=== PATIENT | female | born 1940 | race Caucasian/White ===

== ENCOUNTER 2018-08-08 09:54 | Day surgery (SDC) | payer MEDICARE, BC, SELFPAY ==
--- NOTE | 2018-08-07 20:02 | W.PIPPEYE ---
History of Present Illness Chief Complaint: Progressive decreased vision, right eye Narrative: Patient is a 77-year-old lady with history of diminished visual acuity in both eyes at both distance and near. She has significant difficulty with glare from headlights at night and trouble with reading fine print. On examination she was noted to have moderate bilateral nuclear cataracts with posterior subcapsular cataract of the right eye and cortical cataract of the left eye. The option of cataract surgery was offered to the patient and she felt she was symptomatic enough that she wished to proceed. NOTE: The Chief Complaint, HPI, Past Medical History, Past Surgical History, Family History, Social History, Medications, and complete Ophthalmic Exam with detailed Assessment and Plan have already been documented in the patient's outpatient ophthalmic record and are not covered again in detail here. [facility] Social History Smoking and Tabacco status: Never Meds Allergies Allergy/AdvReac Type Severity Reaction Status Date / Time No Known Allergies Allergy Unverified 08/03/18 15:38 Exam OCULAR EXAM:: Most recent ocular examination revealed best corrected vision of 20/30 OD 20/25 OS. Intraocular pressure was 14 OU. Extraocular motility is normal. Pupils equal, round, and reactive without afferent pupillary defect slit-lamp examination is significant for pupils dilating to 6 mm OU. 2-3+ nuclear with trace posterior subcapsular cataract OD. 2+ nuclear with trace cortical cataract OS. Funduscopic examination is significant for disc cupping of 0.5-0.6 OU with good color. The optic nerves have good perfusion and normal color. The retinal vasculature is normal without significant tortuosity or abnormality. The maculas are normal in appearance with normal contour and foveal reflex appropriate for age. The peripheral retina and vitreous are normal. BRIGHTNESS ACUITY TESTING (BAT):: Brightness acuity testing of the right eye off is 20/30. Low is 20/60. Medium is 20/50. High is 20/80. Assessment and Plan (1) Posterior subcapsular age-related cataract, right eye: Current visit: No Status: Acute Assessment: Visually significant cataract, right eye. Plan: Cataract extraction with intraocular lens implantation, right eye (2) Nuclear sclerotic cataract of right eye: Current visit: No Status: Acute Assessment: Visually significant cataract, right eye. Plan: Cataract extraction with intraocular lens implantation, right eye Note: NOTE:: The details of the planned surgery, including the risks, indications,limitations,expectations,outcome and possible complications were explained to the patient. The patient understands the complications including, but not limited to: infection, hemorrhage, posterior dislocation of the lens or nuclear fragments which may require the intervention of a vitreoretinal surgeon, possible loss of the eye, or from anesthetic complications. The patient has been made aware of the option of not having surgery, that vision following surgery may not be equal to that prior to surgery, and that the planned surgery may not achieve the intended results. Following this discussion, which the patient appeared to understand, the patient wishes to proceed with cataract surgery with lens implantation of the affected eye to improve and maximize vision.
--- NOTE | 2018-08-07 20:16 | W.PIPPEYE ---
History of Present Illness Chief Complaint: Progressive decreased vision, right eye Narrative: The patient is a 82-year old male with history of progressive decreased vision in both eyes at both distance and near. He has a history of macular degeneration with exudative changes. He has previously undergone a Avastin injections in the left eye and has poor central visual acuity in the left eye. He is noted to have a moderate nuclear cataract with posterior subcapsular cataract of the right eye. Cataract surgery is undertaken and attempt to improve and maximize his vision in his good eye. NOTE: The Chief Complaint, HPI, Past Medical History, Past Surgical History, Family History, Social History, Medications, and complete Ophthalmic Exam with detailed Assessment and Plan have already been documented in the patient's outpatient ophthalmic record and are not covered again in detail here. [facility] Medical History Macular scar of left eye (Chronic) Nuclear sclerotic cataract of right eye (Acute) Posterior subcapsular age-related cataract, right eye (Acute) Social History Smoking and Tabacco status: Never Meds Allergies Allergy/AdvReac Type Severity Reaction Status Date / Time No Known Allergies Allergy Unverified 08/03/18 15:38 Exam OCULAR EXAM:: Most recent ocular examination is significant for best corrected vision of 20/30 right eye, 2/80 left eye. Intraocular pressure is 13 OD, 11 OS. Extraocular motility is normal. Pupils equal, round, and reactive without afferent pupillary defect slit-lamp examination is significant for pupils dilating to 4 mm OU. 2+ nuclear with 1+ posterior subcapsular cataract OU. Funduscopic examination is significant for disc cupping of 0.3 OU with normal vessels. There are drusen in the right macula. In the left macula there is central fibrotic scar with otherwise normal retinal vasculature vitreous and periphery. BRIGHTNESS ACUITY TESTING (BAT):: Brightness acuity testing of the right eye off is 20/30. Low is 20/30. Medium is 20/30. High is 20/40. Assessment and Plan (1) Posterior subcapsular age-related cataract, right eye: Current visit: No Status: Acute Assessment: Visually significant cataract, right eye. Plan: Cataract extraction with intraocular lens implantation, right eye (2) Nuclear sclerotic cataract of right eye: Current visit: No Status: Acute Assessment: Visually significant cataract, right eye. Plan: Cataract extraction with intraocular lens implantation, right eye Note: NOTE:: The details of the planned surgery, including the risks, indications,limitations,expectations,outcome and possible complications were explained to the patient. The patient understands the complications including, but not limited to: infection, hemorrhage, posterior dislocation of the lens or nuclear fragments which may require the intervention of a vitreoretinal surgeon, possible loss of the eye, or from anesthetic complications. The patient has been made aware of the option of not having surgery, that vision following surgery may not be equal to that prior to surgery, and that the planned surgery may not achieve the intended results. Following this discussion, which the patient appeared to understand, the patient wishes to proceed with cataract surgery with lens implantation of the affected eye to improve and maximize vision.
[2018-08-08] MEDS: Tetracaine 0.5% 4 ML BTL OD ×4 (10:13→11:26)
[2018-08-08] MEDS: Tropicam./Phenyleph. (1/2.5%) 5 ML BTL OD ×3 (10:13→10:32)
[2018-08-08 10:14] VITALS: BP 148/86; PULSE 81; RESP 16; TEMP 36; O2SAT 95
[2018-08-08] MEDS: Lidocaine 2% Jelly 6 ML SYR (11:26)
[2018-08-08] MEDS: Povidone-Iodine Ophth 30 ML BTL ×2 (11:26→11:47)
[2018-08-08] MEDS: Lidocaine 1% Pres-Free 5 ML VIAL (11:28)
[2018-08-08] MEDS: Balanced Salt Soln.-PLUS 500 ML BAG (11:29)
--- NOTE | 2018-08-08 11:56 | W.PM.DSUDISC ---
Discharge Plan Disposition Patient Disposition: HOME Condition: Stable Discharge Details Attending Provider: Zack Foster Primary Care Provider: Brad Jose Discharge Instructions Stand Alone Forms: Post-op Topical Cataract, Bhavani Gallego (DSU) Discharge Orders Discharge Orders: Discharge Order (Routine); Ordered 08/08/18 Ordered By: Zack Foster DS: Diagnosis Discharge Diagnosis (1) Status post cataract extraction and insertion of intraocular lens of right eye: Status: Chronic
--- NOTE | 2018-08-08 11:58 | ROE_ITS ---
Date of service: 08/08/18 Time of Service: 11:57 Operative Note PRE-OP DIAGNOSIS: Cataract, right eye PROCEDURE: Cataract extraction using phacoemulsification with intraocular lens implant, right eye SURGEON: Zack Foster ANESTHESIA: MAC and local (sub-tenon's anesthetic infiltration) ESTIMATED BLOOD LOSS: 0 PATHOLOGY: none sent COMPLICATIONS: None Patient was transported to: same day Patient's condition: stable Implants: [employer] / [employer] Tecnis [id number] intraocular lens Indications: Progressive decreased vision due to cataract, right eye Procedure Description: CATARACT SURGERY OPERATIVE REPORT PREOPERATIVE DIAGNOSIS: Nuclear/posterior subcapsular cataract, right eye POSTOPERATIVE DIAGNOSIS: Same OPERATION: Cataract extraction using phacoemulsification with posterior chamber intraocular lens implant, right eye. IOL: IOL [employer]/Model: [employer] / EDWIN Tecnis ZCB00 IOL Power: + 18.50 diopters IOL Serial Number: [id number] Optic Diameter: 6.0mm Haptic/Overall Diameter: 13.0mm PHACO INFO: Issac Adaptive Computingurion Vision System with OZil and Active Fluidics Cumulative Dispersed Energy (CDE): 15.60 seconds SURGEON: Zack Foster MD, MARIANO ANESTHESIA: Monitored Anesthesia Care (MAC), with local sub-tenon's anesthetic infiltration COMPLICATIONS: None SPECIMENS: None INDICATIONS FOR PROCEDURE: The patient is a 77-year-old lady with history of macular scar of the left eye with poor central visual acuity. She has developed a significant nuclear and posterior subcapsular cataract of the right eye and desires cataract surgery and attempt to improve and maximize her vision PROCEDURE: The correct surgical eye was identified and marked as the right eye and the pupil was dilated in the preoperative area using mydriatics and cycloplegics. The dilated pupil size was 7.0 mm. Oral sedation was administered in the form of an Imprimis MKO Melt (midazolam 3mg/ketamine 25mg/ondansetron 2mg). The patient was brought to the operating room where cardiopulmonary monitoring was instituted and surgical time-out was performed, confirming the correct operative eye and IOL power. Topical anesthesia was administered and ophthalmic povidone-iodine 5% was instilled into the conjunctival fornices. Lidocaine gel was applied to the cornea and the kaye-ocular area was prepped with Betadine 10% solution and draped in the usual sterile fashion for intraocular surgery, including an aperture drape. A Tegaderm transparent film dressing was cut in half and used to cover the lashes and lid margins. Care was taken to sequester the lashes and lid margins under the Tegaderm dressing. A lid speculum was placed between the lids of the operative eye and the Cisco-Kiara operating microscope was maneuvered into position. Felicitas scissors were then used to make a conjunctival buttonhole approximately 6mm posterior to the limbus in the inferonasal quadrant. Blunt dissection was carried out to expose bare sclera, and a blunt-tipped sub-tenon?s anesthesia cannula was introduced and passed posteriorly along the globe where non- preserved plain lidocaine was injected into posterior sub-Tenon?s space. A sideport knife was used to make a paracentesis port inferiortemporally, and the anterior chamber was filled with Healon GV. A 2.4mm keratome knife was used to create a half-thickness groove at the limbus and then to construct a three-plane near-clear corneal tunnel extending 2.0mm into clear cornea in the superiortemporal position. . A flap was raised on the anterior capsule and capsulorhexis forceps were used to complete a continuous curvilinear capsulorhexis of 5.0 mm. Balanced salt solution was then used to perform cortical cleaving hydrodisse ction and nuclear hydrodelineation until the lens could be freely rotated within the capsular bag. The lens nucleus was then disassembled and removed within the capsular bag and iris plane using phacoemulsification. Residual cortical material was removed using the I/A handpiece. The posterior capsule was carefully polished to remove as much residual lens epithelial cells as safely possible. The capsular bag was then inflated and the anterior chamber deepened with viscoelastic. The lens implant described above was inserted into the capsular bag using the EDWIN Harrington Injector. A Kuglen hook was used to dial the IOL into position. Residual viscoelastic was then removed first from posterior to the IOL, then from the anterior chamber using the I/A handpiece. The lens implant was noted t o center nicely within the capsular bag. The incisions were stromally hydrated, and the anterior chamber was reformed using BSS. Then 0.4cc of moxifloxacin 1.5mg/ml were injected into the capsular bag and anterior chamber. The incisions were checked with a Weck spear and found to be secure. Several drops of ophthalmic povidone-iodine 5% were then applied to the eye followed by two drops of Imprimis combination moxifloxacin/dexamethasone solution. The drapes were removed and a clear plastic protective eye shield was placed over the eye. The patient was then returned to [facility] Day Surgery in stable condition.
[2018-08-08 12:22] VITALS: BP 123/80; PULSE 78; RESP 16; TEMP 36.4; O2SAT 98
== END 2018-08-08 12:40 | disposition home or self-care (01) ==
PROVIDERS: Visit Provider Ophthalmology
PROC: (CPT 66984; principal; 2018-08-08 13:45)
DX: H25.811 Combined forms of age-related cataract, right eye (principal); K21.9 Gastro-esophageal reflux disease without esophagitis
CPT/HCPCS: 66984; V2632

== ENCOUNTER 2019-12-22 14:17 | Outpatient (REF) | payer MEDICARE, BC, SELFPAY | END 2019-12-22 14:37 | LOC: NCHCN 14:17 | PROVIDERS: PCP Internal Medicine Geriatric Medicine; Visit Provider Family Medicine | DX: R30.0 Dysuria (principal) | CPT/HCPCS: 87086 ==

== ENCOUNTER 2020-02-19 19:11 | Outpatient (REF) | payer MEDICARE, BC, SELFPAY | END 2020-02-19 19:31 | LOC: NCHCN 19:11 | PROVIDERS: PCP Internal Medicine Geriatric Medicine; Visit Provider Family Medicine | DX: R30.0 Dysuria (principal) | CPT/HCPCS: 87077; 87086; 87186 ==

== ENCOUNTER 2020-03-06 12:25 | Outpatient (REF) | payer MEDICARE, BC, SELFPAY | END 2020-03-06 12:45 | LOC: NCHCN 12:25 | PROVIDERS: PCP Internal Medicine Geriatric Medicine; Visit Provider Family Medicine | DX: R30.0 Dysuria (principal) | CPT/HCPCS: 87077; 87086; 87186 ==

== ENCOUNTER 2020-03-26 13:38 | Outpatient (REF) | payer MEDICARE, BC, SELFPAY ==
[2020-03-26 21:15] LABS: Bilirubin Negative (Negative); Blood Moderate (Negative); Clarity Cloudy (Clear); Glucose Negative (Negative); Ketones Negative (Negative); Leukocyte Esterase Large (Negative); Nitrite Positive (Negative); Specific Gravity 1.015 (1.005-1.025); Urobilinogen 0.2 EU/dL (Up TO 0.2); pH 6.5 (5-8)
[2020-03-26 21:28] LABS: Bacteria Many HPF (Negative); C & S Indicated? Yes; Casts Negative LPF (Negative); Crystals Negative HPF (Negative); Epithelial Cells Few HPF (Negative); Mucus Negative (Negative); WBC >50 HPF (0-5)
== END 2020-03-26 13:58 ==
LOC: NCHCN 13:38
PROVIDERS: PCP Internal Medicine Geriatric Medicine; Visit Provider Family Medicine
DX: R30.0 Dysuria (principal)
CPT/HCPCS: 87077; 81003; 81015; 87086; 87186

== ENCOUNTER → 2020-04-30 12:43 | Outpatient (BNVA) | payer MEDICARE, BC, SELFPAY | PROVIDERS: PCP Internal Medicine Geriatric Medicine; Referring Provider Internal Medicine Geriatric Medicine; Visit Provider Nurse Practitioner Gerontology | DX: K59.00 Constipation, unspecified (principal); N39.0 Urinary tract infection, site not specified | CPT/HCPCS: 99215 ==

== ENCOUNTER → 2020-07-01 11:24 | Outpatient (BNVA) | payer MEDICARE, BC, SELFPAY | PROVIDERS: PCP Internal Medicine Geriatric Medicine; Referring Provider Internal Medicine Geriatric Medicine; Visit Provider Nurse Practitioner Gerontology | DX: N39.0 Urinary tract infection, site not specified (principal); Z79.899 Other long term (current) drug therapy | CPT/HCPCS: 99213 ==

== ENCOUNTER 2020-07-04 09:00 | Outpatient (REF) | payer MEDICARE, BC, SELFPAY ==
[2020-07-04 13:02] LABS: HCT 44.1 % (36.0-46.0); MCH 30.1 pg (27.0-33.0); MCHC 31.7 % (32.0-36.0); MCV 94.8 fL (80-95); MPV 10.2 fL (8.0-11.0); Platelet Count 201 10^3/uL (130-400); RBC 4.65 10^6/uL (3.93-5.22); RDW 12.8 % (11.7-14.6); RDW-SD 44.6 fL; WBC 3.74 10^3/uL (4.4-10.8)
[2020-07-04 13:22] LABS: ALT 32 U/L (14-59); AST 22 U/L (15-37); Albumin 3.6 g/dL (3.4-5.0); Alkaline Phosphatase 79 U/L (46-116); Anion Gap 4.9 mmol/L (3-11); BUN 25 mg/dL (7-18); Bilirubin, Total 1.3 mg/dL (0.2-1.0); CO2 32.1 mmol/L (21.0-32.0); CREATININE 0.8 mg/dL (0.55-1.02); Calcium 8.9 mg/dL (8.5-10.1); Calculated LDL 130 mg/dL (<100); Chloride 105 mmol/L (98-107); Cholesterol 212 mg/dL (<200); Glucose 81 mg/dL (74-106); HDL Cholesterol 66 mg/dL (40-60); Potassium 4.3 mmol/L (3.5-5.1); Sodium 142 mmol/L (136-145); Total Protein 6.9 g/dL (6.4-8.2); Triglyceride 81 mg/dL (<150)
== END 2020-07-04 09:20 ==
LOC: NCHCN 09:00
PROVIDERS: PCP Internal Medicine Geriatric Medicine; Visit Provider Family Medicine
DX: Z00.00 Encounter for general adult medical examination without abnormal findings (principal)
CPT/HCPCS: 80053; 80061; 85027

== ENCOUNTER → 2020-10-03 10:20 | Outpatient (BNVA) | payer MEDICARE, BC, SELFPAY | PROVIDERS: PCP Internal Medicine Geriatric Medicine; Referring Provider Internal Medicine Geriatric Medicine; Visit Provider Nurse Practitioner Gerontology | DX: N39.0 Urinary tract infection, site not specified (principal) | CPT/HCPCS: 99214 ==

== ENCOUNTER → 2021-01-02 14:42 | Outpatient (BNVA) | payer MEDICARE, BC, SELFPAY | PROVIDERS: PCP Internal Medicine Geriatric Medicine; Referring Provider Internal Medicine Geriatric Medicine; Visit Provider Nurse Practitioner Gerontology | DX: N39.0 Urinary tract infection, site not specified (principal) | CPT/HCPCS: 99214 ==

== ENCOUNTER → 2021-07-03 14:09 | Outpatient (BNVA) | payer MEDICARE, SELFPAY | PROVIDERS: PCP Internal Medicine Geriatric Medicine; Referring Provider Internal Medicine Geriatric Medicine; Visit Provider Nurse Practitioner Gerontology | DX: N39.0 Urinary tract infection, site not specified (principal) | CPT/HCPCS: 99214 ==

== ENCOUNTER 2021-08-30 07:42 | Emergency (ER) | payer MEDICARE, SELFPAY ==
[2021-08-30 07:47] VITALS: BP 127/68; PULSE 71; RESP 18; TEMP 36.6; O2SAT 93
--- NOTE | 2021-08-30 08:15 | DI.CT_ITS ---
Exam(s) CT ABDOMEN PELVIS W EXAM: CT ABDOMEN PELVIS W CLINICAL HISTORY: abd pain. TECHNIQUE: Imaging Protocol: Axial computed tomography images with coronal and sagittal reformatted images were created and reviewed CONTRAST MATERIAL: Intravenous: Omnipaque 350 Contrast volume:100 ml Oral: / no COMPARISON: CR ABD FLAT UPRIGHT PA CHEST from 02/08/2013 FINDINGS: ABDOMEN: Lung Bases: Mild bibasilar atelectasis. The heart is enlarged. Liver: Mild fatty infiltration. No measurable mass. Gallbladder and biliary tract: No radiodense calculus or dilation. Pancreas: Normal density, no abnormal calcifications or inflammatory process. Spleen: Normal. Kidneys: Normal size, contour and axis. Moderate right hydronephrosis secondary to 3 millimeter stone at the right ureterovesical junction. Mild right perinephric stranding. Mild delay of right nephro gram. Bilateral tiny nonobstructing stones and tiny cysts. Left collecting system not dilated. No masses seen. Adrenal glands: No masses seen. Abdominal Aorta: Abdominal portion non-dilated. PELVIS: Bladder: No gross wall thickening. No calculi.No focal mass. Bowel: No obstruction or bowel wall thickening. Appendix normal. Peritoneal cavity: No ascites, collection or mesenteric inflammatory response. Bones: Degenerative changes and scoliosis. Reproductive organs: Small calcified fibroids. Lymph nodes: Unremarkable. Impression: Moderate right hydronephrosis secondary to 3 millimeter stone at the ureteral vesicle junction. Javy tional nonobstructing stones. Mild right perinephric stranding. RADIATION DOSE DELIVERED: 1,244.18mGy.cm Total DLP DATA REPOSITORY: All CT scans at this facility are submitted to the National Radiology Data Registry (NRDR) Dose Index Registry (DIR) with the [employer] (ACR). RADIATION OPTIMIZATION: All CT scans at this facility use at least one of these dose optimization te chniques: automated exposure control; mA and/or kV adjustment per patient size (includes targeted exa ms where dose is matched to clinical indication); or iterative reconstruction.
[2021-08-30 08:31] LABS: Abs Immature Grans 0.02 10^3/uL (0.0-0.06); Absolute Basophil Count 0.07 10^3/uL (0.0-0.2); Absolute Eosinophil Count 0.05 10^3/uL (0.0-0.7); Absolute Monocyte Count 0.29 10^3/uL (0.1-0.8); Absolute Neutrophil Count 4.47 10^3/uL (1.2-6.7); Basophils % 1.3; Eosinophils % 0.9; HCT 45.2 % (36.0-46.0); HGB 14.2 g/dL (11.2-15.7); Immature Grans % 0.4; Lymphocytes % 10.9; MCH 30.1 pg (27.0-33.0); MCHC 31.4 % (32.0-36.0); MCV 95.8 fL (80-95); Monocytes % 5.3; Neutrophils % 81.2; Nucleated RBC 0 %; Platelet Count 185 10^3/uL (130-400); RBC 4.72 10^6/uL (3.93-5.22); RDW 12.2 % (11.7-14.6)
--- NOTE | 2021-08-30 08:31 | ED.GENADUL_ITS ---
Discharge Plan Disposition Patient Disposition: HOME Condition: Stable Discharge Details Clinical Impression: Ureteral stone with hydronephrosis Primary Care Provider: Brad Jose ED Provider: Karel Sorenson Home Meds and New Rx's Prescriptions: New tamsulosin [Flomax] 0.4 mg capsule 0.4 mg PO QHS Qty: 14 0RF Continued mometasone 0.1 % cream 1 applic topical DAILY 0RF hydrocortisone [Cortisone (hydrocortisone)] 1 % cream 1 applic topical BID PRN0RF estradiol 0.01 % (0.1 mg/gram) cream 1 g vaginal DIRECTED Qty: 60 3RF Rx Instructions: PRN - Do NOT fill until patient requests Discharge Instructions Instructions: Kidney Stones (ED) Additional Instructions: You may continue to use [id number] acetaminophen and ibuprofen as discussed. If you develop any fever, severe nausea or vomiting, worsening abdominal pain, or have further concerns feel free to return to the emergency department for reassessment. Otherwise it is important that you follow-up with urology for reevaluation and further treatment as needed. Referrals: Ryne Martínez MD [ [facility] STAFF PHYSICIAN] - 1 week (Follow-up within 1 week or as directed by their office.) Discharge Data Discharge Date/Time-TO BE ENTERED AT DEPARTURE: 08/30/21 11:25 Medical Decision Making Patient presenting to the emergency department with chief complaint of abdominal discomfort. She states that yesterday evening she began having some discomfort and bloating. She woke up in the middle of the night with worsening pain. Patient denies fever chills, reports nausea but no vomiting, denies urinary symptoms respiratory or cardiac symptoms. Patient reports more lower abdominal discomfort with slightly increased on the right side compared to the left side. Physical exam shows an acutely ill patient that appears to be in moderate discomfort holding lower abdomen. Abdomen is soft with some diffuse guarding and slightly more appreciated pain response noted with palpation of the lower abdomen comparatively. Plan to check labs, give fluids, analgesia and antiemetics along with CT imaging. Review of CBC is unremarkable, CMP shows only slight elevation of BUN glucose and total bili otherwise normal lipase. Moderate amount of blood in urine with RBCs negative leukocyte esterase negative nitrate no WBCs. Reflex culture was ordered but patient denies any urinary symptoms so doubt UTI at this time. Reviewed CT imaging and radiologist report. Patient does have significant right hydronephrosis with dilation of the right ureter. Radiologist also noted inflammation change around the head of the pancreas and inflammation of duodenum. Patient has not point tender in this area and with normal lipase I do not feel that these are emergent findings. With further review of the imaging and speaking with radiologist there was found a 4.9 mm stone just adjacent to the bladder. Patient reassessed and states improvement of symptoms. Patient was given a little bit of Toradol and placed upon Flomax. Patient to follow-up with urology for reassessment but at this time I do not feel that patient has infected stone or other emergent findings. Thoroughly discussed with patient return and follow-up precautions. After discussion of diagnosis and plan of care patient has no further needs, questions, or concerns and states clear understanding to return to the emergency department for any worsening symptoms. HPI General Mode of arrival: ambulatory . Date/Time Provider Initiated Documentation: 08/30/21 08:07 . Limitations to Documentation: no limitations . Information obtained by: patient . History of Present Illness 80 year old F presents to the emergency department with the chief complaint of Abdominal pain and bloating, described as moderate, with intensity rated at 4. Quality is described as dull and constant, Patient abdomen. Patient started experiencing this hour(s) (10) and it has been constant. improves with No relieving factors improve symptom(s), No exacerbating factors reported . Patient notes loss of appetite. Patient did receive the following treatments prior to arrival, none Related Data Home Medications Medication Instructions Recorded Confirmed hydrocortisone 1 % topical cream 1 applic TOPICAL BID PRN 04/30/20 08/30/21 (Cortisone (hydrocortisone)) mometasone 0.1 % topical cream 1 applic TOPICAL DAILY 04/30/20 08/30/21 estradiol 1 g VAGINAL DIRECTED #60 g 07/03/21 08/30/21 tamsulosin 0.4 mg capsule (Flomax) 0.4 mg PO QHS #14 cap 08/30/21 Previous Rx's Medication Instructions Recorded estradiol 1 g VAGINAL DIRECTED #60 g 07/03/21 tamsulosin 0.4 mg capsule (Flomax) 0.4 mg PO QHS #14 cap 08/30/21 Allergies Allergy/AdvReac Type Severity Reaction Status Date / Time No Known Allergies Allergy Verified 08/30/21 07:51 General Stated Complaint: Abd Prob REMEDIOS: 3 Review of Systems Constitutional Constitutional: Denies chills, Denies fever(s), Denies headache(s) and Reports malaise ENT Ears, Nose, Mouth, and Throat: Denies headache(s) Cardiovascular Cardiovascular: Denies chest pain and Denies dyspnea Respiratory Respiratory: Denies cough and Denies dyspnea Gastrointestinal Gastrointestinal: Reports as per HPI, Reports abdominal pain, Denies melena, Reports bloating, Denies change in bowel habits, Denies constipation, Denies diarrhea, Reports nausea and Denies vomiting Genitourinary Genitourinary: Denies hematuria, Denies urinary incontinence, Denies urinary hesitancy and Denies urinary urgency Integumentary/Breasts Skin/Breast: Denies rash Neurologic Neurologic: Denies headache(s) PFSH All Active Problems (Updated 08/30/21 @ 10:50 by Karel Sorenson NP) Ureteral stone with hydronephrosis (Acute) Recurrent UTI (Acute) Status post cataract extraction and insertion of intraocular lens of right eye (Chronic 08/08/18) Macular scar of left eye (Chronic) Medical History Constipation Dysuria Nuclear sclerotic cataract of right eye Posterior subcapsular age-related cataract, right eye Sore throat Swelling of left parotid gland Social History Smoking/Tobacco Use Status: Never Smoking risk assessment performed?: Yes Alcohol Intake: current Alcohol Intake frequency: holidays/special occasions only Drug use: Never Substance use type: does not use Do you feel safe at home: Yes Do you feel safe in your relationship?: Yes Exam Const General: cooperative and ill appearing acutely Orientation: alert, awake and oriented x3 Resp Effort & Inspection: normal respiratory effort and able to speak in complete sentences Auscultation: clear to auscultation bilaterally Cardio Rate: regular rate Rhythm: regular rhythm Heart Sounds: S1 normal and S2 normal GI Palpation: soft, no hepatosplenomegaly, not firm, no guarding, no masses, no pulsatile masses, not rigid, no splenomegaly and tender in the LLQ and in the RLQ Auscultation: hypoactive bowel sounds Back/Spine/Pelvis Back: no CVA tenderness Neuro General: patient alert, patient awake, patient oriented x3 and moves all extremities Course Vital Signs Vital signs: Vital Signs Temperature 36.6 C 08/30/21 07:47 Pulse 71 08/30/21 07:47 Respiratory Rate 18 08/30/21 07:47 Blood Pressure 127/68 08/30/21 07:47 Pulse Oximetry 93 08/30/21 07:47 Temperature 36.6 C 08/30/21 07:47 Temperature Source Temporal Artery Scan 08/30/21 07:47 Pulse 71 08/30/21 07:47 Respiratory Rate 18 08/30/21 07:47 Respiratory Effort Non-Labored 08/30/21 07:53 Blood Pressure 127/68 08/30/21 07:47 Blood Pressure Position Sitting 08/30/21 07:47 Pulse Oximetry 93 08/30/21 07:47 Oxygen Delivery Method Room Air 08/30/21 07:47 Oxygen Flow Rate 0 08/30/21 07:47
[2021-08-30] MEDS: Normal Saline 250 ML IV (08:41)
[2021-08-30] MEDS: Ondansetron 4 MG/2 ML VIAL IVP (08:41)
[2021-08-30 08:47] LABS: ALT 31 U/L (14-59); AST 21 U/L (15-37); Albumin 3.7 g/dL (3.4-5.0); Alkaline Phosphatase 78 U/L (46-116); Anion Gap 5.2 mmol/L (3-11); BUN 24 mg/dL (7-18); Bilirubin, Total 1.1 mg/dL (0.2-1.0); CO2 29.8 mmol/L (21.0-32.0); CREATININE 0.8 mg/dL (0.55-1.02); Calcium 8.8 mg/dL (8.5-10.1); Chloride 106 mmol/L (98-107); Glucose 150 mg/dL (74-106); Lipase 63 U/L (73-393); Potassium 3.6 mmol/L (3.5-5.1); Sodium 141 mmol/L (136-145); Total Protein 7.3 g/dL (6.4-8.2)
[2021-08-30 09:05] VITALS: BP 146/81; PULSE 74; TEMP 36.7; O2SAT 90
[2021-08-30] MEDS: Omnipaque 350 MG/ML 100 ML BTL IJ (09:22)
[2021-08-30 09:49] LABS: Bilirubin Negative (Negative); Blood Moderate (Negative); Clarity Sl Cloudy (Clear); Glucose Negative (Negative); Ketones Negative (Negative); Leukocyte Esterase Negative (Negative); Nitrite Negative (Negative); Urobilinogen 0.2 EU/dL (Up TO 0.2)
[2021-08-30 09:55] LABS: Bacteria Many HPF (Negative); C & S Indicated? Yes; Casts Negative LPF (Negative); Crystals Negative HPF (Negative); Epithelial Cells Rare HPF (Negative); Mucus Negative (Negative); RBC 20-50 HPF (0-2); WBC 0-2 HPF (0-5)
--- NOTE | 2021-08-30 10:01 | DI.VRAD_ITS ---
Addendum created by Reese Flannery MD on 08/30/2021 10:41:14 AM EDT: Correction: There is a 4.9 mm distal right ureteral calculus adjacent to the bladder. Series 5, image 746. Initial report created on 08/30/2021 10:00:51 AM EDT: PROCEDURE INFORMATION: Exam: CT Abdomen And Pelvis With Contrast Exam date and time: 08/30/2021 9:07 AM Age: 80 years old Clinical indication: Abdominal pain; Generalized TECHNIQUE: Imaging protocol: Computed tomography of the abdomen and pelvis with contrast. Radiation optimization: All CT scans at this facility use at least one of these dose optimization techniques: automated exposure control; mA and/or kV adjustment per patient size (includes targeted exams where dose is matched to clinical indication); or iterative reconstruction. Contrast material: OMNIPAQUE 350; Contrast volume: 100 ml; Contrast route: INTRAVENOUS (IV); COMPARISON: No relevant prior studies available. FINDINGS: Lungs: Bibasilar atelectasis Heart: Cardiomegaly Liver: Normal. No mass. Gallbladder and bile ducts: Normal. No calcified stones. No ductal dilation. Pancreas: Inflammatory changes around the head of the pancreas consistent with pancreatitis. There may be secondary inflammation of the duodenum. Spleen: Normal. No splenomegaly. Adrenal glands: Normal. No mass. Kidneys and ureters: Moderate right hydronephrosis. Dilatation of the right ureter. However no ureteral calculus.. Nonobstructing renal calculi bilaterally Stomach and bowel: Diverticulosis of the rectosigmoid. No diverticulitis Appendix: Normal appendix. Intraperitoneal space: Unremarkable. No free air. No significant fluid collection. Vasculature: Unremarkable. No abdominal aortic aneurysm. Lymph nodes: Unremarkable. No enlarged lymph nodes. Urinary bladder: Unremarkable as visualized. Reproductive: Calcifications in the uterus may represent calcified fibroids Bones/joints: Levoscoliosis of the thoracolumbar junction. Hemangioma in T10 Soft tissues: Unremarkable. IMPRESSION: 1. Inflammatory changes around the head of the pancreas consistent with pancreatitis. There may be secondary inflammation of the duodenum. 2. Moderate right hydronephrosis. Dilatation of the right ureter. However no ureteral calculus.. Recommend urology consult Dictated and Authenticated by: Reese Flannery MD. Ordering:VENUS Vinson MD
[2021-08-30 10:27] VITALS: BP 142/81; PULSE 73; TEMP 36.3; O2SAT 93
--- NOTE | 2021-08-30 10:55 | NUR.NOTE ---
Frances Sorenson requesting consultation with Urologist regarding Right calcification with obstruction, Patient has been placed on Flomax, requesting evaluation this week or discretion of Urologist.CLB
[2021-08-30] MEDS: Ketorolac 15 MG/ML VIAL IVP (11:10)
[2021-08-30] MEDS: Normal Saline Flush 10 ML SYR IVP (11:10)
[2021-08-30 11:20] VITALS: BP 142/81; PULSE 73; RESP 14; TEMP 36.3; O2SAT 93
--- NOTE | 2021-08-30 20:32 | NUR.NOTE ---
Referral faxed to Urology Dr. Martínez.Nursing Note:
== END 2021-08-30 11:25 | disposition home or self-care (01) ==
PROVIDERS: Emergency Provider Nurse Practitioner Family; PCP Internal Medicine Geriatric Medicine
DX: N13.2 Hydronephrosis with renal and ureteral calculous obstruction (principal)
CPT/HCPCS: 36415; 80053; 83690; 96361; 96365; 96366; 96375; 99284; 74177; 81003; 81015; 83735; 85025; 87086; J0131; J1885; J2405; J3490

== ENCOUNTER → 2021-10-02 09:19 | Outpatient (BNVA) | payer MEDICARE, SELFPAY | PROVIDERS: PCP Internal Medicine Geriatric Medicine; Referring Provider Internal Medicine Geriatric Medicine; Visit Provider Nurse Practitioner Gerontology | DX: N39.0 Urinary tract infection, site not specified (principal); N20.0 Calculus of kidney; K63.5 Polyp of colon | CPT/HCPCS: 99214 ==

== ENCOUNTER 2021-10-06 00:42 | Outpatient (CLI) | payer MEDICARE, SELFPAY ==
--- NOTE | 2021-10-06 08:00 | DI.US_ITS ---
Exam(s) US RENAL EXAM: US RENAL CLINICAL HISTORY: monitoring hydro, d/t recent renal stone,N13.50. TECHNIQUE: Wheat scale, color and spectral Doppler were used. COMPARISON: CT CT ABDOMEN PELVIS W from 08/30/2021 FINDINGS: Renal size in cm: Right: 11.7 left: 11.4 Echogenicity: Normal Hydronephrosis: Mild prominence right renal pelvis. Cyst or mass: Small parapelvic cysts left kidney. Nephrolithiasis: 4 millimeter stone mid left kidney. 4 millimeter stone lower pole left kidney. No right renal calculi. Bladder:Normal . Both ureteral jets were visualized. Prevoid vol:368 Postvoid vol:215 IMPRESSION: Large postvoid residual bladder volume. Nonobstructing stones left kidney. Mild prominence right renal pelvis. DATA REPOSITORY:
== END 2021-10-06 01:02 ==
PROVIDERS: PCP Internal Medicine Geriatric Medicine; Visit Provider Nurse Practitioner Gerontology
DX: N13.30 Unspecified hydronephrosis (principal); N20.0 Calculus of kidney; N28.1 Cyst of kidney, acquired; R39.198 Other difficulties with micturition
CPT/HCPCS: 76770

== ENCOUNTER → 2021-10-07 15:18 | Outpatient (BNVA) | payer MEDICARE, SELFPAY | PROVIDERS: PCP Internal Medicine Geriatric Medicine; Visit Provider Nurse Practitioner Gerontology | DX: N20.0 Calculus of kidney (principal); N39.0 Urinary tract infection, site not specified | CPT/HCPCS: 99214 ==

== ENCOUNTER 2021-10-15 16:47 | Outpatient (REF) | payer MEDICARE, SELFPAY ==
[2021-10-15 22:38] LABS: Calculated LDL 118 mg/dL (<100); Cholesterol 204 mg/dL (<200); HDL Cholesterol 68 mg/dL (40-60); Triglyceride 94 mg/dL (<150)
== END 2021-10-15 16:48 | disposition home or self-care (01) ==
LOC: NCHCN 16:47
PROVIDERS: PCP Family Medicine; Visit Provider Family Medicine
DX: E78.00 Pure hypercholesterolemia, unspecified (principal); Z00.00 Encounter for general adult medical examination without abnormal findings
CPT/HCPCS: 80061

== ENCOUNTER → 2021-10-23 10:02 | Outpatient (BNVA) | payer MEDICARE, SELFPAY | PROVIDERS: PCP Family Medicine; Referring Provider Nurse Practitioner Gerontology; Visit Provider Physical Therapy Assistant | DX: Z86.010 Personal history of colon polyps (principal); Z80.0 Family history of malignant neoplasm of digestive organs; Z12.11 Encounter for screening for malignant neoplasm of colon ==

== ENCOUNTER 2021-12-01 03:18 | Outpatient (CLI) | payer MEDICARE, SELFPAY ==
[2021-12-01 11:34] LABS: Source Nasal/Nares
[2021-12-01 17:50] LABS: COVID-19 PCR Negative (Negative)
== END 2021-12-01 03:19 | disposition home or self-care (01) ==
LOC: LBO 03:18
PROVIDERS: PCP Family Medicine; Visit Provider Surgery
DX: Z20.822 Contact with and (suspected) exposure to COVID-19 (principal); Z01.818 Encounter for other preprocedural examination
CPT/HCPCS: 87635

== ENCOUNTER 2021-12-03 09:07 | Day surgery (SDC) | payer MEDICARE, SELFPAY ==
--- NOTE | 2021-12-03 06:38 | W.ANESPRE ---
General Info Date of Service Date Performed: 12/03/21 Height: 5 ft 8 in Weight: 89.584 kg Body Mass Index (BMI): 30.0 Surgical Procedure: Operation Date: 12/03/21 10:05 Proposed Procedure Side Surgeon p Colonoscopy/Gastroscopy Latonya Rodriguez MD Meds Allergies and Home Medications Allergies Allergy/AdvReac Type Severity Reaction Status Date / Time No Known Allergies Allergy Verified 12/03/21 09:34 Home Medication Medication Instructions Recorded hydrocortisone 1 % topical cream 1 applic topical BID PRN 04/30/20 (Cortisone (hydrocortisone)) mometasone 0.1 % topical cream 1 applic topical DAILY 04/30/20 estradiol 0.01% (0.1 mg/gram) 1 g vaginal DIRECTED #60 grams 07/03/21 vaginal cream bisacodyl 5 mg tablet,delayed 5 mg PO ONCE #4 tabs 10/23/21 release (Dulcolax (bisacodyl)) polyethylene glycol 3350 17 17 g PO ONCE #238 grams 10/23/21 gram/dose oral powder Current Visit Medications: Current Medications Generic Name Dose Route Start Last Admin Trade Name Freq PRN Reason Stop Dose Admin Ringer's Solution 1,000 mls @ 80 mls/hr 12/03/21 06:00 IV 01/01/22 23:59 [facility] IV Miscellaneous Supplies 1 each 12/03/21 06:00 Iv Access IV 01/01/22 23:59 DIRECTED ISMA Sodium Chloride 0 ml 12/03/21 06:00 Normal Saline Flush 10 Ml Syr IV 01/01/22 23:59 PRN PRN Sodium Chloride 0 ml 12/03/21 06:00 Normal Saline 10 Ml Vial IJ 01/01/22 23:59 DIRECTED PRN Sterile Water 0 ml 12/03/21 06:00 Water,Injection,Sterile 10 Ml Vial IJ 01/01/22 23:59 DIRECTED PRN PFSH Active Problems Active Problems: Problem Status Onset Code Change in bowel habits R19.4 Family history of colon cancer Z80.0 Medical History Medical History Acid reflux Calculus of kidney Constipation Dysuria Hx of hiatal hernia Macular scar of left eye Nuclear sclerotic cataract of right eye Posterior subcapsular age-related cataract, right eye Recurrent UTI Sore throat Swelling of left parotid gland Surgical History Surgical History (Updated 12/03/21 @ 09:34 by Sharon Shane RN) History of esophagogastroduodenoscopy (EGD) Hx of breast biopsy Hx of colonoscopy Status post cataract extraction and insertion of intraocular lens of right eye (08/08/18) Tobacco Smoking/Tobacco Use Status: Never Alcohol Alcohol Intake: current Alcohol intake frequency: holidays/special occasions only Substance Use Substance use: Never Substance use type: does not use Vital Signs and Lab Results Vital Signs Most Recent Vital Signs in EMR: Temp Pulse Resp BP Pulse Ox 36.7 C 97 H 20 138/92 H 95 12/03/21 09:18 12/03/21 09:18 12/03/21 09:18 12/03/21 09:18 12/03/21 09:18 Vital Signs Comment Vital Signs Comment:: Temp Pulse Resp BP Pulse Ox 36.7 C 97 H 20 138/92 H 95 12/03/21 09:18 12/03/21 09:18 12/03/21 09:18 12/03/21 09:18 12/03/21 09:18 Lab Results Blood Type / Crossmatch: No Data to Display Complete Blood Count: No Data to Display Complete Metabolic Panel: No Data to Display Liver Function Panel: No Data to Display Coagulation Panel: No Data to Display Cardiac Panel: No Data to Display Arterial Blood Gas: No Data to Display Venous Blood Gas: No Data to Display Pancreas Panel: No Data to Display Thyroid Panel: No Data to Display Infectious Disease: Coronavirus (COVID-19)(PCR) Negative (Negative) 12/01/21 08:24 Coronavirus 2019 Source Nasal/Nares 12/01/21 08:24 Blood Cultures: No Data to Display Toxicology Panel: No Data to Display Anesthesia Assessment and Plan Anesthesia History Personal History: No History of Anesthesia Complications Family History: No Family History of Anesthesia Complications Exercise Tolerance Exercise Tolerance: Metabolic Equivalents>4 Pertinent Negatives Pertinent Negatives: No Symptoms of GERD, No Major Cardiovascular Symptoms or Complaints and No Major Pulmonary Symptoms or Complaints Cardiac & Pulmonary Exam Cardiac Exam: Normal S1/S2 Heart Sounds Pulmonary Exam: Clear Bilateral Breath Sounds Implantable Cardiac Device Does patient have a Pacemaker or an ICD?: No Airway Exam Known Difficult Airway: No Mallampati Class: 2 Mouth Opening: Normal (> 3cm) Thyromental Distance: Greater than 3 cm Neck Range of Motion: Full ROM Neck Circumference: Normal Teeth Condition: Normal Dentition ASA Classification ASA Score: ASA 2 Emergency Case?: No NPO Status NPO Status: NPO Clears >2 hours, Solids >8 hours Anesthesia Plan Resuscitation Status: Full Code Anesthesia Technique: General Anesthesia Airway Planned: Natural Airway Monitors Used: Standard Monitors Preoperative Comments:: 81 yo female for screening colo. Sig PMHx: never smoker,
--- NOTE | 2021-12-03 06:39 | W.PREOPHP ---
Assessment and Plan Assessment and plan (1) Encounter for screening colonoscopy: Status: Acute Assessment and plan: The patient is here for Colonoscopy pre-op.?Her last screening was in 2015, which was normal. Colonoscopy from 2012 was remarkable for tubular adenomatous polyps x 2 and a hyperplastic polyp. She describes a family history of Colon cancer in her paternal uncle at the age of 80, her father at the age of 79 and her Brother at the age of 96. -Discussed colonoscopy bowel prep as well as the procedure. Discussed possible complications of the procedure to include bleeding, pain, perforation, missed small lesion/polyp, sore throat, aspiration and adverse reaction to the medications. Questions were answered to patient?s satisfaction. No guarantees were implied or given.? She has also developed some epigastric pain and bloating since we saw her last in the office. We discussed doing an EGD today. Risks, benefits and complications were reviewed with her. P// Colonoscopy and EGD under sedation. (2) Family history of colon cancer: Status: Acute (3) Epigastric pain: Status: Acute (4) Bloating: Status: Acute History of Present Illness Narrative: 81 y/o female with history of kidney stones presents for colonoscopy screening pre-op. Her last screening was in 2015, which was normal. Colonoscopy from 2012 was remarkable for tubular adenomatous polyps x 2 and a hyperplastic polyp. She describes a family history of Colon cancer in her paternal uncle at the age of 80, her father at the age of 79 and her Brother at the age of 96. Patient reports she has noted fluctuations in her bowels, in that she has constipation for a day followed by diarrhea. She feels that she is not able to completely empty her bowels in a single session and must have 4-5 small, BMs a day. She tried taking metamucil for approximately 1 month, however she stopped this because coffee works better, keeping me regular. She denies constitutional symptoms. Denies use of marijuana or any other recreational or illegal drugs. She denies chest pain, palpitations, dyspnea or dyspnea with exertion. She denies prior history or family history of adverse reactions or complications with anesthesia. The patient denies any history of stroke, WI, seizures, bleeding or clotting disorders. She reports having implanted metal in her left breast. Since being seen in the office in October she has developed Epigastric pain and bloating. No dysphagia. We discussed adding an EGD today. Review of Systems All systems reviewed & are unremarkable except as noted in HPI and below PFSH All Active Problems Change in bowel habits (Acute) Family history of colon cancer (Acute) Epigastric pain (Acute) Bloating (Acute) Encounter for screening colonoscopy (Acute) Medical History Acid reflux Calculus of kidney Constipation Dysuria Hx of hiatal hernia Macular scar of left eye Nuclear sclerotic cataract of right eye Posterior subcapsular age-related cataract, right eye Recurrent UTI Sore throat Swelling of left parotid gland Surgical History (Updated 12/03/21 @ 09:34 by Sharon Shane RN) History of esophagogastroduodenoscopy (EGD) Hx of breast biopsy Hx of colonoscopy Status post cataract extraction and insertion of intraocular lens of right eye (08/08/18) Social History Smoking/Tobacco Use Status: Never Smoking risk assessment performed?: Yes Alcohol Intake: current Alcohol Intake frequency: holidays/special occasions only Drug use: Never Substance use type: does not use Do you feel safe at home: Yes Do you feel safe in your relationship?: Yes Additional Social history: live alone, Dtr lives down the road Meds Allergies and Home Medications Allergies Allergy/AdvReac Type Severity Reaction Status Date / Time No Known Allergies Allergy Verified 12/03/21 09:34 Home Medications Medication Instructions Recorded Confirmed Type hydrocortisone 1 % topical cream 1 applic topical BID PRN 04/30/20 12/03/21 History (Cortisone (hydrocortisone)) mometasone 0.1 % topical cream 1 applic topical DAILY 04/30/20 12/03/21 History estradiol 0.01% (0.1 mg/gram) 1 g vaginal DIRECTED #60 grams 07/03/21 12/03/21 Rx vaginal cream bisacodyl 5 mg tablet,delayed 5 mg PO ONCE #4 tabs 10/23/21 12/03/21 Rx release (Dulcolax (bisacodyl)) polyethylene glycol 3350 17 17 g PO ONCE #238 grams 10/23/21 12/03/21 Rx gram/dose oral powder Exam Const General: comfortable and no acute distress Orientation: alert and oriented x3 [facility] Head: normocephalic and atraumatic Resp Effort & Inspection: normal respiratory effort Auscultation: clear to auscultation bilaterally Cardio Rate: regular rate Rhythm: regular rhythm GI Palpation: soft, no hepatosplenomegaly and nontender
--- NOTE | 2021-12-03 06:45 | ENDO_ITS ---
Date of service: 12/03/21 Time of Service: :59 Endoscopy Report DATE OF PROCEDURE: 12/03/21 PRE-OP DIAGNOSIS: colon cancer screening and epigastric pain POST-OP DIAGNOSIS: other (gastritis, esophagitis, polyps) PROCEDURE: 1. EGD with biopsies 2. Colonoscopy with polypectomy SURGEON: Latonya Rodriguez ANESTHESIA TYPE: General:No Airway ESTIMATED BLOOD LOSS: 3 PATHOLOGY: other (Bx of GE junction and antrum, splenic flexure polyp and rectal polyp) COMPLICATIONS: None DISPOSITION: same day INDICATIONS: The patient is here for Colonoscopy pre-op.?Her last screening was in 2015, which was normal. Colonoscopy from 2012 was remarkable for tubular adenomatous polyps x 2 and a hyperplastic polyp. She describes a family history of Colon cancer in her paternal uncle at the age of 80, her father at the age of 79 and her Brother at the age of 96. -Discussed colonoscopy bowel prep as well as the procedure. Discussed possible complications of the procedure to include bleeding, pain, perforation, missed small lesion/polyp, sore throat, aspiration and adverse reaction to the medications. Questions were answered to patient?s satisfaction. No guarantees were implied or given.? She has also developed some epigastric pain and bloating since we saw her last in the office. We discussed doing an EGD today. Risks, benefits and complications were reviewed with her. . PREP: Miralax/Dulcolax PROCEDURE START TIME: :59 PROCEDURE END TIME: 10:31 COLONOSCOPY RETRACTION TIME: 15 minutes FINDINGS: Inflammation of the stomach and esophagus Evidence of reflux 2 pedunculated polyps PROCEDURE DESCRIPTION: After informed consent was obtained the patient was take to the procedure room and placed in a supine position. Monitors were applied and a time out was done. The patients name, date of , procedure type, allergies to medications and metal in their body was reviewed. A bite block was placed and the patient was sedated. Once sedated and comfortable the gastroscope was advanced through the oropha rynx which was grossly normal into the esophagus. The proximal and mid- esophagus were normal. In the distal esophagus there was evidence of reflux and mild inflammation noted. The scope was advanced into the stomach and through the pylorus into the 3rd portion of the duodenum. The duodenum was noted to be normal. The scope was retracted back into the stomach. There was mild inflammation noted in the antrum and body. Biopsies were done to rule out H. pylori. There were no ulcers. There were multiple benign stomach polyps. The scope was retro-flexed. The cardia and fundus were noted to be normal. There was no hiatal hernia noted. The scope was retracted back into the esophagus and biopsies were done of the GE junction to rule out Moncada's. The Z line was regular. The GE junction was at 36 cm. While the patient was still sedated they were placed in a left decubitous position. A rectal exam was done. External exam was normal. Internal exam revealed a relaxed sphincter tone and no palpable masses. The scope was then introduced and retro-flexed. No internal hemorrhoids, masses or polyps were identified on retroflexion. The scope was then advanced to the cecum without difficulty. The ileocecal valve and appendiceal orifice were identified. The prep was good. The scope was then slowly retracted over 15 minutes back into the rectum. Polyps were removed with hot snare in the splenic flexure and the rectum. There was no diverticulosis noted. The scope was removed and the patient was woken up and taken back to Same day surgery in stable condition. The patient tolerated the procedure well and there were no immediate complications.
--- NOTE | 2021-12-03 06:51 | W.PM.DSUDISC ---
Discharge Plan Disposition Patient Disposition: HOME Condition: Good Discharge Details Reason For Visit: colon cancer screening and epigastric pain Attending Provider: Latonya Rodriguez Primary Care Provider: Merle Corona Home Meds and New Rx's Prescriptions: Continued mometasone 0.1 % cream 1 applic topical DAILY hydrocortisone [Cortisone (hydrocortisone)] 1 % cream 1 applic topical BID PRN estradiol 0.01 % (0.1 mg/gram) cream 1 g vaginal DIRECTED Qty: 60 3RF Rx Instructions: PRN - Do NOT fill until patient requests Discontinued bisacodyl [Dulcolax (bisacodyl)] 5 mg tablet,delayed release (DR/EC) 5 mg PO ONCE Qty: 4 0RF Rx Instructions: Take according to provider's instructions for colonoscopy prep. polyethylene glycol 3350 17 gram/dose powder 17 g PO ONCE Qty: 238 0RF Rx Instructions: To be taken as directed by prescriber's office for colonoscopy prep. Discharge Instructions Instructions: Diet for Stomach Ulcers and Gastritis (ED), Esophagitis (DC), Gastritis (DC), Colorectal Polyps (DC) Additional Instructions: Findings: 1. Inflammation of the distal esophagus 2. mild inflammation of the stomach 3. 2 polyps Follow up: I will send my recommendations in the mail once I have the pathology results. Please call if you develop: fevers >101.5 Nausea or Vomiting Abdominal pain that is not transient Rectal bleeding that is more then a tbsp A hard abdomen and inability to pass gas DAY SURGERY UNIT POST ENDOSCOPY INSTRUCTIONS Instructions for everyone who is given Anesthesia: For your safety, please do the following for the next 24 Hours: a. Do not drive or operate dangerous equipment b. Do not drink alcohol beverages or use any recreational drugs for the first 24 hours or while taking pain medications. The medications in your body may have a reaction that can be dangerous. c. Do not make any important decisions or sign any important papers 1. Generally there are no restrictions on your activity after a day or so has gone by, but you may feel a bit fatigued for a few days. 2. After you arrive home you may have a light meal and return to a normal diet as you can tolerate it without feeling sick to your stomach. 3. After surgery, you may feel pain or discomfort. This should be only transient, but if it persists please contact your doctor. 4. If there are any questions regarding the findings of your procedure, please feel free to contact your doctor. 6. If you are unable to contact your doctor with a problem, contact the hospital at [phone]. 7. Continue all your regular medications unless directed otherwise. I understand the above instructions and have no questions. Signature of Patient or Responsible Adult Escort Date/Time Name of Responsible Adult Escort Signature of Nurse Date/Time Activity:: Activity as Tolerated Diet:: As Tolerated Discharge Orders Discharge Orders: Discharge Order (Routine); Ordered 12/03/21 Ordered By: Latonya Rodriguez DS: Diagnosis Discharge Diagnosis (1) Encounter for screening colonoscopy: Status: Acute (2) Family history of colon cancer: Status: Acute (3) Epigastric pain: Status: Acute (4) Bloating: Status: Acute
[2021-12-03 09:18] VITALS: BP 138/92; PULSE 97; RESP 20; TEMP 36.7; O2SAT 95
[2021-12-03] MEDS: Lactated Ringers 1,000 ML 80 ML IV (09:44)
--- NOTE | 2021-12-03 10:02 | STOM_PTH ---
PATIENT: Anh Pearce LOC: [facility] U#:[id number] AGE/SX: 81/F ROOM: RE12/03/[address]: Latonya Rodriguez MD : 1940 BED: DIS: 12/03/2021 SPEC #: [id number] RECD: 12/03/21 12:52 STATUS: NERISSA REQ #: [id number] CARROLL: 12/03/21 10:[address]: Latonya Rodriguez DEPT: Surgical Specimen RECD BY: Chantal Mensah ENTERED: 12/03/21 12:54 SP TYPE: STOMACH OTHR DR: Merle Corona Tissues: 1 - STOMACH BIOPSY 2 - STOMACH BIOPSY 3 - ESOPHAGUS BIOPSY 4 - BIOPSY BOWEL 5 - BIOPSY BOWEL Procedures: GROSS AND MICRO LEVEL 4 Comments: [id number]
[2021-12-03 10:38] VITALS: BP 96/70; PULSE 76; RESP 18; TEMP 36.3; O2SAT 95
[2021-12-03 11:11] VITALS: BP 128/79; PULSE 67; RESP 17; TEMP 36.7; O2SAT 94
--- NOTE | 2021-12-03 11:32 | W.ANESPOSTOP ---
Postoperative Evaluation Date, Time and Location Date Performed: 12/03/21 Time Performed: 11:32 Patient Location: Day Surgery Unit Vital Signs Most Recent Imported Vital Signs: Most Recent Vital Signs Temp Pulse Resp BP Pulse Ox 36.3 C L 76 18 96/70 L 95 12/03/21 10:38 12/03/21 10:38 12/03/21 10:38 12/03/21 10:38 12/03/21 10:38 Pain Score Most Recent Pain Score: Most Recent Pain Score Pain Level 0 12/03/21 10:38 Assessment Mental Status: Awake (Alert & Oriented to Patient Baseline) Airway and Respiratory Function: Patent airway with normal (patient baseline) respiratory exam Cardiovascular Function: Hemodynamically Stable Hydration Status: Adequately Hydrated Nausea & Vomiting: No Nausea or Vomiting Pain: Pt. Denies Any Pain Peripheral Nerve Block: Patient did not receive a nerve block
== END 2021-12-03 11:40 | disposition home or self-care (01) ==
PROVIDERS: PCP Family Medicine; Visit Provider Surgery
PROC: (CPT 45385; principal; 2021-12-03 10:00)
DX: Z12.11 Encounter for screening for malignant neoplasm of colon (principal); Z80.0 Family history of malignant neoplasm of digestive organs; K62.1 Rectal polyp; K63.5 Polyp of colon; R13.10 Dysphagia, unspecified; K29.70 Gastritis, unspecified, without bleeding; R14.0 Abdominal distension (gaseous); K20.90 Esophagitis, unspecified without bleeding; K22.89 Other specified disease of esophagus; K31.89 Other diseases of stomach and duodenum
CPT/HCPCS: 45385; 43239; 88305

== ENCOUNTER → 2021-12-25 00:47 | Outpatient (CLI) | payer MEDICARE, SELFPAY ==
--- NOTE | 2021-12-25 | DI.US_ITS ---
Exam(s) US ABDOMEN EXAM: US ABDOMEN CLINICAL HISTORY: ABD PAIN, R10.9 TECHNIQUE: Ultrasound of complete upper abdomen performed using standard protocol. COMPARISON: CT CT ABDOMEN PELVIS W from 08/30/2021 US US RENAL from 10/06/2021 FINDINGS: There is no ascites evident. LIVER: Mildly echogenic implying steatosis. There are no discrete focal hepatic lesions. GALLBLADDER/BILIARY: There are no gallstones. No gallbladder wall edema nor pericholecystic fluid. The common hepatic duct isnot dilated, measuring 3-4mm at the level of wili hepatis. PANCREAS: There is no evidence of pancreatic mass nor dilatation of the pancreatic duct. SPLEEN: The spleen is not enlarged and there are no intrasplenic lesions evident. KIDNEYS:There is a small 3 millimeter nonobstructive calculus in left kidney. No solid masses in the kidneys. No hydronephrosis (as was present in the right kidney on CT scan 08/30/2021) ABDOMINAL AORTA: There is no evidence of abdominal aortic aneurysm. IVC: Normal diameter where visualized. IMPRESSION: 1. No evidence of cholelithiasis nor dilatation of the biliary tree. 2. No other significant acute ultrasound findings in the upper abdomen. 3. No hydronephrosis on either side at this time. Small nonobstructive calculus in the left kidney noted. DATA REPOSITORY:
--- OUTSIDE RECORDS SUMMARY | 2021-12-25 00:49 | XMS_ITS | Encounter Summary ---
:1940 Author Organization [facility] [place] [address] Care Team Providers Name Role Phone Siria Wells APRN Primary Care Provider Encounter Details Date Type Department Care Team Description 02/04/2021 Hospital Encounter Gastroenterology at [facility] [place] [address] [place] [address] [facility] [place], [place] [address] Social History Tobacco Use Types Packs/Day Years Used Date Former Smoker Cigarettes 0.25 0.1 Quit: 09/07/18 68 Smokeless Tobacco: Never Used Comments: 1 pack total. Alcohol Use Standard Drinks/Week Comments Yes 0 (1 standard drink = 0.6 oz pure infreq uent wine 2-3 glasses a week alcohol) Alcohol Habits Answer Date Recorded How often do you have a drink Not asked containing alcohol? How many drinks containing alcohol Not asked do you have on a typical day when you are drinking? How often do you have six or more Not asked drinks on one occasion? Comment: infrequent wine 2-3 glasses a week 10/10 Sex Assigned at Date Recorded Not on file documented as of this encounter Plan of Treatment Not on filedocumented as of this encounter Visit Diagnoses Not on filedocumented in this encounter Care Teams [employer] Relationship Specialty Start Date End Date Siria Wells APRN PCP - General Internal Medicine 12/21/21 [facility] [place] [address] documented as of this encounter
--- OUTSIDE RECORDS SUMMARY | 2021-12-25 00:49 | XMS_ITS | Encounter Summary ---
:1940 Author Organization [place] [address] Care Team Providers Name Role Phone Oxana Bustamante Primary Care Provider Encounter Details Date Type Department Care Team Description 09/15/2021 Hospital Encounter Mammography/DXA at Mercedes Bobby Encounter for [facility] [place] screening mammogram [facility] cancer [facility] [address] [place] OBSTETRICS & [phone] GYNECOLOGY [phone] [place] [address] Social History Tobacco Use Types Packs/Day Years [...] on file documented as of this encounter Medications at Time of Discharge Medication Sig Dispensed Refills Start Date End Date tobramycin-dexamethasone 0 03/27/2019 (TOBRADEX) Drops, Suspension mometasone (ELOCON) 0.1 % Use 1-2X/week hs 15 g 1 06/09 Ointment sparingly hydrocortisone 2.5 % Cream Use 1-2X/week 15 g 1 2019 sparingly hydrocortisone 1 % Cream Apply topically 2 0 times daily. cholecalciferol, Vitamin Take by mouth daily. 60 tablet 0 0 11/27/2011 D3, 1,000 unit Tab tablet Reported on 06/24/2016 multivitamin (THERAGRAN) Take 1 tablet by 0 tablet mouth daily. documented as of this encounter Plan of Treatment Not on filedocumented as of this encounter Procedures Procedure Name Priority Date/Time Associated Diagnosis Comme nts MAMMO SCREENING CAD Routine 09/15/2021 12:51 PM Encounter for Results for this AND LEO BILATERAL EDT screening mammogram pr ocedure are in for breast cancer the result s section. documented in this encounter Results Mammo Screening Cad and Leo Bilateral (09/15/2021 12:51 PM EDT) Anatomical Region Laterality Modality Breast Bilateral Mammography Specimen (Source) Anatomical Location Collection Method / Collectio n Time Received Time / Laterality Volume Narrative 09/16/2021 9:05 AM EDT BILATERAL MAMMOGRAPHY REASON FOR EXAM: Screening TECHNIQUE: CC and MLO views were obtaine d of each breast using standard 2-D mammography as well as 3-D tomosynth esis. Computer aided detection was used. This is compared with prior images . FINDINGS: There are scattered areas of f ibroglandular density. There are no suspicious microcalcifications, kelly s, or areas of distortion. Increasingly coarse tiny group of microc alcifications RIGHT lower inner quadrant consistent with a benign proces s. CONCLUSION: No mammographic evidence of malignancy. RECOMMENDATION: Regular screening mammograms starting be tween age 40 and 50 reduces the risk of from breast cancer. All screening tests have both risks and benefits. These risks and benefits should be assessed for each individual p atient through discussion with their provider to determine their prefer red breast cancer screening schedule. Women should report any breast changes t o a health care provider right away. Some women, because of their family hist ory, a genetic tendency, or other factors, should be screened with annual breast MRI as well as with mammograms. (The number of women who fal l into this category is very small). Patients and health care provide rs should discuss each patient? s history to decide if earlier screening a nd/or breast MRI are appropriate. Screening should continue as long as a w anne is in good health and is expected to live 10 years or longer. Screening mammography may not detect 10- 15% of breast cancers. A result letter has been sent to this pa tient by the [facility]. BIRADS CATEGORY 1: NEGATIVE Electronically signed by: LAWANDA ARMSTRONG MD Mercedes Bobby MD IMG MAMMO ORDERABLES documented in this encounter Visit Diagnoses Diagnosis Encounter for screening mammogram for br east cancer documented in this encounter Care Teams Child Nurse Relationship Specialty Start Date End Date Oxana Bustamante PA PCP - General General Internal Medicine 05/22/20 2 [facility] GENERAL INTER[place] [address] documented as of this encounter
--- OUTSIDE RECORDS SUMMARY | 2021-12-25 00:49 | XMS_ITS | Encounter Summary ---
:1940 Author Organization [facility] [place] [address] Care Team Providers Name Role Phone Oxana Bustamante Primary Care Provider Reason for Referral Consultation (Routine) - Authorized Specialty Diagnoses / Procedures Referred By Contact Refer red To Contact Gastroenterology Diagnoses Personal history of colonic polyps Mercedes Bobby MD [facility] Endoscopy [address] [facility] OBSTETRICS & [place] [address] [place] [address] Referral ID Status Reason Start Date Expiration Date Visits V isits Requested Authorized [id number] Authorized Test Only 09/15/2021 09/15/2022 1 1 Reason for Visit Reason Comments Follow-up Lichen Sclerosus Encounter Details Date Type Department Care Team Description 09/15/2021 Office Visit Obstetrics Mercedes Lincoln Lichen sc lerosus; Gynecology at [facility] MD Nola Personal history of colonic polyps [address] [address] [place], [place] OBSTETRICS & [phone] GYNECOLOGY [phone] [place], [place] [address] Social History Tobacco Use Types Packs/Day Years Used Date Former Smoker Cigarettes 0.25 0.1 Quit: 04/03/19 68 Smokeless Tobacco: Never Used Comments: 1 [...] on file documented as of this encounter Last Filed Vital Signs Vital Sign Reading Time Taken Comments Blood Pressure 138/78 09/15/2021 10:21 AM EDT Pulse 80 09/15/2021 10:21 AM EDT Temperature 36.6 ??C (97.8 ??F) 09/15/2021 10:21 AM EDT Respiratory Rate 17 09/15/2021 10:21 AM EDT Oxygen Saturation 97% 09/15/2021 10:21 AM EDT Inhaled Oxygen Concentration - - Weight 91.3 kg (201 lb 4.8 oz) 09/15/2021 10:21 AM EDT Height 172.7 cm (5' 8) 09/15/2021 10:21 AM EDT Body Mass Index 30.61 09/15/2021 10:21 AM EDT documented in this encounter Progress Notes Mercedes Bobby MD - 09/15/2021 10:30 AM EDT Images from the original note were not included. Ms. Pearce is a 81 y.o. here for f/u of lichen sclerosus. Using her ointments prn. Difficult 2 years. Overdue for PCP follow up (has had 2 providers leave, and wasn't excited about seeing a gerontologist) and overdue for mammo and colonoscopy. Drive down here is challenging. Outpatient Medications Marked as Taking for the 09/15/21 encounter (Office Visit) with Mercedes Bobby MD Medication Sig Dispense Refill ??? mometasone (ELOCON) 0.1 % Ointment Use 1-2X/week hs sparingly 15 g 1 ??? hydrocortisone 2.5 % Cream Use 1-2X/week sparingly 15 g 1 ??? multivitamin (THERAGRAN) tablet Take 1 tablet by mouth daily. Patient Active Problem List Diagnosis Code ??? Lichen sclerosus et atrophicus of the vulva N90.4 ??? Overweight E66.3 ??? GERD (gastroesophageal reflux disease) K21.9 ??? Hyperlipidemia E78.5 ??? Healthcare maintenance Z00.00 ??? Low back pain M54.50 ??? Tubular adenoma of colon D12.6 ??? Benign essential tremor G25.0 BP 138/78 (BP Location (NBP): Right arm, Patient Position: Sitting, BP Cuff Sizes: Large Adult (32-43 cm)) Pulse 80 Temp 36.6 ??C (97.8 ??F) (Temporal) Resp 17 Ht 172.7 cm (5' 8) Wt 91.3 kg (201 lb 4.8 oz) SpO2 97% BMI 30.61 kg/m?? On exam, she looks well but is anxious. On vulvar exam, there is labial agglutination, and clitoral scarring, there is no WE, excoriation, fissuring. Bimanual exam without palpable mass Impression: LS stable Plan: OK to use topicals prn, aim for once a week. I put referral in for colonoscopy, and said I would schedule a mammogram. I asked our secretary to the vice president to help schedule AE with GIM. F/u one year documented in this encounter Plan of Treatment Scheduled Referrals Name Type Priority Associated Order Schedule Diagnoses REFERRAL TO Outpatient Referral Routine Personal history of O rdered: COLONOSCOPY PROCEDURE colonic polyps 09/05 documented as of this encounter Visit Diagnoses Diagnosis Lichen sclerosus Circumscribed scleroderma Personal history of colonic polyps documented in this encounter Care Teams Floor Broker Relationship Specialty Start Date End Date Oxana Bustamante PA PCP - General General Internal Medicine 05/22/20 2 [facility] GENER[place] [address] documented as of this encounter
--- OUTSIDE RECORDS SUMMARY | 2021-12-25 00:49 | XMS_ITS | Encounter Summary ---
:1940 Author Organization [facility] [address] Care Team Providers Name Role Phone Latrice Arango APRN Primary Care Provider [phone] Encounter Details Date Type Department Care Team Description 04/02/2020 Telephone Latrice Lopez APRN [address] [place] [address] INTERNAL MEDICINE [phone] [place], [place] [address] (Wo rk) Social History Tobacco Use Types Packs/Day Years [...] on filedocumented in this encounter Care Teams Residential Electrician Relationship Specialty Start Date End Date Latrice Arango APRN PCP - General Internal Medicine 11/10/19 05/21/20 [facility] [place] [address] documented as of this encounter
--- OUTSIDE RECORDS SUMMARY | 2021-12-25 00:49 | XMS_ITS | Clinical Summary ---
:1940 Author Organization [facility] [place] [address] Care Team Providers Name Role Phone Siria Wells APRN Primary Care Provider Allergies No known active allergies Medications Medication Sig Dispensed Refills Start Date End Date Status multivitamin Take 1 tablet by 0 Active (THERAGRAN) tablet mouth daily. cholecalciferol, Take by mouth 60 tablet 0 11/27/2011 Active Vitamin D3, 1,000 unit daily. Reported Tab tablet on 06/24/2016 hydrocortisone 1 % Apply topically 2 0 Active Cream times daily. tobramycin-dexamethason 0 03/27/2019 Active e (TOBRADEX) Drops, Suspension mometasone (ELOCON) 0.1 Use 1-2X/week hs 15 g 1 0 Active % Ointment sparingly hydrocortisone 2.5 % Use 1-2X/week 15 g 1 07/06/2019 Active Cream sparingly Active Problems Problem Noted Date Benign essential tremor 07/26/2018 Tubular adenoma of colon 12/14/2013 Overview: [place] 2012 showed 2 tubular adenomas--rep eat in 2016 Positive FH colon cancer in father dx ag e 81 Low back pain 11/27/2011 Overweight 10/07/2010 Overview: BMI 35 GERD (gastroesophageal reflux disease) 10/07/2010 Hyperlipidemia 10/07/2010 Healthcare maintenance 10/07/2010 Overview: PAP-/06/15-nl and neg for HPV,MAMMO- 7/6 /10, Dexa Scan 12/06/07-nL,Upper GI Series-12/19/07- Hiatal hernia, Colonoscopy-12/19/07 Lichen sclerosus et atrophicus of the vulva Resolved Problems Problem Noted Date Resolved Date Fibroadenoma of breast 10/07/2010 10/10/2010 Overview: Left breast 2002 Atypical chest pain 10/07/2010 10/10/2010 Overview: neg sestamibi 2004 Immunizations Name Administration Dates Next Due Influenza PF, Split (High Dose) 04/24/2019, 07/23/2017, 10/0 06/2015, 03/08/2015 Pneumococcal Conjugate (13 Valent) 12/17/2014 Pneumococcal Polyvalent 23 09/30/2007 Td, adult 06/07/2010 Tdap Vaccine 12/14/2013 Zoster Vaccine, Live 10/10/2009 Family History Medical History Relation Comments Breast Cancer Maternal Aunt Breast Cancer Other Relation Status Comments Brother 1 Alive stent heart Brother 2 Alive DM, morbid obesity Brother 3 Alive Father (Age 80) colon cancer Maternal Aunt Mother (Age 91) cirrhosis Other Sister Alive Social History Tobacco Use Types Packs/Day Years [...] Assigned at Date Recorded Not on file Last Filed Vital Signs Vital Sign Reading [...] Mass Index 30.61 09/15/2021 10:21 AM EDT Plan of Treatment Health Maintenance Due Date Last Done Comments Covid-19 Vaccine (#1) 09/08/1945 Hepatitis C Screening 1960 Advance Directive 1997 Zoster vaccine (2 of 3) 12/05/2009 10/10/2009 Colonoscopy 02/03/2021 02/04/2016, 02/04/2016, 01/31/2013, Additional history exists Influenza (Flu) vaccine (1 of 1 - 02/05/2022 04/24/2019, , Influenza standard series) 03/07/2016, Additiona l history exists Tetanus vaccine 12/15/2023 12/14/2013, 06/07/2010 Tdap adult Completed 12/14/2013 Pneumoccocal Vaccine: 65+ Completed 12/17/2014, 09/30/2007 Bone Density Scan Completed 07/13/2016, 12/06/2007 (See prior EHR) Insurance Payer Benefit Plan / Subscriber ID Effective Dates Phone Addre ss Type Group [place] [id number] 2021-Presrose marie [phone] [address] [place] ADVANTAGE t 22 [id number] [place] [address] Care Teams General Claims Agent Relationship Specialty Start Date End Date Siria Wells, APPLIANCES SAMPLE MAKER PCP - General Internal Medicine 12/21/21 [facility] [place] [address]
--- OUTSIDE RECORDS SUMMARY | 2021-12-25 00:49 | XMS_ITS | Encounter Summary ---
:1940 Author Organization [facility] [address] Care Team Providers Name Role Phone Oxana Bustamante Primary Care Provider Encounter Details Date Type Department Care Team Description 07/14/2020 Telephone Internal Medicine at [facility] [place] [address] Social History Tobacco Use Types Packs/Day Years [...] on file documented as of this encounter Miscellaneous Notes Telephone Encounter - Suzi Aquino - 07/14/2020 3:27 PM EST Called pt to schedule collin bustamante for transfer from [facility] message documented in this encounter Plan of Treatment Not on filedocumented as of this encounter Visit Diagnoses Not on filedocumented in this encounter Care Teams Director [facility] Relationship Specialty Start Date End Date Oxana Bustamante PA PCP - General General Internal Medicine 05/22/20 2 [facility] GENER[place] [address] documented as of this encounter
--- OUTSIDE RECORDS SUMMARY | 2021-12-25 00:49 | XMS_ITS | Encounter Summary ---
:1940 Author Organization [facility] [place] [address] Care Team Providers Name Role Phone Oxana Bustamante Primary Care Provider Reason for Visit Reason Comments Follow-up Encounter Details Date Type Department Care Team Description 09/12/2020 Office Visit Obstetrics and Mercedes Bobby Lichen sc lerosus; [place] [facility] [place] Recurrent UTI (urinary tract infection) [facility] [address] [place] OBSTETRICS & [address] GYNECOLOGY [phone] [place], [place] [address] Social History Tobacco Use Types [...] Sign Reading Time Taken Comments Blood Pressure 137/80 09/12/2020 10:26 AM EDT Pulse 97 09/12/2020 10:26 AM EDT Temperature 37.2 ??C (98.9 ??F) 09/12/2020 10:26 AM EDT Respiratory Rate 18 09/12/2020 10:26 AM EDT Oxygen Saturation 95% 09/12/2020 10:26 AM EDT Inhaled Oxygen Concentration - - Weight 93.6 kg (206 lb 4.8 oz) 09/12/2020 10:26 AM EDT Height 172.7 cm (5' 8) 09/12/2020 10:26 AM EDT Body Mass Index 31.37 09/12/2020 10:26 AM EDT documented in this encounter Progress Notes Mercedes Bobby MD - 09/12/2020 10:00 AM EDT Ms. Pearce is a 80 y.o. here for f/u of lichen sclerosus. Last seen 06/26. She stopped using her topicals, because she has been using estrogen cream 2X/week for recurrent UTIs, which has worked well for her. On several different antibiotics between last December and Apr, took a while to get into the urologist. 2016, very isolated where she lives, kids helpful. Still has antiques to unload, [place]'tbeen to [place] home in a year. Has camp on [place]. Buying land to help sister in law out. Outpatient Medications Marked as Taking for the 09/12/20 encounter (Office Visit) with Mercedes Bobby MD Medication Sig Dispense Refill ??? tobramycin-dexamethasone (TOBRADEX) Drops, Suspension ??? mometasone (ELOCON) 0.1 % Ointment Use 1-2X/week hs sparingly 15 g 1 ??? hydrocortisone 2.5 % Cream Use 1-2X/week sparingly 15 g 1 ??? hydrocortisone (CORTISONE) 1 % Cream Apply topically 2 times daily. ??? cholecalciferol, Vitamin D3, 1,000 unit Tab tablet Take by mouth daily. Reported on 06/24/2016 60tablet 0 ??? multivitamin (THERAGRAN) tablet Take 1 tablet by mouth daily. Patient Active Problem List Diagnosis Code ??? Lichen sclerosus et atrophicus of the vulva N90.4 ??? Overweight E66.3 ??? GERD (gastroesophageal reflux disease) K21.9 ??? Hyperlipidemia E78.5 ??? Healthcare maintenance Z00.00 ??? Low back pain M54.5 ??? Tubular adenoma of colon D12.6 ??? Benign essential tremor G25.0 BP 137/80 Pulse 97 Temp 37.2 ??C (98.9 ??F) Resp 18 Ht 172.7 cm (5' 8) Wt 93.6 kg (206 lb4.8 oz) SpO2 95% BMI 31.37 kg/m?? On exam, she looks well. On vulvar exam, there is labial agglutination, and clitoral scarring, thereis no WE, excoriation, fissuring. Non tender to touch. Bimanual exam without palpable mass. + rectocele, soft and reducible. Impression: LS stable Plan: f/u one year. OK to use either of her topicals once a week. F/u one year. documented in this encounter Plan of Treatment Not on filedocumented as of this encounter Visit Diagnoses Diagnosis Lichen sclerosus Circumscribed scleroderma Recurrent UTI (urinary tract infection) Urinary tract infection, site not specif ied documented in this encounter Care Teams Cloth Bin Packer Relationship Specialty Start Date End Date Oxana Bustamante PA PCP - General General Internal Medicine 05/22/20 2 [facility] GENERAL [place] [address] documented as of this encounter
--- OUTSIDE RECORDS SUMMARY | 2021-12-25 00:49 | XMS_ITS | Encounter Summary ---
:1940 Author Organization [facility] [place] [address] Care Team Providers Name Role Phone Oxana Bustamante Primary Care Provider Encounter Details Date Type Department Care Team Description 02/24/2021 Telephone Internal Medicine at [facility] [place] [place] [address] Social History Tobacco Use Types Packs/Day Years [...] this encounter Miscellaneous Notes Telephone Encounter - Dimas Webber - 02/24/2021 4:55 PM EDT Spoke with pt regarding option to establish with Ana team. Pt stated she wanted a week to consider and would call back to confirm. Pt stated she was overdue for a mammogram and colononscopy. I reiterated we would be able to to take care of those needs here with our geriatric team. Pt stated she will take the week and call back. documented in this encounter Plan of Treatment Not on filedocumented as of this encounter Visit Diagnoses Not on filedocumented in this encounter Care Teams Silk Screen Frame Assembler Relationship Specialty Start Date End Date Oxana Bustamante PA PCP - General General Internal Medicine 05/22/20 2 [facility] GENER[place] [address] documented as of this encounter
--- OUTSIDE RECORDS SUMMARY | 2021-12-25 00:50 | XMS_ITS | Encounter Summary ---
:1940 Author Organization [facility] Address [address] [place] [address] Care Team Providers Name Role Phone Brad Jose MD Primary Care Provider Reason for Visit Reason Comments Follow-up pt states PT was going very well was cleaning car off yesterday stepped in a whole and twisted her knee Encounter Details Date Type Department Care Team Description 09/15/2018 Office Visit Internal Medicine at Oxana Bustamante C [facility] (chronic lymphoid leukemia) in relapse; [facility] PA Elevated blood sugar level; formerly [facility] Gloria vated lipids [address] [place] [place] GENERAL INTERNAL [phone] MEDICINE [phone] [place], [place] [address] (Wo rk) Social History Tobacco [...] Sign Reading Time Taken Comments Blood Pressure 123/76 09/15/2018 8:50 AM EDT Pulse 80 09/15/2018 8:50 AM EDT Temperature 36.4 ??C (97.6 ??F) 09/15/2018 8:50 AM EDT Respiratory Rate 16 09/15/2018 8:50 AM EDT Oxygen Saturation 97% 09/15/2018 8:50 AM EDT Inhaled Oxygen Concentration - - Weight 91.3 kg (201 lb 3.2 oz) 09/15/2018 8:50 AM EDT Height 167.6 cm (5' 6) 09/15/2018 8:50 AM EDT Body Mass Index 32.47 09/15/2018 8:50 AM EDT documented in this encounter Progress Notes Oxana Bustamante PA - 09/15/2018 9:00 AM EDT Anh Pearce is here today to discuss: Cataract surgery went well. States that she needs new glasses now. L knee pain - acute on chronic. Stepped in a hole in driveway last night when she was taking snow off of car. Had been doing well with PT and felt as though her knee was improving. Denies falls or nearfalls. Knee is not unstable. Loss of ~ 1 year ago.Doing very well. Talks with many friends, is active with family and friends. Is on her way to to see friends. Has a home there. Patient Active Problem List Diagnosis Date Noted ??? Benign essential tremor 07/26/2018 ??? Tubular adenoma of colon 12/14/2013 ??? Low back pain 11/27/2011 ??? Overweight 10/07/2010 ??? GERD (gastroesophageal reflux disease) 10/07/2010 ??? Hyperlipidemia 10/07/2010 ??? Healthcare maintenance 10/07/2010 ??? Lichen sclerosus et atrophicus of the vulva Medications 07/26/18 0848 Medication Sig Taking? hydrocortisone (CORTISONE) 1 % Cream Apply topically 2 times daily. mometasone (ELOCON) 0.1 % Ointment Use 3X/week hs sparingly Patient not taking: Reported on 07/26/2018 hydrocortisone 2.5 % Cream Use 2-3X/week Patient not taking: Reported on 07/26/2018 cholecalciferol, Vitamin D3, 1,000 unit Tab tablet Take by mouth daily. Reported on 06/24/2016 multivitamin (THERAGRAN) tablet Take 1 tablet by mouth daily. ROS As above. PE BP 123/76 (BP Location (NBP): Right arm, Patient Position: Sitting, BP Cuff Sizes: Large Adult (32-43 cm)) Pulse 80 Temp 36.4 ??C (97.6 ??F) (Oral) Resp 16 Ht 167.6 cm (5' 6) Wt 91.3 kg (201lb 3.2 oz) SpO2 97% BMI 32.47 kg/m?? Gen: pleasant and comfortable. Speech is articulate. HEENT: mmm, EOMI, CN II - XII intact Heart: RRR, no MRG Chest: CTAB, no wheezes AB: + BS, NT, no HSM MSK: AROM b/l UE and LE WFL Knee: GEN: pt in NAD Appearance of knees: - deformity, edema, erythema, atrophy of quadriceps, hamstrings, calf mm AROM: WNL Strength: 5/5 LE mm groups Sensation: intact to LT Stability tests: stable A/P and M/L, - Drawer -Haven test Palpation:slightly ttp posterior over proximal aspect of gastroc group No Pedal edema Gait: no assistive device. Nonantalgic. Adequate clearance of feet during swing phase, stable balance on level surfaces and with change of direction. Lab Results Component Value Date WBC 5.8 07/26/2018 HGB 14.2 07/26/2018 HCT 44.5 07/26/2018 MCV 96.1 (H) 07/26/2018 PLATELET 193 07/26/2018 Chemistry Component Value Date/Time NA 142 07/26/2018 1038 K 3.7 07/26/2018 1038 CL 103 07/26/2018 1038 CO2 27 07/26/2018 1038 BUN 18 07/26/2018 1038 CREATININE 0.58 (L) 07/26/2018 1038 Component Value Date/Time CALCIUM 9.0 07/26/2018 1038 ALKPHOS 77 07/26/2018 1038 AST 19 07/26/2018 1038 ALT 17 07/26/2018 1038 BILITOT 1.1 07/26/2018 1038 Lab Results Component Value Date CHLPL 188 07/23/2017 HDL 72 07/23/2017 CHOLHDL 2.6 07/23/2017 TRIG 74 07/23/2017 LDLCHOL 101 07/23/2017 Lab Results Component Value Date TSH 1.92 07/26/2018 25-OH Vit D Total (ng/mL) Date Value Status 12/14/2013 32 Final Lab Results Component Value Date [id number] 07/26/2018 ASSESSMENT/PLAN Anh Pearce is a 78 yo female s/p successful cataract removal here for f/u. Has acute on chronic R knee pain after stepping into a hole on uneven and snowy ground. Had been doing well in PT for R knee. Focus of today's exam: R knee - exam is benign - painfree AROM - ice packs to tolerance - continue with PT exercises - consider plain xray should pain persist. Consider MR should knee become unstable. Labs: - a1c next visit - family h/o DM and personal h/o elevated BG - Lipids next visit - family h/o CAD Grief - appropriate. Anh with excellent support system. DEXA 07/2019 No future appointments. documented in this encounter Plan of Treatment Not on filedocumented as of this encounter Visit Diagnoses Diagnosis CLL (chronic lymphoid leukemia) in relap se Chronic lymphoid leukemia, in relapse Elevated blood sugar level Other abnormal glucose Elevated lipids Other and unspecified hyperlipidemia documented in this encounter Care Teams Course Instructor Relationship Specialty Start Date End Date Brad Jose MD PCP - General 12/17/14 11/09/[address] [facility] GENERAL [place] [address] documented as of this encounter
--- OUTSIDE RECORDS SUMMARY | 2021-12-25 00:50 | XMS_ITS | Encounter Summary ---
:1940 Author Organization [facility] [place] [address] Care Team Providers Name Role Phone Brad Jose MD Primary Care Provider Encounter Details Date Type Department Care Team Description 02/10/2019 Telephone Dermatology at [facility] Sushma Burk MD [address] [facility] [place] [address] [facility] [phone] [place] [id number] (Wo rk) Social History Tobacco Use Types [...] this encounter Miscellaneous Notes Telephone Encounter - Tiffany Watts - 02/10/2019 3:27 PM EDT Called Anh Pearce to schedule follow up with Dr. Burk, unable to reach left voicemail. documented in this encounter Plan of Treatment Not on filedocumented as of this encounter Visit Diagnoses Not on filedocumented in this encounter Care Teams Editor School Photograph Relationship Specialty Start Date End Date Brad Jose MD PCP - General 12/17/14 11/09/19 [facility] GENERAL [place] [address] documented as of this encounter
--- OUTSIDE RECORDS SUMMARY | 2021-12-25 00:50 | XMS_ITS | Encounter Summary ---
:1940 Author Organization [facility] Address [address] [place] [address] Care Team Providers Name Role Phone Brad Jose MD Primary Care Provider Reason for Referral Physical Therapy (Routine) - Closed Specialty Diagnoses / Procedures Referred By Contact Refer red To Contact Physical Therapy Diagnoses Left knee pain, unspecified chronicity Ox[facility] Bustamante PA Physical Therapy, [facility] D [facility] [place] [address] [place], [place] [id number] [place] [id number] Referral ID Status Reason Start Date Expiration Date Visits V isits Requested Authorized [id number] Closed Evaluate and 07/26/2018 01/22/2019 10 10 Treat Reason for Visit Reason Comments Pre-op Exam Cataract surgery Encounter Details Date Type Department Care Team Description 07/26/2018 Office Visit Internal Medicine at [facility] Bust[facility] P re-op exam; [facility] Hypothyroidism, unspecified type; [facility] Lef t knee pain, unspecified chronicity Drive [address] [place] GENERAL INTERNAL [address] MEDICINE [phone] [place], [place] [address] (Wo rk) Social History Tobacco [...] Sign Reading Time Taken Comments Blood Pressure 127/73 07/26/2018 8:48 AM EST Pulse 81 07/26/2018 8:48 AM EST Temperature 36.4 ??C (97.5 ??F) 07/26/2018 8:48 AM EST Respiratory Rate 16 07/26/2018 8:48 AM EST Oxygen Saturation 97% 07/26/2018 8:48 AM EST Inhaled Oxygen Concentration - - Weight 88.9 kg (196 lb) 07/26/2018 8:48 AM EST Height 167.6 cm (5' 6) 07/26/2018 8:48 AM EST Body Mass Index 31.64 07/26/2018 8:48 AM EST documented in this encounter Progress Notes Oxana Bustamante PA - 07/26/2018 9:30 AM EST Anh Pearce is here today to discuss: Surgery: OD cataract removal Surgeon: Dr Foster in [facility] Surgery date: August 08, 2018 Patient Active Problem List Diagnosis Code ??? Lichen sclerosus et atrophicus of the vulva N90.4 ??? Overweight E66.3 ??? GERD (gastroesophageal reflux disease) K21.9 ??? Hyperlipidemia E78.5 ??? Healthcare maintenance Z00.00 ??? Low back pain M54.5 ??? Tubular adenoma of colon D12.6 ??? Benign essential tremor G25.0 Medications 07/04/18 1057 Medication Sig Taking? hydrocortisone (CORTISONE) 1 % Cream Apply topically 2 times daily. mometasone (ELOCON) 0.1 % Ointment Use 3X/week hs sparingly hydrocortisone 2.5 % Cream Use 2-3X/week cholecalciferol, Vitamin D3, 1,000 unit Tab tablet Take by mouth daily. Reported on 06/24/2016 multivitamin (THERAGRAN) tablet Take 1 tablet by mouth daily. ROS As above. PE BP 127/73 (BP Location (NBP): Right arm, Patient Position: Sitting, BP Cuff Sizes: Large Adult (32-43 cm)) Pulse 81 Temp 36.4 ??C (97.5 ??F) (Temporal) Resp 16 Ht 167.6 cm (5' 6) Wt 88.9 kg (196 lb) SpO2 97% BMI 31.64 kg/m?? Gen: pleasant and comfortable. Speech is articulate. Resting tremor - most visible head and L UE. HEENT: mmm, EOMI CN II - XII intact Heart: RRR, no MRG Chest: CTAB, no wheezes AB: + BS, NT, no HSM MSK: AROM b/l UE and LE WFL No Pedal edema. Edema noted L knee. Gait: no assistive device. Adequate clearance of feet during swing phase, stable balance on level surfaces and with change of direction. PHQ9 Questionnaires Data (Clinic and Pt Entered): Today's value PHQ-9 QUESTIONNAIRE (AMB) 07/23/2017 PHQ - 9 Score (Clinic) - Little interest or pleasure (Clinic) - Little interest or pleasure (Patient) Several days Down, depressed, hopeless (Clinic) - Down, depressed, hopeless (Patient) Several days Lab Results Component Value Date WBC 5.8 [...] 07/26/2018 1038 Lab Results Component Value Date TSH 1.92 07/26/2018 Lab Results Component Value Date SFOLATE 12.4 07/26/2018 Lab Results Component Value Date [id number] 07/26/2018 ASSESSMENT/PLAN 1) Pre-op form faxed to Dr Foster office in [facility]: [phone] - Anh Pearce has been clearedfor this surgery. 2) L knee edema and pain - refractory to compression stockings. Referred to PT. 3) grief - loss of spouse 03/2017 - social support. Will revisit at follow up visit. 4) resting tremor most noticeable face and LUE. Will follow closely. Let Dr Foster office know aboutthis tremor. Future Appointments Date Time Provider Department Center 09/15/2018 9:00 AM [facility] Bustamante PA [facility] documented in this encounter Plan of Treatment Scheduled Referrals Name Type Priority Associated Diagnoses Order S chedule Referral to Outpatient Referral Routine Left knee pain, Order ed: Physical Therapy unspecified 07/26/2018 chronicity documented as of this encounter Procedures Procedure Name Priority Date/Time Associated Diagnosis Comme nts CMP W/FASTING Routine 07/26/2018 10:38 AM Pre-op exam Results for this GLUCOSE EST procedure are i n the results section. HEMOGRAM Routine 07/26/2018 10:38 AM Pre-op exam Results for this EST procedure are i n the results section. DIFFERENTIAL, Routine 07/26/2018 10:38 AM Pre-op exam Results for this AUTOMATED EST procedure are i n the results section. CBC (WITH DIFF) Routine 07/26/2018 10:38 AM Pre-op exam EST TSH Routine 07/26/2018 10:38 AM Pre-op exam Results for this EST Hypothyroidism, procedure ar e in unspecified type the results section. FOLATE, SERUM Routine 07/26/2018 10:38 AM Pre-op exam Results for this EST procedure are i n the results section. VITAMIN B12 Routine 07/26/2018 10:38 AM Pre-op exam Results for this EST procedure are i n the results section. documented in this encounter Results Differential, Automated (07/26/2018 10:38 AM EST) athologist Signature Neutrophils % 73.8 % [facility] Neutr Abs (ANC) 4.27 1.70 - [facility] 6.10 [facility] x10(3)/[facility] LABORATORY Lymphocytes % 15.9 % [facility] Lymphocytes Abs 0.9 0.9 - 3.2 [facility] x10(3)/[facility] LABORATORY Monocytes % 6.2 % [facility] Monocyte Abs 0.4 0.3 - 0.9 [facility] x10(3)/[facility] LABORATORY Eosinophils % 2.6 % [facility] Eosinophils Abs 0.2 0.0 - 0.4 [facility] x10(3)/[facility] LABORATORY Basophils % 1.2 % [facility] Basophils Abs 0.1 0.0 - 0.1 [facility] x10(3)/[facility] LABORATORY Immature Gran % 0.30 % [facility] Comment: Immature granulocytes(IG's)percentage an d absolute count will include metamyelocytes, myelocytes, and promyelo cytes. Blood smears from CBCs yielding IG's will be scanned manually for concor dance. If this scan disagrees with the automated IG or if promyelocytes are not ed, a manual differential will be performed. Zeny Gran Abs 0.02 0.00 - 0.04 x10(3)/[facility] MAR Y [facility] LABORATORY Specimen Anatomical Collection Method Collection Time Receive d Time (Source) Location / / Volume Laterality Blood specimen 07/26/2018 10:38 9 (specimen) AM EST 10:48 AM EST Resulting Agency Comment Spec In Lab [place] [facility] HEMATOLOGY ORDERABLES Performing Organization Address City/State/Z[place] [address] (ABNORMAL) Hemogram (07/26/2018 10:38 AM EST) Analysis Performed At Patho logist Time Signature WBC 5.8 4.0 - 9.5 [facility] x10(3)/[facility] LABORATORY RBC 4.63 4.00 - [facility] 5.21 [facility] x10(6)/[facility] LABORATORY Hemoglobin 14.2 11.7 - [facility] [place] 15.5 gm/dL [facility] LABORATORY Hematocrit 44.5 35.7 - [facility] 45.8 % [facility] MCV 96.1 (H) 82.6 - [facility] 94.4 [facility] LABORAT[facility] MCH 30.7 27.1 - [facility] [place] 32.0 pg [facility] LABORATORY MCHC 31.9 31.7 - [facility] 35.0 gm/dL [facility]ORY Platelets 193 145 - 357 [facility] x10(3)/[facility] LABORATORY RDWSD 43.6 37.0 - [facility] 46.0 [facility] LABORATORY RDWCV 12.2 11.5 - [facility] 14.1 % [facility] LABORATORY MPV 10.1 7.6 - 12.9 [facility] LABORATORY nRBC % Auto 0.0 % [facility] LABOR[facility]ORY nRBC Abs Auto 0.000 0.000 - [facility] 0.000 [facility] x10(3)/[facility] LABORATORY Specimen Anatomical Collection Method Collection Time Receive d Time (Source) Location / / Volume Laterality Blood specimen 07/26/2018 10:38 9 (specimen) AM EST 10:48 AM EST Resulting Agency Comment Spec In Lab [place] [facility] HEMATOLOGY ORDERABLES Performing Organization Address City/[facility]/ZIP [place] [address] Vitamin B12 (07/26/2018 10:38 AM EST) athologist Signature Vitamin B-12 411 232 - 1,245 [facility] pg/mL [facility] LABORATORY Specimen Anatomical Collection Method Collection Time Receive d Time (Source) Location / / Volume Laterality Blood specimen 07/26/2018 10:38 9 (specimen) AM EST 10:48 AM EST Resulting Agency Comment Spec In Lab Brad Jose MD CHEMISTRY ORDERABLES Performing Organization Address City/[facility]/ZIP Code Phon e Number [address] Folate, serum (07/26/2018 10:38 AM EST) athologist Signature Folate Lvl 12.4 4.8 - 24.2 [facility] [place] ng/mL [facility] LABORATORY Specimen Anatomical Collection Method Collection Time Receive d Time (Source) Location / / Volume Laterality Blood specimen 07/26/2018 10:38 9 (specimen) AM EST 10:48 AM EST Resulting Agency Comment Spec In Lab Brad Jose MD CHEMISTRY ORDERABLES Performing Organization Address City/State/ZIP [place] [address] TSH (07/26/2018 10:38 AM EST) athologist Signature TSH 1.92 0.27 - 4.20 [facility] [place] mlU/ML [facility] LABORATORY Specimen Anatomical Collection Method Collection Time Receive d Time (Source) Location / / Volume Laterality Blood specimen 07/26/2018 10:38 9 (specimen) AM EST 10:48 AM EST Resulting Agency Comment Spec In Lab Brad Jose MD CHEMISTRY ORDERABLES Performing Organization Address City/State/ZIP [place] [address] (ABNORMAL) CMP w/fasting Glucose (07/26/2018 10:38 AM EST) athologist Signature Glucose 85 65 - 99 [facility] Fasting mg/dL [facility] Comment: ?Fasting* Glucose Interpretive C riteria Normal ?65-99 mg/dL Impaired Fasting glucose ?100-125 mg/dL Consistent with Diabetes Mellitus ? >or= 126 mg/dL *Fasting is defined as no caloric intake for at least 8 hours In the absence of unequivocal hypergly cemia a plasma glucose value of >or= 126 mg/dL should be repeated on a subseq uent day. Diagnosis and Classification of Diabetes Mellitus, Position Statement from the [place] [employer]. ??Diabete s Care, Volume 33, Supplement 1, Jun 2009 BUN 18 8 - 18 mg/dL [facility] Creatinine 0.58 (L) 0.70 - 1.20 mg/dL [facility] Sodium 142 135 - 145 mmol/L [facility] Potassium 3.7 3.5 - 5.0 mmol/L [facility] Comment: Please note: ??Patients with WBC >100,00 0 may have falsely elevated Potassium levels. ??For accurate Potassium quantif ication in these patients send serum separator tube (gold top) for subsequent determinations. ??Contact the Clinical Chemistry Laboratory if there are any qu estions. Chloride 103 98 - 107 mmol/L [facility] CO2 27 22 - 31 mmol/L [facility] Anion Gap 12 5 - 15 mmol/L [facility] Calcium 9.0 8.5 - 10.5 mg/dL [facility] Total Protein 7.0 6.1 - 8.0 gm/dL [facility] Albumin 4.1 3.2 - 5.2 gm/dL [facility] AST 19 0 - 30 unit/L [facility] ALT 17 0 - 30 unit/L [facility] Alk Phos 77 40 - 104 unit/L [facility] Total Bilirubin 1.1 0.2 - 1.3 mg/dL [facility] Estimated GFR 90 >=60 mL/min/1.73 m?? [facility] Comment: The eGFR was calculated using the CKD-EP I equation. As with all creatinine based estimates of kidney function, eGFR values calculated with the CKD-EPI equation are not accurate in patients wi th acute kidney failure, extremes of body mass or the acutely ill. [email or web address]/DHMCnkf eGFR 104 >=60 mL/min/1.73 m?? [facility] Comment: The eGFR was calculated using the CKD-EP I equation. As with all creatinine based estimates of kidney function, eGFR values calculated with the CKD-EPI equation are not accurate in patients wi th acute kidney failure, extremes of body mass or the acutely ill. [email or web address]/DHMCnkf Specimen Anatomical Collection Method Collection Time Receive d Time (Source) Location / / Volume Laterality Blood specimen 07/26/2018 10:38 9 (specimen) AM EST 10:48 AM EST Resulting Agency Comment Spec In Lab Brad Jose MD CHEMISTRY ORDERABLES Performing Organization Address City/State/[facility] [place] [address] documented in this encounter Visit Diagnoses Diagnosis Pre-op exam Preoperative examination, unspecified Hypothyroidism, unspecified type Left knee pain, unspecified chronicity documented in this encounter Care Teams Transporter Driver Relationship Specialty Start Date End Date Brad Jose MD PCP - General 12/17/14 11/09/19 [facility] [place] [address] documented as of this encounter
--- OUTSIDE RECORDS SUMMARY | 2021-12-25 00:50 | XMS_ITS | Encounter Summary ---
:1940 Author Organization [facility] [place] [address] Care Team Providers Name Role Phone Brad Jose MD Primary Care Provider Reason for Visit Reason Comments Skin Check spot on cheek Encounter Details Date Type Department Care Team Description 12/02/2016 Office Visit Dermatology at [facility] Peri Cruz MD [place] (actinic keratosis); Road [facility] Scar; [address] [place]sect [place] [address] [facility] [phone] [address]-DERMATOLOGY [place] [address] Social History Tobacco Use Types Packs/Day Years [...] on file documented as of this encounter Progress Notes Zev Cruz MD - 12/02/2016 4:00 PM EDT Images from the original note were not included. DERMATOLOGY - ESTABLISHED PATIENT FOLLOW-UP Date of service: 12/02/2016 Anh Pearce : 1940, 76 y.o. CC: Skin lesion; cheek HPI: Anh Pearce is a 76 y.o. female last seen by Dr. Tarango on 07/13/2016. Ms. Pearce returns today for a skin lesion on the left cheek. Noticed about 3 weeks ago. No current treatment. Lesion gets scaly, and is red at times. Relevant Skin History: No personal history of skin cancer -Endorses eczema -Lichen sclerosus, managed by Machine Fitter 07/13/2016 - Lentigo and pigmented actinic keratosis, left cheek Family History: Melanoma or non-melanoma skin cancer: Father, unknown type Eczema, asthma or seasonal allergies: Yes to eczema and seasonal allergies Psoriasis: No ?? 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 hydrocortisone (CORTISONE) 1 % Cream Apply topically 2 times daily. ??? mometasone (ELOCON) 0.1 % Ointment Use 3X/week hs sparingly 15 g 1 ??? hydrocortisone 2.5 % Cream Use 2-3X/week 15 g 1 ??? cholecalciferol, Vitamin D3, 1,000 unit Tab tablet Take by mouth daily. Reported on 06/24/2016 60tablet 0 ??? multivitamin (THERAGRAN) tablet Take 1 tablet by mouth daily. No current facility-administered medications for this visit. Allergies: No Known Allergies Review of Systems: - General: Feels well. - Skin: No other skin concerns. Examination: - Constitutional: Patient was alert, well-appearing and in no noticeable distress. - Skin: A focused examination of the left cheek. Diagnosis/Skin findings/Assessment/Plan: 1. Scar, s/p shave biopsy - left cheek: [place] plaque with central 3mm sclerotic papule - Healing well and appropriately. Reassured patient. - Intralesional kenalog could be used if central scar remains firm. 2. Favor Actinic Keratosis over SK- left malar cheek: ~1 cm slightly scaly pink plaque - I discussed this condition wlith the patient and explored therapeutic options. - I recommended this be treated with LN2, patient is in agreement to this treatment plan. - Instructed to call if areas do not resolve as expected or if problems arise. - If lesions fail to resolve, further work-up may be needed. Procedure Note: Procedure: Destruction of lesion(s) with cryotherapy. Number: 1 Location: as above Discussed procedure and expectations including risks (including risk of hypopigmentation) and benefits. Verbal consent obtained. Frozen with LN2, 15-30 second thaw time, ONCE. There were no complications; the patient tolerated the procedure well. Post-procedure expectations and wound care were reviewed. 3. Resolving Insect Bite - Left abdomen; fading from pink to granger with a scaly peripheral margin. No surrounding erythema. - Two weeks old . Patient reports no evidence of erythema migrans. - No treatment recommended at this time. Monitor and return to clinic if does not resolve. RTC: Jul 2017 for FBSE A reminder is in system for a FSC in July,. Note initiated by Ying Vergara CMA. IChantal, Clinical Scribe am documenting this encounter acting as the scribe for and in the presence of Zev Cruz MD. I performed the above scribed service and agree with the accuracy of the documentation in this encounter. Reviewed and signed by Zev Cruz MD Resident in Dermatology [facility] Patient seen and evaluated with staff mortgage lender: Nazanin Villeda MD Section of Dermatology [facility] Nazanin Villeda MD - 12/02/2016 4:00 PM EDT I directly supervised Dr. Zev Cruz during this office visit. Dr. Cruz presented the history and physical exam to me. I then saw and examined this patient with Dr. Cruz. We reviewed the history and pertinent details and I confirmed the physical findings. I agree with the details of the history and phy sical exam as documented in Dr. Cruz's note. NAZANIN VILLEDA MD Staff Physician documented in this encounter Plan of Treatment Not on filedocumented as of this encounter Visit Diagnoses Diagnosis [place] (actinic keratosis) Actinic keratosis Scar Scar condition and fibrosis of skin Insect bite, initial encounter documented in this encounter Care Teams Compound Machine Operator Relationship Specialty Start Date End Date Brad Jose MD PCP - General 12/17/14 11/09/19 [facility] [place] [address] documented as of this encounter
--- OUTSIDE RECORDS SUMMARY | 2021-12-25 00:50 | XMS_ITS | Encounter Summary ---
:1940 Author Organization [facility] [place] [address] Care Team Providers Name Role Phone Brad Jose MD Primary Care Provider Encounter Details Date Type Department Care Team Description 07/09/2016 Hospital Encounter [place]amm[place] [facility] [place], Encounter for [facility] screening mammogram [facility] for breast cancer [facility] [id number] GENERAL INTERNAL [phone] MEDICINE [place], [place] [address] Social History Tobacco Use Types [...] Sig Dispensed Refills Start Date End Date hydrocortisone 1 % Cream Apply topically 2 0 times daily. cholecalciferol, Vitamin Take by mouth daily. 60 tablet 0 0 11/27/2011 D3, 1,000 unit Tab tablet Reported on 06/24/2016 multivitamin (THERAGRAN) Take 1 tablet by 0 tablet mouth daily. mometasone (ELOCON) 0.1 % Use 3X/week hs 15 g 1 201407/06/2019 Ointment sparingly hydrocortisone 2.5 % Use 2-3X/week 15 g 1 02/19/2015 0 07/06/2019 Cream documented as of this encounter Plan of Treatment Not on filedocumented as of this encounter Procedures Procedure Name Priority Date/Time Associated Diagnosis Comme nts MAMMO SCREENING CAD Routine 07/09/2016 1:59 PM Encounter for R esults for this AND LEO BILATERAL EST screening mammogram pr ocedure are in for breast cancer the result s section. documented in this encounter Results Mammo Screen CAD and Leo Bilat (Generic) (07/09/2016 1:59 PM EST) Anatomical Region Laterality Modality Breast Bilateral Mammography Specimen (Source) Anatomical Location Collection Method / Collectio n Time Received Time / Laterality Volume Narrative 07/10/2016 7:58 AM EST BILATERAL MAMMOGRAPHY REASON FOR EXAM: Screening TECHNIQUE: CC and MLO views were obtaine d of each breast using standard 2-D mammography as well as 3-D tomosynth esis. Computer aided detection was used. This is compared with prior images . FINDINGS: There are scattered areas of f ibroglandular density. There are no suspicious microcalcifications, kelly s, or areas of distortion. The pattern is stable. CONCLUSION: No mammographic evidence of malignancy. RECOMMENDATION: The [employer] and The Society of Breast Imaging recommend annual screenin g beginning at age 40 for the general female population. Screening kassandra uld continue as long as a woman is in good health and is expected to live 1 0 more years or longer. All women should be familiar with the known benefi ts, limitations, and potential harms linked to breast cancer screening. They should also know how their breasts normally look and feel and repor t any breast changes to a health care provider right away. Some women - b ecause of their family history, a genetic tendency, or certain other facto rs - should be screened with MRIs along with mammograms. (The number of wo men who fall into this category is very small.) The patient and health care provider should discuss the patient history and decide if earlier sc reening and breast MRI are appropriate. A result letter has been sent to this pa tient by the [facility]. BIRADS CATEGORY 1: NEGATIVE Brad Jose MD IMG MAMMO ORDERABLES documented in this encounter Visit Diagnoses Diagnosis Encounter for screening mammogram for br east cancer documented in this encounter Care Teams Java Flex Developer Relationship Specialty Start Date End Date Brad Jose MD PCP - General 12/17/14 11/09/19 [facility] GENER[place] [address] documented as of this encounter
--- OUTSIDE RECORDS SUMMARY | 2021-12-25 00:50 | XMS_ITS | Encounter Summary ---
:1940 Author Organization [facility] [place] [address] Care Team Providers Name Role Phone Brad Jose MD Primary Care Provider Reason for Visit Reason Comments Follow-up LS Encounter Details Date Type Department Care Team Description 07/04/2018 Office Visit Obstetrics and Mercedes Bobby, Lichen sclerosus; Gynecology at [facility] [place] [address] OBSTETRICS & [phone] GYNECOLOGY [place], [place] [address] (Wo rk) Social History Tobacco [...] Sign Reading Time Taken Comments Blood Pressure 122/77 07/04/2018 10:49 AM EST Pulse 88 07/04/2018 10:49 AM EST Temperature - - Respiratory Rate - - Oxygen Saturation 96% 07/04/2018 10:49 AM EST Inhaled Oxygen Concentration - - Weight 90.7 kg (200 lb) 07/04/2018 10:49 AM EST Height - - Body Mass Index 31.51 07/23/2017 1:52 PM EST documented in this encounter Progress Notes Mercedes Bobby MD - 07/04/2018 10:30 AM EST Ms. Pearce is a 77 y.o. here for f/u of lichen sclerosus. She is using mometasone 2-3X/week She only uses the HC 2.5% ointment prn when she is travelling and sitting for long periods. Doesn't like her new life, doesn't come to down here ( here). Daughter lives down the road, son is near by - they do help out. Careful at home to prevent falls. Outpatient Medications Marked as Taking for the 07/04/18 encounter (Office Visit) with Mercedes Bobby MD Medication Sig Dispense Refill ??? mometasone (ELOCON) 0.1 % Ointment Use 3X/week hs sparingly 15 g 1 ??? hydrocortisone 2.5 % Cream Use 2-3X/week 15 g 1 Patient Active Problem List Diagnosis Code ??? Lichen sclerosus et atrophicus of the vulva N90.4 ??? Overweight E66.3 ??? GERD (gastroesophageal reflux disease) K21.9 ??? Hyperlipidemia E78.5 ??? Healthcare maintenance Z00.00 ??? Low back pain M54.5 ??? Tubular adenoma of colon D12.6 BP 122/77 Pulse 88 Wt 90.7 kg (200 lb) SpO2 96% BMI 31.51 kg/m?? On exam, she looks well. On vulvar exam, there is labial and clitoral flattening. There is no WE, excoriation, fissuring. Bimanual exam without palpable mass. She has red rash under abdominal pannus. Impression: LS in good control. Intertrigo Plan: f/u one year -she requests next spring. Reviewed treatment for intertrigo. documented in this encounter Plan of Treatment Not on filedocumented as of this encounter Visit Diagnoses Diagnosis Lichen sclerosus Circumscribed scleroderma Intertrigo Other specified erythematous condition documented in this encounter Care Teams Circulation Tender Relationship Specialty Start Date End Date Brad Jose MD PCP - General 12/17/14 11/09/19 [facility] [place] [address] documented as of this encounter
--- OUTSIDE RECORDS SUMMARY | 2021-12-25 00:50 | XMS_ITS | Encounter Summary ---
:1940 Author Organization [facility] [place] [address] Care Team Providers Name Role Phone Brad Jose MD Primary Care Provider Reason for Visit Reason Comments Skin Check Encounter Details Date Type Department Care Team Description 07/23/2017 Office Visit Dermatology at [facility], Nola Samuel; Adelia DEMARCO SK (seborrheic keratosis); [address] [facility] Stucco keratosis; [place] [address] [address] Actinic keratosis [phone] [facility] [place], [place] [address] Social History Tobacco Use Types [...] on file documented as of this encounter Patient Instructions Patient InstructionsLisa Kaplan LPN - 07/23/2017 11:30 AM EST Actinic Keratoses You have been diagnosed today with Actinic Keratosis (AK). These dry, scaly patches are considered the earliest stage in the development of skin cancer. In rare cases, an AK can progress to skin cancer. Because of this risk, AKs are usually treated. You were treated today with Liquid Nitrogen. This is the most common treatment for AKs. Liquid nitrogen is extremely cold, and freezes the surface of the skin, causing the lesion to flake off. Treatment with liquid nitrogen can be uncomfortable, but discomfort should subside after a couple of hours. The area treated will look red and irritated, and it may blister up or turn dark, then fall off. This is normal! You do not need any special treatment for the area, but you may find cold compresses and/or a light application of Vaseline soothing. For best results, do not rub or pick at the healing lesion. Expected healing time is 3-4 weeks. Please contact the Dermatology clinic at [phone] if the lesion has not fully resolved after 6 weeks. documented in this encounter Progress Notes Oxana Petit LPN - 07/23/2017 11:30 AM EST DERMATOLOGY ESTABLISHED PATIENT CLINIC NOTE DATE OF SERVICE: 07/23/2017 Anh Pearce : 1940 PROVIDER: Sushma Burk MD PATIENT PREFERENCES: -prefers to be called: Anh -ok to communicate detailed result information by: Mail?: Y MyDH?: N Voicemail?: Y and what #: Home phone -special considerations: -ok to discuss details of diagnosis and treatment with: N/A updated07/23/2017 Chief Complaint Patient presents with ??? Skin Check HPI Anh Pearce is a 76 y.o. year old female. New patient to me, established to [facility] dermatology and was last seen by Dr. Cruz on 12/02/16 for actinic keratosis. Reports the followin.General overall face skin check with keratosis 2. 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 hydrocortisone (CORTISONE) [...] by mouth daily. No current facility-administered medications on file prior to visit. No Known Allergies Review of Systems: Feels well, no fatigue, no weight loss, no other skin concerns EXAM General: AAOx3 Well-nourished/Obese/Frail Skin: A total body skin exam except for areas covered by underwear was performed. This includes examination of the skin of the face, ears, neck, chest, axillae, left and right upper and lower extremities, hands and feet, abdomen, and except the areas covered by underwear were not examined. DIAGNOSIS/SKIN FINDINGS/ASSESSMENT/PLAN: # Lentigines - trunk and extremities: 0.3-0.6cm light-brown evenly pigmented, well-demarcated macule - Discussed benign nature of lesion and provided reassurance - No treatment necessary at this time - Observe skin for change in color, size or character. Call if such occur # Seborrheic Keratosis - trunk: Multiple 0.4-0.6cm brown papules with waxy, stuck-on appearance. Milia-like cysts, comedone-like openings and/or fissuring on dermoscopy. - Etiology discussed - Patient reassured lesions are benign in nature - Explained that these are hereditary, adult onset and acquired. # Stucco Keratosis - bilateral feet - Discussed benign nature of lesion and provided reassurance - No treatment necessary at this time - Observe skin for change in color, size or character. Call if such occur # Dilated Pore - right breast - Discussed benign nature of lesion and provided reassurance - No treatment necessary at this time - Observe skin for change in color, size or character. Call if such occur # Lichen Sclerosis - Pt reports absence of symptoms. - has f/u with [facility] # Actinic Keratosis - left cheek, right lateral nasal sidewall: 0.2-0.3cm scaly irregular pink papule(s) - I discussed this condition with the patient and explored therapeutic options. I recommended this be treated with LN2, patient is in agreement to this treatment plan. Instructed to call if areas do not resolve as expected or if problems arise. If lesions fail to resolve, further work-up may be needed. Procedure Note: Procedure: Destruction of lesion(s) with cryotherapy. Number: 2 Location: as above Discussed procedure and expectations including risks (including risk of hypopigmentation) and benefits. Verbal consent obtained. Frozen with LN2, 15-30 second thaw time, TWICE. There were no complications; the patient tolerated the procedure well. Post-procedure expectations and wound care were reviewed. FOLLOW UP: 1 year for a full skin exam, sooner if needed. Instructed to call with questions or concerns. I am documenting this encounter acting as the scribe for and in the presence of Dr.Roberta Wm Petit LPN and Shadia Gutiérrez I performed the above scribed service and agree with the accuracy of the documentation in this encounter. Sushma Burk MD Section of Dermatology [facility] Anh Pearce 07/23/2017 [id number] documented in this encounter Plan of Treatment Not on filedocumented as of this encounter Visit Diagnoses Diagnosis Lentigines Other dyschromia SK (seborrheic keratosis) Other seborrheic keratosis Stucco keratosis Acquired keratoderma Actinic keratosis documented in this encounter Care Teams Form Setter Steel Pan Forms Relationship Specialty Start Date End Date Brad Jose MD PCP - General 12/17/14 11/09/19 [facility] GENERAL [place] [address] documented as of this encounter
--- OUTSIDE RECORDS SUMMARY | 2021-12-25 00:50 | XMS_ITS | Encounter Summary ---
:1940 Author Organization [facility] [place] [address] Care Team Providers Name Role Phone Brad Jose MD Primary Care Provider Encounter Details Date Type Department Care Team Description 07/09/2016 Hospital Encounter XRay at [facility] Brad Jose MD Chronic cough [address] [place] [address] [place] [address] GENERAL INTERNAL MEDICINE [place], [place] [address] (Wo rk) Social History Tobacco [...] Name Priority Date/Time Associated Diagnosis Comme nts XR CHEST PA AND Routine 07/09/2016 4:17 PM Chronic cough Resul ts for this LATERAL EST procedure are i n the results section. documented in this encounter Results XR Chest PA & Lateral (Generic) (07/09/2016 4:17 PM EST) Anatomical Region Laterality Modality Chest N/A Digital Radiography Specimen (Source) Anatomical Location Collection Method / Collectio n Time Received Time / Laterality Volume Impressions 07/09/2016 4:36 PM EST No pneumonia or other acute cardiopulmonary findings. I have personally reviewed the image(s) and the residents interpretation and agree with the findings, Hakeem huston 07/09/2016 4:36 PM Narrative 07/09/2016 4:36 PM EST EXAMINATION: XR CHEST PA AND LATERAL (GENERIC) CLINICAL HISTORY: cough TECHNIQUE: PA and lateral radiograph the chest. COMPARISON: None FINDINGS: Lungs are clear. No pleural effusion. No pneumothorax. There is borderline to mild enlargement of cardiac silhouette. Otherwise the cardiomediastinal silhouette is within normal limits. Ther e is levoscoliosis of the thoracolumbar spine. Procedure Note Hakeem Rosas MD - 07/09/2016Formatt ing of this note might be different from the original. EXAMINATION: XR CHEST PA AND LATERAL (GE NERIC) CLINICAL HISTORY: cough TECHNIQUE: PA and lateral radiograph the chest. COMPARISON: None FINDINGS: Lungs are clear. No pleural effusion. No pneumothorax. There is borderline to mild enlargement of cardiac silhouette. Otherwise the cardiomediastinal silhouette is within normal limits. Ther e is levoscoliosis of the thoracolumbar spine. IMPRESSION No pneumonia or other acute cardiopulmon bea findings. I have personally reviewed the image(s) and the residents interpretation and agree with the findings, Hakeem huston 07/09/2016 4:36 PM Brad Jose MD IMG DX ORDERABLES documented in this encounter Visit Diagnoses Diagnosis Chronic cough Cough documented in this encounter Care Teams Merchandising Specialist Relationship Specialty Start Date End Date Brad Jose MD PCP - General 12/17/14 11/09/19 [facility] GENERAL [place] [address] documented as of this encounter
--- OUTSIDE RECORDS SUMMARY | 2021-12-25 00:50 | XMS_ITS | Encounter Summary ---
:1940 Author Organization [facility] [place] [address] Care Team Providers Name Role Phone Brad Jose MD Primary Care Provider Encounter Details Date Type Department Care Team Description 07/26/2017 Telephone Internal Medicine at [place] [facility] [place] [address] Social History Tobacco Use Types Packs/Day [...] on filedocumented in this encounter Care Teams Peanut Grader Relationship Specialty Start Date End Date Brad Jose MD PCP - General 12/17/14 11/09/[address] [facility] [address] [place] INTERNAL [place] [address] documented as of this encounter
--- OUTSIDE RECORDS SUMMARY | 2021-12-25 00:50 | XMS_ITS | Encounter Summary ---
:1940 Author Organization [facility] [place] [address] Care Team Providers Name Role Phone Brad Jose MD Primary Care Provider Reason for Visit Reason Onset Date Comments Results 07/21/2016 Encounter Details Date Type Department Care Team Description 07/21/2016 Telephone Dermatology at [facility] Halina Tarango MD Results [address] [facility] [place] [address] [facility] [phone] [place], [place] [address] (Wo rk) Social History Tobacco [...] this encounter Miscellaneous Notes Telephone Encounter - Halina Tarango MD - 07/21/2016 8:18 PM EST I called and spoke with pt regarding biopsy result from left cheek, which showed a lentigo and pigmented actinic keratosis. No further intervention needed at this site, based on this result. Instructedpt to f/u in 1 year or sooner if she notices any changes. Pt appreciated the phone call. documented in this encounter Plan of Treatment Not on filedocumented as of this encounter Visit Diagnoses Not on filedocumented in this encounter Care Teams Manager Costing Relationship Specialty Start Date End Date Brad Jose MD PCP - General 12/17/14 11/09/19 [facility] [place] [address] documented as of this encounter
--- OUTSIDE RECORDS SUMMARY | 2021-12-25 00:50 | XMS_ITS | Encounter Summary ---
:1940 Author Organization [facility] [address] Care Team Providers Name Role Phone Brad Jose MD Primary Care Provider Reason for Visit Reason Comments Annual Wellness Visit Encounter Details Date Type Department Care Team Description 07/23/2017 Office Visit Internal Medicine Brad Jose Pure hypercholesterolemia; at [facility] Chronic bilateral low back pain without sciatica; [facility] t; [facility] Tubular adenoma of colon; [place], [place] GENERAL INTERNAL Gastroesoph ageal reflux disease without esophagitis; [id number] MEDICINE Healthcare maintenance [phone] [place], [place] [address] Social History Tobacco Use Types [...] Sign Reading Time Taken Comments Blood Pressure 126/74 07/23/2017 1:52 PM EST Pulse 75 07/23/2017 1:52 PM EST Temperature 36.8 ??C (98.2 ??F) 07/23/2017 1:52 PM EST Respiratory Rate 16 07/23/2017 1:52 PM EST Oxygen Saturation 95% 07/23/2017 1:52 PM EST Inhaled Oxygen Concentration - - Weight 93 kg (205 lb) 07/23/2017 1:52 PM EST Height 169.7 cm (5' 6.8) 07/23/2017 1:52 PM EST Body Mass Index 32.3 07/23/2017 1:52 PM EST documented in this encounter Progress Notes Yojana Larson - 07/23/2017 2:00 PM EST Annual Assessment of Medical Issues - Annual Wellness Visit History of Presenting Illness: Ms. Anh Pearce, a 76 y.o. female, presents today for a Medicare Annual Wellness Visit. in March after some cardiac disease and complicated hospital course with multiple surgery. 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 Has been dealing with this reasonably well. Having a lot of stress with paperwork and legal documents but seems to manage. Had a great support system with friends. Going to [place] next week for vacation with them. Daughter moved next door and son lives close as well. Having a hard time with cooking, seems to make too much food now and it spoils sooner now that she lives alone. Legs are giving her a hard time. After sitting for a long time gets stiffness in both legs equally. Some swelling, no rashes, pain, or discoloration. Hard to start walking, legs feel heavy, but able tocontinue when she started to loosen up. Used compression stockings in the past but has not recently. Self assessment of Health Status: doing well considering recent stressors, some annoyances with her lower extremities Other providers: none Suppliers: Home Safety: (Co2 and smoke detectors) yes Hearing difficulty: no Memory issues (mini-cog score 5/5): no Advanced directives: none Health Risk Assessment (HRA): (all responses reviewed including blank responses) Annual Wellness Visit Responses: myD-H Annual Wellness Visit Responses 07/23/2017 Health in general Good Quality of life Very Good Physical health Good Mental health Good Satisfaction with social activities Excellent Ability to carry out social activities Good Ability to carry out physical activities Mostly Bothered by emotional problems Sometimes Rate of fatigue Moderate Rate of pain 1 PROMIS-10 Physical Health Score 44.9 PROMIS-10 Mental Health Score 50.8 Activity - low level (Bathing, Dressing, Eating, Mobility, Using toilet, Grooming) No, I do not havedifficulty with these activities Activity - high level (Laundry, Housekeeping, Banking, Shopping, Use phone, Food Prep, Transportation, Taking meds) - IADLS - Help - Fallen in last year - Difficulties with balance or walking Yes Little interest or pleasure Several days Down, depressed, hopeless Several days Feel lonely or isolated Never Have money for everyday living Yes Confident in managing health problems Very confident Confident filling medical forms Extremely Medication finances No Smoking Status Never Drinking frequency Monthly or less Drinks per day 0 drinks 6+ drinks on one occasion Never Audit-C Score 1 (Low Risk) 10 mins of vigorous physical activity 1 day Time spent on vigorous physical activity 20 minutes 10 mins of moderate physical activity 3 days Time spent on moderate physical activity 20 minutes Eat Fruit 1 - 3 times per day Eat Vegetables 1 - 3 times per day Eat Peanut Butter Never Eat Nuts and Seeds 1 - 2 times per week Eat Tuna or Other Dark Meat Fish 1 - 2 times per month Take Supplements Never Wear Seatbelt Always Tooth or Mouth Problems No Urinary Incontinence No Sexually active No Live Alone Yes School Postgraduate school or degree Employment Status Retired (not due to ill health) Hours per week Does not apply Who is taking survey I am (patient) Past/Family/Social History/Medications and Allergies reviewed and/or documented below. Patient reported measures: Pain:1 Physical Health:Good Fall: PHQ-9 QUESTIONNAIRE SCORE ONLY (AMB) 10/21/2015 PHQ - 9 Score (Clinic) 0 (No Depression) Wt Readings from Last 3 Encounters: 07/23/17 93 kg (205 lb) 06/30/17 90.7 kg (199 lb 15.3 oz) 07/09/16 90.7 kg (200 lb) Hearing assessment (whisper test, rubbing fingers) PHQ-9 QUESTIONNAIRE SCORE ONLY (AMB) 10/21/2015 PHQ - 9 Score (Clinic) 0 (No Depression) Patient Active Problem List Diagnosis ??? Tubular adenoma of colon [place] 2012 showed 2 tubular adenomas--repeat in 2016 Positive FH colon cancer in father dx age 79 ??? Low back pain ??? Overweight BMI 35 ??? GERD (gastroesophageal reflux disease) ??? Hyperlipidemia ??? Healthcare maintenance PAP-11/05/08-nl and neg for HPV,MAMMO- 12/10/09, Dexa Scan 12/06/07-nL,Upper GI Series-12/19/07- Hiatal hernia, Colonoscopy-12/19/07 ??? Lichen sclerosus et atrophicus of the vulva Geriatric Functional Status Instrumental ADLs Can perform Cannot Comments Meals/Cooking x Laundry x Cleaning x Finances x Shopping x Transportation x Telephone x Basic ADLS Can perform Cannot Comments Bathing x Walking x Transferring x Dressing x Feeding x Toileting x Geriatric Screens Yes No comments Medications Reviewed x Incontinence - Urine x Incontinence - Feces x Falls x Driving x In Home Services x Lifeline x Assist Device x ( ) cane ( ) walker Depression Risk x Outpatient Encounter Prescriptions as of 07/23/2017 Medication Sig Dispense Refill ??? hydrocortisone (CORTISONE) [...] Take 1 tablet by mouth daily. No facility-administered encounter medications on file as of 07/23/2017. Social History Social History ??? Marital status: Spouse name: N/A ??? Number of children: 2 ??? 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 Smoking status: Former Smoker Packs/day: 0.25 Years: 0.10 Types: Cigarettes Quit date: 1965 ??? Smokeless tobacco: Never Used Comment: 1 pack total. ??? Alcohol use 0.0 oz/week 0 Standard drinks or equivalent per week Comment: infrequent wine 2-3 glasses a week ??? Drug use: No ??? Sexual activity: Yes Partners: Male Other Topics Concern ??? None Social History Narrative Born in [facility]. Still has a house there. 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 Belongs to book groups family history includes Breast Cancer in her maternal aunt and another family member. Review of Systems: Constitutional - (- ) fevers (- ) chills, sweats (- ) fatigue Allergic/Immunologic - (- ) rash Cardiovascular - ( -)chest pain ( -)palpitations Integument/Breast - (- ) lesions, lumps, nodules Respiratory - (- )SOB, HERRERA ( -)cough, sputum (- )wheezing HEENT - ( -) diffculty swallowing (- ) nasal congestion, postnasal drip Psychiatric - (- ) sadness, depression (- ) anxiety, panic (- ) memory loss (- ) insomnia Neurological - ( -) numbness, tingling, loss of sensation ( -) weakness or function of limbs (- ) headaches Gastrointestinal - (- ) abdominal pain (- ) nausea, GERD (- ) constipation, diarrhea (- ) blood in stool Genitourinary - (- ) abnormal discharge (- ) lumps, masses or nodules ( -) nocturia, dysuria, polyuria Heme/Lymph - (- ) lymph node swelling Musculoskeletal - ( -) pain at rest or with movement Objective Vitals: 07/23/17 1352 BP: 126/74 BP Location (NBP): Right arm Patient Position: Sitting BP Cuff Sizes: Large Adult (32-43 cm) Pulse: 75 Resp: 16 Temp: 36.8 ??C (98.2 ??F) TempSrc: Temporal SpO2: 95% Weight: 93 kg (205 lb) Height: 169.7 cm (5' 6.8) Gen -no acute distress. Alert, responsive and comfortable HEENT - EOMI, PERRL, TMs and canals normal, oropharynx moist without lesions Neck - Full range of motion, no bruits, no lymphadenopathy or thyromegaly. No increase in JVD. Lungs - No wheezes, no crackles. Otherwise, clear to ascultation and percussion Chest/Back - No spinal tenderness. No visible deformities or scoliosis appreciated. Heart - RRR, S1,S2, no murmur, gallop or rub Abdomen - Soft, nontender, no hepatosplenomegaly, masses or distention, normal active bowel sounds Extremities - No clubbing, cyanosis or edema x 4 Skin - No rashes, lesions, plaques, nodules Neurological - Grossly normal Gait: grossly intact with normal stride length, speed, and arm swing Assessment/Plan: Ms. Pearce was seen today for a Medicare Annual Wellness Visit. In conclusion, we discussed the following: #Venous Insufficiency and Lower Extremity Edema - recommended 20mmHg compression stockings - leg/calf exercises - elevate legs when sitting #Uncomplicated Grief - well-adjusted, doing ok - continue to monitor for signs of depression #Health Maintenance - mammogram this year - flu shot today - colonoscopy 2020 - dexa scan 2021 1. SCREENING SCHEDULE & IMMUNIZATIONS - Health Maintenance Topic Date Due ??? Advance Directive 1997 ??? Influenza (Flu) vaccine (1 of 1 - Influenza Standard Series) 02/05/2017 ??? Breast Cancer Screening 07/09/2018 ??? Colonoscopy 02/03/2021 ??? Lipid Screening 07/09/2021 ??? Tetanus vaccine 12/15/2023 ??? Pneumo vaccine (65+) Completed ??? Bone Density,female 65+ Completed ??? Tdap adult Completed ??? Zoster vaccine Completed 2. RISK FACTORS (including any positives from HRA) and 3. PERSONALIZED HEALTH ADVICE - [x] A copy of the Risk Factors and Personalized Health Advice and Health Maintenance List was copiedto the patient's After Visit Summary. Patient Instructions: There are no Patient Instructions on file for this visit. I counselled the patient on the above medical issues I also went over the patient's medication list and discussed all concerns and questions the patient had. The patient agreed to this above assessment and plan, and verbalized understanding of the plan of care. All questions were answered to their satisfaction. I encouraged the patient to contact us should they have further questions or concerns. I also explained that results will be communicated by one of my nurses, letter, or myD. Next Appointment: Return in about 1 year (around 07/23/2018). Total time: Minutes, Of the visit time was spent in [id number] counselling of the above issues Orders placed in this Encounter: Orders Placed This Encounter Procedures ??? Mammo Screening Cad Bilateral Standing Status: Future Standing Expiration Date: 07/24/2018 Order Specific Question: Where will study be performed? Answer: [facility] [120] Order Specific Question: Reason for exam and clinical history: Answer: screening ??? FLU VACCINE, HIGH DOSE SPLIT PRESERVATIVE FREE IM ??? CBC (with Diff) Standing Status: Future Standing Expiration Date: 09/21/2017 ??? Comprehensive metabolic panel (non-fasting) Standing Status: Future Standing Expiration Date: 09/21/2017 ??? Folate, serum Standing Status: Future Standing Expiration Date: 09/21/2017 ??? Vitamin B12 Standing Status: Future Standing Expiration Date: 09/21/2017 ??? TSH Standing Status: Future Standing Expiration Date: 09/21/2017 ??? T4, free Standing Status: Future Standing Expiration Date: 09/21/2017 ??? Lipid Panel Standing Status: Future Standing Expiration Date: 09/21/2017 Laboratory Studies No results found for this or any previous visit (from the past 72 hour(s)). Brad Jose MD - 07/23/2017 2:00 PM EST I have seen the patient and reviewed the resident's above history and I agree with the details as written. The assessment and plan were formulated in discussion with me and I agree with them as documented. 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 Children - daughter had been living in [place] - spring came home. Lives next door. [place] Has lots of land to take care of. Does not like to ask for help Swelling and heaviness in legs - worse when sits down. Heaviness. Climbing stairs - not like it usedto be. Not significantly limiting but not as comfortable. Once gets going she is ok Pertinent Exam: Vitals: 07/23/17 1352 BP: 126/74 BP Location (NBP): Right arm Patient Position: Sitting BP Cuff Sizes: Large Adult (32-43 cm) Pulse: 75 Resp: 16 Temp: 36.8 ??C (98.2 ??F) TempSrc: Temporal SpO2: 95% Weight: 93 kg (205 lb) Height: 169.7 cm (5' 6.8) Gen -no acute distress. Alert, responsive and comfortable HEENT - oropharynx moist without lesions Neck - Full range of motion, no bruits, no lymphadenopathy or thyromegaly. No increase in JVD. Lungs - No wheezes, no crackles. Chest/Back - No spinal tenderness. No visible deformities or scoliosis appreciated. Heart - RRR, S1,S2, no murmur, gallop or rub Abdomen - Soft, nontender, no hepatosplenomegaly, masses or distention, normal active bowel sounds Extremities - No edema Skin - No rashes, lesions, plaques, nodules Neurological - grossly normal Gait: grossly intact with normal stride length, speed, and arm swing Major issues addressed: # Back discomfort Discussed -. Tylenol for pain control # Colon Polyps Review in 01/2021 # GERD Stable at this time # Venous Insufficiency Reviewed again # Preventive --discussed routine prevention of health including diet and exercise and weight management --personalized health program discussed with the patient --explained importance of vaccinations and reasoning for such --discussed preferences with regard to colon cancer screening and prostate cancer (males) and breastcancer/osteoporosis (females) --ascertained DPOA-h and advanced directives and discussed briefly advanced care planning as well. --the patient currently needs: advanced directive, dexa in 2020 documented in this encounter Plan of Treatment Not on filedocumented as of this encounter Procedures Procedure Name Priority Date/Time Associated Diagnosis Comme nts HEMOGRAM Routine 07/23/2017 3:18 Overweight Results for PM EST this procedure are in the results section. DIFFERENTIAL, Routine 07/23/2017 3:18 Overweight Results for AUTOMATED PM EST this procedure are in the results section. CBC (WITH DIFF) Routine 07/23/2017 3:18 Overweight PM EST TSH Routine 07/23/2017 3:18 Pure hypercholesterolemia Results for PM EST this procedure are in the results section. T4, FREE Routine 07/23/2017 3:18 Pure hypercholesterolemia Results for PM EST this procedure are in the results section. FOLATE, SERUM Routine 07/23/2017 3:18 Overweight Results for PM EST this procedure are in the results section. VITAMIN B12 Routine 07/23/2017 3:18 Overweight Results for PM EST this procedure are in the results section. LIPID PANEL (REFLEX Routine 07/23/2017 3:18 Pure hypercholeste rolemia Results for DIRECT LDL) PM EST this procedure are in the results section. COMPREHENSIVE Routine 07/23/2017 3:18 Overweight Results for METABOLIC PANEL PM EST this procedu re (NON-FASTING) are in the results section. documented in this encounter Results Mammo Screening Cad and Leo Bilateral (12/06/2017 10:41 AM EDT) Anatomical Region Laterality Modality Breast Bilateral Mammography Specimen (Source) Anatomical Location Collection Method / Collectio n Time Received Time / Laterality Volume Narrative 12/06/2017 11:14 AM EDT BILATERAL MAMMOGRAPHY REASON FOR EXAM: [...] areas of distortion. The pattern is stable. A 2mm group of calcif ications in the right central breast has become increasingly coarse si nce 2014. CONCLUSION: No mammographic evidence of malignancy. RECOMMENDATION: The [employer] and The Society of [...] letter has been sent to this pa salvador by [facility]. BIRADS CATEGORY 1: NEGATIVE Brad Jose MD IMG MAMMO ORDERABLES Differential, Automated (07/23/2017 3:18 PM EST) P athologist Signature Neutrophils % 67.3 % [facility] Neutr Abs (ANC) 3.22 1.70 - [facility] 6.10 [facility] x10(3)/[facility] LABORATORY Lymphocytes % 22.6 % [facility] Lymphocytes Abs 1.1 0.9 - 3.2 [facility] x10(3)/[facility] LABORATORY Monocytes % 6.3 % [facility] Monocyte Abs 0.3 0.3 - 0.9 [facility] x10(3)/[facility] LABORATORY Eosinophils % 2.1 % [facility] Eosinophils Abs 0.1 0.0 - 0.4 [facility] x10(3)/[facility] LABORATORY Basophils % 1.5 % [facility] Basophils Abs 0.1 0.0 - 0.1 [facility] x10(3)/[facility] LABORATORY Immature Gran % 0.20 % [facility] Comment: Immature granulocytes(IG's)percentage an d absolute count will include metamyelocytes, myelocytes, and promyelo cytes. Blood smears from CBCs yielding IG's will be scanned manually for concor dance. If this scan disagrees with the automated IG or if promyelocytes are not ed, a manual differential will be performed. Zeny Gran Abs 0.01 0.00 - 0.04 x10(3)/[facility] Specimen Anatomical Collection Method Collection Time Receive d Time (Source) Location / / Volume Laterality Blood specimen 07/23/2017 3:18 PM 018 3:24 (specimen) EST PM EST Resulting Agency Comment Spec In Lab Bard Jose MD HEMATOLOGY ORDERABLES Performing Organization Address City/State/[place] [address] (ABNORMAL) Hemogram (07/23/2017 3:18 PM EST) Analysis Performed At Patho logist Time Signature WBC 4.8 4.0 - 9.5 [facility] x10(3)/[facility] LABORATORY RBC 4.41 4.00 - [facility] 5.21 [facility] x10(6)/[facility] LABORATORY Hemoglobin 13.8 11.7 - [facility] 15.5 gm/dL [facility] Hematocrit 42.0 35.7 - [facility] 45.8 % [facility] MCV 95.2 (H) 82.6 - [facility] [place] 94.4 [facility] LABORATORY MCH 31.3 27.1 - [facility] [place] 32.0 pg [facility] MCHC 32.9 31.7 - [facility] [place] 35.0 gm/dL [facility] Platelets 199 145 - 357 [facility] x10(3)/[facility] LABORATORY RDWSD 44.2 37.0 - [facility] [place] 46.0 [facility]ORATORY RDWCV 12.6 11.5 - [facility] [place] 14.1 % [facility] MPV 9.8 7.6 - 12.9 [facility] LABORATORY nRBC % Auto 0.0 % [facility] nRBC Abs Auto 0.000 0.000 - [facility] 0.000 [facility] x10(3)/[facility] LABORATORY Specimen Anatomical Collection Method Collection Time Receive d Time (Source) Location / / Volume Laterality Blood specimen 07/23/2017 3:18 PM 018 3:24 (specimen) EST PM EST Resulting Agency Comment Spec In Lab Brad Jose MD HEMATOLOGY ORDERABLES Performing Organization Address City/State/[place] [address] Lipid Panel (07/23/2017 3:18 PM EST) P athologist Signature Chol, Total 188 mg/dL [facility] Comment: Lower Risk: <200 mg/dL Average Risk: 200-239 mg/dL Higher Risk: >ms=410 mg/dL Triglycerides 74 mg/dL [facility] Comment: Average Risk/Lower Risk: <150 mg/dL Borderline High Risk: 150-199 mg/dL High Risk: 200-499 mg/dL Very High Risk: >gg=238 mg/dL HDL 72 mg/dL [facility] Comment: Males: ?? Higher Risk: <40 mg/dL Females: ?? HIgher Risk: <50 mg/dL LDL Cholesterol 101 mg/dL [facility] Comment: Lowest Risk: <100 mg/dL Lower Risk: 100-129 mg/dL Borderline High Risk: 130-159 mg/dL High Risk: 160-189 mg/dL Very High Risk: >ua=432 mg/dL Chol/HDL Ratio 2.6 ratio [facility] Lipid Interpretation See Note [facility] Comment: Lipid management should be guided by a p atient? s ASCVD risk, goals and preferences. ACC/AHA Guidelines recommend high intens ity statin if clinical ASCVD or LDL greater than or equal to 190 mg/dL. http://ExtraOrtho.com/ZXT-VJW-[email or web address] Adults aged 40-75 with LDL 70-189 mg/dL should have their 10 year ASCVD risk estimated with the ACC/AHA ASCVD risk es timator http://tools.acc.org/KXPXX-Bvku-Jdmacqoi r/ Statin should be discussed if risk great er than or equal to 7.5% in non-diabetics. With diabetes, moderate i ntensity statin is recommended if risk less than 7.5%, high intensity if risk g reater than or equal to 7.5%. Annual lipid monitoring on statins is no t necessary. Evaluate secondary causes of Triglycerid es greater than 500 mg/dL or LDL greater than 190 mg/dL: See table 6 of A CC/AHA Guideline. Lifestyle modification is a critical com ponent of ASCVD risk reduction. Specimen Anatomical Collection Method Collection Time Receive d Time (Source) Location / / Volume Laterality Blood specimen 07/23/2017 3:18 PM 018 3:24 (specimen) EST PM EST Resulting Agency Comment Spec In Lab Brad Jose MD CHEMISTRY ORDERABLES Performing Organization Address City/[facility]/[place]IP [place] [address] T4, free (07/23/2017 3:18 PM EST) athologist Signature Free T4 1.08 0.93 - 1.70 [facility] ng[facility]dL [facility] Specimen Anatomical Collection Method Collection Time Receive d Time (Source) Location / / Volume Laterality Blood specimen 07/23/2017 3:18 PM 018 3:24 (specimen) EST PM EST Resulting Agency Comment Spec In Lab Brad Jose MD CHEMISTRY ORDERABLES Performing Organization Address City/State/[place] [address] TSH (07/23/2017 3:18 PM EST) athologist Signature TSH 1.18 0.27 - 4.20 [facility] mlU/ML [facility] Specimen Anatomical Collection Method Collection Time Receive d Time (Source) Location / / Volume Laterality Blood specimen 07/23/2017 3:18 PM 018 3:24 (specimen) EST PM EST Resulting Agency Comment Spec In Lab Brad Jose MD CHEMISTRY ORDERABLES Performing Organization Address City/[facility]/[place] [address] Vitamin B12 (07/23/2017 3:18 PM EST) athologist Signature Vitamin B-12 433 232 - 1,245 [facility] pg/mL [facility] Comment: Please note: Effective 05/05/2017, the r eference interval and the lower limit of detection for Vitamin B12 have been u pdated due to a new reagent formulation. Specimen Anatomical Collection Method Collection Time Receive d Time (Source) Location / / Volume Laterality Blood specimen 07/23/2017 3:18 PM 018 3:24 (specimen) EST PM EST Resulting Agency Comment Spec In Lab Brad Jose MD CHEMISTRY ORDERABLES Performing Organization Address City/[facility]/ZIP Code Phon e Number [address] Folate, serum (07/23/2017 3:18 PM EST) athologist Signature Folate Lvl 16.6 4.8 - 24.2 [facility] [place] ng/mL [facility] Specimen Anatomical Collection Method Collection Time Receive d Time (Source) Location / / Volume Laterality Blood specimen 07/23/2017 3:18 PM 018 3:24 (specimen) EST PM EST Resulting Agency Comment Spec In Lab Brad Jose MD CHEMISTRY ORDERABLES Performing Organization Address City/State/[place] [address] (ABNORMAL) Comprehensive metabolic panel (non-fasting) (07/23/2017 3:18 PM EST) athologist Signature Glucose Lvl 84 65 - 199 [facility] [facility] mg/dL [facility] Comment: Diabetes: >=200 mg/dL plus symp toms BUN 23 (H) 8 - 18 mg/dL [facility] Creatinine 0.63 (L) 0.70 - 1.20 mg/dL [facility] Sodium 145 135 - 145 mmol/L [facility] Potassium 3.8 3.5 - 5.0 mmol/L [facility] Comment: Please note: ??Patients with WBC >100,00 0 may have falsely elevated Potassium levels. ??For accurate Potassium quantif ication in these patients send serum separator tube (gold top) for subsequent determinations. ??Contact the Clinical Chemistry Laboratory if there are any qu estions. Chloride 104 98 - 107 mmol/L [facility] CO2 29 22 - 31 mmol/L [facility] Anion Gap 12 5 - 15 mmol/L [facility] Calcium 9.2 8.5 - 10.5 mg/dL [facility] Total Protein 7.2 6.1 - 8.0 gm/dL [facility] Albumin 4.2 3.2 - 5.2 gm/dL [facility] AST 21 0 - 30 unit/L [facility] ALT 21 0 - 30 unit/L [facility] Alk Phos 72 40 - 104 unit/L [facility] Total Bilirubin 1.1 0.2 - 1.3 mg/dL [facility] Estimated GFR >60 >=60 [facility] Comment: The reported eGFR should be multiplied b y 1.2 for patients. The MDRD is not an appropriate measure o f renal function for patients with body mass extremes or in patients with acute kidney failure. http://[employer]/DHnkdep http://[employer]/DHnkf Specimen Anatomical Collection Method Collection Time Receive d Time (Source) Location / / Volume Laterality Blood specimen 07/23/2017 3:18 PM 018 3:24 (specimen) EST PM EST Resulting Agency Comment Spec In Lab Brad Jose MD CHEMISTRY ORDERABLES Performing Organization Address City/State/Z[place] [address] documented in this encounter Visit Diagnoses Diagnosis Pure hypercholesterolemia Chronic bilateral low back pain without sciatica Overweight Tubular adenoma of colon Benign neoplasm of colon Gastroesophageal reflux disease without esophagitis Esophageal reflux Healthcare maintenance Routine general medical examination at a health care facility Healthcare maintenance Routine general medical examination at a health care facility documented in this encounter Care Teams Shredded Filler Cutter Operator Relationship Specialty Start Date End Date Brad Jose MD PCP - General 12/17/14 11/09/19 [facility] GENER[place] [address] documented as of this encounter
--- OUTSIDE RECORDS SUMMARY | 2021-12-25 00:50 | XMS_ITS | Encounter Summary ---
:1940 Author Organization [facility] [place] [address] Care Team Providers Name Role Phone Brad Jose MD Primary Care Provider Encounter Details Date Type Department Care Team Description 07/13/2016 Hospital Encounter XRay at [facility] Brad Jose, [address] DEMARCO [facility] [address] [place] [phone] GENERAL INTERNAL MEDICINE [place], [place] [address] Social History Tobacco Use Types [...] Name Priority Date/Time Associated Diagnosis Comme nts DXA CENTRAL SPINE, Routine 07/13/2016 1:15 PM Healthcare Res ults for this HIP, AND/OR WHOLE EST maintenance procedure are in BODY (GENERIC) the results section. documented in this encounter Results Dexa Central-Spine, Hip, And/Or Whole Body (Generic) (07/13/2016 1:15 PM EST) Anatomical Region Laterality Modality C-spine, Hip N/A Radiographic Imaging Specimen (Source) Anatomical Location Collection Method / Collectio n Time Received Time / Laterality Volume Impressions 07/14/2016 3:00 PM EST Bone mineral density has decreased. Osteopenia by WHO diagnostic criteria. Estimating Fracture Risk: ? The relationship between bone mineral de nsity (BMD) and risk of fracture is well established. As BMD decreases, risk incr eases. Quantifying risk is difficult and is usually limited to estimation of the relative risk - a term which may have limited value when trying to discuss an individual's risk. Estimating the absolute risk for a patient requires an understanding of the incidence rate in a given population and consideration of mu ltiple, partially independent, risk factors in addition to BMD. ? The World Health Organization (WHO) has developed a fracture risk prediction tool that calculates a ten-year risk of major osteoporotic fracture based on femoral neck bone density measurements a nd nine clinical risk factors for individuals who have not been treated fo r osteoporosis. This is available through an interactive web-based interfa ce (http://www.shef.ac.uk/FRAX/) and can be used to estimate a given patient's ab solute risk of major osteoporotic fracture or hip fracture over the next 1 0 years. These estimates may prove useful when discussing risk with a patie nt. It is important, however, to understand the tool's limitations and ho w a given individual's risk might differ from the tool's estimate. The tool does not take into account the dose-response associated with most risk factors. For e xample, the significant increase in risk associated with multiple prior fractures compared to a single prior fracture is not taken into account. Similarly, the l ocation of a previous fracture, the amount of glucocorticoids and number of cigarettes smoked are not considered. These limitations are discussed in a Fr equently Asked Questions section of the FRAX website which you are encouraged to review. ? DEXA data sheets with BMD measurements a nd plots are available in [employer] under the imaging tab. Paper copies will be sent to providers without Nativo access. If you have received this report without th e data sheet and do not have access to Nativo, please contact Radiology Transcrip tion at [phone] Wednesday thru Wednesday 8am-4pm. Narrative 07/14/2016 3:00 PM EST EXAMINATION: DEXA CENTRAL-SPINE, HIP, AND/OR WHOLE BODY (GENERIC) CLINICAL HISTORY: screening last dexa 24 01 TECHNIQUE: Scans were acquired at the jones mbar spine and left hip and left forearm. FINDINGS: Lowest T-score at the diagnost ic region of interest: The spine measurements are compromised b y disc degeneration and sclerosis. I am not confident that the spine measurement s are accurate enough for diagnosis or precise enough for comparison to earlier studies. T-score: -1.3, LORIN: Femoral neck, WHO di agnosis: Osteopenia. ......... Comparison......... Previous scan: 12/06/2007, Baseline scan: 06/01/2003 Total hip: Compared to the most recent scan, decrea sed 9.4%. Compared to the baseline scan, decreased 13.6%. Procedure Note Maged Leonard MD - 07/14/2016Forma tting of this note might be different from the original. EXAMINATION: DEXA CENTRAL-SPINE, HIP, AN D/OR WHOLE BODY (GENERIC) CLINICAL HISTORY: screening last dexa 24 01 TECHNIQUE: Scans were acquired at the jones mbar spine and left hip and left forearm. FINDINGS: Lowest T-score at the diagnost ic region of interest: The spine measurements are compromised b y disc degeneration and sclerosis. I am not confident that the spine measurement s are accurate enough for diagnosis or precise enough for comparison to earlier studies. T-score: -1.3, LORIN: Femoral neck, WHO di agnosis: Osteopenia. ......... Comparison......... Previous scan: 12/06/2007, Baseline scan: 06/01/2003 Total hip: Compared to the most recent scan, decrea sed 9.4%. Compared to the baseline scan, decreased 13.6%. IMPRESSION Bone mineral density has decreased. Osteopenia by WHO diagnostic criteria. Estimating Fracture Risk: ? The relationship between bone mineral de nsity (BMD) and risk of fracture is well established. As BMD decreases, risk incr eases. Quantifying risk is difficult and is usually limited to estimation of the relative risk - a term which may have limited value when trying to discuss an individual's risk. Estimating the absolute risk for a patient requires an understanding of the incidence rate in a given population and consideration of mu ltiple, partially independent, risk factors in addition to BMD. ? The World Health Organization (WHO) has developed a fracture risk prediction tool that calculates a ten-year risk of major osteoporotic fracture based on femoral neck bone density measurements a nd nine clinical risk factors for individuals who have not been treated fo r osteoporosis. This is available through an interactive web-based interfa ce (http://www.shef.ac.uk/FRAX/) and can be used to estimate a given patient's ab solute risk of major osteoporotic fracture or hip fracture over the next 1 0 years. These estimates may prove useful when discussing risk with a patie nt. It is important, however, to understand the tool's limitations and ho w a given individual's risk might differ from the tool's estimate. The tool does not take into account the dose-response associated with most risk factors. For e xample, the significant increase in risk associated with multiple prior fractures compared to a single prior fracture is not taken into account. Similarly, the l ocation of a previous fracture, the amount of glucocorticoids and number of cigarettes smoked are not considered. These limitations are discussed in a Fr equently Asked Questions section of the FRAX website which you are encouraged to review. ? DEXA data sheets with BMD measurements a nd plots are available in [employer] under the imaging tab. Paper copies will be sent to providers without E-DH access. If you have received this report without th e data sheet and do not have access to [employer], please contact Radiology Transcrip tion at [phone] Wednesday thru Wednesday 8am-4pm. Brad Jose MD IMG DEXA ORDERABLES documented in this encounter Visit Diagnoses Diagnosis Healthcare maintenance Routine general medical examination at a health care facility documented in this encounter Care Teams Device Processing Engineer Relationship Specialty Start Date End Date Brad Jose MD PCP - General 12/17/14 11/09/19 [facility] [place] [address] documented as of this encounter
--- OUTSIDE RECORDS SUMMARY | 2021-12-25 00:50 | XMS_ITS | Encounter Summary ---
:1940 Author Organization [facility] [place] [address] Care Team Providers Name Role Phone Brad Jose MD Primary Care Provider Reason for Visit Reason Onset Date Comments Letter/Form 10/13/2018 Encounter Details Date Type Department Care Team Description 10/13/2018 Telephone [place] Medicine [place] [facility] Marvin Nichols Letter/[place] [address] Social History Tobacco Use Types Packs/Day [...] this encounter Miscellaneous Notes Telephone Encounter - Neli Rod CMA - 10/13/2018 1:04 PM EDT Called back and asked it to be refaxed attention to me. Will give to Oxana when I receive it. Neli Rod CMA Telephone Encounter - Marvin Nichols - 10/13/2018 12:40 PM EDT Message: Priyanka from the [facility] is calling stating that they have faxed to [phone] couple times and rec'd confirmation of the fax. It is a report that Oxana Bustamante needs to sign. There are 5 pages and she needs to sign the 4th page. Please see if we have this form. She is sending another one today. Ask caller their first and last name and relationship to the patient: Priyanka Best time to call back: any Ok to leave a message: y Ok to send my- message: Offered Appointment: n MA/Nurse contacted via: Message: y Call: n Pager: n documented in this encounter Plan of Treatment Not on filedocumented as of this encounter Visit Diagnoses Not on filedocumented in this encounter Care Teams Industrial Green Systems Designer Relationship Specialty Start Date End Date Brad Jose MD PCP - General 12/17/14 11/09/19 [facility] [place] [address] documented as of this encounter
--- OUTSIDE RECORDS SUMMARY | 2021-12-25 00:50 | XMS_ITS | Encounter Summary ---
:1940 Author Organization [facility] [place] [address] Care Team Providers Name Role Phone Brad Jose MD Primary Care Provider Reason for Visit Reason Comments Skin Check FSE Encounter Details Date Type Department Care Team Description 02/13/2019 Office Visit Dermatology at [facility] [place] [place] Sushma Burk C herry angioma; Adelia DEMARCO SK (seborrheic keratosis); [address] [facility] Skin cyst; [place] [address] Lichen sclerosus; [phone] [facility] [place] (actinic ker atosis) RD-DERMATOLOGY [place], [place] [address] Social History Tobacco Use Types [...] as of this encounter Patient Instructions Patient InstructionsKaty Treviño CCMA - 02/13/2019 9:45 AM EDT documented in this encounter Progress Notes Sushma Burk MD - 02/13/2019 9:45 AM EDT DERMATOLOGY ESTABLISHED PATIENT CLINIC NOTE DATE OF SERVICE: 02/13/2019 Anh Pearce : 1940 PROVIDER: Sushma Burk MD PATIENT PREFERENCES: -prefers to be called: Anh -ok to communicate detailed result information by: Mail?: Y MyDH?: N Voicemail?: Y and what #: Home phone -special considerations: -ok to discuss details of diagnosis and treatment with: N/A updated 02/13/19 ?? Chief Complaint Patient presents with ??? Skin Check FSE HPI Anh Pearce is a 78 y.o. year old female, established to Dermatology. Last seen by myself on 07/23/17 - Patient presents for full body skin exam due to concerns about potential for skin cancer. Has patient had any sunburns in past? yes Does patient perform self skin exams? yes Does patient wear sunscreen? I try to Any new or changing spots on scalp, neck, back, lips, trunk, nails or genital areas? Yes, as below Reports the followin. Right upper forehead lesion, present for years. No recent change. Just would like checked. 2. Right breast lesion, present several years, but has changed recently. Drained in the past. Has now noticed several black spots around the lesion. 3. Redness at her left cheek which she states was treated with LN2 at her last visit. Denies roughness/scaling. Review of Systems: Feels well, no fatigue, no weight loss, no other skin concerns Sunscreen Use?: yes Skin Hx: No personal history of skin cancer -Endorses eczema -Lichen sclerosus, managed by Legal Technician 07/13/2016 - Lentigo and pigmented actinic keratosis, left cheek ?? FHX: Melanoma or non-melanoma skin cancer: Father, unknown type Eczema, asthma or seasonal allergies: Yes to eczema and seasonal allergies Psoriasis: No ?? 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 Patient was advised to remove underwear for a complete skin examination that includes buttocks and genitals. Option was given to wear their underwear, with the warning that clothed areas would not be examined and that this is not the preferred complete skin examination. Patient also advised that nail indonesian, makeup and jewelry/watches all interfere with a thorough examination. Patient chose the below: A total body skin exam except for areas covered by underwear was performed. This includes examination of the skin of the face, ears, neck, chest, axillae, left and right upper and lower extremities, hands and feet, abdomen, and except the areas covered by underwear were not examined. DIAGNOSIS/SKIN FINDINGS/ASSESSMENT/PLAN: # Seborrheic Keratosis - trunk, neck, feet, left volar forearm, and right upper forehead: Multiple 0.4-0.6cm brown papules with waxy, stuck-on appearance. Milia-like cysts, comedone-like openings and/or fissuring on dermoscopy. - Etiology discussed - Patient reassured lesions are benign in nature - Explained that these are hereditary, adult onset and acquired. #History of AK, left malar cheek - No signs of recurrence - Will continue to monitor #Jon Angiomas - back and trunk - Discussed benign nature of lesions and provided reassurance. No treatment necessary at this time. - Briefly reviewed cosmetic laser removal if numerous and/or bothersome to patient. Patient is awarethat this is considered a cosmetic procedure and not covered by insurance. # Cyst with dilated pore - 6 mm lesion of right breast, adjacent to areola - Discussed benign nature of lesion and provided reassurance - No treatment necessary at this time - Observe skin for change in color, size or character. Call if such occur ?? # Lichen Sclerosis - Pt reports absence of symptoms. Uses mometasone as needed - followed by Dr. Bobby in [facility] ?? # Actinic Keratoses - left lateral nasal sidewall, right lateral brow - Explained etiology, natural history and premalignent potential of these lesions. - Discussed treatment with cryotherapy, including the risks and benefits. - Patient elects to proceed with cryotherapy today. ?? Procedure: Destruction of lesion(s) with cryotherapy (LN2). Location(s): AKs as noted above. Number: 2 Discussed procedure and expectations, including risks (especially hypopigmentation) and benefits. Verbal consent obtained. Frozen with LN2, 15-30 second thaw time, twice. There were no complications; patient tolerated the procedure well. Post-procedure expectations and wound care reviewed. - Instructed patient to return to clinic for re-evaluation if lesion(s) does not resolve with this treatment as expected. FOLLOW UP WHEN: 1 year FOR WHAT: FSE LENGTH OF VISIT: 15 NUMBING?: no PICTURES NEEDED? no OK D/B?: yes NOTES:no I am documenting this encounter acting as the scribe for and in the presence of ANIBAL Worrell I performed the above scribed service and agree with the accuracy of the documentation in this encounter. Sushma Burk MD Section of Dermatology 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
--- OUTSIDE RECORDS SUMMARY | 2021-12-25 00:50 | XMS_ITS | Encounter Summary ---
:1940 Author Organization [place] [address] Care Team Providers Name Role Phone Brad Jose MD Primary Care Provider Encounter Details Date Type Department Care Team Description 02/09/2019 Telephone Dermatology at [facility] Sushma Tovar MD [address] [facility] [place] [address] [facility] [phone] [place], [place] [address] (Wo rk) Social History Tobacco [...] Notes Telephone Encounter - Tiffany Watts - 02/09/2019 2:29 PM EDT Received call from Anh Pearce requesting a phone call back, called Anh back and was unable to reach her. I left voicemail for patient to call back, if patient is requesting a full skin exam please schedule with a general drink waiter. documented in this encounter Plan of Treatment Not on filedocumented as of this encounter Visit Diagnoses Not on filedocumented in this encounter Care Teams Manager Contract Relationship Specialty Start Date End Date Brad Jose MD PCP - General 12/17/14 11/09/19 [facility] [address] [place] [address] documented as of this encounter
--- OUTSIDE RECORDS SUMMARY | 2021-12-25 00:50 | XMS_ITS | Encounter Summary ---
:1940 Author Organization [place] [place] [address] Care Team Providers Name Role Phone Brad Jose MD Primary Care Provider Encounter Details Date Type Department Care Team Description 07/06/2019 Hospital Encounter Mammography[place]DXA at Brad Jose, Visit for screening [facility] [place] [facility] [address] [place] GENERAL INTERNAL [address] MEDICINE [phone] [place], [place] [address] Social History Tobacco Use Types [...] Diagnosis Comme nts MAMMO SCREENING CAD Routine 07/06/2019 8:49 AM Visit for lis sidhu Results for this AND LEO BILATERAL EST mammogram procedure are in the results section. documented in this encounter Results Mammo Screening Cad and Leo Bilateral (07/06/2019 8:49 AM EST) Anatomical Region Laterality Modality Breast Bilateral Mammography Specimen (Source) Anatomical Location Collection Method / Collectio n Time Received Time / Laterality Volume Narrative 07/06/2019 9:06 AM EST BILATERAL MAMMOGRAPHY REASON FOR EXAM: [...] CONCLUSION: No mammographic evidence of malignancy. RECOMMENDATION: Medical organizations ag ree that annual screening mammography beginning at age 40 saves th e most lives. The risks of screening are negligible compared to dyi ng from breast cancer or suffering from more aggressive treatment required when detected at a later stage. No woman is at low risk for breast cancer. Some women, because of their family history, a genetic tendency, or c ertain other factors, should be screened with breast MRI along with mamm ograms. (The number of women who fall into this category is very small). The patient and health care provider should discuss the patient hist ory and decide if earlier screening and breast MRI are appropriate . Screening should continue as long as a woman is in good health and is expected to live 10 years or longer. Screening mammography may not de tect 10-15% of breast cancers. Women should report any breast changes t o a health care provider right away. A result letter has been sent to this pa tient by the [facility]. BIRADS CATEGORY 1: NEGATIVE Brad Jose MD IMG MAMMO ORDERABLES documented in this encounter Visit Diagnoses Diagnosis Visit for screening mammogram Other screening mammogram documented in this encounter Care Teams Staff Scientist Relationship Specialty Start Date End Date Brad Jose MD PCP - General 12/17/14 11/09/19 [facility] GENER[place] [address] documented as of this encounter
--- OUTSIDE RECORDS SUMMARY | 2021-12-25 00:50 | XMS_ITS | Encounter Summary ---
:1940 Author Organization [facility] [place] [address] Care Team Providers Name Role Phone Brad Jose MD Primary Care Provider Reason for Visit Reason Onset Date Comments Other 07/28/2018 Encounter Details Date Type Department Care Team Description 07/28/2018 Telephone Internal Medicine [place] [facility] [place] [address] Social History Tobacco Use Types Packs/Day Years [...] this encounter Miscellaneous Notes Telephone Encounter - Mariela Monge RN - 07/28/2018 4:21 PM EST Notes has been faxed by Tracy Laurent MA. Telephone Encounter - Gena Wheat - 07/28/2018 3:51 PM EST Message: Anika calling from [facility] stating they need the preoperative notes for the pt to state that the pt is cleared for surgery and then faxed to them at [phone]. Please fax as soon aspossible. Caller and relationship (if other than patient-full name): Anika Best time to call back: any Ok to leave a message: [yes] Ok to send my- message: [no] Offered Appointment: no MA/Nurse contacted via: Message: x Call: Pager: documented in this encounter Plan of Treatment Not on filedocumented as of this encounter Visit Diagnoses Not on filedocumented in this encounter Care Teams Warehouse Picker Relationship Specialty Start Date End Date Brad Jose MD PCP - General 12/17/14 11/09/[address] [facility] [address] [address] documented as of this encounter
--- OUTSIDE RECORDS SUMMARY | 2021-12-25 00:50 | XMS_ITS | Encounter Summary ---
:1940 Author Organization [facility] [place] [address] Care Team Providers Name Role Phone Brad Jose MD Primary Care Provider Reason for Visit Reason Comments Skin Check Consultation (Routine) - Closed Specialty Diagnoses / Procedures Referred By Contact Refer red To Contact Dermatology Diagnoses Skin lesion Brad Jose MD [facility] Dermatology [facility] [address] [facility] [place] [address] [place] [address] Referral ID Status Reason Start Date Expiration Date Visits V isits Requested Authorized [id number] Closed Consult, 07/09/2016 07/09/2017 1 1 Test & Treat Encounter Details Date Type Department Care Team Description 07/13/2016 Office Visit Dermatology at [facility] Halina Tarango, Neoplasm of uncertain behavior of skin (Primary Dx); Adelia DEMARCO [place] (actinic keratosis); [address] [facility] Seborrheic keratosis; [place], [place] Jon angioma; [address] [facility] Intertrigo; [phone] RD-DERMATOLOGY Stucco keratosis; [place], [place] [address] Dermatofibroma; [phone] (Wo rk) Skin cancer screening Social History Tobacco Use Types Packs/Day Years [...] as of this encounter Patient Instructions Patient InstructionsCiciLaurence rodriguez Nichole - 07/13/2016 8:00 AM EST Treatment and Wound Care Instructions Your treatment today: You have had a shave biopsy of your skin, which is a removal of tissue for examination under a microscope. This wound will heal without stitches. Allow 3-6 weeks for the wound to heal. If bleeding occurs, hold firm pressure against the wound for 15 minutes. If bleeding continues, calls the office or go to your local emergency room. Please allow 1-2 weeks for the biopsy results to return. Your physician or nurse will contact you with the results by phone or letter; follow-up will be discussed at that time. Wound Care Instructions: You will need to keep the dressing placed over the wound dry and intact for 24 hours. Afterwards, perform the following wound care daily: ?? Wash your hands before changing the dressing. ?? Remove the bandage and clean the area with mild soap and water, then gently pat the area dry. ?? Apply a small amount of Vaseline to the area, then cover the wound with a band-aid. Change your dressing daily until the wound is fully healed. ?? A small amount of yellow drainage is part of normal healing. The area might appear as a small depression with redness around the edge of the wound. This is normal. ?? Please contact the office you you notice any of the following signs of infection: increased tenderness, pain, drainage, or redness that becomes hot or hard around the wound. If you have further questions or concerns, please call the office at [phone]. If it is after 5PM, or a holiday or weekend, please call [phone] and ask for the Township Supervisor on-call. documented in this encounter Progress Notes Halina Tarango MD - 07/13/2016 8:00 AM EST Images from the original note were not included. DERMATOLOGY - NEW PATIENT NOTE Date of service: 07/13/2016 Anh Pearce : 1940 Dermatology Resident Note: Halina Tarango MD, PGY4 Chief Complaint Patient presents with ??? Skin Check HPI: Ms. Anh Pearce is a 75 y.o. female. This is a new patient to me, seen in consultation at the request of Brad Jose specifically for the evaluation and management of the above problem. Has a spot on her left cheek which seems like it has changed a little. It has been present quite awhile. Also has dry skin on the right medial canthus that she'd like to have checked. Also has a lesion between her breasts that has been present quite a while. Her gets after her about a lesion on the left hand. There are white flaky nubs all over the feet and a few things on the neck. There are white raised things on the back too. Not aware of any moles that are new or changing. Denies any tender or spontaneously bleeding lesions. Has a history of lichen sclerosus. She is doing well in that regard and doesn't have to see Dr. Bobby for another year. Using hydrocortisone and mometasone for that problem and does not need further guidance in that regard. Past Skin History: No personal history of skin cancer Endorses eczema and seasonal allergies Lichen sclerosus, managed by Vessel Slagman Patient Active Problem List Diagnosis Code ??? Lichen sclerosus et atrophicus of the vulva N90.4 ??? Overweight(278.02) E66.3 ??? GERD (gastroesophageal reflux disease) K21.9 ??? Hyperlipidemia E78.5 ??? Healthcare maintenance Z00.00 ??? Low back pain M54.5 ??? Tubular adenoma of colon D12.6 Major past medical history from patient's perspective (updated today) None Major past surgical history from patient's perspective (updated today) None Pre-Procedure Checklist: Pacemaker/defibrillator: No Allergy to lidocaine or epinephrine: No Current Outpatient Prescriptions Medication Sig Dispense Refill [...] No current facility-administered medications for this visit. 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 Recent cold. - Skin: As per HPI; no other skin concerns. Examination: - Constitutional: Patient was alert, well-appearing and in no noticeable distress. - Skin: Skin examination of the scalp, face, chest, abdomen, back, buttocks, bilateral upper and lower extremities including palms and soles was normal with the exception of the findings listed below. Breasts and external genitalia were not examined. Notable findings/Assessment/Plan: 1. Actinic keratosis - left forehead x1: 0.2-0.3cm scaly irregular pink papule. - Discussed premalignent potential of these lesions. - Shared decision to proceed with LN2 treatment at this time: Procedure: Destruction of lesion with cryotherapy. Number: 1 Location: as above - Discussed procedure and expectations including risks (including risk of hypopigmentation) and benefits. Verbal consent obtained. Frozen with LN2, 15-30 second thaw time, TWICE. There were no complications; the patient tolerated the procedure well. Post-procedure expectations and wound care were reviewed. - Advised to call if these lesions do not resolve as expected in 4-6 weeks. 2. Lentigo R/O LM - Left cheek: 0.3 x 0.5cm brown irregularly shaped macule. - Recommend biopsy to establish firm diagnosis; pt agrees. Procedure: Skin biopsy by shave technique Location: left cheek Discussed indications for procedure and expectations including risks and benefits. Verbal consent obtained. Skin prep with alcohol. Local anesthesia with 1% xylocaine, 1/100,000 epinephrine, 0.1 mEq/mLbicarbonate. A sample of the lesion was removed by shave technique to the level of the dermis and submitted to Pathology. Hemostasis obtained (AlCl and/or electrocautery). There were no complications; the pt. tolerated the procedure well. The wound was dressed. Post-procedure expectations, wound care and activity restrictions were reviewed. Follow-up based on pathology results 3. Seborrheic keratosis - trunk and extremities: Multiple 0.4-0.6cm brown papules with waxy, stuck-on appearance. Milia-like cysts, comedone-like openings and/or fissuring on dermoscopy. - Benign. No intervention needed. Patient reassured. 4. Jon angiomas - trunk: Multiple 0.2-0.4cm bright red, well-demarcated papules. - Benign. No intervention needed. Patient reassured. 5. Stucco keratosis - 0.2-0.3cm white, warty, stuck-on papules on the bilateral ankles. - Benign. No intervention needed. Patient reassured. 6. Intertrigo - Patchy areas of erythema and scaling in the intertriginous areas under the abdominalfold. - Recommend the patient apply OTC Zeasorb powder under the breast daily. - Continue to keep the area dry by using a repairer hairspring on a cool setting after bathing. 7. Dermatofibroma - right medial lower leg: firm papule, centrally raised and sclerotic, with peripheral hyperpigmentation and dimpling with lateral pressure. - Benign. No intervention needed. Patient reassured. 8. Skin cancer screening - No lesions suspicious for skin cancer on today's full skin exam, except as noted above. The following photos were obtained with patient consent: Follow-up: Pending pathology. RTC in 1 year for a full skin exam, sooner if needed. Reminder placed in scheduling system. Instructed to call if problems arise. Laurence Thakkar, Clinical Scribe - am documenting this encounter acting as the scribe for and in the presence of Dr. Halina Tarango. I performed the above scribed service and agree with the accuracy of the documentation of this encounter. Halina Tarango MD, PGY4 Resident in Dermatology [facility] Patient seen and evaluated with staff tongue and quarter stitcher: Shell Powers MD Section of Dermatology [facility] Shell Powers MD - 07/13/2016 8:00 AM EST I directly supervised Dr. Tarango in the care of this patient. I saw and evaluated this patient with Dr. Tarango. She presented the history and physical exam details to me, then we saw the patient together and I confirmed these findings. I agree with details as written. My physical examination confirms Dr. Tarango's findings. The assessment and plan were formulated in discussion with me at the time of visit and I agree with them as documented. SHELL POWERS MD FAAD Staff Physician documented in this encounter Plan of Treatment Not on filedocumented as of this encounter Procedures Procedure Name Priority Date/Time Associated Diagnosis Comme nts SPECIMEN TO Routine 07/13/2016 9:09 AM Neoplasm of Results f or this PATHOLOGY EST uncertain behavior procedure are in of skin the results section. SURGICAL PATHOLOGY Routine 07/13/2016 9:08 AM Res ults for this REPORT EST procedure are i n the results section. documented in this encounter Results Specimen to Pathology (surgical or derm) (07/13/2016 9:09 AM EST) Specimen Anatomical Collection Method Collection Time Receive d Time (Source) Location / / Volume Laterality AP Specimen 07/13/2016 9:09 AM 7 EST 12:[address] [facility] - 07/13/2016 12:43 PM EST Specimen requisition ordered. ??Separate Pathology report to follow Resulting Agency Comment Spec In Lab Shell Powers MD PATHOLOGY/CYTOLOGY ORDERABLE S Performing Organization Address City/State/ZIP Code [place] [address] Surgical Pathology Report (07/13/2016 9:08 AM EST) Component Value Ref Test Analysis Performed At [facility] gist Range Method Time Signature Surgical [id number] ?Location: [facility] Pathology DIANA Report The signing pathologist has (i) examined the relevant preparation(s) for the [facility] specimen(s) and (ii) rendered or confirmed the diagnosis(es) . H[facility]PITAL LAB[facility]ORY . ?Surgic al Pathology DIAGNOSIS Skin, left cheek, shave ?? biopsy: Lentigo and pigmented actinic keratosis, (see Discussion). Electronically signed by: ??Martin DEMARCO, Mimi Grijalva Verified: ??07/17/2016 ?Dermatopathologist DISCUSSION Melanocytes are mildly incre ased, but there is no confluence, upward migration or evidence of an atypical autumn aocytic proliferation on immunostains or ? multiple deeper levels examined. ADDITIONAL STUDIES Immunohistochemistry Studies: Formalin-fixed, paraffin-emb edded tissue sections are studied using the polymer technique with appropriate positive and negative controls. ?These IHC studies provide the pathologist wit h adjunctive diagnostic information. Antibody specificity has been verified by testin g antibodies on a series of in-house tissues with known immunohistochemical perform ance characteristics. The clinical interpretation of any antibody positive stain ing or its absence is evaluated within the context of clinical presentation, morp hology, histopathological criteria and other diagnostic tests. Block ? Antibody ?Result (Positive /Negative) A1 ? MelanA ? Positive, highl ights melanocytes CLINICAL INFORMATION Specimen Submitted: A - 0.3 x 0.5 cm brown irregular shaped macule, left cheek, Shave biopsy ,(1) Clinical History: 0.3 x 0.5 cm of brown irregular sheets macule, left cheek Clinical Diagnosis: Lentigo rule out LM SPECIMEN PROCESSING A - Labeled/Fixative: Left cheek, formalin. Quantity/Size: Single, 1 x 0.8 x 0.1 cm. Tissue Description: Shave of mottled granger-brown skin. Sections/Processing: Inked and serially sectioned. (T2) ??RA K Specimen (Source) Anatomical Collection Method Collection Time Re ceived Time Location / / Volume Laterality 07/13/2016 9:08 AM EST Halina Tarango MD PATHOLOGY/CYTOLOGY ORDERABLE S Performing Organization Address City/State/[place] [address] documented in this encounter Visit Diagnoses Diagnosis Neoplasm of uncertain behavior of skin - Primary AK (actinic keratosis) Actinic keratosis Seborrheic keratosis Other seborrheic keratosis Jon angioma Nevus, non-neoplastic Intertrigo Other specified erythematous condition Stucco keratosis Acquired keratoderma Dermatofibroma Benign neoplasm of skin, site unspecifie d Skin cancer screening Screening for malignant neoplasm of the skin documented in this encounter Care Teams Beverage Steward Relationship Specialty Start Date End Date Brad Jose MD PCP - General 12/17/14 11/09/19 [facility] [place] [address] documented as of this encounter
--- OUTSIDE RECORDS SUMMARY | 2021-12-25 00:50 | XMS_ITS | Encounter Summary ---
:1940 Author Organization [facility] Address [facility] [place] [address] Care Team Providers Name Role Phone Brad Jose MD Primary Care Provider Reason for Visit Reason Comments Follow-up LS Encounter Details Date Type Department Care Team Description 06/30/2017 Office Visit Obstetrics and Britney Hmam, Lichen sclerosus; [place] [facility] [place]; [facility] [place] [address] OBSTETRICS & [phone] GYNECOLOGY [place] [address] (Wo rk) Social History Tobacco Use [...] Sign Reading Time Taken Comments Blood Pressure 142/90 06/30/2017 9:55 AM EST Pulse 84 06/30/2017 9:55 AM EST Temperature 36.8 ??C (98.2 ??F) 06/30/2017 9:55 AM EST Respiratory Rate 14 06/30/2017 9:55 AM EST Oxygen Saturation 96% 06/30/2017 9:55 AM EST Inhaled Oxygen Concentration - - Weight 90.7 kg (199 lb 15.3 oz) 06/30/2017 9:55 AM EST Height 171 cm (5' 7.32) 06/30/2017 9:55 AM EST Body Mass Index 31.02 06/30/2017 9:55 AM EST documented in this encounter Progress Notes Britney Hamm MD - 06/30/2017 10:00 AM EST Ms. Pearce is a 76 y.o. here for f/u of lichen sclerosus. She is using mometasone 2-3X/week and HC 2.5% ointment prn. in Mar, prolonged final illness (?SMA), hard for her to return here. Stressful year, sister in law also. Daughter moved back home, she is PT, has good local support. Comments that urine has a strong odor. Outpatient Prescriptions Marked as Taking for the 06/30/17 encounter (Office Visit) with Britney Hamm MD Medication Sig Dispense Refill ??? hydrocortisone (CORTISONE) [...] ??? Tubular adenoma of colon D12.6 BP 142/90 Pulse 84 Temp 36.8 ??C (98.2 ??F) (Temporal) Resp 14 Ht 171 cm (5' 7.32) Wt 90.7 kg (199 lb 15.3 oz) SpO2 96% BMI 31.02 kg/m2 On exam, she looks well. On vulvar exam, there is labial and clitoral flattening. There is no WE, excoriation, fissuring. U/A: dip neg, will not send for culture. Bimanual exam then done, cervix deep in vag off to left, nopalpable adnexal mass. Impression: LS in good control. No evidence of UTI Plan: f/u one year documented in this encounter Miscellaneous Notes Addendum Note - Marianna Lazcano LPN - 06/30/2017 4:56 PM EST Addended by: MARIANNA LAZCANO on: 06/30/2017 04:56 PM Modules accepted: Orders Addendum Note - Britney Hamm MD - 06/30/2017 1:18 PM EST Addended by: BRITNEY HAMM on: 06/30/2017 01:18 PM Modules accepted: Orders Addendum Note - Darlene Monroe LNA - 06/30/2017 1:14 PM EST Addended by: DARLENE MONROE on: 06/30/2017 01:14 PM Modules accepted: Orders documented in this encounter Plan of Treatment Not on filedocumented as of this encounter Procedures Procedure Name Priority Date/Time Associated Comments Diagnosis URINALYSIS WITH Routine 06/30/2017 12:00 PM Bad odor of urine Results for this REFLEX CULTURE EST procedure are in the results section. POCT URINE DIPSTICK Routine 06/30/2017 Bad odor of urine Res ults for this procedure are i n the results section. documented in this encounter Results Urinalysis with reflex Culture (06/30/2017 12:00 PM EST) Patholo gist Method Time Signature Glucose UA Negative Negative [facility] mg/dL [facility] Protein UA Negative Negative [facility] mg/dL [facility] Bilirubin UA Negative Negative [facility] mg/dL [facility] Comment: Clinical correlation required for positi ve Urine Bilirubin results as false positive may occur with some drugs and d rug related products. If a false positive is suspected a serum total bili stewart should be considered if clinically indicated. Urobilinogen UA Normal Normal mg/dL [facility] pH UA 6.0 5.0 - 8.0 [facility] Blood UA Negative Negative mg/dL [facility] Ketones UA Negative Negative mg/dL [facility] Nitrite UA Negative Negative [facility] Leukocytes UA Negative Negative [facility] Appearance UA Clear Clear [facility] Spec Rochelle UA 1.009 1.002 - 1.030 [facility] Color UA Yellow Yellow [facility] Culture Reflexed No [facility] Specimen Anatomical Collection Method Collection Time Receive d Time (Source) Location / / Volume Laterality Urine specimen 06/30/2017 12:00 8 6:06 (specimen) PM EST PM EST Resulting Agency Comment Spec In Lab Britney Hamm MD URINE ORDERABLES Performing Organization Address City/State/[place] [address] POCT urine dipstick (06/30/2017) P athologist Signature POC Sp Rochelle 1.010 1.002 - 1.030 POC pH, UA 6 5.0 - 8.5 POC Leuk, UA Neg. Negative - Negative POC Nitrite, Neg. Negative - UA Negative POC Protein, Neg. Negative - UA Negative mg/dL POC Glucose, Norm. Normal - UA Normal mg/dL POC Ketone, UA Neg. Negative - Negative POC Urobil, UA Norm. 0.2 - 1.0 mg/dL POC Bili, UA Neg. Negative - Negative POC Blood, UA Neg. Negative - Negative georgie/uL Britney Hamm MD POINT OF CARE TEST ORDERABLE S documented in this encounter Visit Diagnoses Diagnosis Lichen sclerosus Circumscribed scleroderma Grief reaction Adjustment disorder with depressed mood Bad odor of urine Other nonspecific finding on examination of urine documented in this encounter Care Teams Landscape Account Manager Relationship Specialty Start Date End Date Brad Jose MD PCP - General 12/17/14 11/09/19 [facility] GENERAL [place] [address] documented as of this encounter
--- OUTSIDE RECORDS SUMMARY | 2021-12-25 00:50 | XMS_ITS | Encounter Summary ---
:1940 Author Organization [facility] [place] [address] Care Team Providers Name Role Phone Brad Jose MD Primary Care Provider Encounter Details Date Type Department Care Team Description 12/06/2017 [place] [facility] [place] [facility] [address] GENERAL INTERNAL [phone] [place], [place] [address] Social History Tobacco Use Types [...] Diagnosis Comme nts MAMMO SCREENING CAD Routine 12/06/2017 10:41 AM Healthcare R esults for this AND LEO BILATERAL EDT maintenance procedure are in the results section. documented [...] No mammographic evidence of malignancy. RECOMMENDATION: [employer] and The Society of [...] facility documented in this encounter Care Teams Repair Specialist Relationship Specialty Start Date End Date Brad Jose MD PCP - General 12/17/14 11/09/19 [facility] GENERAL [place] [address] documented as of this encounter
--- OUTSIDE RECORDS SUMMARY | 2021-12-25 00:50 | XMS_ITS | Encounter Summary ---
:1940 Author Organization [facility] [place] [address] Care Team Providers Name Role Phone Brad Jose MD Primary Care Provider Reason for Visit Reason Comments Follow-up Encounter Details Date Type Department Care Team Description 07/06/2019 Office Visit Obstetrics and Mercedes Bobby, Lichen scler[place] [address] OBSTETRICS & GYNECOLOGY [place], [place] [address] (Wo rk) Social History Tobacco [...] Sign Reading Time Taken Comments Blood Pressure 131/78 07/06/2019 9:48 AM EST Pulse 89 07/06/2019 9:48 AM EST Temperature - - Respiratory Rate - - Oxygen Saturation 94% 07/06/2019 9:48 AM EST Inhaled Oxygen Concentration - - Weight - - Height - - Body Mass Index - - documented in this encounter Progress Notes Mercedes Bobby MD - 07/06/2019 10:00 AM EST Ms. Pearce is a 78 y.o. here for f/u of lichen sclerosus. She is using mometasone ointment to the labia minora , and HC 2.5% cream externally to labia majora Has slacked off using her topicals, probably using once a week or so, no vulvar concerns. Extremely busy, travelled to [place] and [place], still has home in [place] trying to tell her what to do now! Still adjusting to her new life. Outpatient Medications Marked as Taking for the 07/06/19 encounter (Office Visit) with Mercedes Bobby MD Medication Sig Dispense Refill ??? mometasone (ELOCON) 0.1 % Ointment Use 1-2X/week hs sparingly 15 g 1 ??? hydrocortisone 2.5 % Cream Use 1-2X/week sparingly 15 g 1 ??? hydrocortisone (CORTISONE) 1 % Cream Apply topically 2 times daily. ??? [DISCONTINUED] mometasone (ELOCON) 0.1 % Ointment Use 3X/week hs sparingly 15 g 1 ??? [DISCONTINUED] hydrocortisone 2.5 % Cream Use 2-3X/week 15 g 1 ??? multivitamin (THERAGRAN) tablet Take 1 tablet by mouth daily. Patient Active Problem List Diagnosis Code ??? Lichen sclerosus et atrophicus of the vulva N90.4 ??? Overweight E66.3 ??? GERD (gastroesophageal reflux disease) K21.9 ??? Hyperlipidemia E78.5 ??? Healthcare maintenance Z00.00 ??? Low back pain M54.5 ??? Tubular adenoma of colon D12.6 ??? Benign essential tremor G25.0 BP 131/78 (BP Location (NBP): Right arm, Patient Position: Sitting, BP Cuff Sizes: Adult (25-34 cm)) Pulse 89 SpO2 94% On exam, she looks well. On vulvar exam, there is labial agglutination, and clitoral scarring, with patchy erythema. There is no WE, excoriation, fissuring. Non tender to touch. Bimanual exam without palpable mass. Impression: LS stable Plan: f/u one year. Topicals renewed, using mometasone ointment, and HC 2.5% cream. Discussed OK to treat once a week, as she has been doing recently. documented in this encounter Plan of Treatment Not on filedocumented as of this encounter Visit Diagnoses Diagnosis Lichen sclerosus Circumscribed scleroderma documented in this encounter Care Teams Product Marketing Programs Manager Relationship Specialty Start Date End Date Brad Jose MD PCP - General 12/17/14 11/09/[address] [facility] [address] [place] [address] documented as of this encounter
--- OUTSIDE RECORDS SUMMARY | 2021-12-25 00:51 | XMS_ITS | Encounter Summary ---
:1940 Author Organization [facility] [place] [address] Care Team Providers Name Role Phone Birgit Arreaga APRN Primary Care Provider Reason for Visit Reason Onset Date Comments Labs Only 09/04/2014 Encounter Details Date Type Department Care Team Description 09/04/2014 Telephone Internal Medicine at [facility] [place] [place] Louisa [place] [address] Social History Tobacco Use Types Packs/Day Years Used Date Former Smoker Cigarettes 0.25 1 Quit: 09/07/18 68 Smokeless Tobacco: Never Used Alcohol Use Standard Drinks/Week Comments Yes 0 [...] this encounter Miscellaneous Notes Telephone Encounter - Louisa Varela - 09/04/2014 2:40 PM EDT Patient scheduled annual physical 12/17, and would like to have her labs done prior documented in this encounter Plan of Treatment Not on filedocumented as of this encounter Visit Diagnoses Not on filedocumented in this encounter Care Teams Commercial Loan Coordinator Relationship Specialty Start Date End Date Birgit Arreaga, SEED PRODUCTION FIELD SUPERVISOR PCP - General 08/15/14 12/16/14 [facility] [place] [address] documented as of this encounter
--- OUTSIDE RECORDS SUMMARY | 2021-12-25 00:51 | XMS_ITS | Encounter Summary ---
:1940 Author Organization [facility] Address [address] [place] [address] Care Team Providers Name Role Phone Brad Jose MD Primary Care Provider Reason for Visit Reason Comments Annual Wellness Visit Encounter Details Date Type Department Care Team Description 12/17/2014 Office Visit Internal Medicine at Birgit Arreaga Hyp erlipidemia; [facility] [place] THAI MASSEUR Healthcare maintenance; [facility] [address] te low back [address] [place], [place] GENERAL INTERNAL [phone] MEDICINE [phone] [place], [place] [address] (Wo rk) Social History Tobacco [...] Sign Reading Time Taken Comments Blood Pressure 126/59 12/17/2014 8:58 AM EDT Pulse 73 12/17/2014 8:58 AM EDT Temperature 37 ??C (98.6 ??F) 12/17/2014 8:58 AM EDT Respiratory Rate 18 12/17/2014 8:58 AM EDT Oxygen Saturation 97% 12/17/2014 8:58 AM EDT Inhaled Oxygen Concentration - - Weight 98.4 kg (217 lb) 12/17/2014 8:58 AM EDT Height 171.5 cm (5' 7.5) 12/17/2014 8:58 AM EDT Body Mass Index 33.49 12/17/2014 8:58 AM EDT documented in this encounter Patient Instructions Patient InstructionsBirgit Arreaga, SKIP - 12/17/2014 10:08 AM EDT Images from the original note were not included. [facility] Learning About Relief for Back Pain What is back tension and strain? Back strain happens when you overstretch, or pull, a muscle in your back. You may hurt your back in an accident or when you exercise or lift something. Most back pain will get better with rest and time. You can take care of yourself at home to help your back heal. What can you do first to relieve back pain? When you first feel back pain, try these steps: 1. Walk. Take a short walk (10 to 20 minutes) on a level surface (no slopes, hills, or stairs) every2 to 3 hours. Walk only distances you can manage without pain, especially leg pain. 2. Relax. Find a comfortable position for rest. Some people are comfortable on the floor or a medium-firm bed with a small pillow under their head and another under their knees. Some people prefer to lie on their side with a pillow between their knees. Don't stay in one position for too long. 3. Try heat or ice. Try using a heating pad on a low or medium setting, or take a warm shower, for 15 to 20 minutes every 2 to 3 hours. Or you can buy single- use heat wraps that last up to 8 hours. Youcan also try an ice pack for 10 to 15 minutes every 2 to 3 hours. You can use an ice pack or a bag of frozen vegetables wrapped in a thin towel. There is not strong evidence that either heat or ice will help, but you can try them to see if they help. You may also want to try switching between heat andcold. 4. Take pain medicine exactly as directed. 1. If the doctor gave you a prescription medicine for pain, take it as prescribed. 2. If you are not taking a prescription pain medicine, ask your doctor if you can take an yctw-skq-mgvclct medicine. What else can you do? 1. Stretch and exercise. Exercises that increase flexibility may relieve your pain and make it easier for your muscles to keep your spine in a good, neutral position. And don't forget to keep walking. 2. Do self-massage. You can use self-massage to unwind after work or school or to energize yourself in the morning. You can easily massage your feet, hands, or neck. Self-massage works best if you are in comfortable clothes and are sitting or lying in a comfortable position. Use oil or lotion to massage bare skin. 3. Reduce stress. Back pain can lead to a vicious akhiok: Distress about the pain tenses the musclesin your back, which in turn causes more pain. Learn how to relax your mind and your muscles to loweryour stress. Where can you learn more? Visit our [employer] information library at [email or web address] You can also view health information on [employer], your personal patient account. Log in or sign up today. Enter Q517 in the search box to learn more about Learning About Relief for Back Pain. ?? [id number] [employer]. Care instructions adapted under license by [facility]. This care instruction is for use with your licensed healthcare professional. If you have questionsabout a medical condition or this instruction, always ask your healthcare professional. [employer] disclaims any warranty or liability for your use of this information. Content Version: 10.4.664780; Current as of: November 08, 2013 [facility] Back Stretches: Exercises Your Care Instructions Here are some examples of exercises for stretching your back. Start each exercise slowly. Ease off the exercise if you start to have pain. Your doctor or physical therapist will tell you when you can start these exercises and which ones will work best for you. How to do the exercises Overhead stretch 5. Stand comfortably with your feet shoulder-width apart. 6. Looking straight ahead, raise both arms over your head and reach toward the ceiling. Do not allowyour head to tilt back. 7. Hold for 15 to 30 seconds, then lower your arms to your sides. 8. Repeat 2 to 4 times. Side stretch 4. Stand comfortably with your feet shoulder-width apart. 5. Raise one arm over your head, and then lean to the other side. 6. Slide your hand down your leg as you let the weight of your arm gently stretch your side muscles.Hold for 15 to 30 seconds. 7. Repeat 2 to 4 times on each side. Press-up 1. Lie on your stomach, supporting your body with your forearms. 2. Press your elbows down into the floor to raise your upper back. As you do this, relax your stomach muscles and allow your back to arch without using your back muscles. As your press up, do not let your hips or pelvis come off the floor. 3. Hold for 15 to 30 seconds, then relax. 4. Repeat 2 to 4 times. Relax and rest 1. Lie on your back with a rolled towel under your neck and a pillow under your knees. Extend your arms comfortably to your sides. 2. Relax and breathe normally. 3. Remain in this position for about 10 minutes. 4. If you can, do this 2 or 3 times each day. Follow-up care is a parks part of your treatment and safety. Be sure to make and go to all appointments, and call your doctor if you are having problems. It's also a good idea to know your test results and keep a list of the medicines you take. Where can you learn more? Visit our [employer] information library at [email or web address] You can also view health information on [employer], your personal patient account. Log in or sign up today. Enter Y090 in the search box to learn more about Back Stretches: Exercises. ?? [id number] [employer]. Care instructions adapted under license by [facility]. This care instruction is for use with your licensed healthcare professional. If you have questionsabout a medical condition or this instruction, always ask your healthcare professional. [employer] disclaims any warranty or liability for your use of this information. Content Version: 10.4.493084; Current as of: April 20, 2014 documented in this encounter Progress Notes Birgit Arreaga, THAI MASSEUR - 12/17/2014 9:05 AM EDT Anh Pearce presents today for annual wellness examination. In the past 7 days she reports her physical health as very good CHRONIC CONDITIONS 1. GERD: stopped nexium, is watching diet and doing well. 2. Essential tremor: mostly left hand, occasional right hand, occasionally head. Not taking anythingfor this currently. Brother also has but is worse. CURRENT CONCERNS 1. Low back pain: task related. Worse: Standing for long periods, back will tighten up. Has go to [facility]. Sitting is fine. Does upper body strengthening. PREVENTION AND RISK ASSESSMENT 1. Bone Density Screening -Last screening and results: 2007 normal. -takes calcium and vitamin D 2. Mammogram: -Last and results: 12/27/2013 -Risk factors: has had multiple biopsies all negative. 3. Cardiovascular Disease -Aspirin: no -Cholesterol testing: Lipid Panel Lab Results Component Value Date CHLPL 193 12/17/2014 HDL 55 12/17/2014 CHOLHDL 3.5 12/17/2014 TRIG 149 12/17/2014 LDLCHOL 108* 12/17/2014 4. Colorectal screening: -Last: 01/31/2013 Tubular adenoma x 2 Changes: none Due: 2016 -Family history of colon cancer in father and uncles 5. Depression (PHQ results) PHQ9 Questionnaires Data (Clinic and Pt Entered): Today's value PHQ-9 QUESTIONNAIRE (AMB) 12/17/2014 Little interest or pleasure (Patient) Not at all Down, depressed, hopeless (Patient) Several days 6. Diabetes Screening: - Last: 12/2012 Results: fasting glucose 90 7. Lung Cancer Screening: -Current smoker? Yes, quit in 1966 8. Immunizations: Immunization status: Immunization History Administered Date(s) Administered ??? Pneumococcal Conjugate (13 Valent) 12/17/2014 ??? Pneumococcal Polyvalent 23 09/30/2007 ??? Td, adult 06/07/2010 ??? Tdap Vaccine 12/14/2013 ??? Zoster Vaccine, Live 10/10/2009 9. Memory Concerns? None 10. Functional Status: PACK ACTIVITIES OF DAILY LIVING ACTIVITIES INDEPENDENCE (1 point) NO supervision, direction or personal assistance DEPENDENCE (0 points) WITH supervision, direction, personal assistance or total care BATHING Point: ___1___ (1 POINT) Bathes self completely or needs help in bathing only a single part of the body such as the back, genital area, or disabled extremity. (0 POINT) Needs help in bathing more than one part of the body getting out of the tub or shower. Requires total bathing. DRESSING Point: ___1___ (1 POINT) Gets clothes from closets and drawers and puts on clothes and other garments complete with fasteners. May have help tying shoes. (0 POINTS) Needs help with dressing self or needs to be completely dressed. TOILETING Point: __1____ (1 POINT) Goes to toilet, gets on and off, arranges clothes, cleans genital area without help. (0 POINTS) Needs help transferring to the toilet, cleaning self or uses bedpan or commode. TRANSFERRING Point: __1____ (1 POINT) Moves in and out of bed or chair unassisted. Mechanical transferring aides are acceptable. (0 POINTS) Needs help in moving from bed to chair or requires a complete transfer. CONTINENCE Point: __1____ (1 POINT) Exercises complete self control over urination and defecation. (0 POINTS) Is partially or totally incontinent of bowel or bladder. FEEDING Point: __1____ (1 POINT) Gets food from plate into mouth without help. Preparation of food may be done by another person. (0 POINTS) Needs partial or total help with feeding or requires parenteral feeding. TOTAL POINTS= __6___ 6 = High(patient independent) 0 = Low (patient very dependent) [place] Instrumental Activities of Daily Living (IADL) Ability to Telephone 1. Operates telephone on own initiative: looks up and dials number, etc. 2. Answers telephone and dials a few well-known numbers. 3. Answers telephone but does not dial. 4. Does not use telephone at all. Shopping 1. Takes care of all shopping needs independently. 2. Shops independently for small purchases. 3. Needs to be accompanied on any shopping trip. 4. Completely unable to shop. Food Preparation 1. Plans, prepares, and serves adequate meals independently. 2. Prepares adequate meals if supplied with ingredients. 3. Heats and serves prepared meals, or prepares meals but does not maintain adequate diet. 4. Needs to have meals prepared and served. Housekeeping 1. Maintains house alone or with occasional assistance (e.g. heavy work done by domestic help). 2. Performs light daily tasks such as dishwashing and bed making. 3. Performs light daily tasks but cannot maintain acceptable level of cleanliness. 4. Needs help with all home maintenance tasks. 5. Does not participate in any housekeeping tasks. Laundry 1. Does personal laundry completely 2. Launders small items; rinses socks, stockings, and so on. 3. All laundry must be done by others. Mode of Transportation 1. Travels independently on public transportation, or drives own car. 2. Arranges own travel via taxi, but does not otherwise use public transportation. 3. Travels on public transportation when assisted or accompanied by another 4. Travel limited to taxi, automobile, or ambulette, with assistance. 5. Does not travel at all. Responsibility for Own Medication 1. Is responsible for taking medication in correct dosages at correct time. 2. Takes responsibility if medication is prepared in advance, in dosages. 3. Is not capable of dispensing own medication. Ability to Handle Finances 1. Manages financial matters independently (budgets, writes checks, pays rent and bills, goes to bank); collects and keeps track of income. 2. Manages day-to-day purchases but need help with banking, major purchases, controlled spending, and so on. 3. Incapable of handling money. 11. Eye Exams: UTD Eyeglasses? Glasses 12. Dental Exams: UTD Dentures? No 13. Sleep: does not sleep well. Difficulty falling asleep, once asleep she is good. Only decaf. No soda. Glass of wine once a week. Kayak 3 times per week. 14. Hearing loss? No Hearing aids? No 15. Incontinence? None 16. Falls in the past year? None 17. Pain: None SOCIAL HISTORY 1. Marital Status: , with history of CAD 2. Children or dependents: 2 childreN 3. Education: [employer] 4. Social support: community and children 5. 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 LIFESTYLE 1. Alcohol: Rare, one glass of wine per month 2. Illicit Drugs: none 3. Tobacco Use: Current: none Remote History: yes, quit in 1965 4. Nutrition: likes sugar, bread 5. Physical activity: yes, does upper body strengthening. SAFETY 1. Smoke Detectors: yes 2. Seatbelt Use: yes 3. Sunscreen: yes ROS General: No Fever, Chills, Night sweats, Fatigue, Change in weight, Change in appetite Skin: No Lesions, rash Head: No Headache/migraines Ears: No Decreased hearing,Balance disorder, Vertigo Eyes: No Visual changes, Pain Nose: No Rhinitis, Sinusitis, Changes in smell Oropharyngeal: No Dental or Tongue problems, Change in taste, Mouth lesions or ulcers, Dentures Neck: thyroid problems, lumps, nodules, pain or dizziness with neck movements. Breasts: No Masses, Discharge, Pain, Change in nipples Respiratory: No Shortness of breath, Dyspnea on exertion, Change in exercise tolerance, Wheezing, Cough, Chest tightness, Excessive snoring Cardiovascular: No Chest pain, Angina, Murmur, Dizziness, Syncope or near-syncope Abdominal: No nausea/vomiting, Change in bowel habits, Diarrhea or constipation, Melena, Bright red blood. Has History of polyps, Has Family history of polyps/cancer : No Urgency, Frequency, Burning Uiqxeuwuvlx-vspwanr-xguwap: No Morning Stiffness, Joint injuries. No Muscle pain or weakness. Has hxBack pain, No Neck pain. Neurologic: No Stroke, Headache/migraines, Dizziness or Vertigo. Has essential Tremor. No Gait problems, Numbness or tingling, Cognitive or memory concerns Endocrine: No Heat or cold intolerance, Polyuria/polydipsia Hematologic:No Anemia, Swollen lymph nodes, Bleeding problems, Blood clots Psychiatric: No Depressive symptoms, Anxious. PHYSICAL EXAM BP 126/59 Pulse 73 Temp(Src) 37 ??C (98.6 ??F) (Oral) Resp 18 Ht 171.5 cm (5' 7.5) Wt 98.431 kg (217 lb) BMI 33.47 kg/m2 SpO2 97% DERM: no rashes or lesions HEEENT: Ears: TM visible bilaterally, good cone of light. Eyes: no redness or drainage. OP: without lesions or exudate. Dentition is good. Neck: supple, full ROM, no JVD, no thryomegaly or LAD. CV: normal S1, S2, no S3, S4. No murmurs, rubs or gallops. Resp: CTA bilaterally, no wheezes, no rhonchi Abdomen: soft, non-tender. Extremities: no swelling, good capillary refill Neuro: CN nerves II-XII intact Psych: good spirits A/P 1. GERD: stable on diet 2. Essential tremor: stable. Spoke about treatment options should she want to consider in the future. 3. LBP: longstanding, stable. Discussed exercise and acetaminophen for any discomfort, good footwear 4. HCM: Mammogram: can go every 2 years with breast exam on off years DEXA: UTD, continue vitamin D and calcium Colonoscopy: due next year 01/2016 Blood work is UTD Immunizations: UTD RV one year for annual exam documented in this encounter Plan of Treatment Not on filedocumented as of this encounter Procedures Procedure Name Priority Date/Time Associated Diagnosis Comme nts HEMOGRAM Routine 12/17/2014 8:05 AM Hyperlipidemia Results for this EDT procedure are i n the results section. DIFFERENTIAL, Routine 12/17/2014 8:05 AM Hyperlipidemia Result s for this AUTOMATED EDT procedure are i n the results section. CBC (WITH DIFF) Routine 12/17/2014 8:05 AM Hyperlipidemia EDT LIPID PANEL (REFLEX Routine 12/17/2014 8:05 AM Hyperlipidemia Results for this DIRECT LDL) EDT procedure are i n the results section. documented in this encounter Results Differential, Automated (12/17/2014 8:05 AM EDT) P athologist Signature Neutrophils % 59.9 % CERNER MILLENNIUM Neutr Abs (ANC) 2.44 1.50 - CERNER 6.30 MILLENNIUM x10(3)/mcL Lymphocytes % 27.0 % CERNER MILLENNIUM Lymphocytes Abs 1.1 1.0 - 3.6 CERNER x10(3)/mcL MILLENNIUM Monocytes % 7.8 % CERNER MILLENNIUM Monocyte Abs 0.3 0.2 - 1.0 CERNER x10(3)/mcL MILLENNIUM Eosinophils % 4.4 % CERNER MILLENNIUM Eosinophils Abs 0.2 0.0 - 0.5 CERNER x10(3)/mcL MILLENNIUM Basophils % 0.7 % CERNER MILLENNIUM Basophils Abs 0.0 0.0 - 0.2 CERNER x10(3)/mcL MILLENNIUM Immature Gran % 0.20 % CERNER MILLENNIUM Comment: Immature granulocytes(IG's)percentage an d absolute count will include metamyelocytes, myelocytes, and promyelo cytes. Blood smears from CBCs yielding IG's will be scanned manually for concor dance. If this scan disagrees with the automated IG or if promyelocytes are not ed, a manual differential will be performed. Zeny Gran Abs 0.01 0.00 - 0.05 x10(3)/mcL CER NER MILLENNIUM Specimen Anatomical Collection Method Collection Time Receive d Time (Source) Location / / Volume Laterality Blood specimen 12/17/2014 8:05 AM 015 8:11 (specimen) EDT AM EDT Resulting Agency Comment Spec In Lab Fatuma Eisenberg MD HEMATOLOGY ORDERABLES Performing Organization Address City/State/[place] [address] CERNER MILLENNIUM (ABNORMAL) Hemogram (12/17/2014 8:05 AM EDT) P athologist Signature WBC 4.1 4.0 - 10.0 CERNER x10(3)/mcL MILLENNIUM RBC 4.66 3.93 - CERNER 5.22 MILLENNIUM x10(6)/mcL Hemoglobin 14.6 11.2 - CERNER 15.7 gm/dL MILLENNIUM Hematocrit 44.4 34.0 - CERNER 45.0 % MILLENNIUM MCV 95.3 (H) 79.0 - CERNER 94.0 fL MILLENNIUM MCH 31.3 26.6 - CERNER 32.2 pg MILLENNIUM MCHC 32.9 32.0 - CERNER 36.5 gm/dL MILLENNIUM Platelets 190 145 - 370 CERNER x10(3)/mcL MILLENNIUM RDWSD 43.5 35.0 - CERNER 46.0 fL MILLENNIUM RDWCV 12.6 10.9 - CERNER 14.4 % MILLENNIUM MPV 10.4 9.0 - 12.0 [facility] RIDDHIENNIUM Specimen Anatomical Collection Method Collection Time Receive d Time (Source) Location / / Volume Laterality Blood specimen 12/17/2014 8:05 AM 015 8:11 (specimen) EDT AM EDT Resulting Agency Comment Spec In Lab Fatuma Eisenberg MD HEMATOLOGY ORDERABLES Performing Organization Address City/State/[place] [address] HANNA LEOIUM (ABNORMAL) Lipid panel (fasting) (12/17/2014 8:05 AM EDT) P athologist Signature Chol, Total 193 <=199 mg/dL [facility] RIDDHIENNIUM Comment: Recommendations of the NCEP Adult Treatm ent Panel for the following risk cutoff thresholds for the [place] populatio n: Desirable: <200 mg/dL Borderline High: 200-239 mg/dL High: > or = 240 mg/dL Triglycerides 149 <=149 mg/dL [facility] Comment: Reference Range: Normal triglycerides: ??<150 mg/dL Borderline high: ??150-199 mg/dL High: ??200-499 mg/dL Very high: ??>tl=054 mg/dL LEONARD 2001; 285(19):8450-8281 HDL 55 >=40 mg/dL [facility] Comment: Reference range: ??Low HDL: ?? < 40 mg/dL ??Normal: ?40-60 mg/dL ??Desirable: > 60 mg/dL LEONARD 2001; 285(19):5022-9262 LDL Cholesterol 108 (H) <=99 mg/dL HANNA HANNONEN NIUM Comment: Reference range: ?? Optimal: ?<100 mg/dL ?? Near Optimal/Above Optimal: ?? 100-1 29 mg/dL ?? Borderline high: ?130-159 mg/dL ?? High: ? 160-189 mg/dL ?? Very high: ?>xf=506 mg/dL LEONARD 2001: 285(19):1444-1474 Chol/HDL Ratio 3.5 ratio HANNA MENSAH Comment: A Cholesterol to HDL ratio below 4:1 is desirable. ??Studies suggest that increased CAD risk occurs at ratios abov e 5 for females and above 6 for men. ? [place] [employer] Association ??(htt p://www.americanheart.org) ? Kim Int Med, 1994; 121:641 ? AM J Med, 1998; 105(1A):48S Specimen Anatomical Collection Method Collection Time Receive d Time (Source) Location / / Volume Laterality Blood specimen 12/17/2014 8:05 AM 015 8:11 (specimen) EDT AM EDT Resulting Agency Comment Spec In Lab Fatuma Eisenberg MD CHEMISTRY ORDERABLES Performing Organization Address City/State/[place] [address] HANNA TOWNSEND documented in this encounter Visit Diagnoses Diagnosis Hyperlipidemia Other and unspecified hyperlipidemia Healthcare maintenance Routine general medical examination at a health care facility Acute low back pain Lumbago documented in this encounter Care Teams Air Brake Adjuster Relationship Specialty Start Date End Date Brad Jose MD PCP - General 12/17/14 11/09/19 [facility] GENERAL [place] [address] documented as of this encounter
--- OUTSIDE RECORDS SUMMARY | 2021-12-25 00:51 | XMS_ITS | Encounter Summary ---
:1940 Author Organization [facility] [place] [address] Care Team Providers Name Role Phone Brad Jose MD Primary Care Provider Reason for Visit Auth/Cert Specialty Diagnoses / Procedures Referred By Contact Refer red To Contact Diagnoses 3 yr surv from 01/31/13 Procedures PRO COLONOSCOPY, DIAGNOSTIC COLONOSCOPY, DIAGNOSTIC Referral ID Status Reason Start Date Expiration Date Visits Requ ested Visits Authorized [id number] 1 1 Encounter Details Date Type Department Care Team Description 02/04/2016 Hospital Encounter Gastroenterology at [facility] Francisco Greene [facility] [place] [address] [place] [address] [facility] [place], [place] [address] Social History Tobacco Use Types [...] Sign Reading Time Taken Comments Blood Pressure 132/85 02/04/2016 10:16 AM EDT Pulse 67 02/04/2016 10:16 AM EDT Temperature - - Respiratory Rate 18 02/04/2016 10:16 AM EDT Oxygen Saturation 95% 02/04/2016 10:16 AM EDT Inhaled Oxygen Concentration - - Weight - - Height - - Body Mass Index - - documented in this encounter Discharge Instructions Patient InstructionsFrancisco Greene MD - 02/04/2016 10:06 AM EDT Please see Recommendations in the Provation procedure report which is documented in the procedural note in E-DH. AttachmentsThe following attachments cannot be sent through Care Everywhere. COLONOSCOPY : POST-OP (UKRAINIAN)documented in this encounter Medications at Time of Discharge Medication Sig Dispensed Refills Start Date End Date cholecalciferol, Vitamin Take by mouth daily. 60 tablet 0 0 11/27/2011 D3, 1,000 unit Tab tablet Reported on 06/24/2016 multivitamin (THERAGRAN) Take 1 tablet by 0 tablet mouth daily. mometasone (ELOCON) 0.1 % Use 3X/week hs 15 g 1 201407/06/2019 Ointment sparingly hydrocortisone 2.5 % Use 2-3X/week 15 g 1 02/19/2015 0 07/06/2019 Cream documented as of this encounter H&P Notes Francisco Greene MD - 02/04/2016 9:42 AM EDT Gastroenterology and Hepatology Pre-Procedure History and Physical Exam Procedure: Colonoscopy: Indication: polyp surveillance Patient Active Problem List Diagnosis Code ??? Lichen sclerosus et atrophicus of the vulva N90.4 ??? Overweight(278.02) E66.3 ??? GERD (gastroesophageal reflux disease) K21.9 ??? Hyperlipidemia E78.5 ??? Healthcare maintenance Z00.00 ??? Low back pain M54.5 ??? Tubular adenoma of colon D12.6 EXAM: HEENT: Airway examined, oropharynx clear Mallampati Score: I (soft palate, uvula, fauces, tonsillar pillars visible) LUNGS: Clear to auscultation HEART: Regular rate and rhythm, normal S1, S2 ABDOMEN: Normal bowel sounds, soft, non tender, non distended, A/P Proceed with the planned endoscopic procedure. ASA 1 - Normal health patient Sedation Plan: moderate (conscious sedation) Risks and benefits of the procedure explained to the patient. Consent signed. documented in this encounter Plan of Treatment Not on filedocumented as of this encounter Procedures Procedure Name Priority Date/Time Associated Comments Diagnosis COLONOSCOPY, 02/04/2016 9:51 AM 3 yr surv from DIAGNOSTIC EDT 01/31/13 COLONOSCOPY Routine 02/04/2016 9:33 AM Results f or this EDT procedure are i n the results section. documented in this encounter Results COLONOSCOPY (02/04/2016 9:33 AM EDT) [facility] Method Time Signature COLONOSCOPY [facility] Endoscopy Procedure Date: 02/04/2016 9:33 AM ? Patient Name: Anh Pearce ? N: [id number] ? Date of : 1940 ? Age: 75 ? Order #: [id number] ? Instrument Name: [id number] ? Procedure: ? Colonoscopy Indications: ? High risk colon cancer surveillance : ? Personal history of colonic p olyps Providers: ? Francisco Greene MD, Merle bustos, ? RN, Erica Hopper, Photograph Finisher Referring MD: ?Brad Jose MD Medicines: ? Midazolam 2.5 mg IV, Fentanyl 100 ? micrograms IV Complications: ? No immediate complications. Procedure: ? Pre-Anesthesia Assessment: ? - ASA Grade Assessment: I - A normal, ? healthy patient. ? - CV Examination: normal. ? - Mental Status Examination: alert ? and oriented. ? - Respiratory Examination: cl ear to ? auscultation. ? The procedure, indications, b enefits, ? risks and alternatives were e xplained ? to the patient. Specifically ? discussed were potential ? complications including, but not ? limited to, bleeding, perfora tion, ? infection, missing a cancer, and ? adverse medication reactions. The ? patient was placed in the lef t ? lateral decubitus position, a nd a ? digital rectal exam was perfo rmed. ? The Colonoscope was inserted in the ? anus and under direct visuali zation, ? advanced to the cecum, identi fied by ? appendiceal orifice and ileoc ecal ? valve. Careful inspection was made as ? the colonoscope was withdrawn . The ? colonoscopy was performed wit hout ? difficulty. The patient elvis ated the ? procedure well. The quality o f the ? bowel preparation was excelle nt. ? Findings: ? The entire examined colon appeared normal on direct ? and retroflexion views. ? Impression: ?- The entire examined colon is nor mal ? on direct and retroflexion vi ews. ? - No specimens collected. Recommendation: ?- Repeat colonoscopy in 5 years for ? surveillance. ? Francisco Greene MD 02/04/2016 10:11:56 AM This report has been signed electronically. Number of Addenda: 0 Note Initiated On: 02/04/2016 9:33 AM Specimen (Source) Anatomical Collection Method Collection Time Re ceived Time Location / / Volume Laterality 02/04/2016 9:33 AM EDT Brad Jose MD GENERAL SURGICAL ORDERABLES Performing Organization Address City/State/ZIP Code Phon e Number [facility] documented in this encounter Visit Diagnoses Not on filedocumented in this encounter Administered Medications Inactive Administered Medications - up to 3 most recent administrations Medication Order MAR Action Action Date Dose Rate Site lactated ringers infusion New Bag 02/04/2016 10:00 AM EDT 50 mL/hr 50 mL/hr 50 mL/hr, Intravenous, CONTINUOUS, Starting on Wed02/04/16 at 1000, Until Wed02/04/16 at 1045, Endoscopy (Day of Procedure) documented in this encounter Active and Recently Administered Medications Times are shown in EDT. Continuous Medication Order 02/02/2016 02/03/2016 02/04/2016 lactated ringers infusion (CANCELED) 1000 (New Bag - Provider: Gale Rendon RN) 50 mL/hr, at 50 mL/hr, Intravenous, CONT INUOUS, Starting Wed02/04/16 at 1000, Until Wed02/04/16 at 1045, Endo (Day of Procedure) PRN Medication Order 02/02/2016 02/03/2016 02/04/2016 fentaNYL 50 mcg/mL multi-dose injection (CANCELED) 0953 (Given - Provider: Merle Mott RN)0955 (Given - Provider: Merle Mott RN)0958 (Given - Provider: Merle Mott, EAST[place]) ONCE PRN, Starting e 02/04/16 at 0953, Until Wed02/04/16 at 1256, Intra- Operative (Intra-Procedure), Routine midazolam (PF) (VERSED) 1 mg/mL multi-dose injection (CANCELED) 0953 (Given - Provider: Merle Mott RN)0955 (Given - Provider: Merle Mott RN)0959 (Given - Provider: Merle Mott RN) ONCE PRN, Starting Wed02/04/16 at 0953, Until Wed02/04/16 at 1256, Intra- Operative (Intra-Procedure), Routine documented in this encounter Care Teams Packager And Strapper Relationship Specialty Start Date End Date Brad Jose MD PCP - General 12/17/14 11/09/19 [facility] [place] [address] documented as of this encounter
--- OUTSIDE RECORDS SUMMARY | 2021-12-25 00:51 | XMS_ITS | Encounter Summary ---
:1940 Author Organization [facility] [place] [address] Care Team Providers Name Role Phone Nadia Gama MD Primary Care Provider Encounter Details Date Type Department Care Team Description 12/10/2011 Hospital Encounter Mammography at [facility], DR CHIANG [facility] Nadia Gama MD [facility] GENERAL [place] [address] [place] [address] Social History Tobacco Use Types Packs/Day Years Used Date Never Smoker Smokeless Tobacco: Never Used Alcohol Use Standard [...] End Date cholecalciferol, Vitamin Take by mouth 60 tablet 0 11/27/19 12 D3, 1,000 unit Tab tablet daily. Reported on 06/24/2016 multivitamin (THERAGRAN) Take 1 tablet by 0 tablet mouth daily. hydrocortisone 2.5 % Apply topically. 15 g 2 2 06/15/2012 cream 1-2X/day prn esomeprazole (NEXIUM) 20 Take 1 capsule by 30 capsule 12 11/0611/28/2012 mg capsule mouth every morning (before breakfast). mometasone (ELOCON) 0.1 % 1 Appl(s), Top, 0 06/1202/19/2015 ointment once a week sparingly documented as of this encounter Plan of Treatment Not on filedocumented as of this encounter Procedures Procedure Name Priority Date/Time Associated Diagnosis Comme nts MAMMO SCREENING CAD Routine 12/10/2011 12:47 PM R esults for this BILATERAL EDT procedure are i n the results section. documented in this encounter Results MAMMO DIGITAL BILATERAL SCREENING WITH CAD (12/10/2011 12:47 PM EDT) Anatomical Region Laterality Modality Breast Bilateral Mammography Specimen (Source) Anatomical Collection Method Collection Time Re ceived Time Location / / Volume Laterality 12/10/2011 12:47 PM EDT Narrative 12/15/2011 10:57 AM EDT BILATERAL MAMMOGRAPHY ?? REASON FOR EXAM: Screening ?? TECHNIQUE: Cranio-caudal (CC) and mediol ateral oblique (MLO) views of both breasts obtained with direct digital cap ture. The exam was evaluated by CAD Version 8.3.17. In addition to the routi ne 2D imaging this exam was also performed with 3D tomographic imaging in MLO and CC projections. ?? FINDINGS: This is a negative mammogram ( ACR Category 1). There is a stable fibroglandular pattern without significa nt change as compared to prior studies. There is no mammographic evidence of can cer. ? The breasts are of scattered density. ? CONCLUSION ?? This is a NEGATIVE mammogram (ACR Catego ry 1). Routine screening mammography is recommended with the frequency dependent on the patient's age and breast cancer risk factors. ?? [facility] been [facility] to this patient [facility] Procedure Note Kayley Alvarez MD - 2 BILATERAL MAMMOGRAPHY REASON FOR EXAM: Screening TECHNIQUE: Cranio-caudal (CC) and mediol ateral oblique (MLO) views of both breasts obtained with direct digital cap ture. The exam was evaluated by CAD Version 8.3.17. In addition to the routi ne 2D imaging this exam was also performed with 3D tomographic imaging in MLO and CC projections. FINDINGS: This is a negative mammogram ( ACR Category 1). There is a stable fibroglandular pattern without significa nt change as compared to prior studies. There is no mammographic evidence of can cer. The breasts are of scattered density. CONCLUSION This is a NEGATIVE mammogram (ACR Catego ry 1). Routine screening mammography is recommended with the frequency dependent on the patient's age and breast cancer risk factors. A letter has been sent to this patient [facility]. Nadia Gama MD IMG MAMMO ORDERABLES documented in this encounter Visit Diagnoses Not on filedocumented in this encounter Care Teams Civil Cad Designer Relationship Specialty Start Date End Date Nadia Gama MD PCP - General 04/29/10 08/14/14 [facility] [address] [place] [address] documented as of this encounter
--- OUTSIDE RECORDS SUMMARY | 2021-12-25 00:51 | XMS_ITS | Encounter Summary ---
:1940 Author Organization [facility] [place] [address] Care Team Providers Name Role Phone Nadia Gama MD Primary Care Provider Reason for Visit Reason Onset Date Comments Medication Refill 11/30/2012 Encounter Details Date Type Department Care Team Description 11/30/2012 Refill Internal Medicine at Niurka Gama MD GERD (gastroesophageal reflux disease) ( Primary Dx); [facility] DR Hyperlipidemia; [facility] GENERAL INTERNAL Obesi ty; [place] [address] [place] [address] [phone] (Wo rk) Social History Tobacco Use Types [...] this encounter Miscellaneous Notes Telephone Encounter - Amanda Ralph RN - 11/30/2012 1:42 PM EDT Pt coming in for EPE 12/05/[address] Gama. Labs entered will contact to to get his done prior toher visit. Pt agrees to get labs done am prior to her appointment. Needs renewal of her nexium as she is all out. documented in this encounter Plan of Treatment Not on filedocumented as of this encounter Results TSH (12/05/2012 7:04 AM EDT) athologist Signature TSH 3.62 0.27 - 4.20 CERNER mcIU/mL MILLENNIUM Specimen Anatomical Collection Method Collection Time Receive d Time (Source) Location / / Volume Laterality Blood specimen 12/05/2012 7:04 AM 013 7:07 (specimen) EDT AM EDT Resulting Agency Comment Spec In Lab Nadia Gama MD CHEMISTRY ORDERABLES Performing Organization Address City/[facility]/[place] [address] CERNER MILLENNIUM Vitamin B12 (12/05/2012 7:04 AM EDT) athologist Signature Vitamin B-12 958 207 - 924 CERNER pg/mL MILLENNIUM Specimen Anatomical Collection Method Collection Time Receive d Time (Source) Location / / Volume Laterality Blood specimen 12/05/2012 7:04 AM 013 7:07 (specimen) EDT AM EDT Resulting Agency Comment Spec In Lab Nadia Gama MD CHEMISTRY ORDERABLES Performing Organization Address City/[facility]/ZIP [facility] [place] [address] CERNER MILLENNIUM (ABNORMAL) Lipid panel (fasting) (12/05/2012 7:04 AM EDT) athologist Signature Chol, Total 196 <=199 mg/dL CERNER MILLENNIUM Comment: Recommendations of the NCEP Adult Treatm ent Panel for the following risk cutoff thresholds for the [place] popul[place] n: Desirable: <200 mg/dL Borderline High: 200-239 mg/dL High: > or = 240 mg/dL Triglycerides 129 <=149 mg/dL CERNER MILLENN IUM Comment: Reference Range: Normal triglycerides: ??<150 mg/dL Borderline high: ??150-199 mg/dL High: ??200-499 mg/dL Very high: ??>vt=843 mg/dL LEONARD 2001; 285(19):6438-0788 HDL 59 >=40 mg/dL HANNA LEOIUM Comment: Reference range: ??Low HDL: ?? < 40 mg/dL ??Normal: ?40-60 mg/dL ??Desirable: > 60 mg/dL LEONARD 2001; 285(19):4590-3282 LDL Cholesterol 111 (H) <=99 mg/dL HANNA QUINTANA NIUM Comment: Reference range: ?? Optimal: ?<100 mg/dL ?? Near Optimal/Above Optimal: ?? 100-1 29 mg/dL ?? Borderline high: ?130-159 mg/dL ?? High: ? 160-189 mg/dL ?? Very high: ?>ct=085 mg/dL LEONARD 2001: 285(19):6042-7534 Chol/HDL Ratio 3.3 ratio HANNA LEOI UM Comment: A Cholesterol to HDL ratio below 4:1 is desirable. ??Studies suggest that increased CAD risk occurs at ratios abov e 5 for females and above 6 for men. ? [place] Heart Association ??(htt p://www.americanheart.org) ? Kim Int Med, 1994; 121:641 ? AM J Med, 1998; 105(1A):48S Specimen Anatomical Collection Method Collection Time Receive d Time (Source) Location / / Volume Laterality Blood specimen 12/05/2012 7:04 AM 013 7:07 (specimen) EDT AM EDT Resulting Agency Comment Spec In Lab Nadia Gama MD CHEMISTRY ORDERABLES Performing Organization Address City/State/ZIP Code Phon [place] [address] CERNER MILLENNIUM (ABNORMAL) CBC (with Diff) (12/05/2012 7:04 AM EDT) athologist Signature WBC 4.4 4.0 - 10.0 CERNER x10(3)/mcL MILLENNIUM RBC 4.69 3.93 - CERNER 5.22 MILLENNIUM x10(6)/mcL Hemoglobin 14.6 11.2 - CERNER 15.7 gm/dL MILLENNIUM Hematocrit 44.9 34.0 - CERNER 45.0 % MILLENNIUM MCV 95.7 (H) 79.0 - CERNER 94.0 fL MILLENNIUM MCH 31.1 26.6 - CERNER 32.2 pg MILLENNIUM MCHC 32.5 32.0 - CERNER 36.5 gm/dL MILLENNIUM Platelets 189 145 - 370 CERNER x10(3)/mcL MILLENNIUM RDWSD 44.3 35.0 - CERNER 46.0 fL MILLENNIUM RDWCV 12.8 10.9 - CERNER 14.4 % MILLENNIUM MPV 10.4 9.0 - 12.0 CERNER fL MILLENNIUM Specimen Anatomical Collection Method Collection Time Receive d Time (Source) Location / / Volume Laterality Blood specimen 12/05/2012 7:04 AM 013 7:07 (specimen) EDT AM EDT Resulting Agency Comment Spec In Lab Nadia Gama MD HEMATOLOGY ORDERABLES Performing Organization Address City/State/ZIP [place] [address] [facility] CMP w/fasting Glucose (12/05/2012 7:04 AM EDT) athologist Signature Glucose 90 65 - 99 CERNER Fasting mg/dL MILLENNIUM Comment: ?Fasting* Glucose Interpretive C riteria Normal [...] of Diabetes Mellitus, Position Statement from the [place] Diabetes Association. ??Diabete s Care, Volume 33, Supplement 1, Jun 2009 BUN 22 (H) 8 - 18 mg/dL CERNER MILLENNIUM Creatinine 0.59 (L) 0.70 - 1.20 mg/dL CERNER MILL ENNIUM Comment: Please note that the pediatric reference intervals supplied above were not validated at [facility]. Results from pediatri c patients should be interpreted in conjunction to the patient's age, height and muscle mass. Sodium 140 135 - 145 mmol/L CERNER MARIANO NIUM Potassium 3.9 3.5 - 5.0 mmol/L CERNER MARIANO NIUM Comment: Please note: ??Patients with WBC >100,00 0 may have falsely elevated Potassium levels. ??For accurate Potassium quantif ication in these patients send serum separator tube (gold top) for subsequent determinations. ??Contact the Clinical Chemistry Laboratory if there are any qu estions. Chloride 101 98 - 107 mmol/L CERNER MILLENN IUM CO2 29 22 - 31 mmol/L CERNER MILLENNI UM Anion Gap 10 5 - 15 mmol/L CERNER MILLENNIU M Calcium 9.3 8.5 - 10.5 mg/dL CERNER MARIANO NIUM Total Protein 7.2 6.4 - 8.3 gm/dL CERNER MIL LENNIUM Albumin 4.4 3.2 - 5.2 gm/dL CERNER MILLENN IUM AST 28 0 - 30 unit/L CERNER MILLENNIU M ALT 29 0 - 30 unit/L CERNER MILLENNIU M Alk Phos 76 40 - 104 unit/L CERNER MILLENN IUM Total Bilirubin 1.2 0.2 - 1.3 mg/dL CERNER M ILLENNIUM Bili, Direct 0.3 0.0 - 0.3 mg/dL CERNER MILL ENNIUM Estimated GFR >60 >=60 CERNER MILLENNIU M Comment: This estimated GFR (eGFR) value was calc ulated using the MDRD equation which has been validated on patients between t he ages of 18 and 70. The MDRD should not be used to assess kidney function in patients < 18 years of age or in patients with extremes of body mass, or in patients with acute kidney failure. This value should be multiplied by 1.2 f or patients. For further information please copy and past e the following links into your internet browser. http://www.nkdep.nih.gov/lab-evaluation. shtml http://www.kidney.org/professionals/ Specimen Anatomical Collection Method Collection Time Receive d Time (Source) Location / / Volume Laterality Blood specimen 12/05/2012 7:04 AM 013 7:07 (specimen) EDT AM EDT Resulting Agency Comment Spec In Lab Nadia Gama MD CHEMISTRY ORDERABLES Performing Organization Address City/State/[place] [address] [facility] documented in this encounter Visit Diagnoses Diagnosis GERD (gastroesophageal reflux disease) - Primary Esophageal reflux Hyperlipidemia Other and unspecified hyperlipidemia Obesity Obesity, unspecified Over weight Overweight documented in this encounter Care Teams Mortgage Loan Specialist Relationship Specialty Start Date End Date Nadia Gama MD PCP - General 04/29/10 08/14/14 [facility] [place] [address] documented as of this encounter
--- OUTSIDE RECORDS SUMMARY | 2021-12-25 00:51 | XMS_ITS | Encounter Summary ---
:1940 Author Organization [facility] [place] [address] Care Team Providers Name Role Phone Brad Jose MD Primary Care Provider Reason for Referral Physical Therapy (Routine) - Closed Specialty Diagnoses / Procedures Referred By Contact Refer red To Contact Diagnoses Bilateral low back pain, with sciatica presence unspecified Brad Jose MD Physical Therapy, [facility] INTERNAL [address] [place], [place] [id number] [place] [id number] Referral ID Status Reason Start Date Expiration Date Visits V isits Requested Authorized [id number] Closed Evaluate and 03/08/2015 09/04/2015 10 10 Treat Reason for Visit Reason Comments Follow-up Encounter Details Date Type Department Care Team Description 03/08/2015 Office Visit Internal Medicine Brad Jose, Need fo r immunization against influenza[place] [facility] [place] [facility] Bilateral low back pain, with sciatica presence unspecified; [facility] [address]; [place], [place] GENERAL INTERNAL Gastroesoph ageal reflux disease without esophagitis [phone] MEDICINE [phone] [place], [place] [address] Social History Tobacco Use Types [...] Sign Reading Time Taken Comments Blood Pressure 127/77 03/08/2015 3:01 PM EDT Pulse 83 03/08/2015 3:01 PM EDT Temperature 36.4 ??C (97.6 ??F) 03/08/2015 3:01 PM EDT Respiratory Rate 14 03/08/2015 3:01 PM EDT Oxygen Saturation 95% 03/08/2015 3:01 PM EDT Inhaled Oxygen Concentration - - Weight 98.9 kg (218 lb) 03/08/2015 3:01 PM EDT Height 171.5 cm (5' 7.5) 03/08/2015 3:01 PM EDT Body Mass Index 33.64 03/08/2015 3:01 PM EDT documented in this encounter Patient Instructions Patient InstructionsBaBrad hernandez MD - 03/08/2015 3:22 PM EDT Tylenol 1000mg every eight hours if needed for discomfort LoseIt edgar Advanced directive documented in this encounter Progress Notes Brad Jose MD - 03/08/2015 3:12 PM EDT Established Patient Follow-up Visit History of Presenting Illness: Patient here to followup on acute and chronic medical issues Back discomfort - started discomfort a few months ago - sent to physical therapy. Tough exercises, if stands too long in the kitchen, it hurts - cannot last an hour. When vaccuum hurts. On her feet. Standing is problematic. Not doing about xray results - does some stretching. Belongs to growing stronger group. Reviewed xray results - considerable arthritis. Has gained weight - 10 pounds. Takes nothing for pain. Wants PT referral Tries to keep active. Kayaking 1-2x/week Patient reported measures in the past 7 days Pain:3 Physical Health:Very Good Mental Health: Patient Active Problem List Diagnosis ??? Tubular adenoma of colon [place] 2013 showed 2 tubular adenomas--repeat in 2016 Positive FH colon cancer in father dx age 79 ??? Low back pain ??? Overweight BMI 35 ??? GERD (gastroesophageal reflux disease) ??? Hyperlipidemia ??? Healthcare maintenance PAP-11/05/08-nl and neg for HPV,MAMMO- 12/10/09, Dexa Scan 12/06/07-nL,Upper GI Series-12/19/07- Hiatal hernia, Colonoscopy-12/19/07 ??? Lichen sclerosus et atrophicus of the vulva Outpatient Encounter Prescriptions as of 03/08/2015 Medication Sig Dispense Refill ??? esomeprazole (NEXIUM) 20 mg Capsule, Delayed Release(E.C.) Take 1 capsule by mouth daily. 90 capsule 4 ??? mometasone (ELOCON) 0.1 % Ointment Use 3X/week hs sparingly 15 g 1 ??? hydrocortisone 2.5 % Cream Use 2-3X/week 15 g 1 ??? [DISCONTINUED] esomeprazole (NEXIUM) 20 mg capsule Take 1 capsule by mouth daily. 90 capsule 4 ??? cholecalciferol, Vitamin D3, 1,000 unit Tab tablet Take by mouth daily. 60 tablet 0 ??? multivitamin (THERAGRAN) tablet Take 1 tablet by mouth daily. No facility-administered encounter medications on file as of 03/08/2015. History Social History ??? Marital Status: Spouse Name: N/A Number of Children: 2 ??? 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 Smoking status: Former Smoker -- 0.25 packs/day for .1 years Types: Cigarettes Quit date: 1965 ??? Smokeless tobacco: Never Used Comment: 1 pack total. ??? Alcohol Use: 0.0 oz/week 0 Not specified per week Comment: infrequent wine 2-3 glasses a week ??? Drug Use: No ??? Sexual Activity: Partners: Male Other Topics Concern ??? None Social History Narrative Born in [facility]. Still has a house there. 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 Belongs to book groups Review of Symptoms. Constitutional - (- ) fevers (- ) [...] pain at rest or with movement Objective Filed Vitals: 03/08/15 1501 BP: 127/77 Pulse: 83 Temp: 36.4 ??C (97.6 ??F) TempSrc: Oral Resp: 14 Height: 171.5 cm (5' 7.5) Weight: 98.884 kg (218 lb) SpO2: 95% Gen -no acute distress. Alert, responsive and comfortable HEENT - oropharynx moist without lesions Gait: grossly intact with normal stride length, speed, and arm swing Assessment/Plan: # Back discomfort Discussed - needs exercises and physical therapy. Tylenol for pain control # Weight Discussed today - she declines nutrition evaluation at this time. # Colon Polyps Needs colo Jan 2016 # GERD Renewed Rx Patient Instructions: Patient Instructions Tylenol 1000mg every eight hours if needed for discomfort LoseIt edgar I counselled the patient on the above [...] by one of my nurses, letter, or myDH. Next Appointment: No Follow-up on file. Total time: 25 Minutes, 15 Of the visit time was spent in [id number] counselling of the above issues documented in this encounter Plan of Treatment Scheduled Referrals Name Type Priority Associated Diagnoses Order S chedule Referral to Outpatient Referral Routine Bilateral low back Or dered: Physical Therapy pain, with sciatica 07/2014 presence unspecified documented as of this encounter Visit Diagnoses Diagnosis Need for immunization against influenza Need for prophylactic vaccination and in oculation against influenza Overweight Bilateral low back pain, with sciatica p resence unspecified Hyperlipidemia Other and unspecified hyperlipidemia Gastroesophageal reflux disease without esophagitis Esophageal reflux documented in this encounter Care Teams Delivery Driver Relationship Specialty Start Date End Date Brad Jose MD PCP - General 12/17/14 11/09/19 [facility] [place] [address] documented as of this encounter
--- OUTSIDE RECORDS SUMMARY | 2021-12-25 00:51 | XMS_ITS | Encounter Summary ---
:1940 Author Organization [facility] Address [facility] [address] [place] [address] Care Team Providers Name Role Phone Nadia Gama MD Primary Care Provider Encounter Details Date Type Department Care Team Description 12/06/2012 Orders Only Radiology Jeremiah, Indira Abnormal mammogram, [facility] MD Liu unspecified (Primary Drive [facility] Dx) [place] [address] DIAGNOSTIC RADIOLOGY [place], [place] [address] Social History Tobacco Use Types [...] on filedocumented as of this encounter Results Mammo breast US unilateral bilateral (12/09/2012 10:50 AM EDT) Anatomical Region Laterality Modality Breast N/A Mammography Specimen (Source) Anatomical Collection Method Collection Time Re ceived Time Location / / Volume Laterality 12/09/2012 10:50 AM EDT Narrative 12/12/2012 5:28 PM EDT UNILATERAL RIGHT MAMMOGRAM, ADDITIONAL VIEWS OF THE RIGHT BREAST AND RIGHT BREAST ULTRASOUND ON 12/09/12: DIAGNOSTIC IMAGING SUMMARY: RIGHT BREAST LESION 1: SUSPICIOUS (BIRAD S Category 4). Finding: Hypoechoic mass. Size: 5mm. Location: 0330, 6cm from the nipple. Recommendation: Ultrasound guided biopsy which has been scheduled for 12/13/12 at 7:30am. Differential diagnosis: Complicated cyst , fibroadenoma; malignancy less likely. Findings discussed with the patient who concurs. Preliminary report E-mailed to Dr. aNdia Gama on 12/09/12. NARRATIVE: CLINICAL INDICATION: Mass seen on screen ing mammogram of 12/05/12. TECHNIQUE: Right LM, spot CC and spot ML O views obtained with direct digital capture as well as a Right breast ultras ound. FINDINGS: This is a (BIRADS Category 4) SUSPICIOUS Right breast for a 6mm partly well-circumscribed, partly irregu lar round mass in the medial Right breast, 9cm from the nipple. Targeted ultrasound to the medial Right breast demonstrates a 5mm predominantly round, hypoechoic mass, with mildly irre gular borders; this mass is located at the 0330 position, 6cm from the nipple. There is mild posterior enhancement associated with this mass. No increased vascularity is noted. Procedure Note Kayley Alvarez MD - 3 UNILATERAL RIGHT MAMMOGRAM, ADDITIONAL V IEWS OF THE RIGHT BREAST AND RIGHT BREAST ULTRASOUND ON 12/09/12: DIAGNOSTIC IMAGING SUMMARY: RIGHT BREAST LESION 1: SUSPICIOUS (BIRAD S Category 4). Finding: Hypoechoic mass. Size: 5mm. Location: 0330, 6cm from the nipple. Recommendation: Ultrasound guided biopsy which has been scheduled for 12/13/12 at 7:30am. Differential diagnosis: Complicated cyst , fibroadenoma; malignancy less likely. Findings discussed with the patient who concurs. Preliminary report E-mailed to Dr. Nadia Gama on 12/09/12. NARRATIVE: CLINICAL INDICATION: Mass seen on screen ing mammogram of 12/05/12. TECHNIQUE: Right LM, spot CC and spot ML O views obtained with direct digital capture as well as a Right breast ultras ound. FINDINGS: This is a (BIRADS Category 4) SUSPICIOUS Right breast for a 6mm partly well-circumscribed, partly irregu lar round mass in the medial Right breast, 9cm from the nipple. Targeted ultrasound to the medial Right breast demonstrates a 5mm predominantly round, hypoechoic mass, with mildly irre gular borders; this mass is located at the 0330 position, 6cm from the nipple. There is mild posterior enhancement associated with this mass. No increased vascularity is noted. Indira Daniels MD IMG MAMMO ORDERABLES Mammo call back diagnostic extra view unilateral (12/09/2012 10:13 AM EDT) Anatomical Region Laterality Modality Breast N/A Mammography Specimen (Source) Anatomical Collection Method Collection Time Re ceived Time Location / / Volume Laterality 12/09/2012 10:13 AM EDT Narrative 12/12/2012 5:28 PM EDT UNILATERAL RIGHT MAMMOGRAM, ADDITIONAL VIEWS OF THE RIGHT BREAST AND RIGHT BREAST ULTRASOUND ON 12/09/12: DIAGNOSTIC IMAGING SUMMARY: RIGHT BREAST LESION 1: SUSPICIOUS (BIRAD S Category 4). Finding: Hypoechoic mass. Size: 5mm. Location: 0330, 6cm from the nipple. Recommendation: Ultrasound guided biopsy which has been scheduled for 12/13/12 at 7:30am. Differential diagnosis: Complicated cyst , fibroadenoma; malignancy less likely. Findings discussed with the patient who concurs. Preliminary report E-mailed to Dr. Nadia Gama on 12/09/12. NARRATIVE: CLINICAL INDICATION: Mass seen on screen ing mammogram of 12/05/12. TECHNIQUE: Right LM, spot CC and spot ML O views obtained with direct digital capture as well as a Right breast ultras ound. FINDINGS: This is a (BIRADS Category 4) SUSPICIOUS Right breast for a 6mm partly well-circumscribed, partly irregu lar round mass in the medial Right breast, 9cm from the nipple. Targeted ultrasound to the medial Right breast demonstrates a 5mm predominantly round, hypoechoic mass, with mildly irre gular borders; this mass is located at the 0330 position, 6cm from the nipple. There is mild posterior enhancement associated with this mass. No increased vascularity is noted. Procedure Note Kayley Alvarez MD - 3 UNILATERAL RIGHT MAMMOGRAM, ADDITIONAL V IEWS OF THE RIGHT BREAST AND RIGHT BREAST ULTRASOUND ON 12/09/12: DIAGNOSTIC IMAGING SUMMARY: RIGHT BREAST LESION 1: SUSPICIOUS (BIRAD S Category 4). Finding: Hypoechoic mass. Size: 5mm. Location: 0330, 6cm from the nipple. Recommendation: Ultrasound guided biopsy which has been scheduled for 12/13/12 at 7:30am. Differential diagnosis: Complicated cyst , fibroadenoma; malignancy less likely. Findings discussed with the patient who concurs. Preliminary report E-mailed to Dr. Nadia Gama on 12/09/12. NARRATIVE: CLINICAL INDICATION: Mass seen on screen ing mammogram of 12/05/12. TECHNIQUE: Right LM, spot CC and spot ML O views obtained with direct digital capture as well as a Right breast ultras ound. FINDINGS: This is a (BIRADS Category 4) SUSPICIOUS Right breast for a 6mm partly well-circumscribed, partly irregu lar round mass in the medial Right breast, 9cm from the nipple. Targeted ultrasound to the medial Right breast demonstrates a 5mm predominantly round, hypoechoic mass, with mildly irre gular borders; this mass is located at the 0330 position, 6cm from the nipple. There is mild posterior enhancement associated with this mass. No increased vascularity is noted. Indira Daniels MD IMG MAMMO ORDERABLES documented in this encounter Visit Diagnoses Diagnosis Abnormal mammogram, unspecified - Primar y Abnormal mammogram, unspecified Abnormal mammogram, unspecified documented in this encounter Care Teams Lockstitch Lining Maker Relationship Specialty Start Date End Date Nadia Gama MD PCP - General 04/29/10 08/14/14 [facility] [address] [place] [address] documented as of this encounter
--- OUTSIDE RECORDS SUMMARY | 2021-12-25 00:51 | XMS_ITS | Encounter Summary ---
:1940 Author Organization [facility] [place] [address] Care Team Providers Name Role Phone Nadia Gama MD Primary Care Provider Encounter Details Date Type Department Care Team Description 12/05/2012 Hospital Encounter Mammography at [facility] [place] [address] Social History Tobacco Use Types Packs/Day [...] 1 tablet by 0 tablet mouth daily. NEXIUM 20 mg TAKE 1 CAPSULE BY 30 capsule 12 11/28/201212/14 capsuleIndications: GERD MOUTH EVERY MORNING (gastroesophageal reflux (BEFORE BREAKFAST) disease) hydrocortisone 2.5 % Use qhs prn 15 g 1 06/15/201205/2015 cream mometasone (ELOCON) 0.1 % 1 Appl(s), Top, 0 06/1202/19/2015 ointment once a week sparingly documented as of this encounter Plan of Treatment Not on filedocumented as of this encounter Procedures Procedure Name Priority Date/Time Associated Diagnosis Comme nts MAMMO SCREENING CAD Routine 12/05/2012 7:57 AM Re sults for this BILATERAL EDT procedure are i n the results section. documented in this encounter Results Mammo digital bilateral Screening with CAD (12/05/2012 7:57 AM EDT) Anatomical Region Laterality Modality Breast Bilateral Mammography Specimen (Source) Anatomical Collection Method Collection Time Re ceived Time Location / / Volume Laterality 12/05/2012 7:57 AM EDT Narrative 12/06/2012 5:57 PM EDT REASON FOR EXAM: Screening ?? TECHNIQUE: Cranio-caudal (CC) and mediol ateral oblique (MLO) views of the both breasts obtained with direct digital cap ture. The exam was evaluated by CAD Version 8.3.17. ?? RIGHT BREAST MAMMOGRAPHY ?? This is an indeterminate (ACR Category 0 ) mammogram of the Right breast. There is a question of a mass and focal asymme try in the lower, inner Right breast, requiring additional imaging. ? LEFT BREAST MAMMOGRAPHY ?? This is a negative mammogram (ACR Catego ry 1). There is a stable fibroglandular pattern without significant change as co mpared to prior studies. There is no mammographic evidence of cancer. ? The breasts are of scattered density. ? CONCLUSION ?? ASSESSMENT IS INCOMPLETE: Additional willie ging recommended (ACR Category 0) of the Right breast. The [facility] will contact the patient to schedule additional imaging. ?? The contralateral breast is NEGATIVE (AC R Category 1). Routine screening mammography is recommended of the Left b reast with the frequency dependent on the patient's age and breast cancer risk factors. Procedure Note Indira Daniels MD - 12/06/2012Forma tting of this note might be different from the original. REASON FOR EXAM: Screening TECHNIQUE: Cranio-caudal (CC) and mediol ateral oblique (MLO) views of the both breasts obtained with direct digital cap ture. The exam was evaluated by CAD Version 8.3.17. RIGHT BREAST MAMMOGRAPHY This is an indeterminate (ACR Category 0 ) mammogram of the Right breast. There is a question of a mass and focal asymme try in the lower, inner Right breast, requiring additional imaging. LEFT BREAST MAMMOGRAPHY This is a negative mammogram (ACR Catego ry 1). There is a stable fibroglandular pattern without significant change as co mpared to prior studies. There is no mammographic evidence of cancer. The breasts are of scattered density. CONCLUSION ASSESSMENT IS INCOMPLETE: Additional willie ging recommended (ACR Category 0) of the Right breast. The [facility] will contact the patient to schedule additional imaging. The contralateral breast is NEGATIVE (AC R Category 1). Routine screening mammography is recommended of the Left b reast with the frequency dependent on the patient's age and breast cancer risk factors. Nadia Gama MD IMG MAMMO ORDERABLES documented in this encounter Visit Diagnoses Not on filedocumented in this encounter Care Teams Sourcing Consultant Relationship Specialty Start Date End Date Ndaia Gama MD PCP - General 04/29/10 08/14/14 [facility] [place] [address] documented as of this encounter
--- OUTSIDE RECORDS SUMMARY | 2021-12-25 00:51 | XMS_ITS | Encounter Summary ---
:1940 Author Organization [facility] [address] Care Team Providers Name Role Phone Nadia Gama MD Primary Care Provider Encounter Details Date Type Department Care Team Description 12/09/2012 Hospital Encounter Mammography at [facility], DR CHIANG Abnormal mammogram, [facility] Nadia Gama MD [facility] [place] [address] [place] [id number] Social History Tobacco Use Types Packs/Day Years [...] week sparingly documented as of this encounter Miscellaneous Notes Miscellaneous - Provider, Scanning - 12/16/2012 9:26 AM EDT documented in this encounter Plan of Treatment Not on filedocumented as of this encounter Procedures Procedure Name Priority Date/Time Associated Diagnosis Comme nts MAMMO CALL BACK Routine 12/09/2012 10:13 Abnormal mammogram, R esults for this DIAGNOSTIC EXTRA AM EDT unspecified procedure a re in VIEW UNILATERAL the results section. documented in this encounter Results Mammo call back diagnostic extra view unilateral [...] encounter Visit Diagnoses Diagnosis Abnormal mammogram, unspecified documented in this encounter Care Teams Typesetters Printer Relationship Specialty Start Date End Date Nadia Gama MD PCP - General 04/29/10 08/14/14 [facility] [address] [place] [address] documented as of this encounter
--- OUTSIDE RECORDS SUMMARY | 2021-12-25 00:51 | XMS_ITS | Encounter Summary ---
:1940 Author Organization [facility] [place] [address] Care Team Providers Name Role Phone Nadia Gama MD Primary Care Provider Reason for Visit Reason Comments Follow-up LS, LSC Encounter Details Date Type Department Care Team Description 12/10/2011 Follow-Up Obstetrics and Britney Bobby, Screen ing (Primary Dx); [place] [facility] [place] [address] [place] [address] OBSTETRICS & [phone] GYNECOLOGY [place], [place] [address] (Wo rk) Social History Tobacco [...] Sign Reading Time Taken Comments Blood Pressure 124/72 12/10/2011 10:20 AM EDT Pulse - - Temperature - - Respiratory Rate - - Oxygen Saturation - - Inhaled Oxygen Concentration - - Weight 94.5 kg (208 lb 6.4 oz) 12/10/2011 10:20 AM EDT Height 172.7 cm (5' 8) 12/10/2011 10:20 AM EDT Body Mass Index 31.69 12/10/2011 10:20 AM EDT documented in this encounter Progress Notes Britney Bobby MD - 12/10/2011 11:15 AM EDT Ms. Lechuga is a 71 y.o. here for f/u of lichen sclerosus. She is using mometasone once a week (most weeks) and hytone prn. She denies any vulvar flares. Feels a little sore at base of introitus today. Having mammo today. Discussed pap - would like to go ahead with pap today, will do reflex HPV. No mouth soreness. had stents placed in August, doing rehab, so staying close to home. Really feels supported inlocal rehab. Outpatient prescriptions marked as taking for the 12/10/11 encounter (Follow-Up) with MARTHA BOBBY Medication Sig Dispense Refill ??? cholecalciferol, Vitamin D3, 1,000 unit Tab tablet Take by mouth daily. 60 tablet 0 ??? esomeprazole (NEXIUM) 20 mg capsule Take 1 capsule by mouth every morning (before breakfast). 30capsule 12 ??? HYDROCORTISONE (HYTONE TOP) Apply 1 applicator topically 2 times daily as needed. ??? multivitamin (THERAGRAN) tablet Take 1 tablet by mouth daily. ??? mometasone (ELOCON) 0.1 % ointment 1 Appl(s), Top, once a week sparingly Filed Vitals: 12/10/11 1020 BP: 124/72 Body mass index is 31.69 kg/(m^2). On exam, there is labial and clitoral flattening. There is Mild erythema as previously noted on inner aspect of R labium minus, 1.5X 1.5 cm, nontender to touch. Vag & cervix without lesion, pap smear taken. Bimanual exam shows nl sized uterus, no palpable adnexal mass on BM or RV exam. Impression: Lichen sclerosus, with appearance recently looking more like lichen planus, doing well Plan: Continue current regimen, recheck 6 months. documented in this encounter Plan of Treatment Not on filedocumented as of this encounter Procedures Procedure Name Priority Date/Time Associated Comments Diagnosis MANAGER BALANCE CYTOLOGY FINAL Routine 12/10/2011 12:06 Resul ts for this REPORT PM EDT procedure are i n the results section. CYTOPATHOLOGY Routine 12/10/2011 11:07 Screening Results fo r this GYNECOLOGICAL AM EDT procedure are in the results section. documented in this encounter Results MANAGER BALANCE CYTOLOGY FINAL REPORT (12/10/2011 12:06 PM EDT) Component Value Ref Test Analysis Performed At [facility] Range Method Time Signature Segmental Paver Installer Cytology CERNER Final Report ? [facility] ? Provider: ?? BRITNEY BOBBY ??Pt. Name: ?? ANH LECHUGA ? Acc #: ?[id number] ?Pt. MRN: ?[id number] ? Col Date: ?? 12/10/2011 ?/Sex: ?1940,(71 years),Female ? Rec Date: ?? 12/10/2011 ?LOC: ?5L ? CYTOPATHOLOGY: ??MANAGER BALANCE ? ---Adequacy--- ? Specimen submitted is satisfactory. ? Endocervical component present. ? ---Cytopathologic Diagnosis--- ? NORMAL ? Negative for Intraepithelial Lesion or Malignancy (NI LM). ? 12/22/11 ?? Screened by: ??SLA ? 12/22/11 ?? Verified by: ??KATHY Smith(ASCP), Merle Vaca. - ? Health Education Coordinator ? ---Clinical Information--- ? HPV Option: ? Reflex HPV ? Preparation: ?Liquid Based Pap ? Specimen Source: ?Cervical Endocervical LBP ? LMP: ?SERVICE SUPERINTENDENT ? Hormones?: ?No ? Hysterectomy?: ?No ?: ?No ?: ?No ? I.U.D.?: ?No ? Pelvic Radiation: ? No ? Prior MANAGER BALANCE Therapy?: ? No ? Hist Abnl Pap/Biopsy?: ??No ? Hist of HPV Vaccine?: ?? No ? Hist of Smoking?: ? No ? Hist of SHANNAN exposure?: ??No ? Clinical Data, Significant Therapy and Clinical Impre ssion: ? This Pap Test has bee n evaluated with the assistance of the ThinPrep Pap ? Test Imaging System. ? Note: ? The Pap test is a screening test for cervical c ancer with an inherent ? false-negative rate dependent upon several variables. ??For further ? information please contact the [facility] [place]. ? Reference: ??Jamshid andre CS. ??Social Work Supervisor of Pap Smear Results. ??In: ? Adriane BS, [facility], ed. ??The Pap Smear. ??[place]: ??Pj, 2002: ? 71-77. Specimen (Source) Anatomical Collection Method Collection Time Re ceived Time Location / / Volume Laterality 12/10/2011 12:06 PM EDT Britney Bobby MD PATHOLOGY/CYTOLOGY ORDERABLE S Performing Organization Address City/State/ZIP [place] [address] [facility] [address] [facility] Cytopathology Gynecological (12/10/2011 11:07 AM EDT) Specimen Anatomical Collection Method Collection Time Receive d Time (Source) Location / / Volume Laterality AP Specimen 12/10/2011 11:07 12/10/2011 AM EDT 11:07 AM EDT Narrative HANNA LEOIUM - 12/10/2011 11:07 AM EDT Specimen requisition ordered. ??Separate Pathology report to follow Britney Bobby MD PATHOLOGY/CYTOLOGY ORDERABLE S Performing Organization Address City/State/[facility] Code Phon e Number [place] [phone] [employer] documented in this encounter Visit Diagnoses Diagnosis Screening - Primary Screening for unspecified condition Lichen sclerosus Circumscribed scleroderma documented in this encounter Care Teams Federal Mediator Relationship Specialty Start Date End Date Nadia Gama MD PCP - General 04/29/10 08/14/[address] [facility] [address] [place] [address] documented as of this encounter
--- OUTSIDE RECORDS SUMMARY | 2021-12-25 00:51 | XMS_ITS | Encounter Summary ---
:1940 Author Organization [facility] [place] [address] Care Team Providers Name Role Phone Nadia Gama MD Primary Care Provider Reason for Referral Consultation (Routine) - Closed Specialty Diagnoses / Procedures Referred By Contact Refer red To Contact Dermatology Diagnoses Skin lesion Nadia [facility] MD [facility] [address], [place] [address] [place] [address] Referral ID Status Reason Start Date Expiration Date Visits V isits Requested Authorized [id number] Closed Consult, 12/05/2012 06/03/2013 1 1 Test & Treat urgical (Routine) - Closed Specialty Diagnoses / Procedures Referred By Contact Refer red To Contact Gastroenterology Diagnoses Family history of colon cancer requiring screening colonoscopy Nadia Gama MD [facility] Endoscopy 4t [place] [address] [place] [address] Referral ID Status Reason Start Date Expiration Date Visits V isits Requested Authorized [id number] Closed Test Only 12/05/2012 06/03/2013 1 1 Reason for Visit Reason Comments Annual Exam Results labs done this am and jaspal Encounter Details Date Type Department Care Team Description 12/05/2012 Office Visit Internal Medicine at CLINIC, DR CHIANG GERD (gastroesophageal reflux disease) (Primary Dx); [facility] Nadia Gama MD [facility] GENERAL INTERNAL MEDICINE [place], [place] [id number] Hyperlipidemia; [facility] [employer] maintenance; [place], [place] Skin lesion; [phone] Family history of colon canc er requiring screening colonoscopy [phone] Social History Tobacco Use Types Packs/Day Years [...] Sign Reading Time Taken Comments Blood Pressure 118/77 12/05/2012 8:43 AM EDT Pulse 73 12/05/2012 8:43 AM EDT Temperature - - Respiratory Rate - - Oxygen Saturation - - Inhaled Oxygen Concentration - - Weight 94.8 kg (209 lb) 12/05/2012 8:43 AM EDT dressed Height 172.1 cm (5' 7.75) 12/05/2012 8:43 AM EDT Body Mass Index 32.01 12/05/2012 8:43 AM EDT documented in this encounter Patient Instructions Patient InstructionsNadia Gama MD - 12/05/2012 9:26 AM EDT The following is to help you interpret your cholesterol numbers: Total cholesterol levels: Desirable: Below 200 mg/dL Borderline high: 200 - 239 High: Above 240 LDL cholesterol levels (Low density, the bad form of cholesterol which accumulates in the lining of arteries): Optimal for people with heart disease or very high risk : Below 70 mg/dL Optimal for people at high risk of heart disease: Below 100 Acceptable: 100 - 129 Borderline high: 130 - 159 Very High: 160 - 189 HDL cholesterol levels (High density, the good form of the protein which helps take cholesterol out of your body): High risk: Below 40 mg/dL Acceptable: 40 - 59 Optimal: 60 or above Note-HDL goes up with exercise and quitting smoking! Triglyceride,a different type of fat stored in the blood: When triglycerides go up over 100 we startmaking abnormal forms of cholesterol--the small dense LDLs that are atherogenic and penetrate much more rapidly into the arteries than normal large LDLs. Optimal: Below 100 mg/dL Borderline high: 100-150 High: Above 150 Adults with normal total and HDL cholesterol levels should have their cholesterol checked every 5 years. Preventive Care: Most people can lower cholesterol levels by eating a well-balanced diet, getting regular exercise (at least 30-60 minutes at least 5 days a week), and losing any excess weight. A healthy diet can help you lose any extra pounds. Even losing just 5 or 10 pounds may help lower your cholesterol. To eat a healthy diet: Cut down on ALL FATS especially saturated fats and trans fats. No more than 10 percent of your daily calories should come from saturated fat from red meats and whole-fat dairy, and you should totally avoid trans fats (partially hydrogenated vegetable oils found inprocessed baked foods). Choose unsaturated fats, such as olive oil and canola oil, instead of butter, but in order to lower your cholesterol eat only very small amounts of added fats in salad dressings and try to reduce even the amounts of olive oil that you use in cooking. Eat whole grains -- oatmeal and oat bran help to lower cholesterol. Strive for steel cut oats and minimally processed oat flakes rather than instant oats in packets which usually contain added sugar. Try 100% whole wheat bread and pasta, and brown rice rather than white rice. Try to avoid foods made with white flour and white sugar and other simple carbohydrates such as crackers. Eat more fruits and vegetables, which are high in fiber and can help lower cholesterol levels. Strive for at least 5 servings of veges daily and 3 servings of fruit (a standard serving is one-half cup). Better to eat an orange than to drink orange juice. Limit cholesterol in your diet. The highest amounts are found in egg yolks, whole milk products, andred meats. Fried foods like fries and chips are to be avoided. Reduce intake of cheese, ice cream, and baked goods. Eat fatty fish if you like fish. The [place] [employer] recommends that people eat at least 2 servings of fatty fish (such as salmon or moreno) each week. We can arrange a personalized nutrition plan by a registered nurse behavioral health on request. documented in this encounter Progress Notes Nadia Gama MD - 12/05/2012 9:03 AM EDT Ms. Pearce is a 72 year old female who presents for preventive health Very active-- Will be going to [place]--will be going fishing--wears waders and fishes in [employer] Concerns about her skin--itchy lesions left cheek and left upper back Knows she needs a colo this year Will be seeing Dr. Bobby for her LS Acid reflux. Sleeping better because bed is up 6 inches but has a lot of sour stomach --nexium worked, but insurance did not cover in 2010 --Omeprazole caused fecal incontinence. --Aciphex was tried in 2010--her stomach felt worse, and it caused diarrhea nexium--works the best for her--got an override in 2011--definitely needs it -hyperlipidemia Weight stable Lipids stable--ideally modify her diet to lower the LDL Gave recommendations in AVS Also likes sweets Geriatrics 2012--no falls ADLs and IADLS all independent Low Back pain Only if stands at kitchen sink for too long Did the PT Patient Active Problem List Diagnoses Code ??? Lichen sclerosus et atrophicus of the vulva 701.0 ??? Overweight 278.02 ??? GERD (gastroesophageal reflux disease) 530.81 ??? Hyperlipidemia 272.4 ??? Healthcare maintenance V70.0 ??? Low back pain 724.2 Immunization History Administered Date(s) Administered ??? Pneumococcal Polyvalent 23 09/30/2007 ??? Td 06/07/2010 ??? Zoster 10/10/2009 SOCIAL HISTORY Living situation - lives with in [place]. 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 Has a house in [place]. 2 kids in 30s. distant history of CABG, recent stents. EtOH - Drinks rarely Tobacco - None Drugs - None Violence - None Seat belts - wears Nutrition - likes bread, chocolates Exercise - not in the cold, walks other times of year Advanced directives - Has A.D., no copy in chart, patient will send REPRODUCTIVE HISTORY Menopausal Sexual Function - good; some dryness, uses [place] Osteoporosis prevention - calcium HEALTH MAINTENANCE pap done by - [facility]--> will transition to Dr. Bobby who follows LS closely mammography at [facility] - colonoscopy - 12/07 [facility], 2007 normal--> repeat 5 yrs Due 2012--positive FH father and uncles, both brother and sister had polyps EGD 2007 Findings: The esophagus was normal. There was no evidence of esophagitis or Barretts esophagus.A small hiatus hernia was present. The examined duodenum was normal. Impression: - Normal esophagus. - Hiatus hernia. - Normal examined duodenum. Cholesterol - TODAY gave to pt DEXA - 05/09, DEXA EXAMINATION: December 06, 2007 CLINICAL HISTORY: A 67-year-old woman status post onset of menopause in 1994. FINDINGS: Measurements were obtained at the lumbar spine and left hip and compared to earlier measurements from 2002. Spine measurements are unchanged. The total hip measurement has decreased by 4.6%. All measurements remain in the normal range by WHO classification. IMPRESSION: 1. There has been a decrease in bone density since 2002. 2. Measurements remain in the normal range by WHO classification and suggest no elevation in relative risk for fracture. Immunization History Administered Date(s) Administered ??? Pneumococcal Polyvalent 23 09/30/2007 ??? Td 06/07/2010 ??? Zoster 10/10/2009 FAMILY HISTORY Mother 90, angina Father of colon ca 80 -positive FH father and uncles, both brother and sister had polyps Aunt and cousin on mother's side have breast ca in their 50s/60s. other details in chart Outpatient Encounter Prescriptions as of 12/05/2012 Medication Sig Dispense Refill ??? NEXIUM 20 mg capsule TAKE 1 CAPSULE BY MOUTH EVERY MORNING (BEFORE BREAKFAST) 30 capsule 12 ??? hydrocortisone 2.5 % cream Use qhs prn 15 g 1 ??? multivitamin (THERAGRAN) tablet Take 1 tablet by mouth daily. ??? mometasone (ELOCON) 0.1 % ointment 1 Appl(s), Top, once a week sparingly ??? cholecalciferol, Vitamin D3, 1,000 unit Tab tablet Take by mouth daily. 60 tablet 0 Review of Systems: Review of Systems -Female 50 to 75 12/05/2012 Constitutional None of the above Ear / nose / throat / mouth None of the above Eyes None of the above Respiratory None of the above Cardiovascular Swelling of legs Gastrointestinal - Skin, hair Dry skin Musculoskeletal None of the above Neurological None of the above Hematologic / Lymphatic None of the above Psychiatric Difficulty sleeping Genitourinary None of the above Sleeping issue is intermittently problematic--mind gets active Doing bone building Gets back pain if she stands a long time, responds to rest-- Takes care of dahlia davis who is 6 yo--spends the night--she is very involved in his activities PHQ9 Depression Screening: PHQ9 12/05/2012 Little interest or pleasure Not at all Down, depressed, hopeless Not at all BP 118/77 Pulse 73 Ht 172.1 cm (5' 7.75) Wt 94.802 kg (209 lb) BMI 32.01 kg/m2 Gen - Well nourished female in no apparent distress Skin -benign flesh colored papules on face--concerned about papule left cheek and left upper back (cystic, possibly a BCE) HEENT - NC/AT. EOMI, PERRL,Tympanic membranes and canals normal, Oropharynx moist without lesions Neck - Full range of motion, no bruits, no lymphadenopathy, no thyromegaly Lungs - Clear to ascultation and percussion Chest/Back - no spinal tenderness, no CVAT Breasts - no masses, nipple discharge, or axillary adenopathy. 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 Neurological Orientation - person, place and time Strength - 5/5 upper and lower extremities ASSESSMENT 72 yo woman whose feels well # HM vit D 33 in 2009. She stopped calcium vit D combo so time to start vit D 1000 IU daily received zostavax in 2009 Continue regular exercise Scheduled colo and derm appt # hyperlipidemia See AVS encouraged increase in activity # GERD neg endoscopy in 2007 new rx nexium -continue non-pharmacologic measures # lichen sclerosis f/u with Dr. Bobby f/u 1 yr documented in this encounter Plan of Treatment Scheduled Referrals Name Type Priority Associated Order Schedule Diagnoses Referral to Outpatient Routine Family history of Ordered: Gastroenterology Referral colon cancer 12/05/2012 requiring screening colonoscopy Referral to Dermatology Outpatient Routine Skin lesion Orde red: Referral 12/05/2012 documented as of this encounter Procedures Procedure Name Priority Date/Time Associated Diagnosis Comme nts CMP W/FASTING STAT 12/05/2012 7:04 AM GERD Results for this GLUCOSE EDT (gastroesophageal procedure are in reflux disease) the results Hyperlipidemia section. Over weight DIFFERENTIAL, STAT 12/05/2012 7:04 AM Results for this AUTOMATED EDT procedure are i n the results section. CBC (WITH DIFF) STAT 12/05/2012 7:04 AM GERD Result s for this EDT (gastroesophageal procedure are in reflux disease) the results Hyperlipidemia section. Over weight TSH STAT 12/05/2012 7:04 AM GERD Results f or this EDT (gastroesophageal procedure are in reflux disease) the results Hyperlipidemia section. Over weight VITAMIN B12 STAT 12/05/2012 7:04 AM GERD Results f or this EDT (gastroesophageal procedure are in reflux disease) the results Hyperlipidemia section. Over weight LIPID PANEL (REFLEX STAT 12/05/2012 7:04 AM GERD Re sults for this DIRECT LDL) EDT (gastroesophageal procedure are in reflux disease) the results Hyperlipidemia section. Over weight documented in this encounter Results Differential, Automated (12/05/2012 7:04 AM EDT) P athologist Signature Neutrophils % 57.5 34.0 - CERNER 71.0 % MILLENNIUM Neutr Abs (ANC) 2.53 1.50 - CERNER 6.30 MILLENNIUM x10(3)/mcL Lymphocytes % 31.7 19.0 - CERNER 53.0 % MILLENNIUM Lymphocytes Abs 1.4 1.0 - 3.6 CERNER x10(3)/mcL MILLENNIUM Monocytes % 6.8 4.0 - 13.0 CERNER % MILLENNIUM Monocyte Abs 0.3 0.2 - 1.0 CERNER x10(3)/mcL MILLENNIUM Eosinophils % 2.7 0.0 - 7.0 CERNER % MILLENNIUM Eosinophils Abs 0.1 0.0 - 0.5 CERNER x10(3)/mcL MILLENNIUM Basophils % 1.1 0.0 - 2.0 CERNER % MILLENNIUM Basophils Abs 0.0 0.0 - 0.2 CERNER x10(3)/mcL MILLENNIUM Immature Gran % 0.20 0.00 - CERNER 0.66 % MILLENNIUM Comment: Immature granulocytes(IG's)percentage an d absolute [...] AM 013 7:07 (specimen) EDT AM EDT Nadia Gama MD HEMATOLOGY ORDERABLES Performing Organization Address City/[facility]/ZIP Code Phon e Number [address] [facility] TSH (12/05/2012 7:04 AM EDT) P athologist Signature TSH 3.62 0.27 - 4.20 CERNER mcIU/mL MILLENNIUM Specimen Anatomical Collection Method Collection Time Receive d Time (Source) Location / / Volume Laterality Blood specimen 12/05/2012 7:04 AM 013 7:07 (specimen) EDT AM EDT Resulting Agency Comment Spec In Lab Nadia Gama MD CHEMISTRY ORDERABLES Performing Organization Address City/[facility]/ZIP Code Phon e Number [address] [facility] Vitamin B12 (12/05/2012 7:04 AM EDT) athologist Signature Vitamin B-12 700 207 - 357 CERNER pg/mL MILLENNIUM Specimen Anatomical Collection Method Collection Time Receive d Time (Source) Location / / Volume Laterality Blood specimen 12/05/2012 7:04 AM 013 7:07 (specimen) EDT AM EDT Resulting Agency Comment Spec In Lab Nadia Gama MD CHEMISTRY ORDERABLES Performing Organization Address City/State/ZIP Code Phon e Number [address] CERNER MILLENNIUM (ABNORMAL) Lipid panel (fasting) (12/05/2012 7:04 AM EDT) athologist Signature Chol, Total 196 <=199 mg/dL CERNER MILLENNIUM Comment: Recommendations of the NCEP Adult Treatm ent Panel for the following risk cutoff thresholds for the [place] n: Desirable: <200 mg/dL Borderline High: 200-239 mg/dL High: > or = 240 mg/dL Triglycerides 129 <=149 mg/dL CERNER MILLENN IUM Comment: Reference Range: Normal triglycerides: ??<150 mg/dL Borderline high: ??150-199 mg/dL High: ??200-499 mg/dL Very high: ??>qt=833 mg/dL LEONARD 2001; 285(19):2131-3403 HDL 59 >=40 mg/dL CERNER MILLENNIUM Comment: Reference range: ??Low HDL: ?? < 40 mg/dL ??Normal: ?40-60 mg/dL ??Desirable: > 60 mg/dL LEONARD 2001; 285(19):7806-2239 LDL Cholesterol 111 (H) <=99 mg/dL HANNA MARIANO NIUM Comment: Reference range: ?? Optimal: ?<100 mg/dL ?? Near Optimal/Above Optimal: ?? 100-1 29 mg/dL ?? Borderline high: ?130-159 mg/dL ?? High: ? 160-189 mg/dL ?? Very high: ?>eu=390 mg/dL LEONARD 2001: 285(19):9050-5497 Chol/HDL Ratio 3.3 ratio CERNER RIDDHIENNI UM Comment: A Cholesterol to HDL ratio below 4:1 is desirable. ??Studies suggest that increased CAD risk occurs at ratios abov e 5 for females and above 6 for men. ? [place] [employer] Association ??(htt p://www.americanheart.org) ? Kim Int Med, 1994; 121:641 ? AM J Med, 1998; 105(1A):48S Specimen Anatomical Collection Method Collection Time Receive d Time (Source) Location / / Volume Laterality Blood specimen 12/05/2012 7:04 AM 013 7:07 (specimen) EDT AM EDT Resulting Agency Comment Spec In Lab Nadia Gama MD CHEMISTRY ORDERABLES Performing Organization Address City/State/[place] [address] CERNER MILLENNIUM (ABNORMAL) CBC (with Diff) (12/05/2012 7:04 AM EDT) P athologist Signature WBC 4.4 4.0 - 10.0 [...] Organization Address City/State/[place] [address] CERNER MILLENNIUM (ABNORMAL) CMP w/fasting Glucose (12/05/2012 7:04 AM [...] of Diabetes Mellitus, Position Statement from the [place] Diabetes Association. ??Diabete s Care, Volume 33, Supplement 1, Jun 2009 BUN 22 (H) 8 - 18 mg/dL CERNER MILLENNIUM Creatinine 0.59 (L) 0.70 - 1.20 mg/dL CERNER MILL ENNIUM Comment: Please note that the pediatric reference intervals supplied above were not validated at [facility]. Results from pediatri c patients should be [...] Organization Address City/State/ZIP [place] [address] CERNER MILLENNIUM documented in this encounter Visit Diagnoses Diagnosis GERD (gastroesophageal reflux disease) - Primary Esophageal reflux Hyperlipidemia Other and unspecified hyperlipidemia Over weight Overweight Healthcare maintenance Routine general medical examination at a health care facility Skin lesion Unspecified disorder of skin and subcuta neous tissue Family history of colon cancer requiring screening colonoscopy Family history of malignant neoplasm of gastrointestinal tract documented in this encounter Care Teams Human Resources Benefits Assistant Relationship Specialty Start Date End Date Nadia Gama MD PCP - General 04/29/10 08/14/14 [facility] GENER[place] [address] documented as of this encounter
--- OUTSIDE RECORDS SUMMARY | 2021-12-25 00:51 | XMS_ITS | Encounter Summary ---
:1940 Author Organization [facility] [place] [address] Care Team Providers Name Role Phone Nadia Gama MD Primary Care Provider Encounter Details Date Type Department Care Team Description 12/09/2012 Orders Only Radiology Kim, Abnormal ultrasound of [facility] MD Kayley breast (Primary Dx) [place] [address] DIAGNOSTIC RADIOLOGY [place] [address] Social History Tobacco Use Types Packs/Day Years [...] as of this encounter Visit Diagnoses Diagnosis Abnormal ultrasound of breast - Primary Other (abnormal) findings on radiologica l examination of breast documented in this encounter Care Teams News Anchor Relationship Specialty Start Date End Date Nadia Gama MD PCP - General 04/29/10 08/14/14 [facility] GENERAL [place] [address] documented as of this encounter
--- OUTSIDE RECORDS SUMMARY | 2021-12-25 00:51 | XMS_ITS | Encounter Summary ---
:1940 Author Organization [place] [address] Care Team Providers Name Role Phone Brad Jose MD Primary Care Provider Reason for Visit Reason Onset Date Comments Triage 07/07/2016 Encounter Details Date Type Department Care Team Description 07/07/2016 Telephone Internal Medicine at [facility] [place] [address] Social History Tobacco Use Types Packs/Day [...] Telephone Encounter - Mariela Monge RN - 07/07/2016 3:54 PM EST PC to Anh who is asking if she still can come in to see Dr. Jose on 07/09/16 even though she has a cold. She has no fever and coughing up some clear mucous. She is drinking plenty of fluids and takingMucinex. Advised her to use saline rinses and to use distilled water and she can try Afrin spray up to 3 daysand to keep her appointment with Dr. Jose on . Telephone Encounter - Damaris Salazar - 07/07/2016 1:43 PM EST Message: pt calling to see if she should keep her appt for her physical for 07/09/16, she states she is sick Caller and relationship (if other than patient-full name): pt Best time to call back: any Ok to leave a message: [y] Ok to send my- message: [n] Offered Appointment: n Nurse contacted via: Message: y Call: n Pager: n documented in this encounter Plan of Treatment Not on filedocumented as of this encounter Visit Diagnoses Not on filedocumented in this encounter Care Teams Casting And Locker Room Servicer Relationship Specialty Start Date End Date Brad Jose MD PCP - General 12/17/14 11/09/19 [facility] GENER[place] [address] documented as of this encounter
--- OUTSIDE RECORDS SUMMARY | 2021-12-25 00:51 | XMS_ITS | Encounter Summary ---
:1940 Author Organization [facility] [place] [address] Care Team Providers Name Role Phone Brad Jose MD Primary Care Provider Encounter Details Date Type Department Care Team Description 03/27/2015 Hospital Encounter Mammography at [facility] Fatuma Eisenberg [facility] Krishan Bloom MD [facility] [address] GENERAL INTERNAL [phone] [place] [id number] Social History Tobacco Use Types Packs/Day Years [...] 1 tablet by 0 tablet mouth daily. esomeprazole (NEXIUM) 20 Take 1 capsule by 90 capsule 4 07/201402/04/2016 mg Capsule, Delayed mouth daily. Release(E.C.)Indications: Gastroesophageal reflux disease without esophagitis mometasone (ELOCON) 0.1 % Use 3X/week hs 15 g 1 201407/06/2019 Ointment sparingly hydrocortisone 2.5 % Cream Use 2-3X/week 15 g 1 201407/06/2019 documented as of this encounter Plan of Treatment Not on filedocumented as of this encounter Procedures Procedure Name Priority Date/Time Associated Diagnosis Comme nts MAMMO 2D DIGITAL Routine 03/27/2015 2:01 PM Healthcare Resul ts for this SCREEN LEO EDT maintenance procedure are i n BILATERAL the results section. documented in this encounter Results Mammo Screen Leo 2D Bilateral (03/27/2015 2:01 PM EDT) Anatomical Region Laterality Modality Breast Bilateral Mammography Specimen (Source) Anatomical Location Collection Method / Collectio n Time Received Time / Laterality Volume Narrative 03/28/2015 12:14 PM EDT BILATERAL MAMMOGRAPHY REASON FOR EXAM: Screening [...] CONCLUSION: No mammographic evidence of malignancy. RECOMMENDATION: Routine screening mammog franklin is recommended with the frequency dependent on the patient? s age, breast cancer risk factors and preference. Additional studies may be re commended for women with higher than average risk for breast cancer. A result letter has been sent to this pa tient by [facility]. BIRADS CATEGORY 1: NEGATIVE Fatuma Eisenberg MD IMG MAMMO ORDERABLES documented in this encounter Visit Diagnoses Diagnosis Healthcare maintenance Routine general medical examination at a health care facility documented in this encounter Care Teams Family Educator Relationship Specialty Start Date End Date Brad Jose MD PCP - General 12/17/14 11/09/[address] [facility] [address] [place] [address] (work) documented as of this encounter
--- OUTSIDE RECORDS SUMMARY | 2021-12-25 00:51 | XMS_ITS | Encounter Summary ---
:1940 Author Organization [facility] [address] Care Team Providers Name Role Phone Birgit Arreaga APRN Primary Care Provider Reason for Visit Reason Onset Date Comments Other 10/25/2014 pre-visit reminder Other Encounter Details Date Type Department Care Team Description 10/25/2014 Telephone Internal Medicine at Kasie Rubin Ot her (pre-visit 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 No answer. Will call again. documented in this encounter Plan of Treatment Not on filedocumented as of this encounter Visit Diagnoses Not on filedocumented in this encounter Care Teams Rn Field Case Manager Relationship Specialty Start Date End Date Birgit Arreaga APRN PCP - General 08/15/14 12/16/14 [facility] GENERAL [place] [address] documented as of this encounter
--- OUTSIDE RECORDS SUMMARY | 2021-12-25 00:51 | XMS_ITS | Encounter Summary ---
:1940 Author Organization [facility] [place] [address] Care Team Providers Name Role Phone Nadia Gama MD Primary Care Provider Encounter Details Date Type Department Care Team Description 01/31/2013 Hospital Encounter Gastroenterology at [facility] [place] [address] [place] [address] [facility] [place], [place] [address] Social History Tobacco Use Types [...] Sign Reading Time Taken Comments Blood Pressure 125/71 01/31/2013 11:32 AM EDT Pulse 60 01/31/2013 11:32 AM EDT Temperature - - Respiratory Rate 18 01/31/2013 11:32 AM EDT Oxygen Saturation 96% 01/31/2013 11:32 AM EDT Inhaled Oxygen Concentration - - Weight - - Height - - Body Mass Index - - documented in this encounter Discharge Instructions Discharge InstructionsLiv Acosta RN - 01/31/2013 11:33 AM EDT Colonoscopy and polyp removal What to expect after the procedure You may feel a little more gassy or bloated than usual, this is normal. You should expect the return of normal bowel function in the next 2 to 3 days. Because some polyps were removed, you may see a little blood with the next few bowel movements, this should be a small amount ( less than a few tablespoons) and will resolve on it's own. ACTIVITY Because of the sedation that you received Your judgement and reaction time are effected ?? Go home and rest for the remainder for the day. You may resume your normal activities tomorrow ?? Change from one position to the next slowly because you may lose your balance unexpectedly. ?? Be careful on stairs, as you may be unsteady. ?? Avoid strenuous activity for 48 to 72 hrs FOR THE NEXT 24 HRS ?? DO NOT DRIVE OR OPERATE MACHINERY ?? DO NOT DRINK ALCOHOLIC BEVERAGES ?? DO NOT SIGN LEGAL DOCUMENTS ?? If you are a smoker: DO NOT SMOKE WHILE YOU ARE ALONE Diet ?? Start by eating small portions of foods that ordinarily will not upset your stomach, avoid gas producing foods for the next few days. ?? Be gentle with what you choose to start with ?? A soft diet may be helpful for the next 3 days as this may help to keep your stools soft. ?? Drink plenty of fluids ( unless your doctor has told you not to). Medicines Avoid medicines that influence the way your blood clots for the next week. These would include anti-inflammatory medicine, such as ibuprofen( Advil, Motrin) and naproxen ( Aleve). If you need something for discomfort, Tylenol (Acetaminophen) is safe if used as directed. Your Doctor will tell you whento restart your prescribed blood thinners The IV site-- slight tenderness, or redness is normal, you can use warm compresses if you get concerned. If the tenderness +/or redness increases or foul drainage and a red streak occurs, please contact your PCP immediately. When should you call for help? Call 911 anytime you think you may need emergency care. For example If you pass out (loss of consciousness) If you pass maroon or bloody stools If you have severe belly pain Call your healthcare provider or seek immediate medical care if: Your stools are black or tar like Your stools have streaks of blood that is more pronounced with each BM You have belly pain, or your belly is swollen and firm You vomit You have a fever You are very dizzy Watch closely for changes in your health, and be sure to contact your doctor if you have any problems. Your Doctor will let you know when you will need your next colonoscopy. The results of your test andyour risk for colorectal cancer will help your doctor decide how often you need to be checked. [facility] [phone] 8a-5p Same Day Endo [phone] 7a-8p Otherwise contact [phone] and ask to speak to the snuff blender engineering and operations director Follow up care is a parks part of your treatment and safety. Be sure to make and go to all appointments, and call your doctor if you are having problems. Discharge instructions reviewed with patient who expresses understanding Patient InstructionsAminta Esteves MD - 01/31/2013 11:27 AM EDT Please see Recommendations in the Provation procedure report which is documented in the procedural note in [facility]. documented in this encounter Medications at Time of [...] week sparingly documented as of this encounter H&P Notes mAinta Esteves MD - 01/31/2013 10:58 AM EDT Gastroenterology and Hepatology Pre-Procedure History and Physical Exam Procedure: Colonoscopy: Indication: family history of colon cancer Patient Active Problem List Diagnosis Code ??? Lichen sclerosus et atrophicus of the vulva 701.0 ??? Overweight 278.02 ??? GERD (gastroesophageal reflux disease) 530.81 ??? Hyperlipidemia 272.4 ??? Healthcare maintenance V70.0 ??? Low back pain 724.2 EXAM: HEENT: Airway examined, oropharynx clear LUNGS: Clear to auscultation HEART: Regular rate and rhythm, normal S1, S2 ABDOMEN: Normal bowel sounds, soft, non tender, non distended, A/P Proceed with the planned endoscopic procedure. Risks and benefits of the procedure explained to the patient. Consent signed. documented in this encounter Miscellaneous Notes Miscellaneous - Provider, Scanning - 01/31/2013 5:01 PM EDT documented in this encounter Plan of Treatment Not on filedocumented as of this encounter Procedures Procedure Name Priority Date/Time Associated Comments Diagnosis SURGICAL PATHOLOGY Routine 01/31/2013 11:27 Resul ts for this REPORT AM EDT procedure are i n the results section. SPECIMEN TO PATHOLOGY Routine 01/31/2013 11:27 Re sults for this AM EDT procedure are i n the results section. SPECIMEN TO PATHOLOGY Routine 01/31/2013 11:27 Re sults for this AM EDT procedure are i n the results section. SPECIMEN TO PATHOLOGY Routine 01/31/2013 11:27 Re sults for this AM EDT procedure are i n the results section. COLONOSCOPY, 01/31/2013 10:59 5 yr f/up POLYPECTOMY, REMOVAL AM EDT LESION BY SNARE (WRVU 4.67) COLONOSCOPY Routine 01/31/2013 10:54 Results for this AM EDT procedure are i n the results section. documented in this encounter Results Surgical Pathology Report (01/31/2013 11:27 AM EDT) [facility] Method Time Signature [facility] ? [facility] Report ? Provider: ?? AMINTA ESTEVES ?? Pt. Name: ?? ANH LECHUGA ? Acc #: ?[id number] ?Pt. MRN: ?[id number] ? Col Date: ?? 3 ? /Sex: ?1940,(72 years),Female ? Rec Date: ?? 01/31/2013 ? LOC: ?4T ? SURGICAL PATHOLOGY ? ---Pathologic Diagnosis--- ? A - Ascending colon polyp: ? Consistent with hyperplastic polyp. ? Additional deeper levels examined. ? B - Descending colon polyp: ? Tubular adenoma. ? C - Sigmoid colon polyp: ? Tubular adenoma. ? Additional deeper levels examined. ? CR-0, CR-PX ? 02/01/13 ? XL ? 02/02/13 Verified by: ? Ellis Bradshaw MD ? Pathologist ? (Electronic Si gnature) ? The attending pathologist whose signature appears o n this report has ? reviewed all diagnostic slides and has edited the varsha ss and/or ? microscopic portion of the report in rendering the fi nal pathologic ? diagnosis. ? ---Gross Description--- ? A - Labeled/Fixative: ascending colon polyp, formalin . ? Quantity/Size: One, 0.6 x 0.4 x 0.2 cm. ? Tissue Description: Soft granger-yellow polypoid tissue. ? Sections/Processing: (T1) ? B - Labeled/Fixative: Descending colon polyp, formali n. ? Quantity/Size: One, 0.4 x 0.2 x 0.1 cm. ? Tissue Description: Soft granger-yellow tissue and debris . ? Sections/Processing: (T1) ? C - Labeled/Fixative: Sigmoid colon polyp, formalin. ? Quantity/Size: One, 1.2 x 0.4 x 0.4 cm. ? Tissue Description: Soft granger-red polypoid tissue. ? Sections/Processing: Trisected (T1) ??[facility] ? are ? [facility] ? Provider: ?? AMINTA ESTEVES ?? Pt. Name: ?? ANH LECHUGA ? Acc #: ?[id number] ?Pt. MRN: ?[id number] ? Col Date: ?? 3 ? /Sex: ?1940,(72 years),Female ? Rec Date: ?? 01/31/2013 ? LOC: ?4T ? SURGICAL PATHOLOGY ? ---Clinical Information--- ? Specimen Submitted: ? A - Ascending colon polyp ? B - Descending colon polyp ? C - Sigmoid colon polyp ? Clinical History: ? Polyps ? Clinical Diagnosis: ? Same Specimen (Source) Anatomical Collection Method Collection Time Re ceived Time Location / / Volume Laterality 01/31/2013 11:27 AM EDT Aminta Esteves MD PATHOLOGY/CYTOLOGY ORDERABLE S Performing Organization Address City/State/[place] [address] CERNER MILLENNIUM Specimen to Pathology (surgical or derm) (01/31/2013 11:27 AM EDT) Specimen Anatomical Collection Method Collection Time Receive d Time (Source) Location / / Volume Laterality AP Specimen 01/31/2013 11:27 01/31/2013 AM EDT 11:27 AM EDT Narrative CERNER MILLENNIUM - 01/31/2013 11:27 AM EDT Specimen requisition ordered. ??Separate Pathology report to follow Aminta Esteves MD PATHOLOGY/CYTOLOGY ORDERABLE S Performing Organization Address City/State/[place] [address] CERNER MILLENNIUM Specimen to Pathology (surgical or derm) (01/31/2013 11:27 AM EDT) Specimen Anatomical Collection Method Collection Time Receive d Time (Source) Location / / Volume Laterality AP Specimen 01/31/2013 11:27 01/31/2013 AM EDT 11:27 AM EDT Narrative CERNER MILLENNIUM - 01/31/2013 11:27 AM EDT Specimen requisition ordered. ??Separate Pathology report to follow Aminta Esteves MD PATHOLOGY/CYTOLOGY ORDERABLE S Performing Organization Address City/State/ZIP Code Phon e Number [place] [address] CERNER MILLENNIUM Specimen to Pathology (surgical or derm) (01/31/2013 11:27 AM EDT) Specimen Anatomical Collection Method Collection Time Receive d Time (Source) Location / / Volume Laterality AP Specimen 01/31/2013 11:27 01/31/2013 AM EDT 11:27 AM EDT Narrative CERNER MILLENNIUM - 01/31/2013 11:27 AM EDT Specimen requisition ordered. ??Separate Pathology report to follow Aminta Esteves MD PATHOLOGY/CYTOLOGY ORDERABLE S Performing Organization Address City/State/[place] [address] CERNER MILLENNIUM COLONOSCOPY (01/31/2013 10:54 AM EDT) [facility] gist Method Time Signature COLONOSCOPY [facility] Endoscopy Patient Name: Anh Lechuga ? Procedure Date: 01/31/2013 10:54 AM ? Date of : 1940 ? Age: 72 ? Order #: [id number] ? Procedure: ? Colonoscopy Indications: ? Screening in patient at increased ? risk: Colorectal cancer in fa ther 60 ? or older Providers: ? Aminta Esteves MD, Swati Wilco x, ? EASTON, Emmanuel Gordon Referring MD: ?Nadia Gama MD Medicines: ? Midazolam 2.5 mg IV, Fentanyl 125 ? micrograms IV Complications: ? No immediate complications. Procedure: ? Pre-Anesthesia Assessment: ? - ASA Grade Assessment: I - A normal, ? healthy patient. ? - Mental Status Examination: alert ? and oriented. ? - Airway Examination: normal ? oropharyngeal airway and neck ? mobility. ? - Respiratory Examination: cl ear to ? auscultation. ? - CV Examination: normal. ? The procedure, indications, b enefits, ? [...] direct visuali zation, ? advanced to the terminal ileu m. ? Careful inspection was made a s the ? colonoscope was withdrawn. Th e ? colonoscopy was performed wit hout ? difficulty. The patient elvis ated the ? procedure well. The quality o f the ? bowel preparation was excelle nt. ? Findings: ? A sessile polyp was found in the ascending colon. The ? polyp was 3 mm in size. The polyp was removed with a ? cold snare. Resection and retrieval were complete. ? A sessile polyp was found in the descending colon. ? The polyp was 4 mm in size. The polyp was removed ? with a cold snare. Resection and retrieval were ? complete. ? A sessile polyp was found in the sigmoid colon. The ? polyp was 8 mm in size. The polyp was removed with a ? hot snare. Resection and retrieval were complete. ? No additional abnormalities were found on ? retroflexion. ? Impression: ?- One 3 mm polyp in the ascending ? colon. Resected and retrieved . ? - One 4 mm polyp in the desce nding ? colon. Resected and retrieved . ? - One 8 mm polyp in the sigmo id ? colon. Resected and retrieved . Recommendation: ?- Await pathology results. ? Aminta Esteves MD 01/31/2013 11:30 AM This report has been signed electronically. Number of Addenda: 0 Note Initiated On: 01/31/2013 10:54 AM Specimen (Source) Anatomical Collection Method Collection Time Re ceived Time Location / / Volume Laterality 01/31/2013 10:54 AM EDT Nadia Gama MD GENERAL SURGICAL ORDERABLES Performing Organization Address City/State/ZIP Code Phon e Number [employer] documented in this encounter Visit Diagnoses Not on filedocumented in this encounter Administered Medications Inactive Administered Medications - up to 3 most recent administrations Medication Order MAR Action Action Date Dose Rate Site sodium chloride 0.9% New Bag 01/31/2013 10:45 AM EDT 50 mL/hr 50 mL/hr infusion 50 mL/hr, Intravenous, CONTINUOUS, Starting on Wed01/31/13 at 1045, Until Wed01/31/13 at 1651, Endoscopy (Day of Procedure) documented in this encounter Active and Recently Administered Medications Times are shown in EDT. Continuous Medication Order 01/29/2013 01/30/2013 01/31/2013 sodium chloride 0.9% infusion (CANCELED) 1045 (New Bag - Provider: Gale Rendon RN) 50 mL/hr, at 50 mL/hr, Intravenous, CONT INUOUS, Starting Wed01/31/13 at 1045, Until Wed01/31/13 at 1651, Endo (Day of Procedure) PRN Medication Order 01/29/2013 01/30/2013 01/31/2013 fentaNYL 50mcg/mL injection (CANCELED) 1104 (Given - Provider: Swati James RN)1107 (Given - Provider: Swati James, EASTON)1108 (Given - Provider: Swati James, EASTON)1110 (Given - Provider: Swati James, RN) ONCE PRN, Starting Wed01/31/13 at 1104, Until Wed01/31/13 at 1651, Pain, Intra- Operative (Intra-Procedure), Routine midazolam (VERSED) injection (CANCELED) 1104 (Given - Provider: Swati James RN)1107 (Given - Provider: Swati James, RN)1108 (Given - Provider: Swati James, RN)1110 (Given - Provider: Swati James, RN) ONCE PRN, Starting Wed01/31/13 at 1104, Until Wed01/31/13 at 1651, Sleep, Intra- Operative (Intra-Procedure), Routine documented in this encounter Care Teams Cit[employer] Systems Administrator Relationship Specialty Start Date End Date Nadia Gama MD PCP - General 04/29/10 08/14/[address] [facility] GENER[place] [address] documented as of this encounter
--- OUTSIDE RECORDS SUMMARY | 2021-12-25 00:51 | XMS_ITS | Encounter Summary ---
:1940 Author Organization [facility] [place] [address] Care Team Providers Name Role Phone Brad Jose MD Primary Care Provider Reason for Visit Reason Onset Date Comments Results 12/31/2014 12/17/14 xray Encounter Details Date Type Department Care Team Description 12/31/2014 Telephone Internal Medicine at Birgit Arreaga Res ults ( 12/17/14 [facility] ROLLER MAKER xray) [facility] [place] [address] GENERAL INTERNAL [phone] MEDICINE [place], [place] [address] (Wo rk) Social History Tobacco [...] this encounter Miscellaneous Notes Telephone Encounter - Milan Borges RN - 12/31/2014 4:13 PM EDT Patient stopped in to clinic today inquiring about the results of a xray done here at [facility] on 12/17/14. Plan: policy writer typist to forward note to Birgit Arreaga APRN ordering provider requesting she call patient patient and discuss results. Patient expresses verbal understanding. documented in this encounter Plan of Treatment Not on filedocumented as of this encounter Visit Diagnoses Not on filedocumented in this encounter Care Teams Mold Stamper Relationship Specialty Start Date End Date Brad Jose MD PCP - General 12/17/14 11/09/19 [facility] [place] [address] documented as of this encounter
--- OUTSIDE RECORDS SUMMARY | 2021-12-25 00:51 | XMS_ITS | Encounter Summary ---
:1940 Author Organization [place] [address] Care Team Providers Name Role Phone Nadia Gama MD Primary Care Provider Reason for Visit Reason Comments Follow-up Lichen Sclerosus Encounter Details Date Type Department Care Team Description 12/19/2012 Follow-Up Obstetrics and Mercedes Bobby, Lichen sclerosus Gynecology at [facility] (Primary Dx) [facility] [place] [address] OBSTETRICS & [phone] GYNECOLOGY [place] [address] (Wo rk) Social History Tobacco Use [...] Sign Reading Time Taken Comments Blood Pressure 138/90 12/19/2012 10:15 AM EDT Pulse - - Temperature - - Respiratory Rate - - Oxygen Saturation - - Inhaled Oxygen Concentration - - Weight 94.9 kg (209 lb 4.8 oz) 12/19/2012 10:15 AM EDT Height - - Body Mass Index 32.06 12/05/2012 8:43 AM EDT documented in this encounter Progress Notes Mercedes Bobby MD - 12/19/2012 10:16 AM EDT Ms. Pearce is a 72 y.o. here for f/u of lichen sclerosus and LSC. She is using hytone daily and mometasone 1x/week when she remembers. She uses the hytone out laterally, and mometasone. No flares since her last visit. Going to [place], girls only tomorrow for 2 weeks. OK but can't travel anymore. NEXIUM 20 mg capsule; hydrocortisone 2.5 % cream; cholecalciferol, Vitamin D3, 1,000 unit Tab tablet; multivitamin (THERAGRAN) tablet; mometasone (ELOCON) 0.1 % ointment Patient Active Problem List Diagnoses Code ??? Lichen sclerosus et atrophicus of the vulva 701.0 ??? Overweight 278.02 ??? GERD (gastroesophageal reflux disease) 530.81 ??? Hyperlipidemia 272.4 ??? Healthcare maintenance V70.0 ??? Low back pain 724.2 BP 138/90 Wt 94.938 kg (209 lb 4.8 oz) On vulvar exam, there is labial and clitoral flattening. There is no WE, excoriation, fissuring. Mild erythema over the vestibule on R, nontender. Uterus nl in size without palpable adnexal mass Impression: LS doing well Plan: Recheck 6 months, continue Rxes as she is doing. documented in this encounter Plan of Treatment Not on filedocumented as of this encounter Visit Diagnoses Diagnosis Lichen sclerosus - Primary Circumscribed scleroderma documented in this encounter Care Teams Toy Painter Relationship Specialty Start Date End Date Nadia Gama MD PCP - General 04/29/10 08/14/14 [facility] GENERAL [place] [address] documented as of this encounter
--- OUTSIDE RECORDS SUMMARY | 2021-12-25 00:51 | XMS_ITS | Encounter Summary ---
:1940 Author Organization [facility] [place] [address] Care Team Providers Name Role Phone Brad Jose MD Primary Care Provider Reason for Visit Reason Comments Skin Check Encounter Details Date Type Department Care Team Description 02/19/2015 Follow-Up Dermatology at Vivek Campos; Adelia Barragan MD SK (seborrheic keratosis); [address] [facility] Skin exam, [place] [address] [address] [phone] [facility] [place], [place] [address] (Wo rk) Social History Tobacco [...] documented as of this encounter Progress Notes Vivek Jauregui MD - 02/19/2015 8:33 AM EDT DERMATOLOGY ESTABLISHED PATIENT CLINIC NOTE Date of service: 02/19/2015 Name: Anh Pearce Age: 74 y.o. Sex: female : 1940 Provider: Vivek Jauregui MD Chief Complaint Patient presents with ??? Skin Check HPI Anh Pearce is a 74 y.o. year old female is an established patient in Dermatology, last seen by Richard Colmenares III, MD on 03/17/2013, new to me, and presenting today for patches of rough scaly skinon her checks and temples that have evolved over the last year. Complains of a rash under the breasts that tends to come and go seasonally. Patient states that she has been treating with anti fungal creams/ prescription cream given to her a few years ago, questionsif vinegar is an option for treatment?. Patient had heard from a friend that it helps. Patient is here today for a full skin check. SKIN HISTORY: Sebaceous hyperplasia, right cheek, removed Vulvar lichen sclerosus FAMILY SKIN HISTORY: No known family history of any skin cancers. Family history Father ? SOCIAL HISTORY: Retired ADR: No Known Allergies MEDS: Current Outpatient Prescriptions Medication Sig Dispense Refill ??? hydrocortisone 2.5 % Cream Use 2-3X/week 15 g 1 ??? esomeprazole (NEXIUM) 20 mg capsule Take 1 capsule by mouth daily. 90 capsule 4 ??? cholecalciferol, Vitamin D3, 1,000 unit Tab tablet Take by mouth daily. 60 tablet 0 ??? multivitamin (THERAGRAN) tablet Take 1 tablet by mouth daily. ??? mometasone (ELOCON) 0.1 % ointment 1 Appl(s), Top, once a week sparingly No current facility-administered medications for this visit. ROS General: feeling well Skin: denies other skin complaints EXAM General: NAD, pleasant, cooperative Skin: Full skin exam Patient is well-groomed, appears well-oriented x 3 and not agitated. Full skin exam performed which included palpation and inspection of the scalp of hair, eyebrows and face. Inspection of the skin of the head, face, neck, chest including hair, breasts and axillae, abdomen, back, right upper extremity, left upper extremity, right lower extremity, left lower extremity. No abnormalities seen except as noted. Significant skin findings: A. Very few Seborrhea Keratosis on the back , upper and lower extremities, including lesion of concern. B. Fair skinned C. Mild Intertrigo under right breast along the fold, no evidence on the left. ASSESSMENT/PLAN: A. Benign nature of skin lesion discussed with pt. Patient reassured. No treatment required at this time. B. No atypical lesions. C. Treat with anti fungal creams when Intertrigo is evident, counseled use antiperspirant along the fold under breasts when clear. FOLLOW-UP: PRN I am documenting this encounter acting as the scribe for and in the presence of Dr. Jauregui.: Alannah Vega MA I performed the above scribed service and agree with the accuracy of the documentation in this encounter. Vivek Jauregui MD Section of Dermatology [facility] documented in this encounter Plan of Treatment Not on filedocumented as of this encounter Visit Diagnoses Diagnosis Intertrigo Other specified erythematous condition SK (seborrheic keratosis) Other seborrheic keratosis Skin exam, screening for cancer Screening for malignant neoplasm of the skin documented in this encounter Care Teams Scudding Inspector Relationship Specialty Start Date End Date Brad Jose MD PCP - General 12/17/14 11/09/19 [facility] GENER[place] [address] documented as of this encounter
--- OUTSIDE RECORDS SUMMARY | 2021-12-25 00:51 | XMS_ITS | Encounter Summary ---
:1940 Author Organization [facility] Address [place] [address] Care Team Providers Name Role Phone Brad Jsoe MD Primary Care Provider Reason for Visit Auth/Cert Specialty Diagnoses / Procedures Referred By Contact Refer red To Contact Diagnoses 3 yr surv from 01/31/13 Procedures PRO COLONOSCOPY, DIAGNOSTIC COLONOSCOPY, DIAGNOSTIC Referral ID Status Reason Start Date Expiration Date Visits Requ ested Visits Authorized [id number] 1 1 Encounter Details Date Type Department Care Team Description 02/04/2016 Surgery Gastroenterology at [facility] Francisco Greene, COLONOSCOPY, [facility] Velia [place]tran [place] [address] [facility] [phone] GASTROENTEROLOGY DEPT. [place], [place] [address] Social History Tobacco Use Types [...] sent through Care Everywhere. COLONOSCOPY : POST-OP (AMHARIC)documented in this encounter Medications at Time of [...] encounter Results COLONOSCOPY (02/04/2016 9:33 AM EDT) [facility] gist Method Time Signature COLONOSCOPY [facility] Endoscopy Procedure Date: 02/04/2016 9:33 AM ? Patient Name: Anh Pearce ? N: [id number] ? Date of : 1940 ? Age: 75 ? Order #: [id number] ? Instrument Name: [id number] ? Procedure: ? Colonoscopy Indications: ? High risk colon cancer surveillance : ? Personal history of colonic p olyps Providers: ? Francisco Greene MD, Merle bustos, ? RN, Erica Hopper, Fermenter Referring MD: ?Brad Jose MD Medicines: ? [...] . The ? colonoscopy was performed wit horacheal ? difficulty. The patient elvis ated the [...] MAR Action Action Date Dose Rate Site fentaNYL 50 mcg/mL multi-dose Given 02/04/2016 9:58 AM EDT 25 mc g injection ONCE PRN, Starting on Wed02/04/16 at 0953, Until Wed02/04/16 at 1256, Intra-Operative (Intra-Procedure), Routine Given 02/04/2016 9:55 AM EDT 25 mcg Given 02/04/2016 9:53 AM EDT 50 mcg lactated ringers infusion New Bag 02/04/2016 10:00 AM EDT 50 mL/hr 50 mL/hr 50 mL/hr, Intravenous, CONTINUOUS, Starting on Wed02/04/16 at 1000, Until Wed02/04/16 at 1045, Endoscopy (Day of Procedure) midazolam (PF) (VERSED) 1 mg/mL multi-dose Given 02/04/2016 9:59 AM EDT 0.5 mg injection ONCE PRN, Starting on Wed02/04/16 at 0953, Until Wed02/04/16 at 1256, Intra-Operative (Intra-Procedure), Routine Given 02/04/2016 9:55 AM EDT 1 mg Given 02/04/2016 9:53 AM EDT 1 mg documented in this encounter Active and Recently [...] Merle Mott RN)0955 (Given - Provider: Merle Mott, EASTON)0958 (Given - Provider: Merle Mott, EASTON) ONCE PRN, Starting 02/04/16 at 0953, Until 02/04/16 at 1256, Intra- Operative (Intra-Procedure), Routine midazolam (PF) (VERSED) 1 mg/mL multi-dose injection (CANCELED) 0953 (Given - Provider: Merle Mott RN)0955 (Given - Provider: Merle Mott RN)0959 (Given - Provider: Merle Mott RN) ONCE PRN, Starting 02/04/16 at 0953, Until 02/04/16 at 1256, Intra- Operative (Intra-Procedure), Routine documented in this encounter Care Teams Electric Razor Assembler Relationship Specialty Start Date End Date Brad Jose MD PCP - General 12/17/14 11/09/19 [facility] [place] [address] documented as of this encounter
--- OUTSIDE RECORDS SUMMARY | 2021-12-25 00:51 | XMS_ITS | Encounter Summary ---
:1940 Author Organization [facility] [place] [address] Care Team Providers Name Role Phone Brad Jose MD Primary Care Provider Reason for Referral Consultation (Routine) - Closed Specialty Diagnoses / Procedures Referred By Contact Refer red To Contact Dermatology Diagnoses Skin lesion Brad Jose MD [facility] Dermatology [facility] [address] R [address] [place] [address] [place] [address] Referral ID Status Reason Start Date Expiration Date Visits V isits Requested Authorized [id number] Closed Consult, 07/09/2016 07/09/2017 1 1 Test & Treat Reason for Visit Reason Comments Annual Exam Cough Cold symptoms Encounter Details Date Type Department Care Team Description 07/09/2016 Office Visit Internal Medicine Brad Jose, Tubular adenoma of colon; at [facility] Chronic bilateral low back pain without sciatica; [facility] MEDICAL Gastroeso phageal reflux disease without esophagitis; [facility] Healthcare maintenance; [place], [place] GENERAL INTERNAL Pure hyperc holesterolemia; [address] MEDICINE Skin lesion; [phone] [place], [place] [address] Chronic cough; [phone] Pruritus ; (Work) Overweight Social History Tobacco Use Types Packs/Day Years [...] Sign Reading Time Taken Comments Blood Pressure 132/86 07/09/2016 2:54 PM EST Pulse 80 07/09/2016 2:54 PM EST Temperature 36.9 ??C (98.4 ??F) 07/09/2016 2:54 PM EST Respiratory Rate 14 07/09/2016 2:54 PM EST Oxygen Saturation 94% 07/09/2016 2:54 PM EST Inhaled Oxygen Concentration - - Weight 90.7 kg (200 lb) 07/09/2016 2:54 PM EST Height 170.5 cm (5' 7.13) 07/09/2016 2:54 PM EST Body Mass Index 31.21 07/09/2016 2:54 PM EST documented in this encounter Patient Instructions Patient InstructionsBaBrad hernandez MD - 07/09/2016 3:00 PM EST Advanced directive living will documented in this encounter Progress Notes Brad Jose MD - 07/09/2016 3:00 PM EST Annual Assessment of Medical Issues History of Presenting Illness: A cold - recurrent Feeling a bit better Trying ocean nasal spray. Congestion and cough. No blood. Clear. Seen by [place] Lots of family that visited her. Daughter just spent some time Doing a lot of traveling Not finding time for herself. Question about continuity of care at this time. Right leg - was worried about blood clot - it was in the popliteal fossa - this was in last year. This has always been challenging. In December - went to [place], again had a bit of a problem with this. Seems like the Leg becomes swollen but better lately. Does not hurt at this time. Ankles have not had an ankle before. Has some venous insufficiency Chronic issue per the patient at this time. Swelling worse at the end of the day. Travelled a lot this year. Needs derm appt Patient reported measures in the past 7 days Pain:3 Physical Health: Fall: PHQ-9 QUESTIONNAIRE SCORE ONLY (AMB) 10/21/2015 PHQ - 9 Score (Clinic) 0 (No Depression) Patient Active Problem List Diagnosis ??? Tubular adenoma of colon [place] 2012 showed 2 tubular adenomas--repeat in 2016 Positive FH colon cancer in father dx age 79 ??? Low back pain ??? Overweight(278.02) BMI 35 ??? GERD (gastroesophageal reflux disease) [...] Lifeline x Assist Device x ( ) giuliana ( ) mika Depression Risk x Outpatient Encounter Prescriptions as of 07/09/2016 Medication Sig Dispense Refill ??? hydrocortisone (CORTISONE) [...] facility-administered encounter medications on file as of 07/09/2016. Social History Social History ??? Marital status: [...] ??? None Social History Narrative Born in [facility]. Still has a house there. Retired [...] at rest or with movement Objective Vitals: 07/09/16 1454 BP: 132/86 BP Location (NBP): Right arm Patient Position: Sitting BP Cuff Sizes: Adult (25-34 cm) Pulse: 80 Resp: 14 Temp: 36.9 ??C (98.4 ??F) TempSrc: Oral SpO2: 94% Weight: 90.7 kg (200 lb) Height: 170.5 cm (5' 7.13) Gen -no acute distress. Alert, responsive and [...] hepatosplenomegaly, masses or distention, normal active bowel sounds. Central obesity Extremities - No clubbing, cyanosis or edema x 4 Skin - No rashes, lesions, plaques, nodules Neurological - Grossly normal Gait: grossly intact with normal stride length, speed, and arm swing Assessment/Plan: # Back discomfort Discussed -. Tylenol for pain control # Cough Check cxr at this time. Suspect viral in nature. # Weight Discussed today - she declines nutrition evaluation at this time. # Colon Polyps Review in 01/2021 # GERD Stable at this time # Venous Insufficiency Reviewed - has some varicosities and symmetrical non pitting. Advised elastic stockings # Preventive --discussed routine prevention of health [...] --the patient currently needs: advanced directive, dexa I counselled the patient on the above [...] my nurses, letter, or myDH. Next Appointment: Return in about 1 year (around 07/09/2017) for awv. documented in this encounter Miscellaneous Notes Addendum Note - Hermelindo Jeronimo - 07/09/2016 4:28 PM EST Addended by: HERMELINDO JERONIMO on: 07/09/2016 04:28 PM Modules accepted: Orders documented in this encounter Plan of Treatment Scheduled Referrals Name Type Priority Associated Order Schedule Diagnoses Referral to Outpatient Referral Routine Skin lesion Ordered: Dermatology 07/09/2016 documented as of this encounter Procedures Procedure Name Priority Date/Time Associated Diagnosis Comme nts SCAN, PERIPHERAL Routine 07/09/2016 4:33 Results for this BLOOD PM EST procedure are i n the results section. HEMOGRAM Routine 07/09/2016 4:33 Gastroesophageal reflux R esults for this PM EST disease without procedure ar e in esophagitis the results section. DIFFERENTIAL, Routine 07/09/2016 4:33 Gastroesophageal reflux Results for this AUTOMATED PM EST disease without procedure ar e in esophagitis the results section. CBC (WITH DIFF) Routine 07/09/2016 4:33 Gastroesophageal reflu x PM EST disease without esophagitis TSH Routine 07/09/2016 4:33 Pruritus Results for this PM EST Gastroesophageal reflux proc edure are in disease without the results esophagitis section. T4, FREE Routine 07/09/2016 4:33 Pruritus Results for this PM EST Gastroesophageal reflux proc edure are in disease without the results esophagitis section. FOLATE, SERUM Routine 07/09/2016 4:33 Gastroesophageal reflux Results for this PM EST disease without procedure ar e in esophagitis the results section. VITAMIN B12 Routine 07/09/2016 4:33 Gastroesophageal reflux R esults for this PM EST disease without procedure ar e in esophagitis the results section. LIPID PANEL (REFLEX Routine 07/09/2016 4:33 Overweight Results for this DIRECT LDL) PM EST Gastroesophageal reflux proc edure are in disease without the results esophagitis section. COMPREHENSIVE Routine 07/09/2016 4:33 Gastroesophageal reflux Results for this METABOLIC PANEL PM EST disease without procedure are in (NON-FASTING) esophagitis the results section. documented in this encounter [...] This is available through an interactive web-based [employer] ce (http://[email or web address].ac.uk/FRAX/) and can be used to [...] measurements a nd plots are available in E-DH under the imaging tab. Paper copies will be sent to providers without E- access. If you have received this report without th e data sheet and do not have access to [email or web address], please contact Radiology Transcrip tion at [phone] Wednesday thru Wednesday 8am-4pm. Narrative 07/14/2016 3:00 PM EST EXAMINATION: DEXA CENTRAL-SPINE, HIP, AND/OR WHOLE BODY (GENERIC) CLINICAL HISTORY: screening last dexa 24 01 TECHNIQUE: Scans were acquired at the mbar spine and left hip and left [...] 01 TECHNIQUE: [facility]. [...] measurements a nd plots are available in [employer] under the imaging tab. Paper copies will be sent to providers without E-Wallit access. If you have received this report without th e data sheet and do not have access to [employer], please contact Radiology Transcrip tion at [phone] Wednesday thru Wednesday 8am-4pm. Brad Jose MD IMG DEXA ORDERABLES Scan, Peripheral Blood (07/09/2016 4:33 PM EST) P athologist Signature Plat Estimate Normal [facility] RBC Morphology Normal [facility] Specimen Anatomical Collection Method Collection Time Receive d Time (Source) Location / / Volume Laterality Blood specimen 07/09/2016 4:33 PM 017 4:39 (specimen) EST PM EST Resulting Agency Comment Spec In Lab Brad Jose MD HEMATOLOGY ORDERABLES Performing Organization Address City/State/ZIP [place] [address] Differential, Automated (07/09/2016 4:33 PM EST) athologist Signature Neutrophils % 61.7 % [facility] Neutr Abs (ANC) 2.74 1.70 - [facility] 6.10 [facility] x10(3)/[facility] LABORATORY Lymphocytes % 23.0 % [facility] Lymphocytes Abs 1.0 0.9 - 3.2 [facility] x10(3)/[facility] LABORATORY Monocytes % 10.8 % [facility] Monocyte Abs 0.5 0.3 - 0.9 [facility] x10(3)/[facility] LABORATORY Eosinophils % 3.4 % [facility] Eosinophils Abs 0.2 0.0 - 0.4 [facility] x10(3)/[facility] LABORATORY Basophils % 0.9 % [facility] Basophils Abs 0.0 0.0 - 0.1 [facility] x10(3)/[facility] LABORATORY Immature Gran % 0.20 % [facility] Comment: Immature granulocytes(IG's)percentage an d absolute count will include metamyelocytes, myelocytes, and promyelo cytes. Blood smears from CBCs yielding IG's will be scanned manually for concor dance. If this scan disagrees with the automated IG or if promyelocytes are not ed, a manual differential will be performed. Zeny Gran Abs 0.01 0.00 - 0.04 x10(3)/[facility] MAR Y [facility]ORATORY Specimen Anatomical Collection Method Collection Time Receive d Time (Source) Location / / Volume Laterality Blood specimen 07/09/2016 4:33 PM 017 4:39 (specimen) EST PM EST Resulting Agency Comment Spec In Lab Brad Jose MD HEMATOLOGY ORDERABLES Performing Organization Address City/State/ZIP [place] [address] (ABNORMAL) Hemogram (07/09/2016 4:33 PM EST) Analysis Performed At Patho logist Time Signature WBC 4.4 4.0 - 9.5 [facility] x10(3)/[facility] LABORATORY RBC 4.97 4.00 - [facility] 5.21 [facility] x10(6)/[facility] LABORATORY Hemoglobin 15.2 11.7 - [facility] 15.5 gm/dL [facility] LABORATORY Hematocrit 46.7 (H) 35.7 - [facility] 45.8 % [facility] LABORATORY MCV 94.0 82.6 - [facility] 94.4 [facility] LABORATORY MCH 30.6 27.1 - [facility] 32.0 pg [facility] LABORATORY MCHC 32.5 31.7 - [facility] 35.0 gm/dL [facility] LABORATORY Platelets 162 145 - 357 [facility] x10(3)/[facility] LABORATORY RDWSD 42.5 37.0 - [facility] 46.0 [facility] LABORATORY RDWCV 12.2 11.5 - [facility] 14.1 % [facility] LABORATORY MPV 9.2 7.6 - 12.9 [facility] LABORATORY nRBC % Auto 0.0 % [facility] nRBC Abs Auto 0.000 0.000 - [facility] 0.000 [facility] x10(3)/[facility] LABORATORY Specimen Anatomical Collection Method Collection Time Receive d Time (Source) Location / / Volume Laterality Blood specimen 07/09/2016 4:33 PM 017 4:39 (specimen) EST PM EST Resulting Agency Comment Spec In Lab Brad Jose MD HEMATOLOGY ORDERABLES Performing Organization Address City/State/[place] [address] Lipid Panel (07/09/2016 4:33 PM EST) [facility] Method Time Signature Chol, Total 174 <=239 [place] mg/dL [facility] Triglycerides 92 <=199 [place] mg/dL [facility] HDL 57 >=40 [place] mg/dL [facility] LDL Cholesterol 99 <=190 [place] mg/dL [facility] Chol/HDL Ratio 3.1 ratio [facility] Lipid See Note [place] Interpretation [facility] Comment: Lipid management should be guided by a p atient? s ASCVD risk, goals and preferences. ACC/AHA Guidelines recommend high intens ity statin if clinical ASCVD or LDL greater than or equal to 190 mg/dL. http://circ.ahajournals.org/content/frantz y/.cir.0024049903.15119.7a Adults aged 40-75 with LDL 70-189 mg/dL should have their 10 year ASCVD risk estimated with the ACC/AHA ASCVD risk es timator http://tools.acc.org/SHWZP-Qfsg-Nbaptter r/ Statin should be discussed if risk [...] Location / / Volume Laterality Blood specimen 07/09/2016 4:33 PM 017 4:39 (specimen) EST PM EST Resulting Agency Comment Spec In Lab Brad Jose MD CHEMISTRY ORDERABLES Performing Organization Address City/State/ZIP Code Phon e Number [address] T4, free (07/09/2016 4:33 PM EST) athologist Signature Free T4 1.29 0.93 - 1.70 [place] ng/dL [facility] LABORATORY Specimen Anatomical Collection Method Collection Time Receive d Time (Source) Location / / Volume Laterality Blood specimen 07/09/2016 4:33 PM 017 4:39 (specimen) EST PM EST Resulting Agency Comment Spec In Lab Brad Jose MD CHEMISTRY ORDERABLES Performing Organization Address City/State/ZIP Code Phon e Number [address] TSH (07/09/2016 4:33 PM EST) athologist Signature TSH 1.34 0.27 - 4.20 [place] mcIU/mL [facility] LABORATORY Specimen Anatomical Collection Method Collection Time Receive d Time (Source) Location / / Volume Laterality Blood specimen 07/09/2016 4:33 PM 017 4:39 (specimen) EST PM EST Resulting Agency Comment Spec In Lab Brad Jose MD CHEMISTRY ORDERABLES Performing Organization Address City/State/ZIP Code Phon e Number [address] Vitamin B12 (07/09/2016 4:33 PM EST) athologist Signature Vitamin B-12 374 406 - 338 [place] pg/mL [facility] LABORATORY Specimen Anatomical Collection Method Collection Time Receive d Time (Source) Location / / Volume Laterality Blood specimen 07/09/2016 4:33 PM 017 4:39 (specimen) EST PM EST Resulting Agency Comment Spec In Lab Brad Jose MD CHEMISTRY ORDERABLES Performing Organization Address City/[facility]/ZIP Code Phon e Number [address] Folate, serum (07/09/2016 4:33 PM EST) athologist Signature Folate Lvl >20.0 4.8 - 24.2 [place] ng/mL [facility] LABORATORY Specimen Anatomical Collection Method Collection Time Receive d Time (Source) Location / / Volume Laterality Blood specimen 07/09/2016 4:33 PM 017 4:39 (specimen) EST PM EST Resulting Agency Comment Spec In Lab Brad Jose MD CHEMISTRY ORDERABLES Performing Organization Address City/State/ZIP [place] [address] (ABNORMAL) Comprehensive metabolic panel (non-fasting) (07/09/2016 4:33 PM EST) athologist Signature Glucose Lvl 95 65 - 199 [facility] mg/dL [facility] Comment: Diabetes: >=200 mg/dL plus symp toms BUN 17 8 - 18 mg/dL [facility] Creatinine 0.76 0.70 - 1.20 mg/dL [facility] Comment: Please note that the pediatric reference intervals supplied above were not validated at [facility]. Results from pediatri c patients should be interpreted in conjunction to the patient's age, height and muscle mass. Sodium 139 135 - 145 mmol/L [facility] Potassium 3.8 3.5 - 5.0 mmol/L [facility] Comment: Please note: ??Patients with WBC >100,00 0 may have falsely elevated Potassium levels. ??For accurate Potassium quantif ication in these patients send serum separator tube (gold top) for subsequent determinations. ??Contact the Clinical Chemistry Laboratory if there are any qu estions. Chloride 97 (L) 98 - 107 mmol/L [facility] CO2 27 22 - 31 mmol/L [facility] Anion Gap 15 5 - 15 mmol/L [facility] Calcium 9.3 8.5 - 10.5 mg/dL [facility] Total Protein 7.7 6.1 - 8.0 gm/dL [facility] Albumin 4.3 3.2 - 5.2 gm/dL [facility] AST 24 0 - 30 unit/L [facility] ALT 23 0 - 30 unit/L [facility] Alk Phos 69 40 - 104 unit/L [facility] Total Bilirubin 1.1 0.2 - 1.3 mg/dL [facility] Bili, Direct 0.2 0.0 - 0.3 mg/dL [facility] Estimated GFR >60 >=60 [facility] Comment: This estimated GFR (eGFR) value was [...] the following links into your internet browser. [email or web address] Specimen Anatomical Collection Method Collection Time Receive d Time (Source) Location / / Volume Laterality Blood specimen 07/09/2016 4:33 PM 017 4:39 (specimen) EST PM EST Resulting Agency Comment Spec In Lab Brad Jose MD CHEMISTRY ORDERABLES Performing Organization Address City/State/ZIP Code Phon e Number [place] [id number] XR Chest PA & Lateral (Generic) (07/09/2016 [...] documented in this encounter Visit Diagnoses Diagnosis Tubular adenoma of colon Benign neoplasm of colon Chronic bilateral low back pain without sciatica Gastroesophageal reflux disease without esophagitis Esophageal reflux Healthcare maintenance Routine general medical examination at a health care facility Pure hypercholesterolemia Skin lesion Unspecified disorder of skin and subcuta neous tissue Chronic cough Cough Pruritus Unspecified pruritic disorder Overweight Chronic cough Cough Healthcare maintenance Routine general medical examination at a health care facility documented in this encounter Care Teams Culinary Art Teacher Relationship Specialty Start Date End Date Brad Jose MD PCP - General 12/17/14 11/09/[address] [facility] [address] [place] [address] documented as of this encounter
--- OUTSIDE RECORDS SUMMARY | 2021-12-25 00:51 | XMS_ITS | Encounter Summary ---
:1940 Author Organization [place] [address] Care Team Providers Name Role Phone Brad Jose MD Primary Care Provider Encounter Details Date Type Department Care Team Description 02/28/2015 Telephone Internal Medicine at [facility] Nikkie [facility] [place] [address] Social History Tobacco Use Types Packs/Day [...] on filedocumented in this encounter Care Teams Supervisor Carbon Electrodes Relationship Specialty Start Date End Date Brad Jose MD PCP - General 12/17/14 11/09/[address] [facility] [address] [place] [address] documented as of this encounter
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
--- OUTSIDE RECORDS SUMMARY | 2021-12-25 00:51 | XMS_ITS | Encounter Summary ---
:1940 Author Organization [facility] [place] [address] Care Team Providers Name Role Phone Nadia Gama MD Primary Care Provider Encounter Details Date Type Department Care Team Description 01/09/2013 Hospital Encounter Mammography at [facility] DR CHIANG Abnormal ultrasound [facility] Nadia Gama MD [facility] GENERAL [place] [address] [place] [address] Social History Tobacco Use Types Packs/Day Years [...] Procedure Name Priority Date/Time Associated Comments Diagnosis MAMMO DIRECT DIGITAL Routine 01/09/2013 1:47 PM Abnormal ultra sound Results for this UNILATERAL EDT of breast procedure are i n the results section. documented in this encounter Results Mammo direct digital unilateral (01/09/2013 1:47 PM EDT) Anatomical Region Laterality Modality Breast N/A Mammography Specimen (Source) Anatomical Collection Method Collection Time Re ceived Time Location / / Volume Laterality 01/09/2013 1:47 PM EDT Narrative 01/11/2013 7:31 AM EDT DIAGNOSTIC RIGHT MAMMOGRAPHY ON 01/09/13: CLINICAL INDICATION: Post-biopsy mammogr am. TECHNIQUE: Cranio-caudal (CC) and mediol ateral oblique (MLO) views of the Right breast obtained with direct digital capt ure. The exam was evaluated by CAD Version 8.3.17. FINDINGS: This is a negative mammogram ( ACR Category 1). There is a stable fibroglandular pattern without significa nt change as compared to prior studies. There is no mammographic evidence of can cer. The prior cyst is no longer seen. The breast is of scattered density. CONCLUSION This is a NEGATIVE RIGHT mammogram (ACR Category 1). The patient may return to annual screening mammography. A letter has been sent to this patient [facility]. Procedure Note Kayley Alvarez MD - 3 DIAGNOSTIC RIGHT MAMMOGRAPHY ON 01/09/13: CLINICAL INDICATION: Post-biopsy mammogr am. TECHNIQUE: Cranio-caudal (CC) and mediol ateral oblique (MLO) views of the Right breast obtained with direct digital capt ure. The exam was evaluated by CAD Version 8.3.17. FINDINGS: This is a negative mammogram ( ACR Category 1). There is a stable fibroglandular pattern without significa nt change as compared to prior studies. There is no mammographic evidence of can cer. The prior cyst is no longer seen. The breast is of scattered density. CONCLUSION This is a NEGATIVE RIGHT mammogram (ACR Category 1). The patient may return to annual screening mammography. A letter has been sent to this patient [facility]. Mckayla Allen MD IMG MAMMO ORDERABLES documented in this encounter Visit Diagnoses Diagnosis Abnormal ultrasound of breast Other (abnormal) findings on radiologica l examination of breast documented in this encounter Care Teams Electrical Controls Assembler Relationship Specialty Start Date End Date Nadia Gama MD PCP - General 04/29/10 08/14/[address] [facility] [address] [facility] [address] documented as of this encounter
--- OUTSIDE RECORDS SUMMARY | 2021-12-25 00:51 | XMS_ITS | Encounter Summary ---
:1940 Author Organization [facility] [place] [address] Care Team Providers Name Role Phone Birgit Arreaga APRN Primary Care Provider Reason for Visit Reason Onset Date Comments Other 11/26/2014 pre-visit reminder Encounter Details Date Type Department Care Team Description 11/26/2014 Telephone Internal Medicine at Kasie Rubin Ot her (pre-visit [facility] SPANISH MEDICAL INTERPRETER reminder) [place] [address] Social History Tobacco Use Types Packs/Day [...] Telephone Encounter - Kasie Rubin MA - 11/26/2014 3:32 PM EDT Called patient to let her know that there was lab orders put in for her appointment with Birgit Arreaga on 12/17/14. Patient agreed to come to 3L at 8 AM for lab work and then to for her 9 AM appointment with Birgit. documented in this encounter Plan of Treatment Not on filedocumented as of this encounter Visit Diagnoses Not on filedocumented in this encounter Care Teams Body Joiner Relationship Specialty Start Date End Date Birgit Arreaga, SKIP PCP - General 08/15/14 12/16/14 [facility] [place] [address] documented as of this encounter
--- OUTSIDE RECORDS SUMMARY | 2021-12-25 00:51 | XMS_ITS | Encounter Summary ---
:1940 Author Organization [facility] Address [facility] [place] [address] Care Team Providers Name Role Phone Nadia Gama MD Primary Care Provider Encounter Details Date Type Department Care Team Description 12/13/2012 Hospital Encounter Mammography [place] [facility] [place] Abnormal ultrasound [facility] Nadia Gama MD [facility] GENERAL [place] [address] of breast (Primary Drive Dx) [place] [id number] Social History Tobacco Use Types Packs/Day Years [...] week sparingly documented as of this encounter Progress Notes Shahzad Guo MD - 12/13/2012 7:46 AM EDT Procedure date: done today Procedure type: right Breast US-guided biopsy Special Instructions: none Allergies: Review of patient's allergies indicates no known allergies. Medications: Current outpatient prescriptions:NEXIUM 20 mg capsule, TAKE 1 CAPSULE BY MOUTH EVERY MORNING (BEFORE BREAKFAST), Disp: 30 capsule, Rfl: 12; hydrocortisone 2.5 % cream, Use qhs prn, Disp: 15 g, Rfl: 1; cholecalciferol, Vitamin D3, 1,000 unit Tab tablet, Take by mouth daily., Disp: 60 tablet, Rfl: 0; multivitamin (THERAGRAN) tablet, Take 1 tablet by mouth daily., Disp: , Rfl: mometasone (ELOCON) 0.1 % ointment, 1 Appl(s), Top, once a week sparingly, Disp: , Rfl: Anticoagulation status: none Imaging reviewed and procedural plan approved by Dr. SHAHZAD GUO MD documented in this encounter Plan of Treatment Not on filedocumented as of this encounter Procedures Procedure Name Priority Date/Time Associated Diagnosis Comme nts MAMMO US FINE Routine 12/13/2012 8:44 AM Results for this NEEDLE BIOPSY EDT procedure are in the results section. [...] Center. Mckayla Allen MD IMG MAMMO ORDERABLES Mammo- US fine needle biopsy (12/13/2012 8:44 AM EDT) Anatomical Region Laterality Modality Breast N/A Mammography Specimen (Source) Anatomical Collection Method Collection Time Re ceived Time Location / / Volume Laterality 12/13/2012 8:44 AM EDT Narrative 12/13/2012 12:25 PM EDT ULTRASOUND GUIDED ASPIRATION OF THE RIGHT BREAST ON 12/13/12: ?? Informed consent was obtained. Using damion rile technique and 1% Lidocaine used for local anesthesia, a skin incision wa s made and aspiration was performed using Ultrasound for image guidance. ?? Clinical indication: Right breast 5mm ma ss in the medial quadrant at 0330, 6cm form the nipple. ?? 25-gauge needle ?? No marker clip was placed. ?? The cyst was aspirated to empty during l idocaine administration with a 25-gauge needle. ? There were no procedural complications. ?? Imaging diagnosis: Cyst. ?? Recommendation: Due to lidocaine adminis tration and the low density of the lesion, post-aspiration films are to be done in 4-6 weeks to confirm resolution of the mammographic abnormality. ?? I was present with the resident, Dr. Roni diaz, for the parks component(s) of the procedure and otherwise remained immedia tely available for the duration of the procedure. I attest to having personally viewed the images/test and approve the above interpretation. ? Film and interpretation reviewed by the attending Procedure Note Mckayla Allen MD - 12/13/2012Format ting of this note might be different from the original. ULTRASOUND GUIDED ASPIRATION OF THE RIGH T BREAST ON 12/13/12: Informed consent was obtained. Using damion rile technique and 1% Lidocaine used for local anesthesia, a skin incision wa s made and aspiration was performed using Ultrasound for image guidance. Clinical indication: Right breast 5mm ma ss in the medial quadrant at 0330, 6cm form the nipple. 25-gauge needle No marker clip was placed. The cyst was aspirated to empty during l idocaine administration with a 25-gauge needle. There were no procedural complications. Imaging diagnosis: Cyst. Recommendation: Due to lidocaine adminis tration and the low density of the lesion, post-aspiration films are to be done in 4-6 weeks to confirm resolution of the mammographic abnormality. I was present with the resident, Dr. Roni diaz, for the parks component(s) of the procedure and otherwise remained immedia tely available for the duration of the procedure. I attest to having personally viewed the images/test and approve the above interpretation. Film and interpretation reviewed by the attending Kayley Alvarez MD IMG MAMMO ORDERABLES documented in this encounter Visit Diagnoses Diagnosis Abnormal ultrasound of breast - Primary Other (abnormal) findings on radiologica l examination of breast Abnormal ultrasound of breast Other (abnormal) findings on radiologica l examination of breast documented in this encounter Care Teams Rn Picu Relationship Specialty Start Date End Date Nadia Gama MD PCP - General 04/29/10 08/14/14 [facility] [place] [address] documented as of this encounter
--- OUTSIDE RECORDS SUMMARY | 2021-12-25 00:51 | XMS_ITS | Encounter Summary ---
:1940 Author Organization [facility] [place] [address] Care Team Providers Name Role Phone Nadia Gama MD Primary Care Provider Encounter Details Date Type Department Care Team Description 12/09/2012 Hospital Encounter Mammography at [facility] Abnormal mammogram, [facility] [place] [address] Social History Tobacco Use Types Packs/Day [...] Priority Date/Time Associated Diagnosis Comme nts MAMMO BREAST US Routine 12/09/2012 10:50 AM Abnormal mammogram , Results for this LIMITED EDT unspecified procedure are i n the results section. documented in this encounter Results Mammo breast US unilateral [...] unspecified documented in this encounter Care Teams Primary Special Educator Relationship Specialty Start Date End Date Nadia Gama MD PCP - General 04/29/10 08/14/14 [facility] [place] [address] documented as of this encounter
--- OUTSIDE RECORDS SUMMARY | 2021-12-25 00:51 | XMS_ITS | Encounter Summary ---
:1940 Author Organization [facility] [place] [address] Care Team Providers Name Role Phone Nadia Gama MD Primary Care Provider Reason for Visit Reason Comments Follow-up Lichen Sclerosus Encounter Details Date Type Department Care Team Description 06/22/2013 Follow-Up Obstetrics and Mercedes Bobby, Lichen sclerosus Gynecology at [facility] (Primary Dx) [address] [place] [address] [address] [place] [address] OBSTETRICS & [phone] GYNECOLOGY [place] [address] (Wo rk) Social History Tobacco Use [...] Sign Reading Time Taken Comments Blood Pressure 124/82 06/22/2013 10:20 AM EST Pulse - - Temperature - - Respiratory Rate - - Oxygen Saturation - - Inhaled Oxygen Concentration - - Weight - - Height - - Body Mass Index - - documented in this encounter Progress Notes Mercedes Bobby MD - 06/22/2013 10:38 AM EST Ms. Pearce is a 72 y.o. here for f/u of lichen sclerosus/lichen simplex. She is using hytone (HC 2.5% cream) daily to outer labia majora. Hasn't really used her mometasone regularly since Apr. She has been comfortable. 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 He is doing rehab, he is pretty focused on his recovery. Not travelling this winter. Outpatient Prescriptions Marked as Taking for the 06/22/13 encounter (Follow-Up) with Mercedes Bobby MD Medication Sig Dispense Refill ??? NEXIUM 20 mg capsule TAKE 1 CAPSULE BY MOUTH EVERY MORNING (BEFORE BREAKFAST) 30 capsule 12 ??? hydrocortisone 2.5 % cream Use qhs prn 15 g 1 ??? cholecalciferol, Vitamin D3, 1,000 unit Tab tablet Take by mouth daily. 60 tablet 0 ??? multivitamin (THERAGRAN) tablet Take 1 tablet by mouth daily. ??? mometasone (ELOCON) 0.1 % ointment 1 Appl(s), Top, once a week sparingly Patient Active Problem List Diagnosis Code ??? Lichen sclerosus et atrophicus of the vulva 701.0 ??? Overweight 278.02 ??? GERD (gastroesophageal reflux disease) 530.81 ??? Hyperlipidemia 272.4 ??? Healthcare maintenance V70.0 ??? Low back pain 724.2 BP 124/82 On exam, she looks well. On vulvar exam, laterally she looks good. There is mild glazed erythema to vestibule, sensitive to touch, not tender. There is no WE. Impression: LS/LSC doing well symptomatically; introitus looks lichenoid but will see how she does with resuming her mometasone; symptomatically she is comfortable. Plan: Resume mometasone, continue hytone & vaseline. F/u 6 months. documented in this encounter Plan of Treatment Not on filedocumented as of this encounter Visit Diagnoses Diagnosis Lichen sclerosus - Primary Circumscribed scleroderma documented in this encounter Care Teams Radiologic Tech Relationship Specialty Start Date End Date Nadia Gama MD PCP - General 04/29/10 08/14/14 [facility] [place] [address] documented as of this encounter
--- OUTSIDE RECORDS SUMMARY | 2021-12-25 00:51 | XMS_ITS | Encounter Summary ---
:1940 Author Organization [place] [address] Care Team Providers Name Role Phone Nadia Gama MD Primary Care Provider Reason for Visit Reason Comments Medication Refill Encounter Details Date Type Department Care Team Description 11/28/2012 Refill Internal Medicine at Niurka Gama MD GERD (gastroesophageal [facility] DR reflux disease) [facility] GENERAL INTERNAL (Prim bea Dx) [place] [address] [place] [address] [phone] (Wo rk) Social History Tobacco Use Types [...] as of this encounter Visit Diagnoses Diagnosis GERD (gastroesophageal reflux disease) - Primary Esophageal reflux documented in this encounter Care Teams Hourly Associate Relationship Specialty Start Date End Date Nadia Gama MD PCP - General 04/29/10 08/14/14 [facility] GENER[facility] [place] [address] documented as of this encounter
--- OUTSIDE RECORDS SUMMARY | 2021-12-25 00:51 | XMS_ITS | Encounter Summary ---
:1940 Author Organization [facility] [place] [address] Care Team Providers Name Role Phone Nadia Gama MD Primary Care Provider Reason for Visit Reason Comments Skin Lesion Encounter Details Date Type Department Care Team Description 03/17/2013 Office Visit Dermatology at [facility] (seborrheic keratosis) (Primary Dx); Adelia DEMARCO Seborrheic keratosis, inflamed [address] [place] [address] [facility] [place], [place] [address] Social History Tobacco Use Types [...] documented as of this encounter Progress Notes Richard Colmenares III, MD - 03/17/2013 5:34 PM EDT I directly supervised Dr. Torres during this office visit. Dr. Torres presented the history and physical exam to me. I then saw and examined this patient with Dr. Torres. We reviewed the history and pertinent details and I confirmed the physical findings. I agree with the details of the history and physical exam as documented in Dr. Torres's note. RICHARD COLMENARES III, MD Staff Physician Britney Torres MD - 03/17/2013 2:00 PM EDT DERMATOLOGY - ESTABLISHED PATIENT FOLLOW-UP Date of service: 03/17/2013 Anh Pearce : 1940 Dermatology Resident Note: Britney Torres MD Chief Complaint Patient presents with ??? Skin Lesion This is an established patient, last seen by Liv Love MD 11/17/10 HPI: Patient is a 72 year old female established patient to the clinic but new to me presents for spot check today. Dr. Gama referred patient to clinic for evaluation of a spot on upper back. Specific concerns: Spot on left upper back - itches at times, she has not had treatment. Spot on left hand- no symptoms, no treatment Spot on right neckline- irritated by necklace, no treatment. Skin History: 1. 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 Lichen sclerosus et atrophicus of the vulva ??? GERD (gastroesophageal reflux disease) 10/07/2010 ??? Healthcare maintenance 10/07/2010 ??? Hyperlipidemia 10/07/2010 ??? Overweight 10/07/2010 Medications: Current Outpatient Prescriptions on File Prior to Visit Medication Sig Dispense Refill ??? NEXIUM 20 [...] 1 Appl(s), Top, once a week sparingly Allergies: No Known Allergies Family History: Father with non-melanoma skin cancer Review of Systems: - General: Feels well. - Skin: As per HPI; no other skin concerns. Examination: - Constitutional: Patient was alert, well-appearing and in no noticeable distress. - Skin: An abbreviated skin exam was performed; this includes:focused exam of the face, neck back, upper extremities and dorsal hands. Specific skin findings: 1. Multiple 0.4-0.6cm brown papules with waxy, stuck-on appearance including 3 lesions of concern. Milia-like cysts, comedone-like openings and/or fissuring on dermoscopy.( 2 inflamed: one on left upper back and one on right side of neck) 2. light-brown evenly pigmented, well-demarcated macule noted left cheek Diagnosis/Assessment/Treatment Plan: 1. Scattered seborrheic keratoses-Reassurance given benign in nature. 2. Inflamed seborrheic keratosis- left upper back, right neckline. Patient agreed to treatment with LN. Procedure Note: Procedure: Destruction of lesion(s) with cryotherapy. Number: 2 Location: as above Discussed procedure and expectations including risks (including risk of hypopigmentation) and benefits. Verbal consent obtained. Frozen with LN2, 15-30 second thaw time, TWICE. There were no complications; the patient tolerated the procedure well. Post-procedure expectations and wound care were reviewed. 3. Flat seborrheic keratosis vs lentigo on left cheek- Reassurance given benign in nature. RTC as needed. Instructed to call for questions/concerns. Ariane Palma am documenting this encounter acting as the scribe for and in the presence of Dr. Britney Torres MD Reviewed and signed by Britney Torres MD Resident in Dermatology [facility] Patient seen and evaluated with staff fisher swordfish: Richard Colmenares MD Section of Dermatology [facility] documented in this encounter Plan of Treatment Not on filedocumented as of this encounter Visit Diagnoses Diagnosis SK (seborrheic keratosis) - Primary Other seborrheic keratosis Seborrheic keratosis, inflamed Inflamed seborrheic keratosis documented in this encounter Care Teams Finance Insurance Manager Relationship Specialty Start Date End Date Nadia Gama MD PCP - General 04/29/10 08/14/14 [facility] GENERAL [place] [address] documented as of this encounter
--- OUTSIDE RECORDS SUMMARY | 2021-12-25 00:51 | XMS_ITS | Encounter Summary ---
:1940 Author Organization [facility] [place] [address] Care Team Providers Name Role Phone Nadia Gama MD Primary Care Provider Encounter Details Date Type Department Care Team Description 12/27/2013 Hospital Encounter [place]ammography at [facility] Nadia Gama MD [facility] [place] [address] [place] [address] Social History Tobacco Use Types Packs/Day [...] Take 1 capsule by 90 capsule 4 12/0503/08/2015 mg capsuleIndications: mouth daily. GERD (gastroesophageal reflux disease) hydrocortisone 2.5 % Use qhs prn 15 g 1 06/15/201205/2015 cream mometasone (ELOCON) 0.1 % 1 Appl(s), Top, 0 06/1202/19/2015 ointment once a week sparingly documented as of this encounter Plan of Treatment Not on filedocumented as of this encounter Procedures Procedure Name Priority Date/Time Associated Diagnosis Comme nts MAMMO SCREENING CAD Routine 12/27/2013 2:02 PM Re sults for this BILATERAL EDT procedure are i n the results section. documented in this encounter Results Mammo digital bilateral Screening with CAD (12/27/2013 2:02 PM EDT) Anatomical Region Laterality Modality Breast Bilateral Mammography Specimen (Source) Anatomical Collection Method Collection Time Re ceived Time Location / / Volume Laterality 12/27/2013 2:02 PM EDT Narrative 12/28/2013 11:22 AM EDT Reason for Exam: Screening ?? Technique: Craniocaudal (CC) and Medio-l ateral Oblique (MLO) views of both breasts obtained with direct digital cap ture. ?? The exam was evaluated by CAD version 8. 3.17. ?? Findings: ?? This is a negative mammogram (ACR Catego ry 1). There is a stable fibroglandular pattern without significant change from prior studies. There is no mammographic evidence of can cer. The breasts are of scattered density. ?? CONCLUSION: This is a NEGATIVE mammogram (ACR Catego ry 1). ?? Routine screening mammography is recomme nded with the frequency dependent upon the patients age and breast cancer risk factors. ?? A letter has been sent to this patient b y the breast imaging center. Procedure Note Antolin Miner MD - 12/28/2013Format ting of this note might be different from the original. Reason for Exam: Screening Technique: Craniocaudal (CC) and Medio-l ateral Oblique (MLO) views of both breasts obtained with direct digital cap ture. The exam was evaluated by CAD version 8. 3.17. Findings: This is a negative mammogram (ACR Catego ry 1). There is a stable fibroglandular pattern without significant change from prior studies. There is no mammographic evidence of can cer. The breasts are of scattered density. CONCLUSION: This is a NEGATIVE mammogram (ACR Catego ry 1). Routine screening mammography is recomme nded with the frequency dependent upon the patients age and breast cancer risk factors. A letter has been sent to this patient b y the breast imaging center. Nadia Gama MD IMG MAMMO ORDERABLES documented in this encounter Visit Diagnoses Not on filedocumented in this encounter Care Teams Order To Delivery Supervisor Relationship Specialty Start Date End Date Nadia Gama MD PCP - General 04/29/10 08/14/[address] [facility] [address] [place] [address] documented as of this encounter
--- OUTSIDE RECORDS SUMMARY | 2021-12-25 00:51 | XMS_ITS | Encounter Summary ---
:1940 Author Organization [facility] [place] [address] Care Team Providers Name Role Phone Birgit Arreaga APRN Primary Care Provider Encounter Details Date Type Department Care Team Description 11/19/2014 Orders Only Internal Medicine [place] [facility] [place] Birgit Arreaga APRN [facility] devin [place] [address] GENERAL INTERNAL [phone] MEDICINE [place], [place] [address] (Wo rk) Social History Tobacco [...] on filedocumented in this encounter Care Teams Skills Auditor Relationship Specialty Start Date End Date Birgit Arreaga APRN PCP - General 08/15/14 12/16/[address] [facility] [address] [place] [address] documented as of this encounter
--- OUTSIDE RECORDS SUMMARY | 2021-12-25 00:51 | XMS_ITS | Encounter Summary ---
:1940 Author Organization [facility] [place] [address] Care Team Providers Name Role Phone Brad Jose MD Primary Care Provider Reason for Visit Reason Comments Follow-up Encounter Details Date Type Department Care Team Description 06/24/2016 Office Visit Obstetrics and Mercedes Bobby, Lichen sclerosus Gynecology [place] [facility] [place] [address] OBSTETRICS & GYNECOLOGY [place], [place] [address] (Wo rk) Social History Tobacco [...] Sign Reading Time Taken Comments Blood Pressure 124/78 06/24/2016 10:13 AM EST Pulse 87 06/24/2016 10:13 AM EST Temperature 36.4 ??C (97.6 ??F) 06/24/2016 10:13 AM EST Respiratory Rate 18 06/24/2016 10:13 AM EST Oxygen Saturation 95% 06/24/2016 10:13 AM EST Inhaled Oxygen Concentration - - Weight 95.1 kg (209 lb 11.2 oz) 06/24/2016 10:13 AM EST Height 172.7 cm (5' 8) 06/24/2016 10:13 AM EST Body Mass Index 31.88 06/24/2016 10:13 AM EST documented in this encounter Progress Notes Mercedes Bobby MD - 06/24/2016 10:15 AM EST Ms. Pearce is a 75 y.o. here for f/u of lichen sclerosus. She is using mometasone 2-3X/week; HC 2.5% 2X/week. She uses the HC 2.5% cream over the labia majora. She has done well, with occ flare she just uses a bit extra and it takes care of things. Has done a lot of travelling the past year. stays at home. Has some extra fluid L leg, will discuss with Dr. Ledesma during her appt in Jul. Outpatient Prescriptions Marked as Taking for the 06/24/16 encounter (Office Visit) with Mercedes Bobby MD Medication Sig Dispense Refill ??? hydrocortisone [...] ??? Tubular adenoma of colon D12.6 BP 124/78 (Patient Position: Sitting) Pulse 87 Temp 36.4 ??C (97.6 ??F) (Temporal) Resp 18 Ht 172.7 cm (5' 8) Wt 95.1 kg (209 lb 11.2 oz) SpO2 95% BMI 31.88 kg/m2 On exam, she looks well. On vulvar exam, there is labial and clitoral flattening. There is no WE, excoriation, fissuring. Adequate introital diameter. + urethral caruncle. Bimanual exam without palpable mass, barely able to feel her cervix. Impression: Lichen sclerosus doing well Plan: Continue current routine, f/u one year sooner if flare. 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
--- OUTSIDE RECORDS SUMMARY | 2021-12-25 00:51 | XMS_ITS | Encounter Summary ---
:1940 Author Organization [facility] [place] [address] Care Team Providers Name Role Phone Nadia Gama MD Primary Care Provider Reason for Visit Reason Comments Follow-up Needs refill of hydrocortiso ne cream Encounter Details Date Type Department Care Team Description 06/18/2014 Follow-Up Obstetrics and Gynecology Mercedes Fernandez MD Lichen sclerosus at [facility] Velia beltran OBSTETRICS & [place] [address] GYNECOLOGY [phone] [place], [place] [address] (Wo rk) Social History Tobacco [...] Sign Reading Time Taken Comments Blood Pressure 128/90 06/18/2014 10:01 AM EST Pulse - - Temperature - - Respiratory Rate - - Oxygen Saturation - - Inhaled Oxygen Concentration - - Weight 96.8 kg (213 lb 6.4 oz) 06/18/2014 10:01 AM EST Height - - Body Mass Index 32.76 12/14/2013 8:50 AM EDT documented in this encounter Progress Notes Mercedes Bobby MD - 06/18/2014 9:58 AM EST Ms. Pearce is a 73 y.o. here for f/u of lichen sclerosus She is using mometasone 3X/week when she remembers (probably 1-2X/week unless she is travelling) , and HC 2.5% cream most days. She is comfortable, when she pays attention and does sitz bath she is well controlled. Had polyps on colonoscopy, needs repeat 3 years. doing OK. Outpatient Prescriptions Marked as Taking for the 06/18/14 encounter (Follow-Up) with Mercedes Bobby MD Medication Sig Dispense Refill ??? hydrocortisone 2.5 % Cream Use 2-3X/week 15 g 1 ??? esomeprazole (NEXIUM) 20 mg capsule Take 1 capsule by mouth daily. 90 capsule 4 ??? [DISCONTINUED] hydrocortisone 2.5 % cream Use qhs prn 15 g 1 ??? cholecalciferol, Vitamin D3, 1,000 unit Tab tablet Take by mouth daily. 60 tablet 0 ??? multivitamin (THERAGRAN) tablet Take 1 tablet by mouth daily. ??? mometasone (ELOCON) 0.1 % ointment 1 Appl(s), Top, once a week sparingly No Facility-Administered Medications for the 06/18/14 encounter (Follow-Up) with Mercedes Bobby MD. Patient Active Problem List Diagnosis Code ??? Lichen sclerosus et atrophicus of the vulva 701.0 ??? Overweight 278.02 ??? GERD (gastroesophageal reflux disease) 530.81 ??? Hyperlipidemia 272.4 ??? Healthcare maintenance V70.0 ??? Low back pain 724.2 ??? Tubular adenoma of colon 211.3 BP 128/90 Wt 96.798 kg (213 lb 6.4 oz) On exam, she looks well. On vulvar exam, there is labial and clitoral flattening. There is no WE, excoriation, fissuring. Mild erythema on R vestibule. Urethral caruncle. Bimanual exam without palpablemass. Impression: Lichen sclerosus doing well. She knows how to take care of it if it gets irritated. Plan: f/u 8 months, sooner if flare. HC 2.5% cream renewed. 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
--- OUTSIDE RECORDS SUMMARY | 2021-12-25 00:51 | XMS_ITS | Encounter Summary ---
:1940 Author Organization [place] [address] Care Team Providers Name Role Phone Nadia Gama MD Primary Care Provider Encounter Details Date Type Department Care Team Description 01/31/2013 Surgery [place] [facility], [place], [facility] Velia beltran MD [place], [place] [address] [facility] ([facility] [phone] DR Willams) GASTROENTEROLOGY DEPT. [place], [place] [address] Social History Tobacco Use Types [...] you need to be checked. Wednesday-Wednesday Clinic [phone] 8a-5p Same Day Endo [phone] 7a-8p Otherwise contact [phone] and ask to speak to the reagent tender transmissions systems operator Follow up care is a parks part of your treatment and safety. Be sure to make and go to all appointments, and call your doctor if you are having problems. Discharge instructions reviewed with patient who expresses understanding Patient InstructionsAminta Greene MD - 01/31/2013 11:27 AM EDT Please [...] documented as of this encounter H&P Notes Aminta Greene MD - 01/31/2013 10:58 AM EDT Gastroenterology [...] Surgical Pathology Report (01/31/2013 11:27 AM EDT) [facility] Method Time Signature Surgical CERNER Pathology ? [facility] Report ? Provider: ?? AMINTA GREENE ?? Pt. Name: ?? ANH PEARCE ? Acc #: ?[id number] ?Pt. MRN: ?[id number] ? Col Date: ?? 3 ? /Sex: [...] Sections/Processing: Trisected (T1) ??KSB ? are ? [facility] ? Provider: ?? AMINTA GREENE ?? Pt. Name: ?? ANH PEARCE ? Acc #: ?[id number] ?Pt. MRN: ?[id number] ? Col Date: ?? 3 ? /Sex: [...] Volume Laterality 01/31/2013 11:27 AM EDT Aminta Greene MD PATHOLOGY/CYTOLOGY ORDERABLE S Performing Organization Address City/State/[place] [address] CERNER MILLENNIUM Specimen to Pathology (surgical or derm) (01/31/2013 11:27 AM EDT) Specimen Anatomical Collection Method Collection Time Receive d Time (Source) Location / / Volume Laterality AP Specimen 01/31/2013 11:27 01/31/2013 AM EDT 11:27 AM EDT Narrative CERNER MILLENNIUM - 01/31/2013 11:27 AM EDT Specimen requisition ordered. ??Separate Pathology report to follow Aminta Greene MD PATHOLOGY/CYTOLOGY ORDERABLE S Performing Organization Address City/[facility]/[place] [address] CERNER MILLENNIUM Specimen to Pathology (surgical or derm) (01/31/2013 11:27 AM EDT) Specimen Anatomical Collection Method Collection Time Receive d Time (Source) Location / / Volume Laterality AP Specimen 01/31/2013 11:27 01/31/2013 AM EDT 11:27 AM EDT Narrative CERNER MILLENNIUM - 01/31/2013 11:27 AM EDT Specimen requisition ordered. ??Separate Pathology report to follow Aminta Greene MD PATHOLOGY/CYTOLOGY ORDERABLE S Performing Organization Address City/State/[place] [address] CERNER MILLENNIUM Specimen to Pathology (surgical or derm) (01/31/2013 11:27 AM EDT) Specimen Anatomical Collection Method Collection Time Receive d Time (Source) Location / / Volume Laterality AP Specimen 01/31/2013 11:27 01/31/2013 AM EDT 11:27 AM EDT Narrative CERNER MILLENNIUM - 01/31/2013 11:27 AM EDT Specimen requisition ordered. ??Separate Pathology report to follow Aminta Greene MD PATHOLOGY/CYTOLOGY ORDERABLE S Performing Organization Address City/State/[place] [address] CERNER MILLENNIUM COLONOSCOPY (01/31/2013 10:54 AM EDT) [facility] gist Method Time Signature COLONOSCOPY [facility] Endoscopy Patient Name: Anh Pearce ? Procedure Date: 01/31/2013 10:54 AM ? Date of : 1940 ? Age: 72 ? Order #: [id number] ? Procedure: ? Colonoscopy Indications: ? Screening in patient at increased ? risk: Colorectal cancer in fa ther 60 ? or older Providers: ? Aminta Greene MD, Swati Mar x, ? EASTON, Emmanuel Gordon MD: ?Nadia Gama MD Medicines: ? Midazolam [...] Th e ? colonoscopy was performed wit ghada ? difficulty. The patient elvis ated the [...] Recommendation: ?- Await pathology results. ? Aminta Greene MD 01/31/2013 11:30 AM This report has [...] Action Action Date Dose Rate Site fentaNYL 50mcg/mL injection Given 01/31/2013 11:10 AM EDT 25 mcg ONCE PRN, Starting on Wed01/31/13 at 1104, Until Wed01/31/13 at 1651, Pain, Intra-Operative (Intra-Procedure), Routine Given 01/31/2013 11:08 AM EDT 25 mcg Given 01/31/2013 11:07 AM EDT 25 mcg midazolam (VERSED) injection Given 01/31/2013 11:10 AM EDT 0.5 mg ONCE PRN, Starting on Wed01/31/13 at 1104, Until Wed01/31/13 at 1651, Sleep, Intra-Operative (Intra-Procedure), Routine Given 01/31/2013 11:08 AM EDT 0.5 mg Given 01/31/2013 11:07 AM EDT 0.5 mg sodium chloride 0.9% infusion New Bag 01/31/2013 10:45 AM EDT 50 mL/hr 50 mL/hr 50 mL/hr, Intravenous, CONTINUOUS, Starting on Wed01/31/13 [...] injection (CANCELED) 1104 (Given - Provider: Swati James, EASTON)1107 (Given - Provider: Swati James, EASTON)1108 (Given - Provider: Swati James RN)1110 (Given - Provider: Swati James RN) ONCE PRN, Starting Wed01/31/13 at 1104, Until Wed01/31/13 at 1651, Pain, Intra- Operative (Intra-Procedure), Routine midazolam (VERSED) injection (CANCELED) 1104 (Given - Provider: Swati James RN)1107 (Given - Provider: Swati James, EASTON)1108 (Given - Provider: Swati aJmes RN)1110 (Given - Provider: Swati James, EASTON) ONCE PRN, Starting Wed01/31/13 at 1104, Until Wed01/31/13 at 1651, Sleep, Intra- Operative (Intra-Procedure), Routine documented in this encounter Care Teams Mixing Tank Operator Relationship Specialty Start Date End Date Nadia Gama MD PCP - General 04/29/10 08/14/[address] [facility] [address] [place] [address] documented as of this encounter
--- OUTSIDE RECORDS SUMMARY | 2021-12-25 00:51 | XMS_ITS | Encounter Summary ---
:1940 Author Organization [place] [address] Care Team Providers Name Role Phone Brad Jose MD Primary Care Provider Reason for Visit Reason Comments Follow-up LS Encounter Details Date Type Department Care Team Description 10/21/2015 Office Visit Obstetrics and Mercedes Bobby, Lichen sclerosus Gynecology at [facility] [place] [address] OBSTETRICS & GYNECOLOGY [place], [place] [address] (Wo rk) Social History Tobacco [...] Sign Reading Time Taken Comments Blood Pressure 120/84 10/21/2015 10:29 AM EDT Pulse - - Temperature - - Respiratory Rate - - Oxygen Saturation - - Inhaled Oxygen Concentration - - Weight 98.9 kg (218 lb 0.6 oz) 10/21/2015 10:29 AM EDT Height - - Body Mass Index 33.65 03/08/2015 3:01 PM EDT documented in this encounter Progress Notes Mercedes Bobby MD - 10/21/2015 10:29 AM EDT Ms. Pearce is a 75 y.o. here for f/u of lichen sclerosus. She is using mometasone 2X/week; HC 2.5% 2-3X/week. She uses the HC 2.5% cream over the labia majora. ?? Feeling a little itchy this week L lower labia majus - where she applies the HC. Outpatient Prescriptions Marked as Taking for the 10/21/15 encounter (Office Visit) with Mercedes Bobby MD [...] M54.5 ??? Tubular adenoma of colon D12.6 There were no vitals taken for this visit. On exam, she looks well. On vulvar exam, there is labial and clitoral flattening. There is no WE, excoriation, fissuring. Introital diameter nl. Urethral caruncle, small cystocele. She feels irritated L lower labial crural fold, no fissuring lichenification seen. Impression: Lichen sclerosus doing well Plan: F/u 8 months. 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 [place] [address] documented as of this encounter
--- OUTSIDE RECORDS SUMMARY | 2021-12-25 00:51 | XMS_ITS | Encounter Summary ---
:1940 Author Organization [facility] Address [address] [place] [address] Care Team Providers Name Role Phone Nadia Gama MD Primary Care Provider Reason for Visit Reason Comments Annual Exam Encounter Details Date Type Department Care Team Description 12/14/2013 Office Visit Internal Medicine at Nadia Gama F atigue; [facility] [place] Healthcare maintenance; [facility] Tub ular adenoma of colon; Drive Hyperlipidemia; [place], [place] GENERAL INTERNAL Vitamin D d eficiency; [id number] MEDICINE Need for xdwfkhaeui-izxoezd-schgicctu (T dap) vaccine; [phone] [place], [place] [address] GERD (gastroesophageal reflux disease) [phone] (Wo rk) Social History Tobacco Use Types [...] Sign Reading Time Taken Comments Blood Pressure 138/85 12/14/2013 8:50 AM EDT Pulse 66 12/14/2013 8:50 AM EDT Temperature - - Respiratory Rate 20 12/14/2013 8:50 AM EDT Oxygen Saturation 96% 12/14/2013 8:50 AM EDT Inhaled Oxygen Concentration - - Weight 96.1 kg (211 lb 12.8 oz) 12/14/2013 8:50 AM EDT Height 171.9 cm (5' 7.68) 12/14/2013 8:50 AM EDT Body Mass Index 32.51 12/14/2013 8:50 AM EDT documented in this encounter Patient Instructions Patient InstructionsNadia Gama MD - 12/14/2013 9:49 AM EDT Build a healthy plate Before you eat, think about what goes on your plate or in your cup or bowl. Foods like vegetables, fruits, whole grains, low-fat dairy products, and lean protein foods contain the nutrients you need without too many calories. Try some of these options. Make half your plate fruits and vegetables. Switch to skim or 1% milk. Make at least half your grains whole. Vary your protein food choices. Keep your food safe to eat - learn more at www.FoodSafety.gov. Cut back on foods high in solid fats, added sugars, and salt Many people eat foods with too much solid fats, added sugars, and salt (sodium). Added sugars and fats load foods with extra calories you don't need. Too much sodium may increase your blood pressure. Choose foods and drinks with little or no added sugars. Look out for salt (sodium) in foods you buy - it all adds up. Eat fewer foods that are high in solid fats. Eat the right amount of calories for you Everyone has a personal calorie limit. Staying within yours can help you get to or maintain a healthy weight. People who are successful at managing their weight have found ways to keep track of how much they eat in a day, even if they don't count every calorie. Enjoy your food, but eat less. Cook more often at home, where you are in control of what's in your food. When eating out, choose lower calorie menu options. Write down what you eat to keep track of how much you eat. If you drink alcoholic beverages, do so sensibly - limit to 1 drink a day for women or to 2 drinks aday for men. Be physically active your way Pick activities that you like and start by doing what you can, at least 10 minutes at a time. Every bit adds up, and the health benefits increase as you spend more time being active. http://choosemyplate.gov/zuljk-mkwbzdotn-lmkpbyeu/dietary-guidelines.html Call breast center in January for follow up mammo Colonoscopy in 2015 documented in this encounter Progress Notes Nadia Gama MD - 12/14/2013 9:26 AM EDT Ms. Pearce is a 73 year old female who presents for preventive health Very active-- Saw Dr. Bobby for her LS New problem--fatigue--gets drowsy when reading--nods off. Sleeps ok at night. Not known to have MAADA,no daytime drowsiness when driving. Has a lot on her plate. had more health problems this year. See note below Acid reflux. Sleeping better because bed is up 6 inches but has a lot of sour stomach --nexium worked, but insurance did not cover in 2010 --Omeprazole caused fecal incontinence. --Aciphex was tried in 2010--her stomach felt worse, and it caused diarrhea nexium--works the best for her--got an override in 2011--definitely needs it Renewed today -hyperlipidemia Weight stable Lipids stable--ideally modify her diet to lower the LDL Will recheck today Likes sweets--recognizes that is her downfall Geriatrics 2013--no falls ADLs and IADLS all independent Low Back pain Only if stands at kitchen sink for too long Did the PT but the exercises are hard to do--they emphasize glue strengthening Profile had a heart attack in May 2013--he had stents- She goes to [employer]--with weights twice a week, and walks Got a kayak--active with that Patient Active Problem List Diagnosis Code ??? Lichen sclerosus et atrophicus of the vulva 701.0 ??? Overweight 278.02 ??? GERD (gastroesophageal reflux disease) 530.81 ??? Hyperlipidemia 272.4 ??? Healthcare maintenance V70.0 ??? Low back pain 724.2 ??? Tubular adenoma of colon 211.3 Immunization History Administered Date(s) Administered ??? Pneumococcal Polyvalent 09/30/2007 ??? Td, adult 06/07/2010 ??? Zoster Vaccine, Live 10/10/2009 SOCIAL HISTORY Living situation - lives with in [place]. 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 Has a house in [place]. 2 kids in 30s. distant history of CABG, 2013 stents. EtOH - Drinks rarely Tobacco - [...] calcium HEALTH MAINTENANCE pap done by - [facility] [place]--> will transition to Dr. Bobby who follows LS closely mammography at [facility] [place] - colonoscopy - 12/07 [facility], 2007 normal--> War 2012--positive TA; FH father and uncles, both brother and sister had polyps EGD 2007 Findings: The esophagus was normal. There was no evidence of esophagitis or Barretts esophagus.A small hiatus hernia was present. The examined duodenum was normal. Impression: - Normal esophagus. - Hiatus hernia. - Normal examined duodenum. Cholesterol - DEXA - 05/09, DEXA EXAMINATION: December 06, [...] been a decrease in bone density since 2003. 2. Measurements remain in the normal range by WHO classification and suggest no elevation in relative risk for fracture. Immunization History Administered Date(s) Administered ??? Pneumococcal Polyvalent 09/30/2007 ??? Td, adult 06/07/2010 ??? Zoster Vaccine, Live 10/10/2009 tdap today FAMILY HISTORY Mother 90, angina Father of colon ca 80 -positive FH father and uncles, both brother and sister had polyps Aunt and cousin on mother's side have breast ca in their 50s/60s. other details in chart Outpatient Encounter Prescriptions as of 12/14/2013 Medication Sig Dispense Refill ??? NEXIUM 20 [...] Review of Systems -Female 50 to 75 12/14/2013 Constitutional Drowsiness Ear / nose / throat / mouth None of the above Eyes Dry eyes, Other eye problems Respiratory None of the above Cardiovascular Fluttering heart beat (heart palpitations), Swelling of legs Gastrointestinal Feeling bloated Skin, hair Dry skin Musculoskeletal Back pain Neurological None of the above Hematologic / Lymphatic None of the above Psychiatric Difficulty sleeping Genitourinary None of the above Sleeping issue is intermittently problematic--mind gets active Fluttering of heart is rare--more when she was taking low-dose ASA She stopped her calcium supplement Doing bone building Gets back pain if she stands a long time, responds to rest-- Takes care of step- great grandson who is 7 yo--spends the night--she is very involved in his activities PHQ9 Depression Screening: PHQ9 12/14/2013 Little interest or pleasure Not at all Down, depressed, hopeless Not at all . BP 138/85 Pulse 66 Resp 20 Ht 171.9 cm (5' 7.68) Wt 96.072 kg (211 lb 12.8 oz) BMI 32.51 kg/m2 SpO2 96% Gen - Well nourished female in no apparent distress Skin -benign flesh colored papules on face-- HEENT - NC/AT. 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 Neurological Orientation - person, place and time Strength - 5/5 upper and lower extremities ASSESSMENT 73 yo woman whose feels well # fatigue--unclear if she is just very busy. Will recheck his TSH because they have been gradually been going up. Several family members are hypothyroid. Will also check CBC. # HM vit D 33 in 2009. She stopped calcium vit D combo so time to start vit D 2000 IU daily received zostavax in 2009 Continue regular exercise Check vit D level--not taking it regularly # right breast cyst 2012--follow up mammo showed it resolved. I did recommend another mammo in Jan 2014. She will arrange. # TA in 2012--2 identified--needs colonoscopy in 2015 # hyperlipidemia See AVS encouraged increase in activity # GERD neg endoscopy in 2007 new rx nexium -continue non-pharmacologic measures # lichen sclerosis f/u with Dr. Bobby f/u 1 yr documented in this encounter Miscellaneous Notes Addendum Note - Rigoberto Esteves - 12/14/2013 10:14 AM EDT Addended by: RIGOBERTO ESTEVES on: 12/14/2013 10:14 AM Modules accepted: Orders Advance Care Plan Note - Nadia Gama MD - 12/14/2013 9:31 AM EDT Her primary decision maker is her nAton Pearce Sr The second one is daughter in [place]. Has formal documents at the veneer drier feeder's office--advised to send them in. documented in this encounter Plan of Treatment Not on filedocumented as of this encounter Procedures Procedure Name Priority Date/Time Associated Diagnosis Comme nts HEMOGRAM Routine 12/14/2013 10:19 Fatigue Results for this AM EDT procedure are i n the results section. DIFFERENTIAL, Routine 12/14/2013 10:19 Fatigue Results fo r this AUTOMATED AM EDT procedure are i n the results section. VITAMIN D, Routine 12/14/2013 10:19 Vitamin D deficiency Res ults for this 25-HYDROXY AM EDT procedure are i n the results section. CBC (WITH DIFF) Routine 12/14/2013 10:19 Fatigue AM EDT TSH Routine 12/14/2013 10:19 Fatigue Results for this AM EDT procedure are i n the results section. T4, FREE Routine 12/14/2013 10:19 Fatigue Results for this AM EDT procedure are i n the results section. LIPID PANEL (REFLEX Routine 12/14/2013 10:19 Hyperlipidemia Re sults for this DIRECT LDL) AM EDT procedure are i n the results section. documented in this encounter Results Differential, Automated (12/14/2013 10:19 AM EDT) P athologist Signature Neutrophils % 62.9 34.0 - CERNER 71.0 % MILLENNIUM Neutr Abs (ANC) 2.75 1.50 - CERNER 6.30 MILLENNIUM x10(3)/mcL Lymphocytes % 26.1 19.0 - CERNER 53.0 % MILLENNIUM Lymphocytes Abs 1.1 1.0 - 3.6 CERNER x10(3)/mcL MILLENNIUM Monocytes % 7.1 4.0 - 13.0 CERNER % MILLENNIUM Monocyte Abs 0.3 0.2 - 1.0 CERNER x10(3)/mcL MILLENNIUM Eosinophils % 2.5 0.0 - 7.0 CERNER % MILLENNIUM Eosinophils Abs 0.1 0.0 - 0.5 CERNER x10(3)/mcL MILLENNIUM Basophils % 1.4 0.0 - 2.0 CERNER % MILLENNIUM Basophils Abs 0.1 0.0 - 0.2 CERNER x10(3)/mcL MILLENNIUM Immature Gran % 0.00 0.00 - CERNER 0.66 % MILLENNIUM Comment: Immature granulocytes(IG's)percentage an d absolute count will include metamyelocytes, myelocytes, and promyelo cytes. Blood smears from CBCs yielding IG's will be scanned manually for concor dance. If this scan disagrees with the automated IG or if promyelocytes are not ed, a manual differential will be performed. Zeny Gran Abs 0.00 0.00 - 0.05 x10(3)/mcL CER NER MILLENNIUM Specimen Anatomical Collection Method Collection Time Receive d Time (Source) Location / / Volume Laterality Blood specimen 12/14/2013 10:19 4 (specimen) AM EDT 10:23 AM EDT Resulting Agency Comment Spec In Lab Nadia Gama MD HEMATOLOGY ORDERABLES Performing Organization Address City/[facility]/ZIP Code Phon e Number [address] CERNER MILLENNIUM (ABNORMAL) Hemogram (12/14/2013 10:19 AM EDT) P athologist Signature WBC 4.4 4.0 - 10.0 CERNER x10(3)/mcL MILLENNIUM RBC 4.71 3.93 - CERNER 5.22 MILLENNIUM x10(6)/mcL Hemoglobin 14.7 11.2 - CERNER 15.7 gm/dL MILLENNIUM Hematocrit 44.5 34.0 - CERNER 45.0 % MILLENNIUM MCV 94.5 (H) 79.0 - CERNER 94.0 fL MILLENNIUM MCH 31.2 26.6 - CERNER 32.2 pg MILLENNIUM MCHC 33.0 32.0 - CERNER 36.5 gm/dL MILLENNIUM Platelets 181 145 - 370 CERNER x10(3)/mcL MILLENNIUM RDWSD 44.0 35.0 - CERNER 46.0 fL MILLENNIUM RDWCV 12.7 10.9 - CERNER 14.4 % MILLENNIUM MPV 10.0 9.0 - 12.0 CERNER fL MILLENNIUM Specimen Anatomical Collection Method Collection Time Receive d Time (Source) Location / / Volume Laterality Blood specimen 12/14/2013 10:19 4 (specimen) AM EDT 10:23 AM EDT Resulting Agency Comment Spec In Lab Nadia Gama MD HEMATOLOGY ORDERABLES Performing Organization Address City/[facility]/[place] [address] CERNER MILLENNIUM VIT D Total Evaluation (12/14/2013 10:19 AM EDT) athologist Signature 25-OH Vit D 32 30 - 100 CERNER Total ng/mL [facility] Comment: Deficient <10 ng/mL Insufficient 10 to 29 ng/mL Sufficient 30 to 100 ng/mL Potential Intoxication >100 ng/mL According to the [place] National Osteoporosi s Foundation, Vitamin D concentrations >30 ng/mL are sufficient to protect bone health. ??The National Kidney Foundation has similarly stated that pat ients with Vitamin D concentrations <30ng/mL should be considered to be insu fficient or deficient. http://Sendbloom/DHAppographynatlkidneyfoundat ion http://Sendbloom/DHAppographyVitD The IDS iSYS Vitamin D Immunoassay detec ts both 25-OH Vitamin D2 and 25-OH Vitamin D3, but only a total Vitamin D c oncentration is reported. Specimen Anatomical Collection Method Collection Time Receive d Time (Source) Location / / Volume Laterality Blood specimen 12/14/2013 10:19 4 (specimen) AM EDT 10:23 AM EDT Resulting Agency Comment Spec In Lab Nadia Gama MD CHEMISTRY ORDERABLES Performing Organization Address City/State/ZIP Code Phon e Number [address] [facility] T4, free (12/14/2013 10:19 AM EDT) athologist Signature Free T4 1.15 0.90 - 1.60 CERNER ng/dL [facility] Specimen Anatomical Collection Method Collection Time Receive d Time (Source) Location / / Volume Laterality Blood specimen 12/14/2013 10:19 4 (specimen) AM EDT 10:23 AM EDT Resulting Agency Comment Spec In Lab Nadia Gama MD CHEMISTRY ORDERABLES Performing Organization Address City/[facility]/ZIP Code Phon e Number [address] [facility] TSH (12/14/2013 10:19 AM EDT) athologist Signature TSH 1.48 0.27 - 4.20 CERNER mcIU/mL MILLENNIUM Specimen Anatomical Collection Method Collection Time Receive d Time (Source) Location / / Volume Laterality Blood specimen 12/14/2013 10:19 4 (specimen) AM EDT 10:23 AM EDT Resulting Agency Comment Spec In Lab Nadia Gama MD CHEMISTRY ORDERABLES Performing Organization Address City/State/[place] [address] CERNER MILLENNIUM (ABNORMAL) Lipid panel (fasting) (12/14/2013 10:19 AM EDT) P athologist Signature Chol, Total 202 (H) <=199 CERNER mg/dL MILLENNIUM Comment: Recommendations of the NCEP Adult Treatm ent Panel for the following risk cutoff thresholds for the [place] populatio n: Desirable: <200 mg/dL Borderline High: 200-239 mg/dL High: > or = 240 mg/dL Triglycerides 134 <=149 mg/dL CERNER MILLENN IUM Comment: Reference Range: Normal triglycerides: ??<150 mg/dL Borderline high: ??150-199 mg/dL High: ??200-499 mg/dL Very high: ??>qy=740 mg/dL LEONARD 2001; 285(19):5410-8356 HDL 64 >=40 mg/dL CERNER MILLENNIUM Comment: Reference range: ??Low HDL: ?? < 40 mg/dL ??Normal: ?40-60 mg/dL ??Desirable: > 60 mg/dL LEONARD 2001; 285(19):3548-8288 LDL Cholesterol 111 (H) <=99 mg/dL CERNER MARIANO NIUM Comment: Reference range: ?? Optimal: ?<100 mg/dL ?? Near Optimal/Above Optimal: ?? 100-1 29 mg/dL ?? Borderline high: ?130-159 mg/dL ?? High: ? 160-189 mg/dL ?? Very high: ?>tk=550 mg/dL LEONARD 2001: 285(19):7346-7547 Chol/HDL Ratio 3.2 ratio HANNA MENSAH Comment: A Cholesterol to HDL ratio below 4:1 is desirable. ??Studies suggest that increased CAD risk occurs at ratios abov e 5 for females and above 6 for men. ? [place] Heart Association ??(htt p://www.americanheart.org) ? Kim Int Med, 1994; 121:641 ? AM J Med, 1998; 105(1A):48S Specimen Anatomical Collection Method Collection Time Receive d Time (Source) Location / / Volume Laterality Blood specimen 12/14/2013 10:19 4 (specimen) AM EDT 10:23 AM EDT Resulting Agency Comment Spec In Lab Nadia Gama MD CHEMISTRY ORDERABLES Performing Organization Address City/State/[place] [address] HANNA TOWNSEND documented in this encounter Visit Diagnoses Diagnosis Fatigue Other malaise and fatigue Healthcare maintenance Routine general medical examination at a health care facility Tubular adenoma of colon Benign neoplasm of colon Hyperlipidemia Other and unspecified hyperlipidemia Vitamin D deficiency Unspecified vitamin D deficiency Need for omyktzefca-ghhyvol-qilbkzlxv (T dap) vaccine Need for prophylactic vaccination with c ombined gqfjkmxqob-gfjtwal-rdozkwecr (DTP) vaccine GERD (gastroesophageal reflux disease) Esophageal reflux documented in this encounter Care Teams Phd Internship Relationship Specialty Start Date End Date Nadia Gama MD PCP - General 04/29/10 08/14/14 [facility] [place] [address] documented as of this encounter
--- OUTSIDE RECORDS SUMMARY | 2021-12-25 00:51 | XMS_ITS | Encounter Summary ---
:1940 Author Organization [facility] [place] [address] Care Team Providers Name Role Phone Brad Jose MD Primary Care Provider Encounter Details Date Type Department Care Team Description 12/17/2014 Hospital Encounter XRay at [facility] [place] Acute low back pain [address] [place] [id number] Social History Tobacco Use Types Packs/Day [...] 0 tablet mouth daily. hydrocortisone 2.5 % Use 2-3X/week 15 g 1 06/18/2014 0 02/19/2015 Cream esomeprazole (NEXIUM) 20 Take 1 capsule by 90 capsule 4 12/0503/08/2015 mg capsuleIndications: mouth daily. GERD (gastroesophageal reflux disease) mometasone (ELOCON) 0.1 % 1 Appl(s), Top, 0 06/1202/19/2015 ointment once a week sparingly documented as of this encounter Plan of Treatment Not on filedocumented as of this encounter Procedures Procedure Name Priority Date/Time Associated Diagnosis Comme nts XR LUMBAR SPINE 2 Routine 12/17/2014 10:35 AM Res ults for this OR 3 VIEWS EDT procedure are i n the results section. documented in this encounter Results XR lumbar spine 2 or 3 views (12/17/2014 10:35 AM EDT) Anatomical Region Laterality Modality L-spine N/A Radiographic Imaging Specimen (Source) Anatomical Collection Method Collection Time Re ceived Time Location / / Volume Laterality 12/17/2014 10:35 AM EDT Impressions 12/17/2014 11:04 AM EDT IMPRESSION: Moderately severe levoscoliosis. Multilevel degenerative disc disease wit h minimal degree of anterolisthesis listhesis of L4 on 5. Severe facet arthropathy. Narrative 12/17/2014 11:04 AM EDT EXAMINATION: LSPINE 2 OR 3 VIEWS CLINICAL HISTORY: acute on chronic low b ack pain TECHNIQUE: AP and lateral lumbar spine COMPARISON: None FINDINGS: There are 5 nonrib-bearing lumbar type v ertebra. There is moderately severe levoscoliosis centered at L1-2. There is multilevel degenerative disc disease with a minimal degree of anterolisthesis of L4 on 5. There is severe facet arthropathy. No fracture or destructive lesion of bone is seen. Procedure Note Hakeem Rosas MD - 12/17/2014Formatt ing of this note might be different from the original. EXAMINATION: LSPINE 2 OR 3 VIEWS CLINICAL HISTORY: acute on chronic low b ack pain TECHNIQUE: AP and lateral lumbar spine COMPARISON: None FINDINGS: There are 5 nonrib-bearing lumbar type v ertebra. There is moderately severe levoscoliosis centered at L1-2. There is multilevel degenerative disc disease with a minimal degree of anterolisthesis of L4 on 5. There is severe facet arthropathy. No fracture or destructive lesion of bone is seen. IMPRESSION IMPRESSION: Moderately severe levoscoliosis. Multilevel degenerative disc disease wit h minimal degree of anterolisthesis listhesis of L4 on 5. Severe facet arthropathy. Fatuma Eisenberg MD IMG DX ORDERABLES documented in this encounter Visit Diagnoses Diagnosis Acute low back pain Lumbago documented in this encounter Care Teams Supervisor Meter Shop Relationship Specialty Start Date End Date Brad Jose MD PCP - General 12/17/14 11/09/19 [facility] [place] [address] documented as of this encounter
--- OUTSIDE RECORDS SUMMARY | 2021-12-25 00:51 | XMS_ITS | Encounter Summary ---
:1940 Author Organization [facility] [address] Care Team Providers Name Role Phone Birgit Arreaga APRN Primary Care Provider Encounter Details Date Type Department Care Team Description 11/19/2014 Orders Only Internal Medicine at Birgit Arreaga, [facility] SYSTEMS INTEGRATION ANALYST maintenance [facility] [address] [place] GENERAL INTERNAL [id number] MEDICINE [phone] [place], [place] [address] (Wo rk) Social History Tobacco [...] as of this encounter Visit Diagnoses Diagnosis Health care maintenance Unspecified general medical examination documented in this encounter Care Teams Food And Beverage Attendant Relationship Specialty Start Date End Date Birgit Arreaga APRN PCP - General 08/15/14 12/16/[address] [facility] [address] [place] [address] documented as of this encounter
--- OUTSIDE RECORDS SUMMARY | 2021-12-25 00:52 | XMS_ITS | Encounter Summary ---
:1940 Author Organization [facility] [place] [address] Care Team Providers Name Role Phone Nadia Gama MD Primary Care Provider Encounter Details Date Type Department Care Team Description 10/09/2010 Abstract [place] [facility] [place]ayy Guzman, RN [facility] [place] [address] Social History Tobacco Use Types Packs/Day Years Used Date Never Assessed Sex Assigned at Date Recorded Not on file documented as of this encounter Plan of Treatment Not on filedocumented as of this encounter Visit Diagnoses Not on filedocumented in this encounter Care Teams Supervisor Coin Machine Relationship Specialty Start Date End Date Nadia Gama MD PCP - General 04/29/10 08/14/[address] [facility] [address] [place] [address] documented as of this encounter
--- OUTSIDE RECORDS SUMMARY | 2021-12-25 00:52 | XMS_ITS | Encounter Summary ---
:1940 Author Organization [facility] [place] [address] Care Team Providers Name Role Phone Nadia Gama MD Primary Care Provider Encounter Details Date Type Department Care Team Description 12/10/2010 Hospital Encounter Mammography at [facility] Mercedes Bobby MD [facility] OBSTETRICS & [place] [address] [place] [address] Social History Tobacco Use Types [...] Sig Dispensed Refills Start Date End Date multivitamin (THERAGRAN) Take 1 tablet by 0 tablet mouth daily. rabeprazole (ACIPHEX) 20 Take 1 tablet by 30 tablet 12 10/1010/10/2011 mg tabletIndications: mouth daily. GERD (gastroesophageal reflux disease) HYDROCORTISONE (HYTONE Apply 1 applicator 0 10/0712/10/2011 TOP) topically 2 times daily as needed. CALCIUM CARBONATE 0 06/12/2010 012 (CALTRATE 600 ORAL) mometasone (ELOCON) 0.1 % 1 Appl(s), Top, once 0 06/12/2010 02/19/2015 ointment a week sparingly documented as of this encounter Plan of Treatment Not on filedocumented as of this encounter Procedures Procedure Name Priority Date/Time Associated Diagnosis Comme nts MAMMO SCREENING CAD Routine 12/10/2010 10:55 AM Healthcare R esults for this BILATERAL EDT maintenance procedure are i n the results section. documented in this encounter Results Mammo digital bilateral Screening with CAD (12/10/2010 10:55 AM EDT) Anatomical Region Laterality Modality Breast Bilateral Mammography Specimen (Source) Anatomical Collection Method Collection Time Re ceived Time Location / / Volume Laterality 12/10/2010 10:55 AM EDT Narrative 12/11/2010 10:09 AM EDT Reason for Exam: Screening Technique: Craniocaudal (CC) and Medio-l ateral Oblique (MLO) views of both breasts obtained with direct digital cap ture. The exam was evaluated by CAD version 8. 3.17. Findings: This is a negative mammogram (ACR Catego ry 1). ??There is a 12 mm oval mass with well defined margins in the supra-areola r Right Breast, which corresponds to a subcutaneous lesion (probably sebaceous cyst).There is a stable fibroglandular pattern without significant change from prior studies. There is no mammographic evidence of can cer. ??The breasts are of scattered density. CONCLUSION: This is a NEGATIVE mammogram (ACR Catego ry 1). ?? Routine screening mammography is recomme nded with the frequency dependent upon the patient's age and breast cancer risk factors. A letter has been sent to this patient b y the breast imaging center. Procedure Note Antolin Miner MD - 12/11/2010Format ting of this note might be different from the original. Reason for Exam: Screening Technique: Craniocaudal (CC) and Medio-l ateral Oblique (MLO) views of both breasts obtained with direct digital cap ture. The exam was evaluated by CAD version 8. 3.17. Findings: This is a negative mammogram (ACR Catego ry 1). There is a 12 mm oval mass with well defined margins in the supra-areola r Right Breast, which corresponds to a subcutaneous lesion (probably sebaceous cyst).There is a stable fibroglandular pattern without significant change from prior studies. There is no mammographic evidence of can cer. The breasts are of scattered density. CONCLUSION: This is a NEGATIVE mammogram (ACR Catego ry 1). Routine screening mammography is recomme nded with the frequency dependent upon the patient's age and breast cancer risk factors. A letter has been sent to this patient b y the breast imaging center. Nadia Gama MD IMG MAMMO ORDERABLES documented in this encounter Visit Diagnoses Diagnosis Healthcare maintenance Routine general medical examination at a health care facility documented in this encounter Care Teams Pumper Head Relationship Specialty Start Date End Date Nadia Gama MD PCP - General 04/29/10 08/14/14 [facility] [address] [place] [address] documented as of this encounter
--- OUTSIDE RECORDS SUMMARY | 2021-12-25 00:52 | XMS_ITS | Encounter Summary ---
:1940 Author Organization [facility] [place] [address] Care Team Providers Name Role Phone Nadia Gama MD Primary Care Provider Reason for Visit Reason Comments Skin Lesion Encounter Details Date Type Department Care Team Description 11/17/2010 Follow-Up Dermatology Liv Love MD Sebaceous hyperplasia [facility] (Pr imary Dx) Drive [address] [phone] RD-DERMATOLOGY [place] [address] (Wo rk) Social History Tobacco Use Types [...] documented as of this encounter Progress Notes Liv Love MD - 11/17/2010 1:44 PM EDT DERMATOLOGY SPOT-CHECK Date of service: 11/17/2010 Anhkelly Pearce : 1940 Provider: Liv Love MD PROBLEM: Spot to check Chief Complaint Patient presents with ??? Skin Lesion The patient is seen at the request of NADIA GAMA MD, who instructed the patient to be seen for evaluation of above SKIN HX: 1. 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 year old female established pt new to me. Sent by her PCP due to a spot on her R chin, pt states she did not even notice it, thinks nothing iswrong with it, unsure of how long it has been there Seen for one spot-check at this apointment. Knows this is a one-spot check clinic only. Knows will need to make appointment for full skin check if desired or to have other areas checked. ADR: No Known Allergies MEDS: Current outpatient prescriptions ordered prior to encounter Medication Sig Dispense Refill ??? rabeprazole (ACIPHEX) 20 mg tablet Take 1 tablet by mouth daily. 30 tablet 12 ??? HYDROCORTISONE (HYTONE TOP) Apply 1 applicator topically 2 times daily as needed. ??? multivitamin (THERAGRAN) tablet Take 1 tablet by mouth daily. ??? CALCIUM CARBONATE (CALTRATE 600 ORAL) ??? mometasone (ELOCON) 0.1 % ointment 1 Appl(s), Top, once a week sparingly ROS General: feeling well EXAM A focused skin exam of the concerning spot was performed. General: NAD, pleasant, cooperative Focused exam of skin: R chin Skin findings: A. 0.2-0.3cm yellowish papules with central umbilication on the right chin ASSESSMENT/PLAN: A. Sebaceous Hyperplasia, pt reassured. Pt knows to call me if she notices change B.RTC for a full skin check as planned Jan 2011 Note initiated by: SHAUN Love M.D. Section of Dermatology [facility] cc: NADIA GAMA MD documented in this encounter Plan of Treatment Not on filedocumented as of this encounter Visit Diagnoses Diagnosis Sebaceous hyperplasia - Primary Other specified disease of sebaceous gla nds documented in this encounter Care Teams Ship'S Electronic Warfare Officer Relationship Specialty Start Date End Date Nadia Gama MD PCP - General 04/29/10 08/14/[address] [facility] [place] [address] documented as of this encounter
--- OUTSIDE RECORDS SUMMARY | 2021-12-25 00:52 | XMS_ITS | Encounter Summary ---
:1940 Author Organization [facility] [place] [address] Care Team Providers Name Role Phone Nadia Gama MD Primary Care Provider Reason for Referral Consultation (Routine) - Closed Specialty Diagnoses / Procedures Referred By Contact Refer red To Contact Dermatology Diagnoses Skin lesion Nadia Gama MD [facility] GENERAL [place], [place] [address] [place] [address] Referral ID Status Reason Start Date Expiration Date Visits V isits Requested Authorized [id number] Closed Consult, 10/10/2010 04/08/2011 1 1 Test & Treat Reason for Visit Reason Comments Annual Exam Encounter Details Date Type Department Care Team Description 10/10/2010 [facility] GERD (gastroesophageal reflux disease); [facility] Hyp erlipidemia; Drive [address]; [place], [place] GENERAL INTERNAL Skin lesion [phone] MEDICINE [phone] [place], [place] [address] (Wo rk) Social History Tobacco [...] Sign Reading Time Taken Comments Blood Pressure 121/80 10/10/2010 1:29 PM EDT Pulse 64 10/10/2010 1:29 PM EDT Temperature - - Respiratory Rate - - Oxygen Saturation - - Inhaled Oxygen Concentration - - Weight 94.8 kg (209 lb) 10/10/2010 1:29 PM EDT Height 170.8 cm (5' 7.25) 10/10/2010 1:29 PM EDT Body Mass Index 32.49 10/10/2010 1:29 PM EDT documented in this encounter Patient Instructions Patient InstructionsNadia Gama MD - 10/10/2010 2:12 PM EDT # GERD -take aciphex 30 min prior to breakfast Stop daily aspirin # healthcare maintenance -Dr. Bobby in December -schedule mammo for December -continue multiple vitamin daily -daily walking 30-60 min a day -fasting labs today pending # bone health -normal DEXA in 2007 -continue caltrate 600 mg with vit D plus multivit documented in this encounter Progress Notes Nadia Gama MD - 10/10/2010 2:00 PM EDT Ms. Pearce is a 70 year old female who presents for preventive health -legs swell every night. not the ankle but primarily in the calf. Sx for a yr, not painful, goes down at night -mild acid reflux. Takes one nexium in the morning. Occ has sx later in the day. Insurance won't cover the nexium. Omeprazole caused fecal incontinence. Aciphex is also on the list, so we will try thatinstead. Advised her to stop daily ASA. Does not have HTN -hyperlipidemia discussed--lab today Patient Active Problem List Diagnoses Code ??? Lichen sclerosus et atrophicus of the vulva 701.0J ??? Overweight 278.02 ??? GERD (gastroesophageal reflux disease) 530.81S ??? Hyperlipidemia 272.4S ??? Healthcare maintenance V70.0Q Problem List 1. fibroadenoma left breast 2002 2. obesity BMI 32 3. lichen sclerosis and lichen simplex chronicus; sees Dr. Bobby 4. GERD 5. atypical chest pain; neg sestamibi 2004 6. hyperlipidemia LDL 134 2005 SOCIAL HISTORY Living situation - lives with in [place]. 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 Has a house in [place]. 2 kids in 30s. Takes care of her elderly [id number] EtOH - Drinks rarely Tobacco - None [...] calcium HEALTH MAINTENANCE pap done by - [facility]--> will transition to Dr. Bobby who follows LS closely mammography at [facility] - colonoscopy - 12/07 [facility]2007 normal--> repeat 5 yrs EGD 2007 Findings: The esophagus was normal. There was no evidence of esophagitis or Barretts esophagus.A small hiatus hernia was present. The examined duodenum was normal. Impression: - Normal esophagus. - Hiatus hernia. - Normal examined duodenum. Cholesterol - TODAY DEXA - 05/09, DEXA EXAMINATION: December 06, [...] no elevation in relative risk for fracture. IMMUNIZATIONS Td - 2001 Pneumovax - 09/30/07 Flu -2002 Hepatitis B - FAMILY HISTORY Mother 90, angina Father of colon ca 80 Aunt and cousin on mother's side have breast ca in their 50s/60s. other details in chart W - CORE REVIEW OF SYSTEMS Question 10/10/10 01:05 PM Have you recently experienced any of the following general symptoms? Fatigue, lack of energy Have you recently experienced any of the following symptoms with your eyes? Other eye problems Have you recently experienced any of the following respiratory / breathing symptoms? None of the above Have you recently experienced any of the following symptoms with your heart? Swelling of legs Have you recently experienced any of the following stomach, intestinal, or bowel symptoms? Heartburn, indigestion Have you recently experienced any of the following skin or hair symptoms? Dry skin Have you recently experienced any of the following joint or muscle symptoms? Joint stiffness Have you recently experienced any of the following neurological symptoms? None of the above Have you recently experienced any of the following blood or lymph node related symptoms? None of the above Have you recently experienced any of the following mental or emotional symptoms? Rest of ROS neg, denies pain BP 121/80 Pulse 64 Ht 1.708 m (5' 7.25) Wt 94.802 kg (209 lb) BMI 32.49 kg/m2 Gen - Well nourished female in no apparent distress Skin -small papule right chin that has telangiectasias but is not pearly HEENT - NC/AT. 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 Does a healthy living exercise program twice a week.. # HM vit D 33 in 2009. Continue current supplement received zostavax in 2009 -mammo ordered for December Normal bone density # hyperlipidemia will check fast chol today. encouraged increase in activity # GERD neg endoscopy in 2007 new rx aciphex as needed -D/C asa # skin lesion -derm referral # lichen sclerosis f/u with Dr. Bobby f/u 1 yr documented in this encounter Plan of Treatment Scheduled Referrals Name Type Priority Associated Order Schedule Diagnoses REFERRAL TO Outpatient Referral Routine Skin lesion Ordered: DERMATOLOGY 10/10/2010 documented as of this encounter Procedures Procedure Name Priority Date/Time Associated Diagnosis Comme nts DIFFERENTIAL, Routine 10/10/2010 2:40 Results for this AUTOMATED PM EDT procedure are i n the results section. CBC (WITH DIFF) Routine 10/10/2010 2:40 Healthcare maintenance Results for this PM EDT procedure are i n the results section. LIPID PANEL (REFLEX Routine 10/10/2010 2:40 Hyperlipidemia Res ults for this DIRECT LDL) PM EDT procedure are i n the results section. COMPREHENSIVE Routine 10/10/2010 2:40 Healthcare maintenance R esults for this METABOLIC PANEL PM EDT procedure ar e in (NON-FASTING) the results section. documented in this encounter [...] the breast imaging center. Nadia Gama MD [facility] [place] ORDERABLES REFLEX LAB-A-DIFF (10/10/2010 2:40 PM EDT) P athologist Signature Neutrophils % 65.6 34.0 - CERNER 71.0 % MILLENNIUM Neutr Abs (ANC) 3.54 1.50 - CERNER 6.30 MILLENNIUM x10(3)/mcL Lymphocytes % 23.3 19.0 - CERNER 53.0 % MILLENNIUM Lymphocytes Abs 1.3 1.0 - 3.6 CERNER x10(3)/mcL MILLENNIUM Monocytes % 7.4 4.0 - 13.0 CERNER % MILLENNIUM Monocyte Abs 0.4 0.2 - 1.0 CERNER x10(3)/mcL MILLENNIUM Eosinophils % 2.0 0.0 - 7.0 CERNER % MILLENNIUM Eosinophils Abs 0.1 0.0 - 0.5 CERNER x10(3)/mcL MILLENNIUM Basophils % 1.5 0.0 - 2.0 CERNER % MILLENNIUM Basophils [...] Location / / Volume Laterality Blood specimen 10/10/2010 2:40 PM 011 2:46 (specimen) EDT PM EDT Nadia Gama MD HEMATOLOGY ORDERABLES Performing Organization Address City/State/[place] [address] CERNER MILLENNIUM (ABNORMAL) Lipid panel (fasting) (10/10/2010 2:40 PM EDT) P athologist Signature Chol, Total 209 (H) <=199 CERNER mg/dL MILLENNIUM Comment: Recommendations of the NCEP Adult Treatm ent Panel for the following risk cutoff thresholds for the [place] popul[place] n: Desirable: <200 mg/dL Borderline High: 200-239 mg/dL High: > or = 240 mg/dL Triglycerides 130 <=149 mg/dL CERNER MILLENN IUM Comment: Reference Range: Normal triglycerides: ??<150 mg/dL Borderline high: ??150-199 mg/dL High: ??200-499 mg/dL Very high: ??>ws=300 mg/dL LEONARD 2001; 285(19):1321-4238 HDL 62 >=40 mg/dL CERNER MILLENNIUM Comment: Reference range: ??Low HDL: ?? < 40 mg/dL ??Normal: ?40-60 mg/dL ??Desirable: > 60 mg/dL LEONARD 2001; 285(19):8748-6895 LDL Cholesterol 121 (H) <=99 mg/dL CERNER MARIANO NIUM Comment: Reference range: ?? Optimal: ?<100 mg/dL ?? Near Optimal/Above Optimal: ?? 100-1 29 mg/dL ?? Borderline high: ?130-159 mg/dL ?? High: ? 160-189 mg/dL ?? Very high: ?>fv=834 mg/dL LEONARD 2001: 285(19):6280-9402 Chol/HDL Ratio 3.4 ratio CERNER MILLENNI UM Comment: A Cholesterol to HDL ratio below 4:1 is desirable. ??Studies suggest that increased CAD risk occurs at ratios abov e 5 for females and above 6 for men. ? Canadian Heart Association ??(htt p://www.americanheart.org) ? Ikm Int Med, 1994; 121:641 ? AM J Med, 1998; 105(1A):48S Specimen Anatomical Collection Method Collection Time Receive d Time (Source) Location / / Volume Laterality Blood specimen 10/10/2010 2:40 PM 011 2:46 (specimen) EDT PM EDT Nadia Gama MD CHEMISTRY ORDERABLES Performing Organization Address City/State/ZIP Code Phon e Number [place] [phone] CERNER MILLENNIUM (ABNORMAL) Comprehensive metabolic panel (non-fasting) (10/10/2010 2:40 PM EDT) P athologist Signature Glucose Lvl 85 60 - 199 CERNER mg/dL MILLENNIUM Comment: Diabetes: >=200 mg/dL plus symp toms BUN 21 (H) 8 - 18 mg/dL CERNER MILLENNIUM Creatinine 0.67 (L) 0.70 - 1.20 mg/dL CERNER MILL ENNIUM Sodium 138 135 - 145 mmol/L CERNER MARIANO NIUM Potassium 3.9 3.5 - 5.0 mmol/L CERNER MARIANO NIUM Comment: Please note: ??Patients with WBC >100,00 0 may have falsely elevated Potassium levels. ??For accurate Potassium quantif ication in these patients send serum separator tube (gold top) for subsequent determinations. ??Contact the Clinical Chemistry Laboratory if there are any qu estions. Chloride 99 98 - 107 mmol/L CERNER MILLENN IUM CO2 30 22 - 31 mmol/L CERNER MILLENNI UM Anion Gap 9 5 - 15 mmol/L CERNER MILLENNIU M Calcium 9.8 8.5 - 10.5 mg/dL CERNER MARIANO NIUM Total Protein 7.4 6.4 - 8.3 gm/dL CERNER MIL LENNIUM Albumin 4.4 3.2 - 5.2 gm/dL CERNER MILLENN IUM AST 22 0 - 30 unit/L CERNER MILLENNIU M ALT 22 0 - 30 unit/L CERNER MILLENNIU M Alk Phos 77 40 - 104 unit/L CERNER MILLENN IUM Total Bilirubin 1.3 0.2 - 1.3 mg/dL CERNER M ILLENNIUM Bili, Direct 0.2 0.0 - 0.3 mg/dL CERNER MILL ENNIUM Estimated GFR >60 >=60 CERNER MILLENNIU M Comment: The National Kidney Disease Education Pr ogram (NKDEP) has recommended all laboratories report estimated GFR (eGFR) along with plasma creatinine measurements to assist you with recognit ion of early kidney disease. Caveats: ??Plasma creatinine should be a t steady-state (unchanged within the past week). For patient s multiply eGFR by 1.2.MDRD equation has not been validated for pediatric pat ients and is only valid for patients with age >= 18 years. At present, NKDEP does NOT recommend usi ng the MDRD equation for drug dosing purposes and pharmacists should continue to use their current dosing methods. In addition, numerical eGFR values great er than 60 ml/min/1.73 square meters should be treated as > 60, and not an ex act number due to greater inaccuracies at these higher values. Per NKDEP, they classify normal renal function as any GFR >60ml/min/1.73 square meters; chronic kidney disease wh en GFR <60, and renal failure when GFR <15. ??This calculation may not be valid for patients with atypical muscle mass (very lean or obese), acute renal failur e, and in patients with diabetic kidney disease. References: http://nkdep.nih.gov/resources/NKDEP_Sug gestn4Labs_0606_508.pdf http://www.kidney.org/professionals/kls/ pdf/faq_gfr.pdf Specimen Anatomical Collection Method Collection Time Receive d Time (Source) Location / / Volume Laterality Blood specimen 10/10/2010 2:40 PM 011 2:46 (specimen) EDT PM EDT Nadia Gama MD CHEMISTRY ORDERABLES Performing Organization Address City/[facility]/[place] [address] CERNER MILLENNIUM (ABNORMAL) CBC (with Diff) (10/10/2010 2:40 PM EDT) P athologist Signature WBC 5.4 4.0 - 10.0 CERNER x10(3)/mcL MILLENNIUM RBC 4.54 3.93 - CERNER 5.22 MILLENNIUM x10(6)/mcL Hemoglobin 14.3 11.2 - CERNER 15.7 gm/dL MILLENNIUM Hematocrit 42.8 34.0 - CERNER 45.0 % MILLENNIUM MCV 94.3 (H) 79.0 - CERNER 94.0 fL MILLENNIUM MCH 31.5 26.6 - CERNER 32.2 pg MILLENNIUM MCHC 33.4 32.0 - CERNER 36.5 gm/dL MILLENNIUM Platelets 206 145 - 370 CERNER x10(3)/mcL MILLENNIUM RDWSD 44.3 35.0 - CERNER 46.0 fL MILLENNIUM RDWCV 12.9 10.9 - CERNER 14.4 % MILLENNIUM MPV 10.5 9.0 - 12.0 CERNER fL MILLENNIUM Specimen Anatomical Collection Method Collection Time Receive d Time (Source) Location / / Volume Laterality Blood specimen 10/10/2010 2:40 PM 011 2:46 (specimen) EDT PM EDT Nadia Gama MD HEMATOLOGY ORDERABLES Performing Organization Address City/[facility]/[place] [address] CERNER MILLENNIUM documented in this encounter Visit Diagnoses Diagnosis Healthcare maintenance Routine general medical examination at a health care facility GERD (gastroesophageal reflux disease) Esophageal reflux Hyperlipidemia Other and unspecified hyperlipidemia Overweight(278.02) Overweight Skin lesion Unspecified disorder of skin and subcuta neous tissue Healthcare maintenance Routine general medical examination at a health care facility documented in this encounter Care Teams Weatherseal Technician Relationship Specialty Start Date End Date Nadia Gama MD PCP - General 04/29/10 08/14/14 [facility] [address] [place] [address] documented as of this encounter
--- OUTSIDE RECORDS SUMMARY | 2021-12-25 00:52 | XMS_ITS | Encounter Summary ---
:1940 Author Organization [facility] [place] [address] Care Team Providers Name Role Phone Nadia Gama MD Primary Care Provider Encounter Details Date Type Department Care Team Description 06/12/2010 Follow-Up Obstetrics and Gynecology at Mercedes Carranza MD [facility] Velia beltran OBSTETRICS & [place] [address] [place] [address] [phone] (Wo rk) Social History Tobacco Use Types Packs/Day Years Used Date Never Assessed Sex Assigned at Date Recorded Not on file documented as of this encounter Plan of Treatment Not on filedocumented as of this encounter Visit Diagnoses Not on filedocumented in this encounter Care Teams Automotive Tire Tester Relationship Specialty Start Date End Date Nadia Gama MD PCP - General 04/29/10 08/14/14 [facility] GENERAL [place] [address] documented as of this encounter
--- OUTSIDE RECORDS SUMMARY | 2021-12-25 00:52 | XMS_ITS | Encounter Summary ---
:1940 Author Organization [facility] [place] [address] Care Team Providers Name Role Phone Nadia Gama MD Primary Care Provider Reason for Referral Physical Therapy (Routine) - Complete - Patient Will Schedule External Appt Specialty Diagnoses / Procedures Referred By Contact Refer red To Contact Physical Therapy Diagnoses Low back pain Nadia Gama MD [facility] Pt Rehab [facility] [place] [address] [place] [address] Referral ID Status Reason Start Expiration Visits Visits Date Date Requested Authorized [id number] Complete - Evaluate and 11/27/2011 05/25/2012 1 1 Patient Will Treat Schedule External Appt Reason for Visit Reason Comments Annual Exam Encounter Details Date Type Department Care Team Description 11/27/2011 Office Visit Internal Medicine at Nadia Gama G ERD (gastroesophageal reflux disease); [facility] Healthcare maintenance; [facility] Hyp erlipidemia; [facility] DR Low back pain [place], [place] GENERAL INTERNAL [address] MEDICINE [phone] [place], [place] [address] (Wo rk) Social History Tobacco Use Types [...] Sign Reading Time Taken Comments Blood Pressure 116/70 11/27/2011 2:05 PM EDT Pulse 62 11/27/2011 2:05 PM EDT Temperature - - Respiratory Rate 18 11/27/2011 2:05 PM EDT Oxygen Saturation - - Inhaled Oxygen Concentration - - Weight 93.9 kg (207 lb) 11/27/2011 2:05 PM EDT Height 172.7 cm (5' 8) 11/27/2011 2:05 PM EDT Body Mass Index 31.47 11/27/2011 2:05 PM EDT documented in this encounter Progress Notes Nadia Gama MD - 11/27/2011 2:25 PM EDT Ms. Pearce is a 71 year old female who presents for preventive health Acid reflux. Sleeping better because bed is up 6 inches but has a lot of sour stomach --nexium worked, but insurance did not cover in 2010 --Omeprazole caused fecal incontinence. --Aciphex was tried in 2010--her stomach felt worse, and it caused diarrhea Best solution--back on nexium? Will ask staff to seek override -hyperlipidemia Came fasting Weight stable at 207 Geriatrics Fell once in [facility]--was sweeping on cement--slip on shoes--did a face plant and went to urgent care and received Td ADLs and IADLS all independent Low Back pain Lumbar, no radiation to legs Intermittent, not now Agreeable to PT Patient Active Problem List Diagnoses Code ??? Lichen sclerosus et atrophicus of the vulva 701.0J ??? Overweight 278.02 ??? GERD (gastroesophageal reflux disease) 530.81S ??? Hyperlipidemia 272.4S ??? Healthcare maintenance V70.0Q SOCIAL HISTORY Living situation - lives with in [place]. 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 Has a house in [place]. 2 kids in 30s. distant history of CABG, recent stents. Takes care of her elderly elwnuw-qh-tur EtOH - Drinks rarely Tobacco - None [...] calcium HEALTH MAINTENANCE pap done by - [facility]--> will transition to Dr. Bobby who follows LS closely mammography at [facility] - has appt pending colonoscopy - 12/07 [facility]2007 normal--> repeat 5 yrs EGD 2007 Findings: [...] relative risk for fracture. IMMUNIZATIONS Td - 2002 Td booster 04/2011 in [place], [place] Pneumovax - 09/30/07 Flu -2003 Hepatitis B Immunization History Administered Date(s) Administered ??? Pneumococcal Polyvalent 23 09/30/2007 ??? Zoster 10/10/2009 FAMILY HISTORY Mother 90, angina Father of colon ca 80 Aunt and cousin on mother's side have breast ca in their 50s/60s. other details in chart Outpatient encounter prescriptions as of 11/27/2011 Medication Sig Dispense Refill ??? HYDROCORTISONE (HYTONE TOP) Apply 1 applicator topically 2 times daily as needed. ??? multivitamin (THERAGRAN) tablet Take 1 tablet by mouth daily. ??? mometasone (ELOCON) 0.1 % ointment 1 Appl(s), Top, once a week sparingly ??? cholecalciferol, Vitamin D3, 1,000 unit Tab tablet Take by mouth daily. 60 tablet 0 ??? DISCONTD: CALCIUM CARBONATE (CALTRATE 600 ORAL) Review of Systems: Review of Systems -Female 50 to 75 11/27/2011 Constitutional None of the above Ear / nose / throat / mouth Other symptoms with ears, nose, throat, mouth Eyes None of the above Respiratory None of the above Cardiovascular Fluttering heart beat (heart palpitations)... Gastrointestinal Heartburn, indigestion... 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 EOMI, PERRL,Tympanic membranes and [...] bowel sounds, no organomegaly or masses pelvic--sees bar back Extremities - No clubbing, cyanosis or edema, normal pulses Back--no spinous process tenderness. Neg SLR. Left hamstring is sore to touch Neurological Orientation - person, place and time Strength - 5/5 upper and lower extremities ASSESSMENT 71 yo woman whose feels well # HM vit D 33 in 2009. She stopped calcium vit D combo so time to start vit D 1000 IU daily received zostavax in 2009 -mammo ordered for December Normal bone density Ask nurses to ba chart--Td 2010 in [place] # low back pain -PT referral to work on biomechanics and core strength # hyperlipidemia will check fast chol today. encouraged increase in activity # GERD neg endoscopy in 2007 new rx nexium -continue non-pharmacologic measures # lichen sclerosis f/u with Dr. Bobby f/u 1 yr documented in this encounter Plan of Treatment Scheduled Referrals Name Type Priority Associated Diagnoses Order S chedule REFERRAL TO Outpatient Referral Routine Low back pain Ordered : PHYSICAL THERAPY 11/27/2011 documented as of this encounter Procedures Procedure Name Priority Date/Time Associated Diagnosis Comme nts DIFFERENTIAL, Routine 11/27/2011 3:11 Results for this AUTOMATED PM EDT procedure are i n the results section. CBC (WITH DIFF) Routine 11/27/2011 3:11 Healthcare maintenance Results for this PM EDT procedure are i n the results section. TSH Routine 11/27/2011 3:11 Healthcare maintenance Re sults for this PM EDT procedure are i n the results section. LIPID PANEL (REFLEX Routine 11/27/2011 3:11 Hyperlipidemia Res ults for this DIRECT LDL) PM EDT procedure are i n the results section. COMPREHENSIVE Routine 11/27/2011 3:11 Healthcare maintenance R esults for this METABOLIC PANEL PM EDT procedure ar e in (NON-FASTING) the results section. documented in this encounter Results DIFFERENTIAL, AUTOMATED (11/27/2011 3:11 PM EDT) P athologist Signature Neutrophils % 66.3 34.0 - CERNER 71.0 % MILLENNIUM Neutr Abs (ANC) 3.63 1.50 - CERNER 6.30 MILLENNIUM x10(3)/mcL Lymphocytes % 22.8 19.0 - CERNER 53.0 % MILLENNIUM Lymphocytes Abs 1.2 1.0 - 3.6 CERNER x10(3)/mcL MILLENNIUM Monocytes % 8.0 4.0 - 13.0 CERNER % MILLENNIUM Monocyte Abs 0.4 0.2 - 1.0 CERNER x10(3)/mcL MILLENNIUM Eosinophils % 1.6 0.0 - 7.0 CERNER % MILLENNIUM Eosinophils [...] Location / / Volume Laterality Blood specimen 11/27/2011 3:11 PM 012 3:17 (specimen) EDT PM EDT Nadia Gama MD HEMATOLOGY ORDERABLES Performing Organization Address City/State/ZIP Code Phon e Number [place] [phone] CERNER MILLENNIUM (ABNORMAL) Comprehensive metabolic panel (non-fasting) (11/27/2011 3:11 PM EDT) athologist Signature Glucose Lvl 86 60 - 199 CERNER mg/dL MILLENNIUM Comment: Diabetes: >=200 mg/dL plus symp toms BUN 25 (H) 8 - 18 mg/dL CERNER MILLENNIUM Creatinine 0.61 (L) 0.70 - 1.20 mg/dL CERNER MILL ENNIUM Comment: Please note that the pediatric reference intervals supplied above were not validated at [facility]. Results from pediatri c patients should be interpreted in conjunction to the patient's age, height and muscle mass. Sodium 142 135 - 145 mmol/L CERNER MARIANO NIUM [...] estions. Chloride 104 98 - 107 mmol/L CERNER MILLENN IUM CO2 29 22 - 31 mmol/L CERNER MILLENNI UM Anion Gap 9 5 - 15 mmol/L CERNER MILLENNIU M Calcium 9.5 8.5 - 10.5 mg/dL CERNER MARIANO NIUM Total Protein 7.3 6.4 - 8.3 gm/dL CERNER MIL LENNIUM Albumin 4.4 3.2 - 5.2 gm/dL CERNER MILLENN IUM AST 27 0 - 30 unit/L CERNER MILLENNIU M ALT 22 0 - 30 unit/L CERNER MILLENNIU M Alk Phos 71 40 - 104 unit/L CERNER MILLENN IUM Total Bilirubin 1.1 0.2 - 1.3 mg/dL CERNER M ILLENNIUM [...] week). For patient s multiply eGFR by 1.2. The MDRD equation was developed using patients be tween the ages of 18 and 70 years. ?? The MDRD equation has not been validated for patients < 18 years of age and should not be used to assess renal function in the pediatric population. ??The MDRD eGFR equation will also overestimate the true GFR of patients above the age of 70. ??This overestimation is variable bu t increases with age. At present, NKDEP does NOT recommend usi [...] kidney disease. References: http://nkdep.nih.gov/resources/NKDEP_Sug gestn4Labs_0606_508.pdf http://www.kidney.org/professionals/kls/ pdf/faq_gfr.pdf Jeannine K, Francheska NA, German AK, Michael TS, José AD, Mariaa ASHISH. Relative performance of the MDRD and CKD-EPI equa tions for estimating glomerular filtration rate among patients with vari ed clinical presentations. Clin J Am Soc Nephrol;6:1963-72. Specimen Anatomical Collection Method Collection Time Receive d Time (Source) Location / / Volume Laterality Blood specimen 11/27/2011 3:11 PM 012 3:17 (specimen) EDT PM EDT Resulting Agency Comment Spec In Lab Nadia Gama MD CHEMISTRY ORDERABLES Performing Organization Address City/[facility]/ZIP Code [place] [address] [facility] [facility] MILLENNIUM TSH (11/27/2011 3:11 PM EDT) athologist Signature TSH 1.47 0.27 - 4.20 CERNER mcIU/mL [facility] Specimen Anatomical Collection Method Collection Time Receive d Time (Source) Location / / Volume Laterality Blood specimen 11/27/2011 3:11 PM 012 3:17 (specimen) EDT PM EDT Resulting Agency Comment Spec In Lab Nadia Gama MD CHEMISTRY ORDERABLES Performing Organization Address City/[facility]/ZIP [facility] [place] [address] [facility] (ABNORMAL) Lipid panel (fasting) (11/27/2011 3:11 PM EDT) athologist Signature Chol, Total 193 <=199 mg/dL [facility] Comment: Recommendations of the NCEP Adult Treatm ent Panel for the following risk cutoff thresholds for the [place] popul[place] n: Desirable: <200 mg/dL Borderline High: 200-239 mg/dL High: > or = 240 mg/dL Triglycerides 88 <=149 mg/dL HANNA LEO IUM Comment: Reference Range: Normal triglycerides: ??<150 mg/dL Borderline high: ??150-199 mg/dL High: ??200-499 mg/dL Very high: ??>cl=833 mg/dL LEONARD 2001; 285(19):4014-3872 HDL 63 >=40 mg/dL HANNA LEOIUM Comment: Reference range: ??Low HDL: ?? < 40 mg/dL ??Normal: ?40-60 mg/dL ??Desirable: > 60 mg/dL LEONARD 2001; 285(19):8001-0727 LDL Cholesterol 112 (H) <=99 mg/dL HANNA QUINTANA NIUM Comment: Reference range: ?? Optimal: ?<100 mg/dL ?? Near Optimal/Above Optimal: ?? 100-1 29 mg/dL ?? Borderline high: ?130-159 mg/dL ?? High: ? 160-189 mg/dL ?? Very high: ?>lj=438 mg/dL LEONARD 2001: 285(19):8870-3373 Chol/HDL Ratio 3.1 ratio HANNA LEOI UM Comment: A Cholesterol to HDL ratio below 4:1 is desirable. ??Studies suggest that increased CAD risk occurs at ratios abov e 5 for females and above 6 for men. ? British Heart Association ??(htt p://www.americanheart.org) ? Kim Int Med, 1994; 121:641 ? AM J Med, 1998; 105(1A):48S Specimen Anatomical Collection Method Collection Time Receive d Time (Source) Location / / Volume Laterality Blood specimen 11/27/2011 3:11 PM 012 3:17 (specimen) EDT PM EDT Resulting Agency Comment Spec In Lab Nadia Gama MD CHEMISTRY ORDERABLES Performing Organization Address City/State/[facility] Code Phon e Number [place] [phone] CERNER MILLENNIUM CBC (with Diff) (11/27/2011 3:11 PM EDT) P athologist Signature WBC 5.5 4.0 - 10.0 CERNER x10(3)/mcL MILLENNIUM RBC 4.64 3.93 - 5.22 CERNER x10(6)/mcL MILLENNIUM Hemoglobin 14.6 11.2 - 15.7 CERNER gm/dL MILLENNIUM Hematocrit 43.0 34.0 - 45.0 CERNER % MILLENNIUM MCV 92.7 79.0 - 94.0 CERNER fL MILLENNIUM MCH 31.5 26.6 - 32.2 CERNER pg MILLENNIUM MCHC 34.0 32.0 - 36.5 CERNER gm/dL MILLENNIUM Platelets 194 145 - 370 CERNER x10(3)/mcL MILLENNIUM RDWSD 43.4 35.0 - 46.0 CERNER fL MILLENNIUM RDWCV 12.9 10.9 - 14.4 CERNER % MILLENNIUM MPV 10.5 9.0 - 12.0 CERNER fL MILLENNIUM Specimen Anatomical Collection Method Collection Time Receive d Time (Source) Location / / Volume Laterality Blood specimen 11/27/2011 3:11 PM 012 3:17 (specimen) EDT PM EDT Resulting Agency Comment Spec In Lab Nadia Gama MD HEMATOLOGY ORDERABLES Performing Organization Address City/[facility]/ZIP Code Phon e Number [place] [phone] CERNER MILLENNIUM documented in this encounter Visit Diagnoses Diagnosis GERD (gastroesophageal reflux disease) Esophageal reflux Healthcare maintenance Routine general medical examination at a health care facility Hyperlipidemia Other and unspecified hyperlipidemia Low back pain Lumbago documented in this encounter Care Teams Digital Analyst Relationship Specialty Start Date End Date Nadia Gama MD PCP - General 04/29/10 08/14/14 [facility] GENER[place] [address] documented as of this encounter
--- OUTSIDE RECORDS SUMMARY | 2021-12-25 00:52 | XMS_ITS | Encounter Summary ---
:1940 Author Organization [facility] [place] [address] Care Team Providers Name Role Phone Nadia Gama MD Primary Care Provider Reason for Visit Reason Comments Follow-up lichen sclerosus/ simplex, d ue for breast and pelvic exam Encounter Details Date Type Department Care Team Description 12/10/2010 Follow-Up Obstetrics and Mercedes Bobby, Lichen sclerosus (Primary Dx); Gynecology at [facility] Lichen simplex [facility] [place] [address] OBSTETRICS & [phone] GYNECOLOGY [place], [place] [address] (Wo rk) Social History Tobacco [...] Sign Reading Time Taken Comments Blood Pressure 112/68 12/10/2010 9:30 AM EDT Pulse - - Temperature - - Respiratory Rate - - Oxygen Saturation - - Inhaled Oxygen Concentration - - Weight 93.9 kg (207 lb) 12/10/2010 9:30 AM EDT Height 172.7 cm (5' 8) 12/10/2010 9:30 AM EDT Body Mass Index 31.47 12/10/2010 9:30 AM EDT documented in this encounter Patient Instructions Patient InstructionsMercedes Bobby MD - 12/10/2010 9:54 AM EDT Continue mometasone once a week sparingly. Welcome to Genome, your secure online access to your electronic medical record at [facility]. Using Genome you will be able to send messages to your providers, view your test results, renew prescriptions, schedule appointments, and much more. Follow these instructions to enter your personal Genome account for the first time: 1. Start your internet browser. Go to [email or web address], [email or web address] and click on the Genome link. 2. Click SIGN UP NOW to go to the NEW MEMBER SIGN UP page. 3. Enter your Genome Access Code exactly as it appears below. (You will not need this access code after you have completed the sign-up process.) ?? Your Genome Access Code: [email or web address] ?? Expires: 01/24/11 09:54 AM ?? IMPORTANT: This Access Code will on the above mentioned date. If you do not sign up beforethis date, you will need to request a new Access Code number. 4. Enter your Date of (mm/dd/yyyy) and zip code click SUBMIT to go to the next page. 5. Create a Genome identification (ID). This will be your Genome login ID and cannot be changed, so think of one that is secure and easy to remember. 6. Create a password which you can change at any time. Your password must contain six (6) letters and two (2) numbers. 7. Enter your Password Reset Question and Answer. This will be used if you forget your password. 8. Enter your e-mail address. This is used to let you know when new information is available in Genome. 9. Click SIGN UP to complete the process. You can now view your electronic medical record. If you have any questions about myD-H or your Access Code, please call for [place], for [place] or for [place]. If you need technical support, please e-mail [email or web address]. Remember, myD-H is NOT for urgent needs! Always dial 911 for medical emergencies. documented in this encounter Progress Notes Mercedes Bobby MD - 12/10/2010 10:03 AM EDT Ms. Pearce is a 70 y.o. here for f/u of lichen sclerosus/LSC. She is using mometasone once a week. She denies any vulvar flares. Last pap & HPV 11/13 neg. Going fishing in [place] for 2 wks, has done this trip before. HYDROCORTISONE (HYTONE TOP); multivitamin (THERAGRAN) tablet; CALCIUM CARBONATE (CALTRATE 600 ORAL);mometasone (ELOCON) 0.1 % ointment; rabeprazole (ACIPHEX) 20 mg tablet On exam, there is labial and clitoral flattening. There is no WE, excoriation, fissuring. There continues to be a small very superficial denuded area .5 cm in diameter lower L vestibule. Atrophy/erythema over R vestibule, nontender. Bimanual and RV exam without palpable mass. Impression: LS/LSC, doing well Plan: Continue mometasone once a week, recheck 6 months. 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
--- OUTSIDE RECORDS SUMMARY | 2021-12-25 00:52 | XMS_ITS | Encounter Summary ---
:1940 Author Organization [facility] [address] Care Team Providers Name Role Phone Nadia Gama MD Primary Care Provider Reason for Visit Reason Onset Date Comments Other 10/07/2010 Encounter Details Date Type Department Care Team Description 10/07/2010 Telephone Internal Medicine at [facility] Nadia Gama MD [facility] [place] [address] GENERAL INTERNAL MEDICINE [phone] [place], [place] [address] (Wo rk) Social History Tobacco Use Types Packs/Day Years Used Date Never Assessed Sex Assigned at Date Recorded Not on file documented as of this encounter Miscellaneous Notes Telephone Encounter - Shanika Castillo RN - 10/07/2010 11:02 AM EDT Problem list, Allergy list and Medication list updated from [facility]. 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
--- OUTSIDE RECORDS SUMMARY | 2021-12-25 00:52 | XMS_ITS | Encounter Summary ---
:1940 Author Organization [facility] [place] [address] Care Team Providers Name Role Phone Nadia Gama MD Primary Care Provider Reason for Visit Reason Comments Follow-up Encounter Details Date Type Department Care Team Description 06/11/2011 Follow-Up Obstetrics and Mercedes Bobby, Lichen sclerosus Gynecology at [facility] (Primary Dx) [facility] [place] [address] OBSTETRICS & [phone] GYNECOLOGY [place], [place] [address] (Wo rk) Social [...] Reading Time Taken Comments Blood Pressure 126/74 06/11/2011 11:17 AM EST Pulse - - Temperature - - Respiratory Rate - - Oxygen Saturation - - Inhaled Oxygen Concentration - - Weight 94.8 kg (209 lb 1.6 oz) 06/11/2011 11:13 AM EST Height 172.7 cm (5' 8) 06/11/2011 11:13 AM EST Body Mass Index 31.79 06/11/2011 11:13 AM EST documented in this encounter Progress Notes Mercedes Bobby MD - 06/11/2011 1:42 PM EST Ms. Pearce is a 70 y.o. here for f/u of LS/LSC. She is using mometasone weekly to every other week. Occ discomfort but really has done well. Good trip to [place], but friends will be selling their home up there. No new health concerns. Outpatient prescriptions marked as taking for the 06/11/11 encounter (Follow-Up) with MARTHA BOBBY Medication Sig Dispense Refill ??? rabeprazole (ACIPHEX) 20 mg tablet Take 1 tablet by mouth daily. 30 tablet 12 ??? HYDROCORTISONE (HYTONE TOP) Apply 1 applicator topically 2 times daily as needed. ??? multivitamin (THERAGRAN) tablet Take 1 tablet by mouth daily. ??? CALCIUM CARBONATE (CALTRATE 600 ORAL) ??? mometasone (ELOCON) 0.1 % ointment 1 Appl(s), Top, once a week sparingly Filed Vitals: 06/11/11 1117 BP: 126/74 Body mass index is 31.79 kg/(m^2). On exam, there is labial and clitoral flattening. There is area of mild erythema larger than previously seen, at base of R introitus, about 1.5 cm by .5 cm. Not really sore to touch. Remainder of vulvaWNL. Impression: Appearance looks lichenoid, but feeling OK Plan: Continue mometasone 1-2X/week, vaseline daily, recheck with pap, pelvic 6 months. documented in this encounter Plan of Treatment Not on filedocumented as of this encounter Visit Diagnoses Diagnosis Lichen sclerosus - Primary Circumscribed scleroderma documented in this encounter Care Teams Window Glazier Helper Relationship Specialty Start Date End Date Nadia Gama MD PCP - General 04/29/10 08/14/[address] [facility] [address] GENERAL [place] [address] documented as of this encounter
--- OUTSIDE RECORDS SUMMARY | 2021-12-25 00:53 | XMS_ITS | Clinical Summary ---
:1940 Author Organization [facility] Address [address] [place] [address] Care Team Providers Name Role Phone Merle Corona MD Primary Care Provider Encounters Date Type Specialty Care Team Description 12/03/2021 Lab Requisition Clinical Laboratory Casey Rodriguez nter for other MD Manjula general exa mination from Last 3 Months Social History Tobacco Use Types Packs/Day Years Used Date Never Assessed Sex Assigned at Date Recorded Not on file Plan of Treatment Health Maintenance Due Date Last Done Comments Hepatitis C Screen 1940 COVID-19 Vaccine (#1) 09/08/1947 Fall Risk Screening 09/08/2007 Procedures Procedure Name Priority Date/Time Associated Diagnosis Comme nts SURGICAL PATHOLOGY Today 12/03/2021 10:02 Encounter for othe r Results for this EDT general examination procedur e are in the results section. from Last 3 Months Results SURGICAL PATHOLOGY (12/03/2021 10:02 EDT) Note to Patient The following [facility] pathology results have CENTER been interpreted by LABORATORY your pathologist and SERVICES may be available to you before your health provider has had the opportunity to review them. Please allow time for your provider to receive these results and explore management options, if applicable. Final Diagnosis A. STOMACH, ANTRUM, BIOPSY: [facility] - Gastric oxyntic mucosa showing no specific pathologi c abnormality. [facility]ENTER LABORATORY B. STOMACH, POLYPS, BIOPSIES: SERVICES - Fundic gland polyps. C. ESOPHAGUS, GASTROESOPHAGEAL JUNCTION, BIOPSY: - Junctional mucosa showing mild reactive changes. Negative for intestinal metaplasia. Negative for dysplasia. D. COLON, SPLENIC FLEXURE, POLYP, BIOPSY: - Tubular adenoma. E. RECTUM, POLYP, BIOPSY: - Tubular adenoma. Attestation By the signature [facility] Electronica lly below, the attending CENTER signed by physician Scarlett certifies KHUSHBOO Rojas MD on that they have 1) SERVICES 12/05/2021 a t 1530 personally conducted a gross and/or microscopic examination of the described specimen(s), and/or personally interpreted the results of laboratory testing of the described specimen(s), and 2) personally rendered or confirmed the above diagnosis. Clinical History History of polyps; H/O [facility] colon cancer; CENTER epigastric pain; LABORATORY bloating SERVICES Gross Description A. [facility] Received in formalin wili d with proper patient identification (initials H, F) and antrum is a granger-salcedo tissue, 0.5 x 0.3 x 0.2 cm. Entirely submitted in A1. [facility] LABORATORY B. SERVICES Received in formalin wili d with proper patient identification (initials H, F) and gastric polyps are two granger-brown tissues, 0.3 x 0.2 x 0.2 cm and 0.3 x 0.3 x 0.2 cm. Entirely submitted in B1. C. Received in formalin wili d with proper patient identification (initials H, F) and GE junction are two salcedo-brown tissues, 0.3 x 0.2 x 0.1 cm and 0.5 x 0.2 x 0.2 cm. Entirely submitted in C1. D. Received in formalin wili d with proper patient identification (initials H, F) and polyp at splenic flexure are granger tissue fragments aggregating 0.8 x 0.8 x 0.3 cm. Entirely submitted in D1. E. Received in formalin wili d with proper patient identification (initials H, F) and rectal polyp is a granger nodular tissue, 0.2 x 0.2 x 0.2 cm. Entirely submitted in E1. ZACH HILL(ASCP) 12/04/2021 7:32 Performing Lab [facility] Scanned Images [facility] SERVICES Specimen Tissue - Specimen from rectum (specimen) Tissue specimen (specimen) - Specimen fr om stomach obtained by total gastrectomy (specimen) Tissue specimen (specimen) - Entire esop hago-gastric mucosal junction (body structure) Tissue specimen (specimen) - Colon, Poly p Tissue specimen (specimen) - Specimen fr om rectum (specimen) Performing Organization Address City/State/ZIP Code Phon e Number [facility] [address] [place] [address] SERVICES from Last 3 Months Insurance Payer Benefit Plan Subscriber ID Effective Phone Address Typ e / Group Dates BCBS BCBS [place] BLUE [id number] 2021-Pres [phone] Medicare MEDICARE ADVANTAGE ent [address] [id number] [place] [address] Ramses,Anh Personal/Family Self 1940 [address] (Home) [place] [address] Anh Pearce Personal/Family Self 1940 [address] (Home) [place] [address] Care Teams Community Development Manager Relationship Specialty Start Date End Date Merle Corona MD PCP - General Family Medicine - Primary 11/05/21 [address] [place] [address]
--- OUTSIDE RECORDS SUMMARY | 2021-12-25 00:53 | XMS_ITS | Encounter Summary ---
:1940 Author Organization [facility] Address [address] [place] [address] Care Team Providers Name Role Phone Unavailable Primary Care Provider Unavailable Encounter Details Date Type Department Care Team Description 05/09/2002 Results Only [facility] Yarely Breen MD [facility] [address] [place] [id number] [phone] (Wo rk) Social History Tobacco Use Types Packs/Day Years Used Date Never Assessed Sex Assigned at Date Recorded Not on file documented as of this encounter Plan of Treatment Not on filedocumented as of this encounter Procedures Procedure Name Priority Date/Time Associated Diagnosis Comme [facility] CYTOPATHOLOGY Routine 05/09/2002 0:00 EST Results for this procedure are i n the results section . documented in this encounter Results CYTOPATHOLOGY (05/09/2002 0:00 EST) Pathology Report: CYTOPATHOLOGY REPORT [facility] Reports generated via electronic interface contain anjana ginal data; however they are lacking the format of the original re port. Caution should be taken when reading/interpreting unfo rmatted reports. Name: ? ANH LECHUGA ? Accession #: ? [id number] : ? 1940 (Age: 61) ??F ?Collect Date: ? 08/2001 Location: ? [facility] ? Receive Date : ? 05/11/2002 Provider: ?YARELY RITTER MD Copy to: ? Specimen/Source: ?ThinPrep Pap Test, Cervix Last Menstrual Period: ? Menstrual/ Status: ? Menopausal Other: ? HPVA - HPV testing requested if ASC-US on the current ThinPrep Pap test. ? SPECIMEN ADEQUACY ? Satisfactory for Evaluation - transformation zone component present GENERAL CATEGORIZATION ? Negative for Intraepithelial Lesion or Malignan cy ? Document reviewed and electronically signed by: ? KATHY Ford(ASCP) ? Report Date: ??05/12/2002 11:06 End of Report Specimen Performing Organization Address City/State/ZIP Code Phon e Number [facility] [address] [place] [address] SERVICES [facility] [address] [place] [address] documented in this encounter Visit Diagnoses Not on filedocumented in this encounter
--- OUTSIDE RECORDS SUMMARY | 2021-12-25 00:53 | XMS_ITS | Encounter Summary ---
:1940 Author Organization [facility] Address [address] [place] [address] Care Team Providers Name Role Phone Merle Corona MD Primary Care Provider Encounter Details Date Type Department Care Team Description 12/03/2021 Lab Requisition [facility] Candida Rodriguez for other Pathology & MD Manjula general examination Laboratory Medicine [address] [place], [place] [address] [phone] Social History Tobacco Use Types Packs/Day Years [...] procedur e are in the results section. documented in this encounter Results SURGICAL PATHOLOGY (12/03/2021 10:02 EDT) Note to Patient The following [facility] pathology results have CENTER been interpreted by LABORATORY your pathologist and SERVICES may be available to you before your health provider has had the opportunity to review them. Please allow time for your provider to receive these results and explore management options, if applicable. Final Diagnosis A. STOMACH, ANTRUM, BIOPSY: [facility] MEDICA L - Gastric oxyntic mucosa showing no specific pathologi c abnormality. CENTER LABORATORY B. STOMACH, POLYPS, BIOPSIES: SERVICES - Fundic gland polyps. C. ESOPHAGUS, GASTROESOPHAGEAL JUNCTION, BIOPSY: - Junctional mucosa showing mild reactive changes. Negative for intestinal metaplasia. Negative for dysplasia. D. COLON, SPLENIC FLEXURE, POLYP, BIOPSY: - Tubular adenoma. E. RECTUM, POLYP, BIOPSY: - Tubular adenoma. Attestation By the signature [facility] Electronica lly below, the attending CENTER signed by Scarlett physician certifies LABORATORY MD Crystal on that they have 1) SERVICES 12/05/2021 a t 1530 personally conducted a gross and/or microscopic examination of the described specimen(s), and/or personally interpreted the results of laboratory testing of the described specimen(s), and 2) personally rendered or confirmed the above diagnosis. Clinical History History of polyps; [facility]/O [facility] colon cancer; CENTER epigastric pain; LABORATORY bloating SERVICES Gross Description A. [facility] Received in formalin wili d with [...] E1. ZACH HILL(ASCP) 12/04/2021 7:32 Performing Lab [facility] SERVICES Scanned Images [facility] SERVICES Specimen Tissue - Specimen from rectum (specimen) Tissue specimen (specimen) - Specimen fr om stomach obtained by total gastrectomy (specimen) Tissue specimen (specimen) - Entire esop hago-gastric mucosal junction (body structure) Tissue specimen (specimen) - Colon, Poly p Tissue specimen (specimen) - Specimen fr om rectum (specimen) Performing Organization Address City/State/ZIP Code Phon e Number [facility] [address] [place] [address] SERVICES documented in this encounter Visit Diagnoses Diagnosis Encounter for other general examination documented in this encounter Care Teams Regulatory Affairs Intern Relationship Specialty Start Date End Date Merle Corona MD PCP - General Family Medicine - Primary 11/05/21 [address] [place] [id number] documented as of this encounter
== END ==
PROVIDERS: PCP Family Medicine; Visit Provider Family Medicine
DX: N20.0 Calculus of kidney (principal)
CPT/HCPCS: 76700

== ENCOUNTER → 2022-04-07 02:32 | Outpatient (CLI) | payer MEDICARE, SELFPAY ==
--- NOTE | 2022-04-07 06:30 | DI.US_ITS ---
Exam(s) US RENAL EXAM: US RENAL CLINICAL HISTORY: monitoring renal calculi,calculus of kidney,n20.0 TECHNIQUE: Ultrasound of both kidneys performed using standard protocol. COMPARISON: CT CT ABDOMEN PELVIS W from 08/30/2021 US US ABDOMEN from 12/25/2021 FINDINGS: RIGHT KIDNEY: Measures 11.3 cm in length. No cysts evident. Normal cortical thickness and corticomedullary differen tiation .No solid masses No intrarenal calculi nor hydronephrosis. LEFT KIDNEY: Measures 12.2 cm in length. No cysts evident. Normal cortical thickness and corticomedullary differe ntiaion. No solids masses. There is mild fullness of the collecting system. No cortical mantle thin thea. No intrarenal calculi. URINARY BLADDER: Prevoid volume is 725 cc Postvoid volume is 266 cc No evidence of bladder mass nor diverticuli. Ureterovesical jets: Both identified and appear symmetrical IMPRESSION: 1. No significant findings in the right kidney. 2. Mild fullness of the infundibulum I of the left kidney noted, possibly mild hydronephrosis. Ther e is a possibility that this finding may be spurious and related to parapelvic cysts. 266 cc postvoid volume in the urinary bladder noted. Prevoid volume was 725 cc. No obvious mass cecil dent in the bladder. No diverticuli. DATA REPOSITORY:
== END ==
PROVIDERS: PCP Family Medicine; Visit Provider Nurse Practitioner Gerontology
DX: N20.0 Calculus of kidney (principal); N13.30 Unspecified hydronephrosis
CPT/HCPCS: 76770

== ENCOUNTER → 2022-04-22 15:26 | Outpatient (BNVA) | payer MEDICARE, SELFPAY | PROVIDERS: PCP Family Medicine; Visit Provider Nurse Practitioner Gerontology | DX: N20.0 Calculus of kidney (principal); N39.0 Urinary tract infection, site not specified; N13.30 Unspecified hydronephrosis; K63.5 Polyp of colon; R39.89 Other symptoms and signs involving the genitourinary system | CPT/HCPCS: 51798; 99214 ==

== ENCOUNTER 2022-10-05 02:58 | Outpatient (CLI) | payer MEDICARE, SELFPAY ==
--- NOTE | 2022-10-05 07:15 | DI.MAMMO_ITS ---
Exam(s) MAMMO SCREENING EXAM: MAMMO SCREENING CLINICAL HISTORY: screening,z12.39. TECHNIQUE: Bilateral full field digital CC and MLO mammographic images were obtained with 3D tomosyn thesis and utilizing computer aided detection (CAD). COMPARISON: Prior outside mammograms were reviewed. FINDINGS: No new findings in the left breast including vicinity of the biopsy marker clip. In the right breast on the CC 3D imaging there is a new asymmetric density located 3 cm in from the n ipple, slightly medial of center, this measuring 8 by 6 mm, slightly lobulated. Require spot view. Also in the right breast is a microcalcification group which is located 7 cm in from the nipple on th e CC view. Slightly increased from previous studies. Recommend spot Mag 2D view. There is no new significant architectural distortion nor skin thickening-retraction. IMPRESSION: 1. No radiographic evidence of malignancy in left breast. 2. Two areas in the right breast which require further additional imaging, 1 of these nodular and the other being a microcalcification group. These require spot compression 3D and 2D spot Mag views, re spectively. Also recommend right breast ultrasound. BI-RADS Category 0 - Assessment Incomplete: Need additional imaging evaluation Breast Density - Category B - Scattered areas of fibroglandular density Breast density Category C or D implies that the patient has dense breast tissue. Dense breast tissue can make it harder to find cancer on a mammogram. Dense breast tissue is also associated with an incr eased risk of breast cancer. This information about the result of the mammogram report was provided to the patient to raise their awareness. Use this report when you speak with the patient about their risks for breast cancer, which includes their family history. At that time, you may recommend additional screening tests (Ultrasoun d or MRI) as these tests may add significant information. A negative radiographic report should not delay biopsy if a dominant or clinically suspicious mass is present. Up to ten percent of cancers are not identified on mammography. A negative report may reinforce clinical impression. Adenosis and dense breasts may obscure an underlying neoplasm. False positive reports average 6 to 10%. Patient will receive a letter notifying them of these results.
== END 2022-10-05 03:18 ==
LOC: DI 03:00
PROVIDERS: PCP Family Medicine; Visit Provider Obstetrics & Gynecology
DX: Z12.31 Encounter for screening mammogram for malignant neoplasm of breast (principal)
CPT/HCPCS: 77063; 77067

== ENCOUNTER 2022-10-07 11:08 | Outpatient (CLI) | payer MEDICARE, SELFPAY ==
--- NOTE | 2022-10-07 13:23 | DI.MAMMO_ITS ---
Exam(s) MG MAMMO SCREEN CALL BACK UNI EXAM: MG MAMMO SCREEN CALL BACK UNI CLINICAL HISTORY: F/U ABNL MAMMO, NEW ASYMMETRIC DENSITY, RT MICROCALCIFICATION. TECHNIQUE: Craniocaudal and mediolateral oblique Full Field Digital Mammography views of the right b reast with Computer Aided Diagnosis. COMPARISON: Comparison is made with prior examinations. FINDINGS: Mammography/Tomosynthesis: Masses/Architectural Distortion: The nodule circled in the retroareolar region of the right breast co rresponds to a skin lesion that has been present on prior examinations and is unchanged. No suspicio us nodules or areas of architectural distortion are identified. Microcalcifictions: No suspicious pleomorphic-type are seen. The cluster of calcifications in the pos terior central right breast are unchanged compared to prior examinations. Skin Thickening/Nipple Retraction: None. IMPRESSION: 1. No evidence of malignancy is noted. 2. Unless there is more urgent need, follow-up screening mammography is recommended, as per [place] [employer] guidelines. 3. The findings were discussed with the patient on the date of the examination. BI-RADS Category 2 - Benign Findings Breast Density - Category B - Scattered areas of fibroglandular density Breast density Category C or D implies that the patient has dense breast tissue. Dense breast tissue can make it harder to find cancer on a mammogram. Dense breast tissue is also associated with an incr eased risk of breast cancer. This information about the result of the mammogram report was provided to the patient to raise their awareness. Use this report when you speak with the patient about their risks for breast cancer, which includes their family history. At that time, you may recommend additional screening tests (Ultrasoun d or MRI) as these tests may add significant information. A negative radiographic report should not delay biopsy if a dominant or clinically suspicious mass is present. Up to ten percent of cancers are not identified on mammography. A negative report may reinforce clinical impression. Adenosis and dense breasts may obscure an underlying neoplasm. False positive reports average 6 to 10%. Patient will receive a letter notifying them of these results.
== END 2022-10-07 11:28 ==
LOC: DI 11:08
PROVIDERS: PCP Family Medicine; Visit Provider Obstetrics & Gynecology
DX: R92.8 Other abnormal and inconclusive findings on diagnostic imaging of breast (principal)
CPT/HCPCS: 77063; 77067

== ENCOUNTER 2022-10-13 01:32 | Outpatient (CLI) | payer MEDICARE, SELFPAY ==
--- NOTE | 2022-10-13 07:45 | DI.US_ITS ---
Exam(s) US RENAL EXAM: US RENAL CLINICAL HISTORY: monitoring hydronephrosis,renal calculi,n13.30,n20.0 TECHNIQUE: Ultrasound of both kidneys performed using standard protocol. COMPARISON: US US RENAL from 04/07/2022 FINDINGS: RIGHT KIDNEY: Measures 11.3 cm in length. No cysts evident. Normal cortical thickness and corticomedullary differen tiation .No solid masses On today's study there are echogenic foci evident both kidneys. There is a 5 millimeter probable non obstructive calculus in the midpole level of the right kidney. LEFT KIDNEY: Measures 7.5 cm in length. No cysts evident. Normal cortical thickness and corticomedullary differen tiaion. No solids masses. There is a 5 millimeter inferior pole calyx calculus, nonobstructive. URINARY BLADDER: Prevoid volume is large, 826 cc Postvoid volume is again noted to be prominent, 202 cc This was 266 on the prior study. No evidence of bladder mass nor diverticuli. Ureterovesical jets: Both were again identified and appear symmetrical IMPRESSION: 1. Both kidneys again exhibit normal size and normal cortical thickness and corticomedullary differe ntiation. There appears to be a single 5 millimeter nonobstructive calculus in each kidney on today' s study. No cysts nor solid renal masses. 2. Urinary bladder is again noted be capacious and with postvoid residual volume of 202 cc, slightly less than was evident on the previous study (266 cc). Despite this, both ureterovesical jets right again identified and there is no evidence of hydronephrosis on either side. DATA REPOSITORY:
== END 2022-10-13 01:52 ==
PROVIDERS: PCP Family Medicine; Visit Provider Nurse Practitioner Gerontology
DX: N13.30 Unspecified hydronephrosis (principal); N20.0 Calculus of kidney
CPT/HCPCS: 76770

== ENCOUNTER → 2022-10-22 15:19 | Outpatient (BNVA) | payer MEDICARE, SELFPAY | PROVIDERS: PCP Family Medicine; Visit Provider Nurse Practitioner Gerontology | DX: R39.89 Other symptoms and signs involving the genitourinary system (principal); Z87.440 Personal history of urinary (tract) infections; N20.0 Calculus of kidney | CPT/HCPCS: 99213 ==

== ENCOUNTER 2023-01-29 08:14 | Day surgery (SDC) | payer MEDICARE, SELFPAY ==
[2023-01-29] MEDS: Tropicam./Phenyleph. (1/2.5%) 5 ML BTL OS ×3 (08:35→08:52)
[2023-01-29 08:37] VITALS: BP 150/93; PULSE 73; RESP 18; TEMP 36.6; O2SAT 94
[2023-01-29 08:41] VITALS: BMI 28.7
--- NOTE | 2023-01-29 08:41 | W.ANESPRE ---
General Info Date of Service Date Performed: 01/29/23 Height: 5 ft 8 in Weight: 85.6 kg Body Mass Index (BMI): 28.7 Surgical Procedure: Operation Date: 01/29/23 10:40 Proposed Procedure Side Surgeon p Cataract Extraction with IOL Implant Left Zack Foster MD Meds Allergies and Home Medications Allergies Allergy/AdvReac Type Severity Reaction Status Date / Time No Known Allergies Allergy Verified 01/28/23 14:13 Home Medication Medication Instructions Recorded esomeprazole magnesium 40 mg 40 mg PO DAILY #30 caps 12/03/21 capsule,delayed release (Nexium) estradiol 0.01% (0.1 mg/gram) 1 g vaginal DIRECTED #60 grams 09/29/22 vaginal cream hydrocortisone 1 % topical cream 1 applic topical BID PRN skin 09/29/22 (Cortisone (hydrocortisone)) irritation 12 months #28.4 grams mometasone 0.1 % topical cream 1 applic topical DAILY #45 grams 09/29/22 Current Visit Medications: Current Medications Generic Name Dose Route Start Last Admin Trade Name Kuldeepq PRN Reason Stop Dose Admin Acetaminophen 1,000 mg 01/29/23 06:00 Acetaminophen 500 Mg Tab PO 02/28/23 05:59 Q4H PRN PRN Balanced Salt Solution 500 ml 01/29/23 06:00 Balanced Salt Soln.-Plus 500 Ml Bag OP 02/28/23 05:59 DIRECTED [facility] 1928–1983 Miscellaneous Medication 0 ml 01/29/23 06:00 Prednisolone 1%, Moxifloxacin 0.5%, Nepafenac 0.1% 5ml Btl OS 02/28/23 05:59 DIRECTED [facility] Miscellaneous Medication 0 ml 01/29/23 06:00 01/29/23 08:35 Tropicam./Phenyleph. (1/2.5%) 5 Ml Btl OS 02/28/23 05:59 1 drp DIRECTED [facility] Administration Tetracaine HCl 0 ml 01/29/23 06:00 Tetracaine 0.5% 4 Ml Btl OS 02/28/23 05:59 DIRECTED [facility] PFSH Active Problems Active Problems: Problem Status Onset Code Posterior subcapsular age-related cataract of left eye H25.042 Nuclear age-related cataract, left eye H25.12 Abnormal mammogram of right breast R92.8 Lichen sclerosus et atrophicus of the vulva N90.4 Change in bowel habits R19.4 Family history of colon cancer Z80.0 Epigastric pain R10.13 Bloating R14.0 Encounter for screening colonoscopy Z12.11 Medical History Medical History Acid reflux Calculus of kidney Constipation Dysuria Hx of hiatal hernia Macular scar of left eye Nuclear sclerotic cataract of right eye Posterior subcapsular age-related cataract, right eye Recurrent UTI Sore throat Swelling of left parotid gland Surgical History Surgical History History of esophagogastroduodenoscopy (EGD) Hx of breast biopsy Hx of colonoscopy Status post cataract extraction and insertion of intraocular lens of right eye (08/08/18) Tobacco Smoking/Tobacco Use Status: Never Alcohol Alcohol Intake: former Substance Use Substance use: Never Substance use type: does not use Vital Signs and Lab Results Vital Signs Most Recent Vital Signs in EMR: Most Recent Vital Signs Temp Pulse Resp BP Pulse Ox 36.6 C 73 18 150/93 H 94 01/29/23 08:37 01/29/23 08:37 01/29/23 08:37 01/29/23 08:37 01/29/23 08:37 Lab Results Blood Type / Crossmatch: No Data to Display Complete Blood Count: No Data to Display Complete Metabolic Panel: No Data to Display Liver Function Panel: No Data to Display Coagulation Panel: No Data to Display Cardiac Panel: No Data to Display Arterial Blood Gas: No Data to Display Venous Blood Gas: No Data to Display Pancreas Panel: No Data to Display Thyroid Panel: No Data to Display Infectious Disease: No Data to Display Blood Cultures: No Data to Display Toxicology Panel: No Data to Display Anesthesia Assessment and Plan Anesthesia History Personal History: No History of Anesthesia Complications Family History: No Family History of Anesthesia Complications Exercise Tolerance Exercise Tolerance: Metabolic Equivalents>4 Cardiac & Pulmonary Exam Cardiac Exam: Normal S1/S2 Heart Sounds Pulmonary Exam: Clear Bilateral Breath Sounds Implantable Cardiac Device Does patient have a Pacemaker or an ICD?: No Airway Exam Known Difficult Airway: No Mallampati Class: 2 Mouth Opening: Normal (> 3cm) Thyromental Distance: Greater than 3 cm Neck Range of Motion: Full ROM Neck Circumference: Normal Teeth Condition: Normal Dentition ASA Classification ASA Score: ASA 2 Emergency Case?: No NPO Status NPO Status: NPO Clears >2 hours, Solids >8 hours Anesthesia Plan Resuscitation Status: Full Code Anesthesia Technique: MAC Anesthesia Airway Planned: Natural Airway Monitors Used: Standard Monitors
[2023-01-29] MEDS: Balanced Salt Soln.-PLUS 500 ML BAG OP (09:28)
[2023-01-29] MEDS: Tetracaine 0.5% 4 ML BTL OS (09:29)
[2023-01-29] MEDS: Duovisc Viscoelastic System EACH 1 EACH (09:30)
[2023-01-29] MEDS: Lidocaine 1% Pres-Free 5 ML VIAL (09:31)
[2023-01-29] MEDS: Phenylephrine/Lidocaine (15/10) MG/ML 1 ML VIAL (09:31)
[2023-01-29] MEDS: Povidone-Iodine Ophth 30 ML BTL (09:33)
[2023-01-29 09:52] VITALS: BP 136/96; PULSE 77; RESP 18; TEMP 36.5; O2SAT 97
--- NOTE | 2023-01-29 09:57 | ROE_ITS ---
Date of service: 01/29/23 Time of Service: 09:58 Operative Note Operative Note DATE OF PROCEDURE: 01/29/23 PRE-OP DIAGNOSIS: Nuclear/posterior subcapsular cataract, left eye POST-OP DIAGNOSIS: same PROCEDURE: Cataract extraction using phacoemulsification with intraocular lens implant, left eye SURGEON: Zack Foster ANESTHESIA TYPE: Local By Surgeon and MAC Refer to Anesthesia Record PATHOLOGY: none sent COMPLICATIONS: None Patient was transported to: same day Patient's condition: stable Implants: Avery and Avery Tecnis Eyhance [id number] Indications: Progressive decreased vision due to cataract, left eye Procedure Description: CATARACT SURGERY OPERATIVE REPORT PREOPERATIVE DIAGNOSIS: 1. Nuclear/posterior subcapsular cataract, left eye POSTOPERATIVE DIAGNOSIS: Same OPERATION: 1. Cataract extraction using phacoemulsification with posterior chamber intraocular lens implant, left eye. IOL: IOL Gritting Machine Operator/Model: Avery [employer] Avery Tecnis Eyhance DIB00 IOL Power: + 19.5 diopters IOL Serial Number: [id number] Optic Diameter: 6.0 mm Haptic/Overall Diameter: 13.0 mm PHACO INFO: Issac NewTide Commerceurion Vision System with OZil and Active Fluidics Cumulative Dispersed Energy (CDE): 10.41 seconds SURGEON: Zack Foster MD, MARIANO ANESTHESIA: Monitored A [facility] (MAC), with local sub-tenon's anesthetic infiltration COMPLICATIONS: None SPECIMENS: None INDICATIONS FOR PROCEDURE: The patient is an 82-year-old lady with history of diminished visual acuity in her left eye secondary to the development of nuclear/posterior subcapsular cataract. She has previously undergone cataract surgery in the right eye approximately 4 years ago and is doing well postoperatively. She now presents for cataract surgery in the left eye. See office notes for detailed information. PROCEDURE: The correct surgical eye was identified and marked as the left eye and the pupil was dilated in the preoperative area using mydriatics and cycloplegics. The dilated pupil size was 7.0 mm. The patient elected to proceed without oral sedation. The patient was brought to the operating room where cardiopulmonary monitoring was instituted and surgical time-out was performed, confirming the correct operative eye and IOL power. Topical anesthesia was administered and ophthalmic povidone-iodine 5% was instilled into the conjunctival fornices. The kaye-ocular area was prepped with Betadine 10% solution and draped in the usual sterile fashion for intraocular surgery, including an aperture drape. A Tegaderm transparent film dressing was cut in half and used to cover the lashes and lid margins. Care was taken to sequester the lashes and lid margins under the Tegaderm dressing. A lid speculum was placed between the lids of the operative eye and the Issac LuxOR Revalia operating microscope was maneuvered into position. Felicitas scissors were then used to make a conjunctival buttonhole approximately 6mm posterior to the limbus in the inferonasal quadrant. Blunt dissection was carried out to expose bare sclera, and a blunt-tipped sub-tenon?s anesthesia cannula was introduced and passed posteriorly along the globe where non- preserved plain lidocaine was injected into posterior sub-Tenon?s space. A sideport knife was used to make a paracentesis port. Intraocular phenylephrine/lidocaine was injected into the anterior chamber.. The anterior chamber was filled with viscoelastic. A keratome knife was used to construct a 2-plane near-clear corneal tunnel extending 2.0mm into clear cornea. A flap was raised on the anterior capsule and capsulorhexis forceps were used to complete a continuous curvilinear capsulorhexis of 5.0 mm. Balanced salt solution was then used to perform cortical cleaving hydrodissection and nuclear hydrodelineation until the lens could be freely rotated within the capsular bag. The lens nucleus was then disassembled and removed within the capsular bag and iris plane using phacoemulsification. Residual cortical material was removed using the irrigation/aspiration handpiece. The posterior capsule was carefully polished to remove as much residual lens epithelial cells as safely possible. The capsular bag was then inflated and the anterior chamber deepened with viscoelastic. The lens implant described above was inserted into the capsular bag using the Avery and Avery Simplicity pre-loaded injector. A Kuglen hook was used to dial the IOL into position. Residual viscoelastic was then removed first from posterior to the IOL, then from the anterior chamber using the I/A handpiece. The lens implant was noted to center nicely within the capsular bag. The incisions were stromally hydrated, and the anterior chamber was reformed using BSS. Then 0.5cc of moxifloxacin 1.0mg/ml were injected into the capsular bag and anterior chamber. The incisions were checked with a Weck spear and found to be secure. Several drops of ophthalmic povidone-iodine 5% were then applied to the eye followed by two drops of Imprimis combination prednisolone/moxifloxacin/nepafenac solution. The drapes were removed and a clear plastic protective eye shield was placed over the eye. The patient was then returned to [facility] Day Surgery in stable condition.
--- NOTE | 2023-01-29 09:57 | W.PM.DSUDISC ---
Date of service: 01/29/23 Time of Service: 09:57 Discharge Plan Disposition Patient Disposition: Home Discharge Details Attending Provider: Zack Foster Primary Care Provider: Merle Corona Home Meds and New Rx's Prescriptions: No Action mometasone 0.1 % cream 1 applic topical DAILY Qty: 45 2RF hydrocortisone [Cortisone (hydrocortisone)] 1 % cream 1 applic topical BID PRN (Reason: skin irritation) 360 Days Qty: 28.4 1RF estradiol 0.01 % (0.1 mg/gram) cream 1 g vaginal DIRECTED Qty: 60 3RF Rx Instructions: PRN - Do NOT fill until patient requests esomeprazole magnesium [Nexium] 40 mg capsule,delayed release(DR/EC) 40 mg PO DAILY Qty: 30 1RF Discharge Instructions Stand Alone Forms: Post-op Topical Cataract, Bhavani Ganey (DSU) Discharge Orders Discharge Orders: Discharge Order (Routine); Ordered 01/29/23 Ordered By: Zack Foster DS: Diagnosis Discharge Diagnosis (1) Posterior subcapsular age-related cataract of left eye: Status: Resolved (2) Nuclear age-related cataract, left eye: Status: Resolved
--- NOTE | 2023-01-29 09:58 | W.ANESPOSTOP ---
Postoperative Evaluation Date, Time and Location Date Performed: 01/29/23 Time Performed: 09:58 Patient Location: Day Surgery Unit Vital Signs Most Recent Imported Vital Signs: Most Recent Vital Signs Temp Pulse Resp BP Pulse Ox 36.6 C 73 18 150/93 H 94 01/29/23 08:37 01/29/23 08:37 01/29/23 08:37 01/29/23 08:37 01/29/23 08:37 Assessment Mental Status: Awake (Alert & Oriented to Patient Baseline) Airway and Respiratory Function: Patent airway with normal (patient baseline) respiratory exam Cardiovascular Function: Hemodynamically Stable Hydration Status: Adequately Hydrated Nausea & Vomiting: No Nausea or Vomiting Pain: Pt. Denies Any Pain Peripheral Nerve Block: Patient did not receive a nerve block
== END 2023-01-29 10:17 | disposition home or self-care (01) ==
LOC: SUR 08:14
PROVIDERS: PCP Family Medicine; Visit Provider Ophthalmology
PROC: (CPT 66984; principal; 2023-01-29 10:30)
DX: H25.042 Posterior subcapsular polar age-related cataract, left eye (principal); H25.12 Age-related nuclear cataract, left eye; Z98.41 Cataract extraction status, right eye
CPT/HCPCS: 66984; V2632

== ENCOUNTER 2023-02-09 17:30 | Outpatient (REF) | payer MEDICARE, SELFPAY ==
[2023-02-09 17:47] LABS: ALT 26 U/L (14-59); AST 21 U/L (15-37); Albumin 3.7 g/dL (3.4-5.0); Alkaline Phosphatase 83 U/L (46-116); Anion Gap 4.7 mmol/L (3-11); BUN 24 mg/dL (7-18); Bilirubin, Total 1.7 mg/dL (0.2-1.0); CO2 33.3 mmol/L (21.0-32.0); CREATININE 0.7 mg/dL (0.55-1.02); Calcium 9.2 mg/dL (8.5-10.1); Calculated LDL 126 mg/dL (<100); Chloride 103 mmol/L (98-107); Cholesterol 206 mg/dL (<200); Estimated GFR 87.37 (mL/min/1.73m2); Glucose 84 mg/dL (74-106); HDL Cholesterol 66 mg/dL (40-60); Potassium 3.9 mmol/L (3.5-5.1); Sodium 141 mmol/L (136-145); Total Protein 6.9 g/dL (6.4-8.2); Triglyceride 74 mg/dL (<150)
[2023-02-09 17:56] LABS: Vitamin D 25 Total 19.7 ng/mL (30-100)
== END 2023-02-09 17:31 | disposition home or self-care (01) ==
LOC: NCHCN 17:30
PROVIDERS: PCP Family Medicine; Visit Provider Family Medicine
DX: E66.3 Overweight (principal); E55.9 Vitamin D deficiency, unspecified
CPT/HCPCS: 80053; 80061; 82306

== ENCOUNTER → 2023-02-23 13:32 | Outpatient (BNVA) | payer MEDICARE, SELFPAY | PROVIDERS: PCP Family Medicine; Referring Provider Family Medicine; Visit Provider Nurse Practitioner Gerontology | DX: R30.0 Dysuria (principal); Z87.440 Personal history of urinary (tract) infections | CPT/HCPCS: 81003; 99214 ==

== ENCOUNTER 2023-02-24 14:12 | Outpatient (REF) | payer MEDICARE, SELFPAY ==
[2023-02-24 14:13] LABS: Bilirubin Negative (Negative); Blood Negative (Negative); Clarity Sl Cloudy (Clear); Glucose Negative (Negative); Ketones 15 mg/dL (Negative); Leukocyte Esterase Negative (Negative); Nitrite Negative (Negative); Specific Gravity 1.015 (1.005-1.025); Urobilinogen 0.2 mg/dL (Up to 0.2)
== END 2023-02-24 14:13 | disposition home or self-care (01) ==
LOC: LBN 14:12
PROVIDERS: PCP Family Medicine; Visit Provider Nurse Practitioner Gerontology
DX: R30.0 Dysuria (principal); R82.998 Other abnormal findings in urine
CPT/HCPCS: 81003; 87086

== ENCOUNTER → 2023-04-12 00:29 | Outpatient (CLI) | payer MEDICARE, SELFPAY ==
--- NOTE | 2023-04-12 07:15 | DI.US_ITS ---
Exam(s) US RENAL EXAM: US RENAL CLINICAL HISTORY: monitoring calculi,CALCULUS OF KIDNEY,N20.0. TECHNIQUE: Wheat scale, color and spectral Doppler were used. COMPARISON: CT CT ABDOMEN PELVIS W from 08/30/2021 US US RENAL from 10/13/2022 FINDINGS: Renal size in cm: Right: 11.8. Left: 12.6. Echogenicity: Normal. Hydronephrosis: There is mild prominence of the right renal pelvis which may represent mild hydroneph rosis or an extrarenal pelvis. Cyst or mass: No. Nephrolithiasis: There are echogenic foci seen bilaterally suspicious for nonobstructing stones. The largest on the right measures 4 mm. The largest on the left measures 6 mm. Other findings: None. Bladder:Normal. Ureteral jets: Right: Visualized and unremarkable. Left: Visualized and unremarkable. Prevoid vol:850 cc Postvoid vol:446 cc Renal color flow: Symmetric and within normal limits. IMPRESSION: 1. Bilateral echogenic foci consistent with nonobstructing stones. 2. Mild right hydro versus extrarenal pelvis. 3. Large postvoid urinary bladder volume. DATA REPOSITORY:
== END ==
PROVIDERS: PCP Family Medicine; Visit Provider Nurse Practitioner Gerontology
DX: N20.0 Calculus of kidney (principal)
CPT/HCPCS: 76770

== ENCOUNTER → 2023-04-21 14:38 | Outpatient (BNVA) | payer MEDICARE, SELFPAY | PROVIDERS: PCP Family Medicine; Referring Provider Family Medicine; Visit Provider Nurse Practitioner Gerontology | DX: Z87.440 Personal history of urinary (tract) infections (principal); N20.0 Calculus of kidney | CPT/HCPCS: 99214 ==

== ENCOUNTER → 2023-10-13 03:00 | Outpatient (CLI) | payer MEDICARE, SELFPAY ==
--- NOTE | 2023-10-13 08:00 | DI.US_ITS ---
Exam(s) US RENAL EXAM: US RENAL CLINICAL HISTORY: monitoring calculi and hydronephrosis,n13.30,n20.0,n39.0. TECHNIQUE: Wheat scale, color and spectral Doppler were used. COMPARISON: CT CT ABDOMEN PELVIS W from 08/30/2021 US US RENAL from 10/13/2022 US US RENAL from 04/12/2023 FINDINGS: Right kidney: 11.0cm Echogenicity: Normal Hydronephrosis: Stable dilatation of the right renal pelvis. Cyst or mass: No Nephrolithiasis: No Left kidney: 12.6cm Echogenicity: Normal Hydronephrosis: Mild, unchanged from prior. Cyst or mass: No Nephrolithiasis: No Bladder:Normal. Both ureteral jets were visualized Prevoid vol:700 cc Postvoid vol:320 cc IMPRESSION: Large postvoid bladder residual. Mild left hydronephrosis. Stable mild dilatation of the right renal pelvis. Previously noted stones were not identified on today's examination. DATA REPOSITORY:
== END ==
PROVIDERS: PCP Family Medicine; Visit Provider Nurse Practitioner Gerontology
DX: N20.0 Calculus of kidney
CPT/HCPCS: 76770

== ENCOUNTER → 2023-10-20 14:34 | Outpatient (BNVA) | payer MEDICARE, SELFPAY | PROVIDERS: PCP Family Medicine; Referring Provider Family Medicine; Visit Provider Nurse Practitioner Gerontology | DX: N39.0 Urinary tract infection, site not specified (principal); K59.00 Constipation, unspecified; N20.0 Calculus of kidney | CPT/HCPCS: 99214 ==

== ENCOUNTER 2024-02-17 19:20 | Outpatient (REF) | payer MEDICARE, SELFPAY ==
[2024-02-17 16:43] LABS: HCT 43.9 % (36.0-46.0); HGB 14.2 g/dL (11.2-15.7); MCHC 32.3 % (32.0-36.0); MCV 96 fL (80-95); MPV 10.3 fL (8.0-11.0); Platelet Count 212 10^3/uL (130-400); RBC 4.58 10^6/uL (3.93-5.22); RDW 12.7 % (11.7-14.6); RDW-SD 45.1 fL; WBC 3.43 10^3/uL (4.4-10.8)
[2024-02-17 17:13] LABS: Calculated LDL 128 mg/dL (<100); Cholesterol 207 mg/dL (<200); HDL Cholesterol 61 mg/dL (40-60); Triglyceride 93 mg/dL (<150); Vitamin D 25 Total 20.7 ng/mL (30-100)
== END 2024-02-17 19:21 | disposition home or self-care (01) ==
LOC: NCHCN 19:20
PROVIDERS: PCP Family Medicine; Visit Provider Family Medicine
DX: Z00.00 Encounter for general adult medical examination without abnormal findings (principal)
CPT/HCPCS: 80061; 82306; 85027

== ENCOUNTER 2024-04-18 02:43 | Outpatient (CLI) | payer MEDICARE, SELFPAY ==
--- NOTE | 2024-04-18 07:30 | DI.US_ITS ---
Exam(s) US RENAL EXAM: US RENAL CLINICAL HISTORY: monitoring calculi/hydro,RECURR UTI,N39.0,N20.0. TECHNIQUE: Wheat scale, color and spectral Doppler were used. COMPARISON: US US RENAL from 10/13/2023 FINDINGS: Renal size in cm: Right: 11.3. Left: 12.2. Echogenicity: Normal. Hydronephrosis: There has been mild progression of the degree of hydronephrosis on the left kidney. There is a stable what appears to be extrarenal pelvis on the right. Cyst or mass: No. Nephrolithiasis: There are echogenic foci seen in the kidneys bilaterally consistent with nonobstruct ing stones. The largest on the right measures 1.1 cm and is located in the inferior pole. The large st on the left measures 0.7 cm and is located in the inferior pole. Other findings: None. Bladder:Normal. Ureteral jets: Right: Visualized and unremarkable. Left: Visualized and unremarkable. Prevoid vol:352 cc Postvoid vol:182 cc Renal color flow: Symmetric and within normal limits. IMPRESSION: 1. Bilateral nephrolithiasis. 2. Mild progression of the left hydronephrosis since 10/13/2023. DATA REPOSITORY:
== END 2024-04-18 03:03 ==
LOC: DI 02:43
PROVIDERS: PCP Family Medicine; Visit Provider Nurse Practitioner Gerontology
DX: N20.0 Calculus of kidney (principal); N39.0 Urinary tract infection, site not specified
CPT/HCPCS: 76770

== ENCOUNTER → 2024-05-09 14:49 | Outpatient (BNVA) | payer MEDICARE, SELFPAY | PROVIDERS: PCP Family Medicine; Visit Provider Nurse Practitioner Gerontology | DX: K59.00 Constipation, unspecified (principal); Z87.440 Personal history of urinary (tract) infections; N20.0 Calculus of kidney; N13.30 Unspecified hydronephrosis | CPT/HCPCS: 99214 ==

== ENCOUNTER 2024-05-23 03:07 | Outpatient (CLI) | payer MEDICARE, SELFPAY ==
[2024-05-23 14:17] LABS: BUN 20 mg/dL (7-18); CREATININE 0.7 mg/dL (0.55-1.02); Estimated GFR 86.83 (mL/min/1.73m2)
== END 2024-05-23 03:08 | disposition home or self-care (01) ==
LOC: LBO 03:07
PROVIDERS: PCP Family Medicine; Visit Provider Nurse Practitioner Gerontology
DX: N13.30 Unspecified hydronephrosis (principal); N39.0 Urinary tract infection, site not specified; N20.0 Calculus of kidney
CPT/HCPCS: 36415; 84520; 82565

== ENCOUNTER 2024-11-20 16:47 | Outpatient (REF) | payer MEDICARE, SELFPAY ==
--- NOTE | 2024-11-20 08:45 | SKI_PTH ---
PATIENT: Anh Pearce LOC: [facility] U#:[id number] AGE/SX: 84/F ROOM: RE11/20/[address]: Merle Corona : 1940 BED: DIS: 11/20/2024 SPEC #: [id number] RECD: 11/20/24 16:53 STATUS: NERISSA BRANHAM #: [id number] CARROLL: 11/20/24 08:[address]: Merle Corona DEPT: Surgical Specimen RECD BY: Chantal Mensah Tissues: 1 - SKIN BIOPSY(SHAVE/PUNCH) Procedures: SKIN LEVEL 4 Comments: [id number]
== END 2024-11-20 16:48 | disposition home or self-care (01) ==
LOC: NCHCN 16:47
PROVIDERS: PCP Family Medicine; Visit Provider Family Medicine
DX: C44.529 Squamous cell carcinoma of skin of other part of trunk (principal)
CPT/HCPCS: 88305

== ENCOUNTER 2024-12-14 01:15 | Outpatient (CLI) | payer MEDICARE, SELFPAY ==
--- NOTE | 2024-12-14 07:45 | DI.US_ITS ---
Exam(s) US RENAL EXAM: US RENAL CLINICAL HISTORY: monitoring hydro and stones, calculus of kidney, constipation,N20.0, K59.00 TECHNIQUE: Ultrasound of both kidneys performed using standard protocol. COMPARISON: US US RENAL from 04/18/2024 FINDINGS: RIGHT KIDNEY: Measures 12 cm in length. No cysts evident. Normal cortical thickness and corticomedullary differentiation .No solid masses There are nonobstructive calculi seen, largest in the right kidney measuring 6 mm in the inferior pole. LEFT KIDNEY: Measures 10.3 cm in length. No cysts evident. Normal cortical thickness and corticomedullary differentiaion. No solids masses. There are nonobstructive calculi seen, the largest is in the left kidney measuring 11 mm. URINARY BLADDER: Prevoid volume is 493 cc Postvoid volume is 277 cc There is layering debris the posterior wall the urinary bladder. No obvious discernible mass nor diverticuli evident in the bladder. No shadowing calculi in the bladder seen. No evidence of bladder mass nor diverticuli. Ureterovesical jets: Both not visualized IMPRESSION: 1. Bilateral nephrolithiasis. No hydronephrosis. 2. No solid renal masses. 3. There is a large amount of postvoid residual urine in the bladder (277cc) and there is layering debris in the urinary bladder lumen. DATA REPOSITORY:
== END 2024-12-14 01:35 ==
PROVIDERS: PCP Family Medicine; Visit Provider Nurse Practitioner Gerontology
DX: N20.0 Calculus of kidney (principal); K59.00 Constipation, unspecified; N39.0 Urinary tract infection, site not specified
CPT/HCPCS: 76770

== ENCOUNTER → 2024-12-19 07:58 | Outpatient (BNVA) | payer MEDICARE, SELFPAY | PROVIDERS: PCP Family Medicine; Visit Provider Nurse Practitioner Gerontology | DX: N39.0 Urinary tract infection, site not specified (principal); N20.0 Calculus of kidney; R39.14 Feeling of incomplete bladder emptying; K59.00 Constipation, unspecified; B96.89 Other specified bacterial agents as the cause of diseases classified elsewhere | CPT/HCPCS: 99213; 81002 ==

== ENCOUNTER 2024-12-19 16:43 | Outpatient (REF) | payer MEDICARE, SELFPAY ==
[2024-12-19 14:52] LABS: Glucose Negative (Negative)
[2024-12-19 15:04] LABS: RBC 0-2 HPF (0-2); WBC 20-50 HPF (0-5)
[2024-12-19 15:05] LABS: C & S Indicated? Yes
== END 2024-12-19 16:44 | disposition home or self-care (01) ==
LOC: LBN 16:43
PROVIDERS: PCP Family Medicine; Visit Provider Nurse Practitioner Gerontology
DX: N39.0 Urinary tract infection, site not specified (principal)
CPT/HCPCS: 81003; 81015; 87086

== ENCOUNTER 2025-02-21 16:03 | Outpatient (REF) | payer MEDICARE, SELFPAY ==
[2025-02-21 14:37] LABS: Abs Immature Grans 0.02 10^3/uL (0.0-0.06); HCT 43.1 % (36.0-46.0); HGB 14.0 g/dL (11.2-15.7); Immature Grans % 0.5 %; MCH 30.9 pg (27.0-33.0); MCHC 32.5 % (32.0-36.0); MCV 95 fL (80-95); MPV 10.1 fL (8.0-11.0); Platelet Count 181 10^3/uL (130-400); RBC 4.53 10^6/uL (3.93-5.22); RDW 12.2 % (11.7-14.6); RDW-SD 43.1 fL; WBC 3.96 10^3/uL (4.4-10.8)
[2025-02-21 15:43] LABS: ALT 22 U/L (14-59); AST 19 U/L (15-37); Albumin 3.6 g/dL (3.4-5.0); Alkaline Phosphatase 83 U/L (46-116); Anion Gap 5.7 mmol/L (3-11); BUN 22 mg/dL (7-18); Bilirubin, Total 1.5 mg/dL (0.2-1.0); CO2 33.3 mmol/L (21.0-32.0); Calcium 9.1 mg/dL (8.5-10.1); Calculated LDL 137 mg/dL (<100); Chloride 104 mmol/L (98-107); Cholesterol 215 mg/dL (<200); Estimated GFR 89.56 (mL/min/1.73m2); Glucose 92 mg/dL (74-106); HDL Cholesterol 63 mg/dL (>or=50); Potassium 3.9 mmol/L (3.5-5.1); Sodium 143 mmol/L (136-145); Total Protein 6.8 g/dL (6.4-8.2); Triglyceride 77 mg/dL (<150); Vitamin B12 376 pg/mL (193-986); Vitamin D 25 Total 23 ng/mL (30-100)
== END 2025-02-21 16:04 | disposition home or self-care (01) ==
LOC: NCHCN 16:03
PROVIDERS: PCP Family Medicine; Visit Provider Family Medicine
DX: E66.3 Overweight (principal); E55.9 Vitamin D deficiency, unspecified; Z00.00 Encounter for general adult medical examination without abnormal findings
CPT/HCPCS: 80053; 80061; 82306; 82607; 85025